=== PATIENT | female | born 1995 | race Caucasian/White ===

== ENCOUNTER 2022-05-02 07:45 | Emergency (ER) | payer OTHER, MEDICAID, SELFPAY ==
--- NOTE | ~2022-05-02 | XR_ITS ---
EXAMINATION: XR CHEST CLINICAL INFORMATION: Cough. Rule out pneumonia. COMPARISON: None TECHNIQUE: Frontal view of the chest was obtained. FINDINGS: The cardiac and mediastinal contours are normal. The lungs are clear. There is no pleural effusion or pneumothorax. There is slight curvature of the proximal lumbar spine to the left. Bony structures are otherwise unremarkable. XR/XR chest 1V IMPRESSION: No evidence of pneumonia.
[2022-05-02 07:53] VITALS: BP 117/74; PULSE 95; RESP 12; TEMP 36.7; O2SAT 100
[2022-05-02 07:54] LABS: Glucose, Whole Blood 86 mg/dL (60-115)
[2022-05-02 08:07] VITALS: BP 124/74; PULSE 80; RESP 18; TEMP 36.7; O2SAT 100; BMI 21.2
--- OUTSIDE RECORDS SUMMARY | 2022-05-02 08:11 | XMS_ITS ---
:1995 Author Care Team Providers Name Role Phone Italo Martinez Primary Care Provider Unavailable Allergies Code Code System Name Reaction Severity Status Onset NKDA ? Notes: none reported Medications Name Status Start Date Stop Date ? ? Advair Diskus 250 mcg-50 mcg/dose powder for inhalation Active ? Not available INHALE 1 PUFF INTO THE LUNGS TWICE A DAY FOR 30 DAYS Elizabeth Allergy 60 mg tablet Active ? Not available Take 1 tablet twice a day by oral route for 30 days. amoxicillin 875 mg-potassium clavulanate 125 mg tablet Completed ? 02/19/2022 TAKE 1 TABLET BY MOUTH TWICE A DAY FOR 10 DAYS azithromycin 250 mg tablet Active ? Not a vailable TAKE 2 TABLETS BY MOUTH TODAY, THEN TAKE 1 TABLET DAILY FOR 4 D AYS benzonatate 200 mg capsule Active ? Not a vailable TAKE 1 CAPSULE BY MOUTH THREE TIMES A DAY FOR 10 DAYS Corlanor 5 mg tablet Active ? Not availab le TAKE 1 TABLET BY MOUTH TWICE A DAY WITH MEALS fluticasone propionate 50 mcg/actuation nasal spray,suspension A ctive ? Not available [place] 2 sprays every day by intranasal route for 30 days. penicillin V potassium 500 mg tablet Completed ? 02/19/2022 TAKE 1 TABLET BY MOUTH TWICE A DAY FOR 10 DAYS prednisone 20 mg tablet Completed ? 02/20/20 22 TAKE 2 TABLETS BY MOUTH EVERY DAY FOR 5 DAYS Pristiq 50 mg tablet,extended release Active ? Not available TAKE 1 TABLET BY MOUTH EVERY DAY Notes: nothing new reported Problems Name Status Onset Date Source ? Anxiety Active 12/27/2021 ? Tachycardia Active 12/27/2021 ? Notes: same Procedures Date Name Performed by ? ? Extraction of [place] Tooth Information n ot available ? Procedure on Eye Information not avai lable ? Tonsillectomy Information not avai lable 02/19/2022 XR, Chest, 2 View Information not avai lable 02/19/2022 XR, Sinuses, Paranasal, 3 or More View I nformation not available Notes: reviewed hx with pt, same Results Lab Results Date Name Specimen Result Interpretation Description Value Range Status Address ? 12/27/2021 Culture, Throat ? Culture, see note ? [facility] [place] [facility]: [address] [address], [place] 12/27/2021 Rapid Flu ? Flu a Result NEGATIVE ? ? In-Office (A+B) Order: Internal U se Only DO No t Attach Compendium DO Not Attach Compendium , Do Not Delete/king ge ? ? ? Flu B Result NEGATIVE ? ? I n-Office Order: Internal U se Only DO No t Attach Compendium DO Not Attach Compendium , Do Not Delete/king ge 12/27/2021 Rapid SARS ? Rapid SARS negative ? ? In-Office CoV 2 Ag, QL CoV 2 Ag, QL Order: IA, IA, Internal U se Respiratory Respiratory Only DO Not Specimen Specimen Attach Compendium DO Not Attach Compendium , Do Not Delete/king ge 12/27/2021 Rapid Strep ? Strep negative ? ? In-Office Group a, Order: Throat Internal U se Only DO No t Attach Compendium DO Not Attach Compendium , Do Not Delete/king ge Past Encounters 02/19/2022 Chronic Cough; Seasonal Allergic Rhiniti s JANICE BakerC: [address] [place] [address], Ph. [phone] 12/27/2021 Sore Throat Symptom; Streptococcal Sore Throat Pat Norton, LAND MANAGEMENT SUPERVISOR: [address] [place] [address], Ph. [phone] Social History Tobacco Smoking Status Never Smoker Vaccine List Vaccine Type COVID-19, mRNA, LNP-S, PF, 30 mcg/0.3 mL dose ([employer]™) 11/14/2020 12/05/2020 influenza, injectable, quadrivalent 05/28/2019 influenza, injectable, quadrivalent, pre servative free 03/16/2021 influenza, intradermal, quadrivalent, pr eservative free 03/08/2020 Tdap 03/17/2020 Notes: pt UTD c19 vax x2, same Plan of Care Patient Instructions Cough: Care Instructions Your Care Instructions A cough is your body's response to somet enrique that bothers your throat or airways. Many things can cause a cough. You might cough because of a cold or the flu, bronchitis, or asthma. Smoking, postnasal d rip, allergies, and stomach acid that ba cks up into your throat also can cause coughs. A cough is a symptom, not a disease. Mos t coughs stop when the cause, such as a cold, goes away. You can take a few steps at home to cough less and feel better. Follow-up care is a padgett part of your [place] atment and safety. Be sure to make and go to all appointments, and call your doctor if you are having problems. It's also a good idea to know your test results and keep a list of the medicines you take. How can you care for yourself at home? Drink lots of water and other fluids. Th is helps thin the mucus and soothes a dry or sore throat. Honey or lemon juice in hot water or tea may ease a dry cough. Take cough medicine as directed by your doctor. Prop up your head on pillows to help you breathe and ease a dry cough. Try cough drops to soothe a dry or sore throat. Cough drops don't stop a cough. Medicine-flavored cough drops are no better than candy-flavored drops or hard candy. Do not smoke. Avoid secondhand smoke. If you need help quitting, talk to your doctor about stop-smoking programs and medicines. These can increase your chances of quitting for good. When should you call for help? Call anytime you think you may need [facility] care. For example, call if: You have severe trouble breathing. Call your doctor now or seek immediate m edical care if: You cough up blood. You have new or worse trouble breathing. You have a new or higher fever. You have a new rash. Watch closely for changes in your health , and be sure to contact your doctor if: You cough more deeply or more often, jun ecially if you notice more mucus or a change in the color of your mucus. You have new symptoms, such as a sore th roat, an earache, or sinus pain. You do not get better as expected. If you want additional relief from the pain of your sore throat, you can take pain medicine that you can get without a prescription such as Ibuprofen. Throat sprays are no better at soothing pain than sucking on cough drops or candy. Some pe ople feel relief if they gargle with salt water. Avoid spicy foods and be sure to get plenty of rest. Additionally, please follow the followin g guidelines: ? Avoid kissing and sharing utensils unt il infection is resolved. ? Practice meticulous hand washing to av oid spread of infection ? Avoid irritation from rough food, hard toothbrush, or any salty, spicy or acidic foods or beverages. ? Increase fluid intake to prevent dehyd ration; cool liquids or popsicles may reduce discomfort. ? Eat a soft diet until throat pain subs ides. ? Use a new toothbrush after 24 hours of antibiotic therapy. Return to urgent care or see your PCP if : ? You have a fever of at least 101?F or 38.4?C ? Your throat pain does not start to imp rove within 7 to 10 days Call for an ambulance or go to the emerg ency room if you: ? Have trouble breathing ? Are drooling because you cannot swallo w your saliva ? Have swelling of the neck or tongue ? Cannot move your neck or have trouble opening your mouth Reminders Provider Appointments None recorded. ? ? Lab None recorded. ? ? Referral None recorded. ? ? Procedures None recorded. ? ? Surgeries None recorded. ? ? Imaging None recorded. ? ? Vitals 02/19/2022 03:00PM Urgent Care Walk In Height Weight BMI Blood Pressure 4 ft 11 in 110 lbs 22.2 kg/m2 92/68 mm[Hg] 12/27/2021 07:50PM Urgent Care Walk In Height Weight BMI Blood Pressure 5 ft 110 lbs 21.5 kg/m2 116/64 mm[Hg]
--- OUTSIDE RECORDS SUMMARY | 2022-05-02 08:11 | XMS_ITS | Encounter Summary ---
:1995 Author Reason for Visit Cough; Existing Patient Assessment and Plan 1. Chronic cough ? benzonatate 200 mg capsule ? Advair Diskus 250 mcg-50 mcg/dose [place] for inhalation ? XR, chest, 2 view ? XR, sinuses, paranasal, 3 or more vie w ? fluticasone propionate 50 mcg/actuati on nasal spray,suspension ? 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 azithromycin 250 mg tablet 2. Seasonal allergic rhinitis ? Elizabeth Allergy 60 mg tablet Discussion Note: None recorded.Patient educational handouts: No information available. Plan of Care Patient Instructions Cough: Care [...] Call anytime you think you may need [facility] care. For example, call if: [...] You do not get better as expected. Reminders Provider Appointments None recorded. ? ? Lab None recorded. ? ? Referral Voice Instructor Referral 02/19/2022 ? Procedures None recorded. ? ? Surgeries None recorded. ? ? Imaging XR, Chest, 2 View 02/19/2022 ? ? XR, Sinuses, Paranasal, 3 or More View 022 ? Medications Name Start Date ? ? Advair Diskus 250 mcg-50 mcg/dose powder for inhalatio n ? INHALE 1 PUFF INTO THE LUNGS TWICE A DAY FOR 30 DAYS Elizabeth Allergy 60 mg tablet ? Take 1 tablet twice a day by oral route for 30 days. azithromycin 250 mg tablet ? TAKE 2 TABLETS BY MOUTH TODAY, THEN TAKE 1 TABLET DESIREE LY FOR 4 DAYS benzonatate 200 mg capsule ? TAKE 1 CAPSULE BY MOUTH THREE TIMES A DAY FOR 10 DAYS Corlanor 5 mg tablet ? TAKE 1 TABLET BY MOUTH TWICE A DAY WITH MEALS fluticasone propionate 50 mcg/actuation nasal spray,roberts spension ? [place] 2 sprays every day by intranasal route for 30 d ays. Pristiq 50 mg tablet,extended release ? TAKE 1 TABLET BY MOUTH EVERY DAY Notes: nothing new reported Medications Administered None recorded. Vitals Height Weight BMI Blood Pressure 4 ft 11 in 110 lbs 22.2 kg/m2 92/68 mm[Hg] Results Lab Results None recorded. Allergies Code Code System Name Reaction Severity Onset NKDA ? ? ? Notes: none reported Problems Name Status Onset Date Source ? Anxiety Active 12/27/2021 ? Tachycardia Active 12/27/2021 ? Notes: same Procedures Date Name Performed by ? ? Extraction of [place] Tooth Information n ot available ? Procedure on Eye Information not avai lable ? Tonsillectomy Information not avai lable 02/19/2022 XR, Chest, 2 View Information not avai lable 02/19/2022 XR, Sinuses, Paranasal, 3 or More View I nformation not available Notes: reviewed hx with pt, same Vaccine List Vaccine Type COVID-19, mRNA, LNP-S, PF, 30 mcg/0.3 mL dose ([employer]) 11/14/2020 12/05/2020 influenza, injectable, quadrivalent 05/28/2019 influenza, injectable, quadrivalent, pre servative free 03/16/2021 influenza, intradermal, quadrivalent, pr eservative free 03/08/2020 Tdap 03/17/2020 Notes: pt UTD c19 vax x2, same Social History Tobacco Smoking Status Never Smoker What is your level of alcohol consumption? None Do you have smoke and carbon monoxide detectors in your home ? Y Have you been to an area known to be high risk for COVID-19? N In the 14 days before symptom onset, have you had close cont act with N a person who is under investigation for COVID-19 while that person was ill? Do you use your seat belt or car seat routinely? Y What was the date of your most recent tobacco screening? Do you use sunscreen routinely? N Do you or have you ever used any other forms of tobacco or n icotine? N Have you recently traveled abroad? N Do you use any illicit or recreational drugs? N Are there any guns present in your home? N In the 14 days before symptom onset, have you had close cont act with N a laboratory-confirmed COVID-19 while that case was ill? Functional Status Unknown. Past Encounters 02/19/2022 Chronic Cough; Seasonal Allergic Rhiniti s Italo Martinez PA-C: [address] [place] [address], Ph. [phone] History of Present Illness ? Cough Reported By: Patient HPI: Quality: harsh. Severity: mi ld. Duration: constant. Timing: gradual. Context: non-smoker, history of asthma. Associated Symptoms: no fever, no chills Note: <div>pt reports she was covid pos over a month ago and she still has this lingering cough. ptstates most times the cough isn't productive it dry. pt states its more of a deep chest cough. pt also reports that her upper chest feels tight all the time. pt reports taking antibiotics, steroids, cough suppressants, menthol cough drops, humidifier and sleeping sitting up. pt does have mild asthma but is not on any prescriptions. pt would like a chest xray to make sure it not bronchitis or pneumonia. </div> Review of Systems ? Mookie.ROS Reported By: Patient Constitutional: Constitutional: no fever Eyes: Eyes: no vision changes ENMT: ENMT: no sore throat Cardiovascular: Cardiovascular: no chest carmen n Chest/Breasts: Breasts: no tenderness Respiratory: Respiratory: no pain with re spiration, cough, chest tightness Gastrointestinal: GI: no abdominal pain Genitourinary: : no pain with urination Musculoskeletal: Musculoskeletal: no joint pa in Skin: Skin: no rash Neurological symptoms: Neuro: no numbness Notes: <p>Do you have a fever?: NO
Do you have a normal appetite?: YES
Do you sanders ve eye irritation or eye pain?: NO
Do you have a sore throa t?: NO
Do you have ear pain?: NO
Do you have chest dis comfort?: YES
Do you have nausea?: NO
Do you have diarrhea?: NO
Do you have difficulty urinating?: NO <b r>Do you have increased frequency in urination?: NO
Do you have blood in your urine?: NO
Do you have muscle aches ?: NO
Do you have joint pain?: NO
Do you have rash or s kin problem?: NO
Do you have nasal congestion?: NO
Do you feel safe?: YES
</p> Physical Exam ? General Adult Exam (Female) Reported By: Patient Constitutional: General Appearance: healthy- appearing, well-nourished, well-developed. Level of Dis tress: NAD. Ambulation: ambulating normally Psychiatric: Mental Status: active and al ert. Orientation: to time, to place, to person Head: Head: normocephalic Eyes: Lids and Conjunctivae: non-i njected. EOM: EOMI. Sclerae: non-icteric ENMT: Ears: no lesions on external ear, EACs clear, TMs clear. Nose: no lesions on external nose, na res non-patent, post nasal drip. Lips, Teeth, and Gums: no mouth or lip ulcers. Oropharynx: moist mucous membranes, no erythema Neck: Neck: supple Lungs: Respiratory effort: no dyspn ea. Auscultation: breath sounds normal, good air movement, no wheezi ng, no rales/crackles, no rhonchi; + harsh cough Cardiovascular: Heart Auscultation: RRR, no murmurs, no rubs, no gallops. Vascular System no carotid bruits, pe jen pulses: normal, pulse amplitude: femoral, pulse amplitude: po pliteal, pulse amplitude: radial Abdomen: Bowel Sounds: normal. Inspec tion and Palpation: soft. Liver: non-tender. Spleen: non-tend er Musculoskeletal:: Joints, Bones, and Muscles: normal movement of all extremities Neurologic: Gait and Station: normal gai t. Cranial Nerves: grossly intact Skin: Inspection and palpation: no rash
--- NOTE | 2022-05-02 08:32 | ECG_ITS ---
Test Reason : CHEST TIGHTNESS Blood Pressure : / mmHG Vent. Rate : 074 BPM Atrial Rate : 074 BPM P-R Int : 102 ms QRS Dur : 076 ms QT Int : 414 ms P-R-T Axes : 075 -02 043 degrees QTc Int : 459 ms Sinus rhythm with short [place] Low voltage QRS RSR' or QR pattern in V1 suggests right ventricular conduction delay Left axis deviation Abnormal ECG No previous ECGs available Referred By: Jerel Call Electronically Signed By:SAMEERA BENSON MD
[2022-05-02 08:39] LABS: COVID-19 Test Negative (Negative); IDNOW Serial# 16C4AD1C
--- NOTE | 2022-05-02 08:50 | ED.GENADULT ---
HPI - General Adult General Chief complaint: General Medical Stated complaint: Numbness in Legs Dizzy Time Seen by Provider: 05/02/22 08:17 Source: patient Mode of arrival: ambulatory Limitations: no limitations History of Present Illness HPI narrative: 27-year-old female with history of chronic sinusitis and childhood asthma presents to the ED for lightheadedness and near-syncope. Patient states after getting out of her car she was walking to work and she felt lightheaded, her legs feel weak and she almost passed out. Patient states she sat on a chair and gather herself felt better. Patient denies fold and drown or loss of consciousness. Patient denies any facial droop, slurred speech, loss of vision, chest pain, shortness of breath, abdominal pain, or paralysis of extremities before lightheadedness or near syncopal episode. Patient admits to not sleeping much due to cough and sinusitis. Patient states feeling tired and exhausted. Patient presently feels better and asymptomatic. Patient states coughing phlegm is yellow and green as well as nasal drainage is yellow and green. Patient denies any recent long travel, recent surgery, leg swelling, calf pain, coughing up blood, or control use, history of blood clots, anyone in the family suddenly less than 50. Patient had breakfast this morning Related Data Allergies Allergy/AdvReac Type Severity Reaction Status Date / Time codeine Allergy Numbness Verified 05/02/22 08:11 Review of Systems Review of Systems: lightheadedness, coughing, sinusitis Yes all other systems are reviewed and are negative [facility] Social History Social History Patient Tobacco Use Status: Never used Tobacco Use of substances other than those prescribed or required for medical reasons: No Advance Directives: No Advance Directives Information Provided: No Patient : No Physical Exam ED Vital Signs: Vital Signs - 24 hr 05/02/22 07:53 05/02/22 08:07 05/02/22 10:04 Temperature 98.0 F 98.1 F Pulse Rate 95 80 68 Respiratory Rate 12 18 Blood Pressure 117/74 124/74 109/64 Pulse Oximetry 100 100 Oxygen Delivery Method Room Air Room Air 05/02/22 10:05 05/02/22 10:06 Temperature Pulse Rate 69 76 Respiratory Rate Blood Pressure 116/72 114/76 Pulse Oximetry Oxygen Delivery Method BMI result Body Mass Index 21.2 Const General: cooperative, healthy appearing, comfortable, no acute distress, well developed, alert, awake and Physically active Orientation/consciousness: patient oriented x3 [facility] Head: Yes normal to inspection, Yes No palpable skull fracture present, Yes normocephalic, Yes atraumatic and No abrasion Face and sinus: Yes normal facial exam and Yes sinus tenderness (maxillary and frontal) Eyes General: appearance normal, both eyes and all related structures Neck Neck: Yes normal visual inspection, Yes full ROM, Yes no lymphadenopathy, Yes no meningeal signs, Yes trachea midline, Yes supple, No anterior neck swelling and No tender Chest Chest palpation & inspection: normal inspection of the chest and normal palpation of entire chest wall Resp Effort & Inspection: normal respiratory effort and able to speak in complete sentences Auscultation: clear to auscultation bilaterally Cardio Jugular venous distension: no JVD Heart sounds: S1 normal heart sound present and S2 normal heart sound present GI Inspection: Yes normal to inspection and No abdominal wall ecchymosis Palpation (GI): Soft to palpation, not firm, nontender, no guarding and not rigid General: No CVA tenderness and Yes no CVA tenderness Back/Spine/Pelvis Back: no CVA tenderness, No CVA tenderness and No back tenderness Skin General skin exam: no rashes or lesions noted and elasticity normal Neuro Other: Alert oriented x3. Negative facial droop. Negative slurred speech. All extremities equal strength 5+. [id number] rapid head movement intact. Negative Romberg. Negative pronator drift. General: patient oriented x3, gait normal, tone normal, no meningeal signs and CN's II-XI intact bilaterally Cranial nerves: Yes CN's II-XII intact bilaterally Extrem Other: Lower extremities negative for swelling, pitting edema, calf tenderness General: Yes normal to inspection and Yes full ROM Psych Appearance: grossly normal, well kempt and not disheveled NIH Stroke Scale Internal: Initial- Upon Arrival Level of Consciousness: Alert Level of Consciousness Questions: Answers both questions correctly Level of Consciousness Commands: Performs both tasks correctly Best Gaze: Normal Visual: No visual loss Facial Palsy: Normal Motor Arm (Right): No drift Motor Arm (Left): No drift Motor Leg (Right): No drift Motor Leg (Left): No drift Limb Ataxia: Absent Sensory: Normal Best Language: No aphasia Dysarthia: Normal Extinction and Inattention: No abnormality Score: 0 Course Course Course Narrative: POC glucose and COVID swab was ordered in triage and were negative. Patient well-appearing. Negative for any neuro deficits. Will do EKG, labs, troponin, hCG. We will also do orthostatics. Also will do x-ray to rule out pneumonia Reevaluation(s) Reevaluation #1: EKG negative STEMI. Troponin negative. Heart score 0. Patient asymptomatic. Orthostatics negative. HCG negative. Not suspecting PE. No need for D-dimer. PERC Score 0. Negative for any neuro deficits. Orthostatics are negative. No indication for head CT scan. Orthostatics were negative. Electrolytes normal. Flonase and antibiotic were discussed for patient's chronic sinusitis but patient refuses states she will follow-up with her ENT specialist tomorrow Time: 10:51 Medical Decision Making [facility] Narrative Medical decision making narrative: Sinus rhythm with sharp MO. Ventricular rate 74. P are to 102. QRS 76. QTC 459. Negative STEMI Lab Data Result diagrams: 05/02/22 10:01 05/02/22 10:01 Labs: Lab Results 05/02/22 05/02/22 05/02/22 Range/Units 07:50 08:19 10:01 WBC 7.8 (4.8-10.8) X10*3/uL RBC 4.81 (4.20-5.50) X10*6/uL Hgb 14.1 (12.0-16.0) g/dl Hct 40.8 (37.0-47.0) % MCV 84.8 (80.0-98.0) fL MCH 29.3 (27.0-33.0) pg MCHC 34.6 (31.0-35.0) g/dl RDW 12.2 (11.0-16.0) % Plt Count 258 (160-400) X10*3/uL MPV 9.0 L (9.4-12.3) fL Immature Gran % (Auto) 0.3 (0.0-0.4) % Neut % (Auto) 75.8 H (45-73) % Lymph % (Auto) 17.9 L (20-40) % [place] % (Auto) 5.2 (2-11) % Eos % (Auto) 0.4 (0-4) % Baso % (Auto) 0.4 (0-2) % Lymph # (Auto) 1.4 (1.2-4.9) X10*3/uL [place] # (Auto) 0.4 (0.1-1.2) X10*3/uL Eos # (Auto) 0.0 (0.0-0.4) X10*3/uL Baso # (Auto) 0.0 (0.0-0.2) X10*3/uL Abs Immat Gran (auto) 0.02 (0.00-0.03) X10*3/uL Absolute Neuts (auto) 5.9 (2.0-8.3) x10*3/uL Absolute Nucleated RBC 0.000 (0.0-0.012) X10*3/uL Nucleated RBC % (auto) 0.0 (0.0-0.2) /100WBC PT (10.0-13.1) SEC INR (0.9-1.1) APTT (26.0-36.4) SEC Sodium (135-145) mmol/L Potassium (3.3-5.1) mmol/L Chloride (96-108) mmol/L Carbon Dioxide (22-29) mmol/L Anion Gap (12-20) BUN (9-16) mg/dL Creatinine (0.5-1.4) mg/dL Estim Creat Clear Calc Estimated GFR POC Glucose 86 (60-115) mg/dL Random Glucose (60-115) mg/dL Calcium (8.4-10.2) mg/dL Magnesium (1.6-2.6) mg/dL Total Bilirubin (0.0-1.0) mg/dL AST (5-31) U/L ALT (0-31) U/L Alkaline Phosphatase (39-117) U/L Troponin I High Sens (<3.5-17.0) ng/L Total Protein (6.5-8.0) g/dL Albumin (3.5-5.0) g/dL Beta HCG, Quant mIU/mL COVID-19 (GABRIEL) Negative (Negative) COVID-19 Clin Com See Note 05/02/22 05/02/22 05/02/22 Range/Units 10:01 10: 10:01 WBC (4.8-10.8) X10*3/uL RBC (4.20-5.50) X10*6/uL Hgb (12.0-16.0) g/dl Hct (37.0-47.0) % MCV (80.0-98.0) fL MCH (27.0-33.0) pg MCHC (31.0-35.0) g/dl RDW (11.0-16.0) % Plt Count (160-400) X10*3/uL MPV (9.4-12.3) fL Immature Gran % (Auto) (0.0-0.4) % Neut % (Auto) (45-73) % Lymph % (Auto) (20-40) % [place] % (Auto) (2-11) % Eos % (Auto) (0-4) % Baso % (Auto) (0-2) % Lymph # (Auto) (1.2-4.9) X10*3/uL [place] # (Auto) (0.1-1.2) X10*3/uL Eos # (Auto) (0.0-0.4) X10*3/uL Baso # (Auto) (0.0-0.2) X10*3/uL Abs Immat Gran (auto) (0.00-0.03) X10*3/uL Absolute Neuts (auto) (2.0-8.3) x10*3/uL Absolute Nucleated RBC (0.0-0.012) X10*3/uL Nucleated RBC % (auto) (0.0-0.2) /100WBC PT 11.3 (10.0-13.1) SEC INR 1.0 (0.9-1.1) APTT 31.2 (26.0-36.4) SEC Sodium 141 (135-145) mmol/L Potassium 3.9 (3.3-5.1) mmol/L Chloride 107 (96-108) mmol/L Carbon Dioxide 23 (22-29) mmol/L Anion Gap 15 (12-20) BUN 12 (9-16) mg/dL Creatinine 0.80 (0.5-1.4) mg/dL Estim Creat Clear Calc 70.7 Estimated GFR > 60 POC Glucose (60-115) mg/dL Random Glucose 94 (60-115) mg/dL Calcium 9.4 (8.4-10.2) mg/dL Magnesium 1.9 (1.6-2.6) mg/dL Total Bilirubin 0.5 (0.0-1.0) mg/dL AST 16 (5-31) U/L ALT 10 (0-31) U/L Alkaline Phosphatase 53 (39-117) U/L Troponin I High Sens < 3.5 (<3.5-17.0) ng/L Total Protein 7.4 (6.5-8.0) g/dL Albumin 4.6 (3.5-5.0) g/dL Beta HCG, Quant < 2 mIU/mL COVID-19 (GABRIEL) (Negative) COVID-19 Clin Com Discharge Plan Discharge Clinical Impression: Light-headedness, Chronic sinusitis Patient Disposition: Home, Self-Care Instructions: Sinusitis (ED), Lightheadedness (ED) Additional Instructions: Return to the ED immediately for any chest pain, shortness of breath, slurred speech, facial droop, paralysis of extremities, loss of vision, headache, nausea, vomiting, dizziness, chest pain inspiration, leg swelling, calf pain, coughing up blood, passing out, or any other concerning symptoms. Patient follow with primary care provider and keep the appointment with your ENT specialist. Stand Alone Forms: Work/School Release Interventions: ED Discharge Assessment Last Done: 05/02/22 11:15 Discharge Date/Time: 05/02/22 11:15 Print Language: Spanish
[2022-05-02 10:04] VITALS: BP 109/64; PULSE 68
[2022-05-02 10:05] VITALS: BP 116/72; PULSE 69
[2022-05-02 10:05] LABS: MANUAL DIFF FLAG NO
[2022-05-02 10:06] VITALS: BP 114/76; PULSE 76
[2022-05-02 10:07] LABS: Basophils Percent Auto 0.4 % (0-2); Eosinophils Percent Auto 0.4 % (0-4); Hematocrit 40.8 % (37.0-47.0); Hemoglobin 14.1 g/dl (12.0-16.0); Imm Gran Abs Auto 0.02 X10*3/uL (0.00-0.03); Imm Gran Pct Auto 0.3 % (0.0-0.4); Lymphocytes Absolute Auto 1.4 X10*3/uL (1.2-4.9); Lymphocytes Percent Auto 17.9 % (20-40); Mean Corpuscular HGB Conc 34.6 g/dl (31.0-35.0); Mean Corpuscular Hemoglobin 29.3 pg (27.0-33.0); Mean Corpuscular Volume 84.8 fL (80.0-98.0); Monocytes Absolute Auto 0.4 X10*3/uL (0.1-1.2); Monocytes Percent Auto 5.2 % (2-11); Neutrophils Absolute Auto 5.9 x10*3/uL (2.0-8.3); Neutrophils Percent Auto 75.8 % (45-73); Platelet Count 258 X10*3/uL (160-400); Red Blood Count 4.81 X10*6/uL (4.20-5.50); Red Cell Distribution Width 12.2 % (11.0-16.0); White Blood Count 7.8 X10*3/uL (4.8-10.8)
[2022-05-02 10:12] LABS: Prothrombin Time 11.3 SEC (10.0-13.1)
[2022-05-02 10:14] LABS: Partial Thromboplastin Time 31.2 SEC (26.0-36.4)
[2022-05-02 10:33] LABS: Alanine Aminotransferase 10 U/L (0-31); Albumin Level 4.6 g/dL (3.5-5.0); Alkaline Phosphatase 53 U/L (39-117); Anion Gap 15 (12-20); Aspartate Amino Transferase 16 U/L (5-31); Bilirubin Total 0.5 mg/dL (0.0-1.0); Blood Urea Nitrogen 12 mg/dL (9-16); Calcium 9.4 mg/dL (8.4-10.2); Carbon Dioxide 23 mmol/L (22-29); Chloride 107 mmol/L (96-108); Creatinine Clr Calc Pharmacy 70.7; Estimated Glomerular Filt Rate > 60; Glucose Random 94 mg/dL (60-115); Magnesium 1.9 mg/dL (1.6-2.6); Potassium 3.9 mmol/L (3.3-5.1); Sodium 141 mmol/L (135-145); Total Protein 7.4 g/dL (6.5-8.0)
[2022-05-02 10:34] LABS: Troponin-I High Sensitivity < 3.5 ng/L (<3.5-17.0)
[2022-05-02 10:39] LABS: HCG Quantitative < 2 mIU/mL
== END 2022-05-02 11:15 | disposition home or self-care (01) ==
PROVIDERS: Physician Assistant; Emergency Provider Student in an Organized Health Care Education/Training Program
DX: R42 Dizziness and giddiness (principal); J32.8 Other chronic sinusitis; Z20.822 Contact with and (suspected) exposure to COVID-19; R53.83 Other fatigue
CPT/HCPCS: 36415; 71045; 80053; 82947; 83735; 84484; 84702; 85025; 85610; 85730; 87635; 93005; 99283; 99284

== ENCOUNTER 2022-05-27 07:21 | Outpatient (REF) | payer OTHER, MEDICAID, SELFPAY ==
[2022-05-27 09:09] LABS: TSH reflex Free T4 1.12 uIU/mL (0.32-4.0)
[2022-05-27 14:41] LABS: Cortisol Random 9.6 ug/dL
== END 2022-05-27 07:22 | disposition home or self-care (01) ==
LOC: HO.LAB 07:21
PROVIDERS: PCP Internal Medicine; Visit Provider Internal Medicine
DX: R53.1 Weakness (principal)
CPT/HCPCS: 36415; 82533; 84443

== ENCOUNTER 2022-07-01 12:50 | Outpatient (REF) | payer OTHER, MEDICAID, SELFPAY ==
--- NOTE | ~2022-07-01 | CT_ITS ---
EXAMINATION: CT MAXILLOFACIAL WITHOUT CONTRAST CLINICAL INFORMATION: Acute recurrent sinusitis. COMPARISON: None. TECHNIQUE: Multidetector helical imaging was performed in the axial plane with generation of coronal and sagittal reformatted images. This CT examination was performed using dose optimization techniques as appropriate, variously including the following: *Automated exposure control *Adjustment of mA and/or kV according to patient size (this includes techniques or standardized protocols for targeted exams where dose is matched to indication/reason for exam; i.e. extremities or head) *Use of iterative reconstruction technique DLP: 86 mGy-cm. FINDINGS: There is mild mucosal thickening along the floors of the maxillary sinuses. Jfha-yy-[id number] mucosal thickening evident in the ethmoid air cells bilaterally, more so on the right side. There is mild mucosal thickening and a small dependent fluid level in the right sphenoid sinus cavity. The remaining paranasal sinuses are fairly well aerated. The frontal sinuses are incompletely developed. There is a moderate leftward deviation of the nasal septum with mild nasal septal spurring. The ostiomeatal complexes are clear. The lamina papyracea are intact. The ethmoid roofs are asymmetric. The carotid canals are normally covered by bone. There is a focal area of significant osseous thinning versus dehiscence along the roof of the right sphenoid sinus cavity, measuring 3 mm TV. No maxillary periapical disease is seen. The mastoid air cells and visualized middle ear cavities are well aerated. The orbits are normal. The TMJs are unremarkable. The imaged portions of the brain demonstrate no acute abnormality. CT/CT sinus wo IV con IMPRESSION: Scattered areas of mild mucosal thickening in the paranasal sinuses as described, more so affecting the ethmoid air cells, right greater than left side. Moderate leftward nasal septal deviation. Small dependent fluid level in the right sphenoid sinus cavity. Significant osseous thinning versus bony dehiscence along the roof of the right sphenoid sinus cavity. The possibility of an underlying CSF leak cannot be ruled out on the basis of imaging.
== END 2022-07-01 12:51 | disposition home or self-care (01) ==
LOC: HO.CT 12:50
PROVIDERS: PCP Internal Medicine; Visit Provider Student in an Organized Health Care Education/Training Program
DX: J01.91 Acute recurrent sinusitis, unspecified (principal)
CPT/HCPCS: 70486

== ENCOUNTER 2022-09-27 14:18 | Outpatient (REF) | payer OTHER, SELFPAY ==
--- NOTE | ~2022-09-27 | MR_ITS ---
EXAMINATION: MR BRAIN WITHOUT CONTRAST CLINICAL INFORMATION: Unsteady gait, paresthesias, speech problems COMPARISON: Sinus CT 07/01/2022. TECHNIQUE: MRI of the brain was obtained using routine sequences without contrast. FINDINGS: No acute infarct. No acute intracranial hemorrhage or extra-axial fluid collection. The ventricles and sulci are normal in size and configuration without significant volume loss or hydrocephalus. There are two T2 hyperintense foci within the right frontal opercular subcortical white matter and left centrum semiovale which are nonspecific. No mass lesion, mass effect, or herniation pattern. Normal intracranial arterial and dural venous sinus flow voids. Slightly low lying cerebellar tonsils terminating at the 2 mm below the foramen magnum. The orbits are grossly unremarkable. The paranasal sinuses and mastoids are well aerated. Normal marrow signal. MR/MR head/brain wo/w con IMPRESSION: No acute intracranial abnormality. Minimal nonspecific supratentorial white matter disease. Slightly low lying cerebellar tonsils terminating at 2 mm below the foramen magnum.
== END 2022-09-27 14:19 | disposition home or self-care (01) ==
LOC: HO.MRI 14:18
PROVIDERS: PCP Internal Medicine; Visit Provider Psychiatry & Neurology Neurology
DX: R26.81 Unsteadiness on feet (principal)
CPT/HCPCS: 70553; A9585

== ENCOUNTER 2023-04-04 07:35 | Outpatient (REF) | payer OTHER, SELFPAY ==
[2023-04-04 07:51] LABS: MANUAL DIFF FLAG NO
[2023-04-04 08:21] LABS: Basophils Absolute Auto 0.1 X10*3/uL (0.0-0.2); Basophils Percent Auto 0.6 % (0-2); Eosinophils Absolute Auto 0.1 X10*3/uL (0.0-0.4); Eosinophils Percent Auto 1.4 % (0-4); Hematocrit 40.5 % (37.0-47.0); Hemoglobin 14.2 g/dl (12.0-16.0); Imm Gran Abs Auto 0.03 X10*3/uL (0.00-0.03); Imm Gran Pct Auto 0.4 % (0.0-0.4); Lymphocytes Absolute Auto 2.1 X10*3/uL (1.2-4.9); Lymphocytes Percent Auto 26.1 % (20-40); Mean Corpuscular HGB Conc 35.1 g/dl (31.0-35.0); Mean Corpuscular Hemoglobin 30.2 pg (27.0-33.0); Mean Corpuscular Volume 86.2 fL (80.0-98.0); Mean Platelet Volume 9.4 fL (9.4-12.3); Monocytes Absolute Auto 0.5 X10*3/uL (0.1-1.2); Monocytes Percent Auto 6.7 % (2-11); Neutrophils Absolute Auto 5.2 x10*3/uL (2.0-8.3); Neutrophils Percent Auto 64.8 % (45-73); Platelet Count 258 X10*3/uL (160-400); Red Cell Distribution Width 11.9 % (11.0-16.0)
[2023-04-04 08:31] LABS: INTERNATIONAL NORM RATIO 0.9 (0.9-1.1); Prothrombin Time 11.5 SEC (11.1-13.3)
[2023-04-04 09:06] LABS: Alanine Aminotransferase 8 U/L (0-31); Albumin Level 4.4 g/dL (3.5-5.0); Alkaline Phosphatase 47 U/L (39-117); Anion Gap 11 (12-20); Aspartate Amino Transferase 15 U/L (5-31); Bilirubin Total 0.4 mg/dL (0.0-1.0); Blood Urea Nitrogen 11 mg/dL (9-16); Calcium 9.3 mg/dL (8.4-10.2); Carbon Dioxide 25 mmol/L (22-29); Chloride 108 mmol/L (96-108); Estimated Glomerular Filt Rate > 60; Glucose Random 94 mg/dL (60-115); Potassium 3.7 mmol/L (3.3-5.1); Sodium 140 mmol/L (135-145); Total Protein 7.4 g/dL (6.5-8.0)
[2023-04-04 09:26] LABS: Folate 12.5 ng/mL (> or = 4.0); Vitamin B12 479 pg/mL (200-900)
== END 2023-04-04 07:36 | disposition home or self-care (01) ==
LOC: HO.LAB 07:35
PROVIDERS: Visit Provider Internal Medicine
DX: J32.9 Chronic sinusitis, unspecified (principal); R53.1 Weakness; R25.9 Unspecified abnormal involuntary movements; T14.8XXA Other injury of unspecified body region, initial encounter
CPT/HCPCS: 36415; 80053; 82607; 82746; 85025; 85610

== ENCOUNTER 2023-04-06 14:58 | Outpatient (AMB) | payer OTHER, SELFPAY ==
--- NOTE | 2023-04-06 15:17 | A.OFFVIS_ITS ---
Intake Vital Signs 04/06/23 15:18 Height 4 ft 11 in Weight 110 lb 3.698 oz BMI 22.3 BP 110/70 Blood Pressure Location Lt brachial Position Sitting Pulse 76 Pulse Source Pulse Oximeter Pulse Oximetry (%) 99 Oxygen Delivery Method Room Air Intake Visit Reasons: [employer] Consultant Required: No Allergies codeine Allergy (Verified 04/06/23 15:20) Numbness HPI HPI Comments History of Present Illness Details The patient is here for a pulmonary evaluation. The patient is a 28 year woman with a known history of asthma in addition to chronic rhinitis and chronic sinusitis. The patient was initially diagnosed about 7 years ago when she started developing worsening shortness of breath and tachycardia. when she was diagnosed with the asthma the patient was placed on QVAR. She tolerated the QVAR well. At some point her symptoms worsened and she was switched over to Advair. Unfortunately it caused significant muscle cramping and she went back to the inhaled steroids. The patient does not have a rescue inhaler because of her significant tachycardia. In the meantime the patient started developing worsening sinus discomfort. She did undergo CT scan of the sinuses demonstrate thickening of the mucosa but no polyp was. The patient was referred to ENT. She did have allergy testing found to have allergies to multiple things including mold. The patient was recommended allergy shots but concerned with her ongoing coughing and asthma symptoms. Therefore the patient was referred to Pulmonary. Today she does have significant cough. She is status mainly because of sinusitis which she has a significant postnasal drip. She causally coughs. will go ahead and help her treat her sinusitis and also optimize her asthma therapy. She will require repeat pulmonary function studies in addition to blood work. [facility] Medical History (Updated 04/07/23 @ 00:06 by Balbir Franco MD) Eczema Chronic allergic rhinitis Sinusitis Asthma Social History Patient Tobacco Use Status: Never used Tobacco Review of Systems Const Denies fever(s) Eyes Reports no additional complaints ENT Reports nasal congestion, Reports nasal discharge, Reports nasal obstruction, Reports post nasal drip, Reports sinus pain and Reports sinus pressure Card Denies chest pain Resp Reports cough and Reports wheezing GI Reports no additional complaints Musc Reports no additional complaints and Reports muscle cramps Skin/Breast Reports rash Neuro Reports no additional complaints Tyosn/Lymph Denies lymphadenopathy Aller/Immun Reports wheezing Physical Exam Vital Signs: Last Vital Signs Pulse 76 04/06/23 15:18 BP 110/70 04/06/23 15:18 Pulse Ox 99 04/06/23 15:18 Oxygen Delivery Method Room Air 04/06/23 15:18 BMI result Body Mass Index 22.3 Const General: comfortable HEENT General nose exam: Abnormal mucous membranes and turbinates present erythematous Throat: Yes postnasal drainage and Yes cobblestoning Neck Neck: Yes supple Chest Chest palpation & inspection: normal inspection of the chest Resp Effort & Inspection: normal respiratory effort and prolonged expiratory phase Auscultation: no wheezes and diminished lung sounds Cardio Rate: regular rate Rhythm: regular rhythm Heart sounds: S1 normal heart sound present and S2 normal heart sound present GI Palpation (GI): Soft to palpation Skin General skin exam: no rashes or lesions noted Extrem General: Yes no clubbing, cyanosis or edema Assessment & Plan Assessment & Plan (1) Asthma: Code(s): J45.909 - Unspecified asthma, uncomplicated Qualifiers: Asthma severity: moderate Asthma persistence: persistent Asthma complication type: uncomplicated Qualified Code(s): J45.40 - Moderate persistent asthma, uncomplicated (2) Sinusitis: Code(s): J32.9 - Chronic sinusitis, unspecified Qualifiers: Sinusitis location: pansinusitis Chronicity: chronic Qualified Code(s): J32.4 - Chronic pansinusitis (3) Chronic allergic rhinitis: Code(s): J30.9 - Allergic rhinitis, unspecified (4) Eczema: Code(s): L30.9 - Dermatitis, unspecified Qualifiers: Eczema type: unspecified Qualified Code(s): L30.9 - Dermatitis, unspecified Plan start Advair HFA 1 puff daily and increase as tolerated, spacer'provided start BUdesode daily neti bottle daily start Doxycycline x 14 days Bloodwork PFTs F/U 6-8 weeks Orders: Orders Erythrocyte Sedimentation Rate Today J30.9 - Allergic rhinitis, unspecified, J32.9 - Chronic sinusitis, unspecified, J45.909 - Unspecified asthma, uncomplicated Complete Blood Count Auto Diff Today J30.9 - Allergic rhinitis, unspecified, J32.9 - Chronic sinusitis, unspecified, J45.909 - Unspecified asthma, unc omplicated Immunoglobulins,IgG IgA IgM Today J30.9 - Allergic rhinitis, unspecified, J32.9 - Chronic sinusitis, unspecified, J45.909 - Unspecified asthma, uncomplicated Immunoglobulin E Today J30.9 - Allergic rhinitis, unspecified, J32.9 - Chronic sinusitis, unspecified, J45.909 - Unspecified asthma, uncomplicated Hypersensitive Pneumonitis Prf Today J30.9 - Allergic rhinitis, unspecified, J32.9 - Chronic sinusitis, unspecified, J45.909 - Unspecified asthma, uncomplicated, R91.8 - Other nonspecific abnormal finding of lung field PFT pulmonary function test Today J30.9 - Allergic rhinitis, unspecified, J32.9 - Chronic sinusitis, unspecified, J45.909 - Unspecified asthma, uncomplicated Medications: New fluticasone propion-salmeterol 115-21 mcg/actuation (Advair HFA) 2 puffs inhalation Q12H 12 grams 11RF 30 days budesonide 0.5 mg (2 mL) inhalation DAILY 60 mL 11RF 30 days doxycycline monohydrate 100 mg PO BID 28 tabs 0RF 14 days Coding Level of Care Code New Pt Level 4 (65593) Diagnoses Moderate persistent asthma without complication J45.40 Asthma severity: moderate Asthma persistence: persistent Asthma complication type: uncomplicated Chronic pansinusitis J32.4 Sinusitis location: pansinusitis Chronicity: chronic Chronic allergic rhinitis J30.9 Eczema, unspecified type L30.9 Eczema type: unspecified Time Spent (min) 37
[2023-04-06 15:18] VITALS: BP 110/70; PULSE 76; O2SAT 99; BMI 22.3
== END 2023-04-06 15:55 | disposition home or self-care (01) ==
PROVIDERS: PCP Internal Medicine; Visit Provider Hospitalist
DX: J45.40 Moderate persistent asthma, uncomplicated (principal); J32.4 Chronic pansinusitis; J30.9 Allergic rhinitis, unspecified; L30.9 Dermatitis, unspecified
CPT/HCPCS: 99204

== ENCOUNTER → 2023-04-06 14:58 | Outpatient (BNVA) | payer OTHER, SELFPAY | PROVIDERS: PCP Internal Medicine; Visit Provider Hospitalist ==

== ENCOUNTER 2023-04-27 15:26 | Outpatient (REF) | payer OTHER, SELFPAY | END 2023-04-27 15:27 | disposition home or self-care (01) | LOC: HO.RESP 15:26 | PROVIDERS: PCP Internal Medicine; Visit Provider Hospitalist | DX: J45.909 Unspecified asthma, uncomplicated (principal); J32.9 Chronic sinusitis, unspecified | CPT/HCPCS: 94010; 94727; 94729 ==

== ENCOUNTER → 2023-04-27 16:08 | Outpatient (BNV) | payer OTHER, SELFPAY | PROVIDERS: PCP Internal Medicine; Visit Provider Hospitalist | DX: J45.909 Unspecified asthma, uncomplicated (principal) | CPT/HCPCS: 94060; 94727; 94729 ==

== ENCOUNTER 2023-05-16 08:29 | Outpatient (REF) | payer OTHER, SELFPAY ==
[2023-05-16 08:48] LABS: MANUAL DIFF FLAG NO
[2023-05-16 09:01] LABS: Basophils Absolute Auto 0.1 X10*3/uL (0.0-0.2); Basophils Percent Auto 0.7 % (0-2); Eosinophils Percent Auto 0.4 % (0-4); Hematocrit 41.3 % (37.0-47.0); Hemoglobin 14.3 g/dl (12.0-16.0); Imm Gran Abs Auto 0.02 X10*3/uL (0.00-0.03); Imm Gran Pct Auto 0.3 % (0.0-0.4); Lymphocytes Absolute Auto 1.9 X10*3/uL (1.2-4.9); Mean Corpuscular HGB Conc 34.6 g/dl (31.0-35.0); Mean Corpuscular Hemoglobin 30.2 pg (27.0-33.0); Mean Corpuscular Volume 87.3 fL (80.0-98.0); Mean Platelet Volume 9.1 fL (9.4-12.3); Monocytes Absolute Auto 0.5 X10*3/uL (0.1-1.2); Monocytes Percent Auto 6.3 % (2-11); Neutrophils Percent Auto 67.3 % (45-73); Platelet Count 271 X10*3/uL (160-400); Red Blood Count 4.73 X10*6/uL (4.20-5.50); Red Cell Distribution Width 11.9 % (11.0-16.0); White Blood Count 7.5 X10*3/uL (4.8-10.8)
[2023-05-16 09:41] LABS: Erythrocyte Sedimentation Rate 2 MM/HR (0-20)
[2023-05-18 06:44] LABS: Immunoglobulin E 16 kU/L (<OR=114)
[2023-05-18 16:34] LABS: IgA 138 mg/dL (47-310); IgG 1220 mg/dL (600-1640); IgM 125 mg/dL (50-300)
[2023-05-25 16:59] LABS: Asperg fumigatus Precip Abs NEGATIVE (NEGATIVE); Micropoly faeni Abs NEGATIVE (NEGATIVE); Pigeon serum Abs NEGATIVE (NEGATIVE); Saccharo pora viridis Abs NEGATIVE (NEGATIVE); Thermo candidus Abs NEGATIVE (NEGATIVE); Thermoa vulgaris #1 NEGATIVE (NEGATIVE)
== END 2023-05-16 08:30 | disposition home or self-care (01) ==
LOC: HO.LAB 08:29
PROVIDERS: Visit Provider Hospitalist
DX: J32.9 Chronic sinusitis, unspecified (principal); R91.8 Other nonspecific abnormal finding of lung field; J45.909 Unspecified asthma, uncomplicated
CPT/HCPCS: 36415; 82784; 82785; 85025; 85652; 86331; 86606; 86609

== ENCOUNTER 2023-05-23 15:28 | Outpatient (AMB) | payer OTHER, SELFPAY ==
[2023-05-23 15:34] VITALS: PULSE 92; O2SAT 99; BMI 22.2
--- NOTE | 2023-05-23 15:34 | MHC.OFFVIS ---
Intake Vital Signs 05/23/23 15:34 Height 4 ft 11 in Weight 110 lb BMI 22.2 Pulse 92 Pulse Source Pulse Oximeter Pulse Oximetry (%) 99 Oxygen Delivery Method Room Air Intake Visit Reasons: Asthma Svp Research And Strategic Analysis Required: No Allergies codeine Allergy (Verified 05/23/23 15:35) Numbness HPI HPI Comments History of Present Illness Details The patient is a 28 year woman with a known history of asthma in addition to chronic rhinitis and chronic sinusitis. The patient was initially diagnosed about 7 years ago when she started developing worsening shortness of breath and tachycardia. when she was diagnosed with the asthma the patient was placed on QVAR. She tolerated the QVAR well. At some point her symptoms worsened and she was switched over to Advair. Unfortunately it caused significant muscle cramping and she went back to the inhaled steroids. The patient does not have a rescue inhaler because of her significant tachycardia. In the meantime the patient started developing worsening sinus discomfort. She did undergo CT scan of the sinuses demonstrate thickening of the mucosa but no polyp was. The patient was referred to ENT. She did have allergy testing found to have allergies to multiple things including mold. The patient was recommended allergy shots but concerned with her ongoing coughing and asthma symptoms. Therefore the patient was referred to Pulmonary. Today she does have significant cough. She is status mainly because of sinusitis which she has a significant postnasal drip. She causally coughs. will go ahead and help her treat her sinusitis and also optimize her asthma therapy. She will require repeat pulmonary function studies in addition to blood work. 05/23/2023 the patient is here for a pulmonary follow-up visit. The patient is doing about the same. She started taking the Advair initially was helping but then she noticed that it was not as effective. She does not have a rescue inhaler. I will make sure she has 1 available. She can also get a nebulizer if she feels that she needs additional therapies. We did review her blood work her IgE levels actually normal and her eosinophils are as well. Therefore will hold off on biologic therapy right now. The patient does have allergies as she is been tested positive for allergens but at this point does not have to be a significant component of her symptomatology. The patient did try the Neti bottle but sometimes he did not drain well so therefore she stopped using it. She did try multiple times. The patient also has reflux disease. We did talk about potential triggers for asthma including her postnasal drip and also reflux disease. She is going to continue with the reflux diet and will continue to improve her medication regimen. The patient also had pulmonary function studies which were completely normal and reassuring. Therefore, if she needs to start allergy shots she is able to start them at this time. [facility] Medical History (Updated 04/07/23 @ 00:06 by Balbir Franco MD) Eczema Chronic allergic rhinitis Sinusitis Asthma Social History Patient Tobacco Use Status: Never used Tobacco Review of Systems Const Denies fever(s) Eyes Reports no additional complaints ENT Reports nasal congestion, Reports nasal discharge, Reports nasal obstruction, Reports post nasal drip, Reports sinus pain and Reports sinus pressure Card Denies chest pain Resp Reports cough and Reports wheezing GI Reports no additional complaints Musc Reports no additional complaints and Reports muscle cramps Skin/Breast Reports rash Neuro Reports no additional complaints Tyson/Lymph Denies lymphadenopathy Aller/Immun Reports wheezing Physical Exam Vital Signs: Last Vital Signs Pulse 92 05/23/23 15:34 Pulse Ox 99 05/23/23 15:34 Oxygen Delivery Method Room Air 05/23/23 15:34 BMI result Body Mass Index 22.2 Const General: comfortable HEENT General nose exam: Abnormal mucous membranes and turbinates present erythematous Throat: Yes postnasal drainage and Yes cobblestoning Neck Neck: Yes supple Chest Chest palpation & inspection: normal inspection of the chest Resp Effort & Inspection: normal respiratory effort and No prolonged expiratory phase Auscultation: no wheezes and diminished lung sounds Cardio Rate: regular rate Rhythm: regular rhythm Heart sounds: S1 normal heart sound present and S2 normal heart sound present GI Palpation (GI): Soft to palpation Skin General skin exam: no rashes or lesions noted Extrem General: Yes no clubbing, cyanosis or edema Assessment & Plan Assessment & Plan (1) Asthma: Code(s): J45.909 - Unspecified asthma, uncomplicated Qualifiers: Asthma complication type: uncomplicated Asthma persistence: persistent Asthma severity: moderate Qualified Code(s): J45.40 - Moderate persistent asthma, uncomplicated (2) Sinusitis: Code(s): J32.9 - Chronic sinusitis, unspecified Qualifiers: Chronicity: chronic Sinusitis location: pansinusitis Qualified Code(s): J32.4 - Chronic pansinusitis (3) Chronic allergic rhinitis: Code(s): J30.9 - Allergic rhinitis, unspecified (4) Eczema: Code(s): L30.9 - Dermatitis, unspecified Qualifiers: Eczema type: unspecified Qualified Code(s): L30.9 - Dermatitis, unspecified Plan continue Advair HFA 1 puff daily and increase as tolerated, spacer'provided ADAM as needed consider a nebulizer neti bottle start Dymista start psedophed reflux diet start pepcid F/U 4 months Medications: New pseudoephedrine HCl ER 120 mg PO Q12H 30 days 60 tabs 1RF famotidine (Pepcid) 40 mg PO BEDTIME 30 days 30 tabs 4RF azelastine-fluticasone 137-50 mcg/spray (Dymista) administer into each nostril 1 spray intranasal BID 30 days 23 grams 11RF levalbuterol tartrate 45 mcg/actuation (Xopenex HFA) 2 puffs inhalation Q6H 30 days PRN 15 grams 11RF shortness of breath or wheezing J45.909 - Unspecified asthma, uncomplicated Coding Level of Care Code Est Pt Level 4 (64503) Diagnoses Moderate persistent asthma without complication J45.40 Asthma complication type: uncomplicated Asthma persistence: persistent Asthma severity: moderate Chronic pansinusitis J32.4 Chronicity: chronic Sinusitis location: pansinusitis Chronic allergic rhinitis J30.9 Eczema, unspecified type L30.9 Eczema type: unspecified Time Spent (min) 17
== END 2023-05-23 16:12 | disposition home or self-care (01) ==
PROVIDERS: PCP Internal Medicine; Visit Provider Hospitalist
DX: J45.40 Moderate persistent asthma, uncomplicated (principal); J32.4 Chronic pansinusitis; J30.9 Allergic rhinitis, unspecified; L30.9 Dermatitis, unspecified
CPT/HCPCS: 99214

== ENCOUNTER → 2023-05-23 15:28 | Outpatient (BNVA) | payer OTHER, SELFPAY | PROVIDERS: PCP Internal Medicine; Visit Provider Hospitalist ==

== ENCOUNTER 2023-11-02 15:27 | Outpatient (REF) | payer OTHER, SELFPAY ==
[2023-11-04 13:43] LABS: H Pylori Breath Test Negative (Negative)
== END 2023-11-02 15:28 | disposition home or self-care (01) ==
LOC: HO.LNP 15:27
PROVIDERS: PCP Internal Medicine; Visit Provider Nurse Practitioner Family
DX: R10.13 Epigastric pain (principal); K21.9 Gastro-esophageal reflux disease without esophagitis
CPT/HCPCS: 83013

== ENCOUNTER 2023-11-02 15:27 | Outpatient (AMB) | payer OTHER, SELFPAY ==
--- NOTE | 2023-11-02 15:29 | A.OFFVIS_ITS ---
Vital Signs 11/02/23 15:30 Height 4 ft 11 in Weight 118 lb 2.684 oz BMI 23.9 BP 122/75 Blood Pressure Location Lt brachial Position Sitting Pulse 98 Intake Visit Reasons: Acid Reflux Intake Note: Marleni in office today as a new patient for acid reflux. CC: Patient c/o acid reflux for 7 years. She was taking Tagamet but she had to d/c d/t interaction wiht another medications she is taking. She also c/o chest pain and epigastric pain. Steam Hand Required: No Accompanied by: Self / Same As Patient Allergies famotidine Allergy (Severe, Verified 11/02/23 15:33) Anaphylaxis codeine Allergy (Verified 11/02/23 15:30) Numbness HPI HPI Acid Reflux: Details: 28-year-old female with past medical history of asthma, chronic allergic rhinitis, sinusitis is here today for initial consultation. Patient reports that she has been having symptoms of epigastric discomfort and acid reflux postprandially. Patient reports that sometimes she has the pain in upper chest. Patient has asthma and has been followed by pulmonology. Patient is taking corticosteroid inhalers on a daily basis. Patient reports occasional dyspepsia without dysphagia or odynophagia. Currently patient is really not taking anything except occasionally [id number] something to help her with acid reflux. She used to take Tagamet, however had to be disease due to interactions with her other medications. Patient unable to take Pepcid as she has allergy to it. Patient has seen school psychology specialist in the past. Patient is taking Elizabeth daily to prevent her symptoms to flare up. Patient denies dysphagia or odynophagia. Denies melena, hematochezia, unintentional weight loss or ribbon like stools. [facility] Medical History Eczema Chronic allergic rhinitis Sinusitis Asthma Surgical History History of tonsillectomy History of esophagogastroduodenoscopy (EGD) Family History Maternal Grandmother Lung cancer Social History Alcohol intake: never Patient Tobacco Use Status: Never used Tobacco Review of Systems Const Denies weight gain and Denies weight loss ENT Reports no additional complaints, Denies dysphagia and Denies odynophagia Card Reports no additional complaints Resp Reports no additional complaints GI Denies abdominal pain, Denies belching, Denies melena, Denies bloating, Denies change in bowel habits, Denies dysphagia, Denies excessive flatus, Denies dyspepsia, Reports heartburn, Denies diarrhea, Denies loose stools, Denies nausea, Denies odynophagia and Denies vomiting Musc Reports no additional complaints Neuro Reports no additional complaints Psych Reports no additional complaints Endo Reports no additional complaints Physical Exam Vital Signs: Last Vital Signs Pulse 98 11/02/23 15:30 BP 122/75 11/02/23 15:30 BMI result Body Mass Index 23.9 Const General: healthy appearing, no acute distress and well developed Nutritional Appearance: well nourished Orientation/consciousness: patient oriented x3 Resp Effort & Inspection: normal respiratory effort, able to speak in complete sentences, no tracheal deviation and symmetric chest movement Auscultation: clear to auscultation bilaterally Cardio Rate: regular rate GI Inspection: Yes normal to inspection and No distended Palpation (GI): Soft to palpation, not firm, nontender and No hepatosplenomegaly present Auscultation: normal bowel sounds General: Yes no CVA tenderness Back/Spine/Pelvis Back: no CVA tenderness Skin General skin exam: elasticity normal, turgor normal and dry skin Neuro General: patient oriented x3 Psych Appearance: grossly normal Mental Status: mental status grossly normal Assessment & Plan Assessment & Plan (1) Postprandial epigastric pain: Code(s): R10.13 - Epigastric pain (2) GERD (gastroesophageal reflux disease): Code(s): K21.9 - Gastro-esophageal reflux disease without esophagitis Qualifiers: Esophagitis presence: esophagitis presence not specified Qualified Code(s): K21.9 - Gastro-esophageal reflux disease without esophagitis (3) Dyspepsia: Code(s): R10.13 - Epigastric pain Plan Patient will try to avoid dietary triggers and late night snacking. Staying upright for minimal 3 hours after meals discussed with patient. I will start her on Nexium daily. We will do H pylori test and treat empirically if positive. Will check for celiac and will do RAST allergen testing. Patient does have a chronic rhinitis. Patient will return in the office in 3 months. If she continues to have symptoms we will refer her for endoscopy. Patient is agreeable to this plan and verbalizes understanding of instructions. She was given the opportunity to ask questions and all questions answered. Thank you for allowing me to participate in her care Orders: Orders H Pylori Breath Test 11/03/23 K21.9 - Gastro-esophageal reflux disease without esophagitis Transglutaminase IgA 11/07/23 R10.9 - Unspecified abdominal pain Rast Allergen 11/07/23 K21.9 - Gastro-esophageal reflux disease without esophagitis Transglutaminase Ab IgG 11/07/23 R10.9 - Unspecified abdominal pain Medications: New esomeprazole magnesium (Nexium 24HR) 20 mg PO DAILY 30 tabs 2RF Coding Level of Care Code New Pt Level 4 (38528) Diagnoses Postprandial epigastric pain R10.13 Gastroesophageal reflux disease, unspecified whether esophagitis present K21.9 Esophagitis presence: esophagitis presence not specified Dyspepsia R10.13 Time Spent (min) 45 Comment 30 minutes spent with patient and additional 15 minutes spent reviewing her records
[2023-11-02 15:30] VITALS: BP 122/75; PULSE 98; BMI 23.9
== END 2023-11-02 16:27 | disposition home or self-care (01) ==
PROVIDERS: PCP Internal Medicine; Visit Provider Nurse Practitioner Family
DX: R10.13 Epigastric pain (principal); K21.9 Gastro-esophageal reflux disease without esophagitis
CPT/HCPCS: 99204

== ENCOUNTER 2023-11-07 07:42 | Outpatient (REF) | payer OTHER, SELFPAY ==
[2023-11-09 21:08] LABS: Transglutaminase Ab IgG <1.0 U/mL; Transglutaminase IgA <1.0 U/mL
== END 2023-11-07 07:43 | disposition home or self-care (01) ==
LOC: HO.LAB 07:42
PROVIDERS: PCP Internal Medicine; Visit Provider Nurse Practitioner Family
DX: R10.9 Unspecified abdominal pain (principal); K21.9 Gastro-esophageal reflux disease without esophagitis; Z91.09 Other allergy status, other than to drugs and biological substances
CPT/HCPCS: 36415; 86003; 86364

== ENCOUNTER → 2024-01-31 15:45 | Outpatient (BNVA) | payer OTHER, SELFPAY | PROVIDERS: PCP Internal Medicine; Visit Provider Nurse Practitioner Family ==

== ENCOUNTER 2024-02-06 15:38 | Outpatient (AMB) | payer OTHER, SELFPAY ==
[2024-02-06 15:42] VITALS: BP 102/60; PULSE 79; O2SAT 99; BMI 23.4
--- NOTE | 2024-02-06 15:42 | MHC.OFFVIS ---
Vital Signs 02/06/24 15:42 Height 4 ft 11 in Weight 115 lb 11.883 oz BMI 23.4 BP 102/60 Blood Pressure Location Rt brachial Position Sitting Pulse 79 Pulse Source Doppler Pulse Oximetry (%) 99 Oxygen Delivery Method Room Air Intake Visit Reasons: asthma Allergies famotidine Allergy (Severe, Verified 01/31/24 15:53) Anaphylaxis codeine Allergy (Verified 01/31/24 15:53) Numbness HPI Comments Details: The patient is a 28 year woman with a known history of asthma in addition to chronic rhinitis and chronic sinusitis. The patient was initially diagnosed about 7 years ago when she started developing worsening shortness of breath and tachycardia. when she was diagnosed with the asthma the patient was placed on QVAR. She tolerated the QVAR well. At some point her symptoms worsened and she was switched over to Advair. Unfortunately it caused significant muscle cramping and she went back to the inhaled steroids. The patient does not have a rescue inhaler because of her significant tachycardia. In the meantime the patient started developing worsening sinus discomfort. She did undergo CT scan of the sinuses demonstrate thickening of the mucosa but no polyp was. The patient was referred to ENT. She did have allergy testing found to have allergies to multiple things including mold. The patient was recommended allergy shots but concerned with her ongoing coughing and asthma symptoms. Therefore the patient was referred to Pulmonary. Today she does have significant cough. She is status mainly because of sinusitis which she has a significant postnasal drip. She causally coughs. will go ahead and help her treat her sinusitis and also optimize her asthma therapy. She will require repeat pulmonary function studies in addition to blood work. 05/23/2023 the patient is here for a pulmonary follow-up visit. The patient is doing about the same. She started taking the Advair initially was helping but then she noticed that it was not as effective. She does not have a rescue inhaler. I will make sure she has 1 available. She can also get a nebulizer if she feels that she needs additional therapies. We did review her blood work her IgE levels actually normal and her eosinophils are as well. Therefore will hold off on biologic therapy right now. The patient does have allergies as she is been tested positive for allergens but at this point does not have to be a significant component of her symptomatology. The patient did try the Neti bottle but sometimes he did not drain well so therefore she stopped using it. She did try multiple times. The patient also has reflux disease. We did talk about potential triggers for asthma including her postnasal drip and also reflux disease. She is going to continue with the reflux diet and will continue to improve her medication regimen. The patient also had pulmonary function studies which were completely normal and reassuring. Therefore, if she needs to start allergy shots she is able to start them at this time. 02/06/2024 the patient is here for a pulmonary follow-up visit. Overall the patient is doing a lot better. She is getting allergy shots now. In addition to that she is monitoring closely her reflux disease. While controlling her triggers her respiratory symptoms happened bed in better. She has not had to use the Advair. She does have a rescue inhaler that she uses as needed. But typically does not 2 times a week. She is raising her sinuses with the Navage. She finds this more effective than the Neti bottle. No recent imaging studies to review this time. The patient is doing well. Continue with the current respiratory therapy will follow-up in a year's time. If the patient develops any worsening symptoms prior to that she will call for an earlier assessment. [facility] Medical History Eczema Chronic allergic rhinitis Sinusitis Asthma Surgical History History of tonsillectomy History of esophagogastroduodenoscopy (EGD) Family History Maternal Grandmother Lung cancer Social History Alcohol intake: never Patient Tobacco Use Status: Never used Tobacco Review of Systems Const Denies fever(s) Eyes Reports no additional complaints ENT Reports nasal congestion, Reports nasal discharge, Denies nasal obstruction, Denies post nasal drip, Denies sinus pain and Denies sinus pressure Card Denies chest pain Resp Reports cough and Denies wheezing GI Reports no additional complaints Musc Reports no additional complaints and Reports muscle cramps Skin/Breast Reports rash Neuro Reports no additional complaints Tyson/Lymph Denies lymphadenopathy Aller/Immun Denies wheezing Physical Exam Vital Signs: Last Vital Signs Pulse 79 07/16/24 15:42 BP 102/60 02/06/24 15:42 Pulse Ox 99 02/06/24 15:42 Oxygen Delivery Method Room Air 02/06/24 15:42 BMI result Body Mass Index 23.4 Const General: comfortable HEENT General nose exam: Abnormal mucous membranes and turbinates present erythematous Throat: Yes postnasal drainage and Yes cobblestoning Neck Neck: Yes supple Chest Chest palpation & inspection: normal inspection of the chest Resp Effort & Inspection: normal respiratory effort and No prolonged expiratory phase Auscultation: clear to auscultation bilaterally and no wheezes Cardio Rate: regular rate Rhythm: regular rhythm Heart sounds: S1 normal heart sound present and S2 normal heart sound present GI Palpation (GI): Soft to palpation Skin General skin exam: no rashes or lesions noted Extrem General: Yes no clubbing, cyanosis or edema Assessment & Plan Assessment & Plan (1) Asthma: Code(s): J45.909 - Unspecified asthma, uncomplicated Category: Medical Qualifiers: Asthma complication type: uncomplicated Asthma persistence: persistent Asthma severity: moderate Qualified Code(s): J45.40 - Moderate persistent asthma, uncomplicated (2) Chronic allergic rhinitis: Code(s): J30.9 - Allergic rhinitis, unspecified Category: Medical (3) Eczema: Code(s): L30.9 - Dermatitis, unspecified Category: Medical Qualifiers: Eczema type: unspecified Qualified Code(s): L30.9 - Dermatitis, unspecified Plan continue Advair HFA if symptoms worsen ADAM as needed sinus rinsing with distilled water reflux diet continue allergy shots F/U 10-12 months Coding Level of Care Code Est Pt Level 4 (79978) Diagnoses Moderate persistent asthma without complication J45.40 Asthma complication type: uncomplicated Asthma persistence: persistent Asthma severity: moderate Chronic allergic rhinitis J30.9 Eczema, unspecified type L30.9 Eczema type: unspecified Time Spent (min) 16
== END 2024-02-07 09:20 | disposition home or self-care (01) ==
PROVIDERS: PCP Internal Medicine; Visit Provider Hospitalist
DX: J45.40 Moderate persistent asthma, uncomplicated (principal); J30.9 Allergic rhinitis, unspecified; L30.9 Dermatitis, unspecified
CPT/HCPCS: 99214

== ENCOUNTER → 2024-02-06 15:38 | Outpatient (BNVA) | payer OTHER, SELFPAY | PROVIDERS: PCP Internal Medicine; Visit Provider Hospitalist ==

== ENCOUNTER 2024-05-16 07:03 | Day surgery (SDC) | payer OTHER, SELFPAY ==
--- NOTE | 2024-05-15 11:05 | HO.ANESPROP2 ---
HPI - Anesthesia Eval Consult details Narrative: 29yo F for Upper Endoscopy PMFSH Active Problems Active Problems: All Active Problems Eczema (Acute) Chronic allergic rhinitis (Acute) Sinusitis (Acute) Asthma (Acute) Past Medical History Medical History Eczema Chronic allergic rhinitis Sinusitis Asthma Family History Family History Maternal Grandmother Lung cancer Surgical History Surgical History History of tonsillectomy History of esophagogastroduodenoscopy (EGD) Social History Social History Alcohol intake: never Patient Tobacco Use Status: Never used Tobacco Meds Allergies Allergy/AdvReac Type Severity Reaction Status Date / Time famotidine Allergy Severe Anaphylaxis Verified 05/16/24 08:00 codeine Allergy Numbness Verified 05/16/24 08:00 Home Medications ?Medication ?Instructions ?Recorded ?Confirmed ?Last Taken ?Type desvenlafaxine 50 mg 50 mg PO DAILY 04/06/23 05/16/24 05/16/24 History tablet,extended release 24 hr ivabradine 5 mg tablet 5 mg PO BID 04/06/23 05/16/24 Unknown History fexofenadine 180 mg tablet 180 mg PO DAILY 05/23/23 05/16/24 Unknown History cholecalciferol (vitamin D3) 125 125 mcg PO DAILY 11/02/23 Unknown History mcg (5,000 unit) capsule magnesium PO DAILY 11/02/23 Unknown History Assessment and Plan Assessment Anesthesia Assessment: Chart Reviewed
--- NOTE | 2024-05-15 17:01 | MHC.SHP ---
Pre-Procedural Eval Section A - 24 Hr Update-Section A only Date of Service: 05/16/24 Section B - Complete if H&P > 30 days Chief Complaint: Gastro-esophageal reflux disease without esophagit Details of Present Illness: Eczema Chronic allergic rhinitis Sinusitis Asthma Surgical History History of tonsillectomy History of esophagogastroduodenoscopy (EGD) Present Medications: see Short Stay Collaborative assessment Allergies: Allergies Allergy/AdvReac Type Severity Reaction Status Date / Time famotidine Allergy Severe Anaphylaxis Verified 01/31/24 15:53 codeine Allergy Numbness Verified 01/31/24 15:53 Review of Systems Review of Systems Comment: Ten point ROS negative Exam Exam Comment: Gen appear: No acute distress HEENT: no icterus Chest: No overt resp distress Abd: soft, nontender, nondistended Psych: Stable affect, answering questions appropriately Neuro: A/Ox3 noted to move all extremities spontaneously Ext: no peripheral edema Plan Diagnosis/Plan: Unchanged I have reviewed the history and physical and performed a pertinent physical examination on my patient. No changes have occurred unless specified. Time Spent With Patient Time: Total time managing care of this patient today ____ minutes.
[2024-05-16 08:16] VITALS: BP 118/73; PULSE 83; RESP 16; TEMP 37.3; O2SAT 100
[2024-05-16 08:20] LABS: UPreg QC Valid YES; Urine Pregnancy NEGATIVE (NEGATIVE)
--- NOTE | 2024-05-16 08:40 | HO.ANESPROP2 ---
[facility] Active Problems Active Problems: All Active Problems Eczema (Acute) Chronic allergic rhinitis (Acute) Sinusitis (Acute) Asthma (Acute) anxiety Past Medical History Medical History Eczema Chronic allergic rhinitis Sinusitis Asthma Functional capacity: independent ambulation Patient : No Family History Family History Maternal Grandmother Lung cancer Family history of problems with anesthesia: No Surgical History Surgical History History of tonsillectomy History of esophagogastroduodenoscopy (EGD) History of Problems with Anesthesia: No Social History Social History Alcohol intake: never Patient Tobacco Use Status: Never used Tobacco Use of substances other than those prescribed or required for medical reasons: No Are you DNR?: No Advance Directives: No Advance Directives Information Provided: Yes Meds Allergies Allergy/AdvReac Type Severity Reaction Status Date / Time famotidine Allergy Severe Anaphylaxis Verified 05/16/24 08:00 codeine Allergy Numbness Verified 05/16/24 08:00 Active Medications: Current Medications Albuterol Sulfate (Albuterol Sulfate (0.083%) 2.5 Mg/3 Ml Vial.Neb) 2.5 mg INHALE ONCE PRN PRN Reason: Shortness of Breath/Wheezing Lactated Ringer's (Lr) 1,000 mls @ 100 mls/hr IVCONT .Q10H MAYNOR Home Medications ?Medication ?Instructions ?Recorded ?Confirmed ?Last Taken ?Type desvenlafaxine 50 mg 50 mg PO DAILY 04/06/23 05/16/24 05/16/24 History tablet,extended release 24 hr ivabradine 5 mg tablet 5 mg PO BID 04/06/23 05/16/24 Unknown History fexofenadine 180 mg tablet 180 mg PO DAILY 05/23/23 05/16/24 Unknown History cholecalciferol (vitamin D3) 125 125 mcg PO DAILY 11/02/23 Unknown History mcg (5,000 unit) capsule magnesium PO DAILY 11/02/23 Unknown History Exam Height,Weight and Vital Signs: Last Vital Signs Temp 99.1 F 05/16/24 08:16 Pulse 83 05/16/24 08:16 Resp 16 05/16/24 08:16 BP 118/73 05/16/24 08:16 Pulse Ox 100 05/16/24 08:16 O2 Del Method Room Air 05/16/24 08:16 Pertinent Lab Results Pertinent Lab Results: Laboratory Tests 05/16/24 08:00 Urine Test NEGATIVE Airway Mallampati Class: II TM Dist: >3cm Neck ROM: Full Heart: RRR Lungs: CTA Assessment and Plan Assessment Anesthesia Assessment: Anesthesia Plan Discussed and Chart Reviewed Final Anesthetic Review Family History of Problems with Anesthesia: No History of Problems with Anesthesia: No NPO: Yes ASA Class: II Final Preanesthetic Review: Meds/Allgs Chart Reviewed, Consent Obtained/Reviewed and Anes Risks/Benef Reviewed Patient Risk: Low Procedure Risk: Low Anesthetic Plan Anesthetic Plan: MAC: Disposition: Standard PACU
[2024-05-16 08:54] VITALS: BP 96/54; PULSE 81; RESP 16; TEMP 36.5; O2SAT 99
--- NOTE | 2024-05-16 09:04 | P.OP_ITS ---
Operative Note Operative Note Date of Service: 05/16/24 Narrative: Procedure: Esophagogastroduodenoscopy Endoscopist: Yessy Soriano MD Indication: Dyspepsia Anesthesia Provider: Dr Bel Murphy Anesthesia Type: MAC ?? EGD Procedure:?? The procedure, indications, preparation and potential complications were reviewed with the patient, who indicated understanding and gave written informed consent to proceed. A physical exam was performed. The endoscope was introduced through the mouth, and advanced to the second part of duodenum. The mucosa was carefully examined on slow withdrawal of the endoscope. The patient tolerated the procedure well. There were no immediate complications.? ? EGD Findings:? * Esophagus:? Normal mucosa noted in the entire esophagus. The Z line was at 35. Middle and lower esophagus forceps biopsies were obtained to rule out eosinophilic esophagitis. * Stomach:? Normal mucosa was noted in the stomach. Retroflexion was performed in the cardia. Random gastric biopsies were taken to rule out H Pylori infection. * Duodenum:? Normal mucosa was noted in the whole of the examined duodenum. Cold forceps biopsies were taken from duodenal bulb and second portion of the duodenum to rule out celiac sprue. Additional intervention: A soft tip Savary wire was inserted through the biopsy channel and advanced to the antrum. The gastroscope was then backed out. An 18 mm Savary Piedad bougie was advanced over the guidewire. Mild resistance was felt. On relook, there was a small tear with scant heme at the level of cricopharyngeus confirming successful dilation. ? EGD Impressions:? * UES stenosis (dilation) * Normal esophagus mucosa (biopsy) * Normal stomach (biopsy) * Normal duodenum (biopsy) ?? Recommendations:?? * Follow biopsy results. Our office will call or send a letter with results wi thin 1-2 weeks * If H pylori +, patient will be prescribed eradication therapy followed by test of cure. * Avoid NSAIDs. * If the dilation today improves pill dysphagia, this can be repeated as needed for recurrence of symptoms. Above has been reviewed with the patient.
[2024-05-16 09:09] VITALS: BP 107/74; PULSE 69; RESP 16; TEMP 37.1; O2SAT 100
--- NOTE | 2024-05-16 11:19 | HO.POSTANES ---
Post Anesthesia Evaluation Post Anesthesia Evaluation Date of Service: 05/16/24 Vital Signs: Vital Signs Temp Pulse Resp BP Pulse Ox O2 Del Method 05/16/24 09:09 98.8 F 69 16 107/74 100 Room Air 05/16/24 08:54 97.7 F 81 16 96/54 L 99 Room Air 05/16/24 08:16 99.1 F 83 16 118/73 100 Room Air Anesthesia: Monitored Mental Status: Awake Pain Control: Satisfactory Nausea/Vomiting: None Hydration: Adequate Anesthesia-Related Issues: No Anes. Related Issues
== END 2024-05-16 09:37 | disposition home or self-care (01) ==
PROVIDERS: Nurse Practitioner; PCP Internal Medicine; Visit Provider Internal Medicine
PROC: 0DJ08ZZ Inspection of Upper Intestinal Tract, Via Natural or Artificial Opening Endoscopic (ICD-10-PCS; CPT 43235; principal; 2024-05-16 09:20)
DX: K22.2 Esophageal obstruction (principal); K21.9 Gastro-esophageal reflux disease without esophagitis; R10.13 Epigastric pain; Z83.79 Family history of other diseases of the digestive system; J45.909 Unspecified asthma, uncomplicated; Z88.5 Allergy status to narcotic agent; Z88.8 Allergy status to other drugs, medicaments and biological substances
CPT/HCPCS: 43248; 43239; 81025; 88305; 88313; 88342; J2003; J2704

== ENCOUNTER → 2024-05-16 07:03 | Outpatient (BNV) | payer OTHER, SELFPAY | PROVIDERS: PCP Internal Medicine; Visit Provider Internal Medicine | DX: K30 Functional dyspepsia (principal); K22.2 Esophageal obstruction; K21.9 Gastro-esophageal reflux disease without esophagitis | CPT/HCPCS: 43239; 43248 ==

== ENCOUNTER 2024-05-20 14:08 | Outpatient (REF) | payer OTHER, SELFPAY ==
[2024-05-20 15:20] LABS: TSH reflex Free T4 1.02 uIU/mL (0.32-4.0)
== END 2024-05-20 14:09 | disposition home or self-care (01) ==
LOC: HO.LAB 14:08
PROVIDERS: PCP Internal Medicine; Visit Provider Internal Medicine
DX: I47.11 Inappropriate sinus tachycardia, so stated (principal); F41.1 Generalized anxiety disorder
CPT/HCPCS: 36415; 84443

== ENCOUNTER 2024-07-23 15:22 | Outpatient (REF) | payer OTHER, SELFPAY ==
--- NOTE | ~2024-07-23 | US_ITS ---
CLINICAL HISTORY: RIGHT renal cyst US retroperitoneum with color Doppler Comparison: None Findings: Right kidney normal size and echotexture, 9.9 cm length. No hydronephrosis. Normal color flow. Incidental parapelvic cyst midpole measuring 10 x 9 x 10 mm. No nephrolithiasis. Left kidney normal size and echotexture, 9.5 cm in length. No hydronephrosis. Normal color flow. No nephrolithiasis or renal masses. Urinary bladder is unremarkable. Prevoid volume three hundred eighty-two mL. Postvoid volume 14 mL. Ureteral jets are visualized bilaterally Impression: 1. Incidental parapelvic cyst right kidney. Otherwise, essentially normal exam. No significant postvoid residual. This document has been electronically signed by: Vipin Wan MD on 07/24/2024 10:23:52
--- OUTSIDE RECORDS SUMMARY | 2024-07-23 15:25 | XMS_ITS | Data Portability ---
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 Echocardiogram on 11/24/20 showed normal sinus rhythm, BP 142/81, normal LV chamber size and wall thickness, normal LV function with EF 60-65%, no focal wall motion abnormalities, normal diastolic function, normal atrial chamber sizes, normal RV, normal aortic valve, no AR, no aortic stenosis, normal mitral valve, trace MR, normal tricuspid valve, trace TR without estimate or PASP, normal aortic dimensions, no pericardial effusion. Compared to the prior study from November 2016, this study showed no change. 24-hour Holter monitor on 11/29/16 showed the baseline and predominant rhythm was NSR with average heart rate 81 bpm, and 156 bpm, maximum 140 bpm. There were 2 isolated PVCs, no PACs and no tachy- or bradyarrhythmias . No symptoms were reported. 30 day event monitor from 12/17/16 to 01/19/17 showed sinus rhythm throughout with episodes of tachycardia, 4% of the time, bradycardia 12% of the time. 17 reported symptoms including chest pain, palpitations, dizziness, lightheadedness, other all correlated with normal sinus rhythm. No arrhythmia or ectopy noted. Two-week event monitor at [facility] from 09/03/21 to 09/17/21 showed sinus rhythm throughout. For activations with symptoms of palpitations correlated with sinus tachycardia. [email or web address] Not available 01/08/2024 08:58:22 04/01/2024 04/01/2024 Blood work on 02/11/22 showed normal electrolytes, creatinine 0.73 with GFR 115, glucose 82, normal LFTs, total cholesterol 145, triglycerides 45, HDL 63, LDL 69 with risk ratio 2.3, normal CBC and TSH. Echocardiogram on 11/24/20 showed normal sinus rhythm, BP 142/81, normal LV chamber size and wall thickness, normal LV function with EF 60-65%, no focal wall motion abnormalities, normal diastolic function, normal atrial chamber sizes, normal RV, normal aortic valve, no AR, no aortic stenosis, normal mitral valve, trace MR, normal tricuspid valve, trace TR without estimate or PASP, normal aortic dimensions, no pericardial effusion. Compared to the prior study from November 2016, this study showed no change. 24-hour Holter monitor on 11/29/16 showed the baseline and predominant rhythm was NSR with average heart rate 81 bpm, and 156 bpm, maximum 140 bpm. There were 2 isolated PVCs, no PACs and no tachy- or bradyarrhythmias . No symptoms were reported. 30 day event monitor from 12/17/16 to 01/19/17 showed sinus rhythm throughout with episodes of tachycardia, 4% of the time, bradycardia 12% of the time. 17 reported symptoms including chest pain, palpitations, dizziness, lightheadedness, other all correlated with normal sinus rhythm. No arrhythmia or ectopy noted. Two-week event monitor at [facility] from 09/03/21 to 09/17/21 showed sinus rhythm throughout. For activations with symptoms of palpitations correlated with sinus tachycardia. [email or web address] Not available 03/29/2024 12:00:51 Plan of Treatment Reminders Order Date Submit Date Provider Last Modified By Organization Details Last Modified Time Details Appointments Follow Up 15 2024 08:30A Ling Tam MD Not available Not available Not available Lab None recorded. Referral None recorded. Procedures None recorded. Surgeries None recorded. Imaging electroca rdiogram 2023 024 LUCRECIA In-Office Order, Internal Use Only DO Not Attach Compendium DO Not Attach Compendium, Do Not Delete/merge, [id number] 01/08/2024 09:34:53 electroca rdiogram 2023 024 [email or web address] In-Office Order, Internal Use Only DO Not Attach Compendium DO Not Attach Compendium, Do Not Delete/merge, [id number] 04/01/2024 11:25:29 Medication Orders None recorded. Patient TargetsNo targets recorded. Patient InstructionsNo instructions recorded. Reason for Referral None Reported. Results Created Date Observation Date Name Description Value Unit Range Abnormal Flag Note LastModifiedBy Organization Detail LastModifiedTime 01/03/20 24 [facility] rocar diogr am No observ ation record ed. LUCRECIA In-Office Order Internal Use Only DO Not Attach Compendium DO Not Attach Compendium, Do Not Delete/merge, [id number] 01/08/2024 08:40:38 01/08/20 24 elect rocar diogr am No observ ation record ed. [email or web address] Not Available 01/07 08:59:05 03/29/20 24 elect rocar diogr am No observ ation record ed. [email or web address] In-Office Order Internal Use Only DO Not Attach Compendium DO Not Attach Compendium, Do Not Delete/merge, [id number] 04/01/2024 11:17:14 04/01/20 24 elect rocar diogr am No observ ation record ed. [email or web address] Not Available 04/01 11:16:26 Result Notes None recorded. Problems Name Problem SNOMED Code Status Onset Date Resolution Date Notes Provider Name and Address Organization Details Recorded Time Inappropriate sinus tachycardia 323218316 Active 2023 AYLA Tucker [address] [place] [address], [phone], [facility]. 13:13:12 Asthma 803582977 Active 2023 ENRICO Tucker-TITO [address] [place], [phone], [facility] 13:13:22 Tachycardia 3559553 Active 2023 Genny Tam MD [address] [place], [phone], [facility] 4 08:41:22 Palpitations 64453708 Active 2023 Genny Tam MD [address] [place], [address], [facility] 4 08:41:25 Problem Notes None recorded. Procedures Surgical History Date Name Laterality Status Provider Name and Address Organization Details Recorded Time Eye Surgery completed Esther Pérez [facility] 01/08/2024 08:43:26 Tonsillectomy completed Esther Pérez [facility] 01/08/2024 08:48:22 Imaging Results Imaging Date Name Status LastModified by Organization Details LastModified Time 01/03/2024 electrocardiogram completed LUCRECIA In-Offi ce Order Internal Use Only DO Not Attach Compendium DO Not Attach Compendium, Do Not Delete/merge, [id number] 01/08/2024 08:40:38 01/08/2024 electrocardiogram completed [email or web address] Informa tion not available 01/08/2024 08:59:05 03/29/2024 electrocardiogram completed In-Offi ce Order Internal Use Only DO Not Attach Compendium DO Not Attach Compendium, Do Not Delete/merge, [id number] 04/01/2024 11:17:14 04/01/2024 electrocardiogram completed [email or web address] Informa tion not available 04/01/2024 11:16:26 Procedure Notes None recorded. Medical Equipment None Reported. Allergies Allergen ID Allergen Name Allergen Category Reaction Reaction Severity Criticality Documentation Date Start Date Code Code System Note Provider Name and Address Organization Details Recorded Time 777344 POLLEN EXTRACTS environme nt,medica tion itching other Not available Not available Not available 01/08/2024 07601 6 RxNorm Esther martino [facility] 08:43:01 696221 cow milk allergeni c extract food,medi cation other Not available Not available 01/08/2024 19561 5 RxNorm Esther martino, [facility] 4 08:43:01 157373 cat dander environme nt itching other Not available Not available Not available 01/08/2024 Esther martino, [facility] 4 08:43:01 366453 mold extract environme nt itching other Not available Not available Not available 01/08/2024 23675 8 RxNorm Esther martino, [facility] 4 08:43:01 659160 famotidin e medicatio n Not available Not available Not available 01/08/2024 4278 RxNorm Esther martino, [facility] 4 08:45:26 Medications Name Sig Start Date Stop Date Status Note LastModified by Organization Details LastModified Time doxycycline hyclate 100 mg capsule TAKE 1 CAPSULE BY MOUTH TWICE A DAY FOR 7 DAYS 01/07 completed Not Available Not Available Not Available benzonatate 200 mg capsule TAKE 1 CAPSULE BY MOUTH THREE TIMES A DAY FOR 10 DAYS 01/07 completed Not Available Not Available Not Available famotidine 40 mg tablet 01/07 completed Not Available Not Available Not Available prednisone 20 mg tablet 40 MG (2 X 20 MG) ORALLY DAILY FOR 4 DAYS active Not Available Not Available No t Available omeprazole 40 mg capsule,del ayed release active Not Available Not Available Not Available doxycycline monohydrate 100 mg tablet TAKE 1 TABLET TWICE DAILY FOR 14 DAYS 01/07 completed Not Available Not Available Not Available Vitamin C 100 mg tablet Take 1 tablet every day by oral route. active Not Available Not Available No t Available omeprazole 20 mg capsule,del ayed release Take 1 capsule every day by oral route for 30 days. active Not Available Not Available No t Available budesonide 0.5 mg/2 mL suspension for nebulizatio n INHALE 1 VIAL ONCE A DAY 01/07 completed Not Available Not Available Not Available epinephrine 0.3 mg/0.3 mL injection, auto-inject or PRN active Not Available Not Available Not Available cyclobenzap rine 5 mg tablet TAKE 1 TAB 3 TIMES A DAY NEEDED FOR MUSCLE SPASMS FOR UP TO 10 DAYS. DROWSINES S PRECAUTIO NS. active Not Available Not Available No t Available Vitamin D3 active Not Available Not Av ailable Not Available Advair HFA 115 mcg-21 mcg/actuati on aerosol inhaler INHALE 2 PUFFS BY MOUTH EVERY 12 HOURS 01/07 completed Not Available Not Available Not Available Xopenex HFA 45 mcg/actuati on aerosol inhaler Inhale 1 puff as needed by inhalatio n route for 25 days. active Not Available Not Available No t Available desvenlafax ine succinate ER 50 mg tablet,exte nded release 24 hr Take 1 tablet every day by oral route for 90 days. active Not Available Not Available No t Available ivabradine 5 mg tablet TAKE 0.5 TABLET by mouth twice daily 2023 active Not Available Not Available Not Avai lable desvenlafax ine fumarate ER 50 mg tablet,exte nded release 24 hr Take 1 tablet every day by oral route. 01/07 completed Not Available Not Available Not Available Vitals Date Recorded Body weight Body mass index (BMI) Body height Heart rate Systolic blood pressure Diastolic blood pressure Provider Name and Address Organization Details Last Updated DateTime 4 56828.4 9 g 24 kg/m2 149.86 cm 95 /min 108 mm[Hg] 72 mm[Hg] Esther Pérez [facility] 4 08:50:06 Date Recorded Body height Body mass index (BMI) Body weight Heart rate Systolic blood pressure Diastolic blood pressure Provider Name and Address Organization Details Last Updated DateTime 4 149.86 cm 23.2 kg/m2 95836.1 2 g 86 /min 111 mm[Hg] 76 mm[Hg] Boaz De Anda [facility] 4 11:16:11 Social History Question Answer Notes LastModified by Organizat ion Details LastModified Time Tobacco Smoking Status Never Smoker Esther Pérez [facility] 01/08/2024 08:43:18 Do You Have An Advance Directive? No Information not available 01/08/2024 What Is Your Level Of Alcohol Consumption? None Information not available 01/08/2024 Are You Blind Or Do You Have Difficulty Seeing? No Information not available 01/08/2024 Is Blood Transfusion Acceptable In An Emergency? Yes Information not available 01/08/2024 What Is Your Level Of Caffeine Consumption? None Information not available 01/08/2024 Are You Currently Employed? Yes Information not available 01/08/2024 Are You Deaf Or Do You Have Serious Difficulty Hearing? No Information not available 01/08/2024 What Type Of Diet Are You Following? 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 Right Information not available 01/08/2024 What Was The Date Of Your Most Recent Tobacco Screening? 04/01/2024 Information not available 04/01/2024 Do You Have Any Pets? No Information not available 01/08/2024 What Is Your Relationship Status? Domestic Partner Information not available 01/08/2024 Do You Feel Stressed (tense, Restless, Nervous, Or Anxious, Or Unable To Sleep At Night)? [id number] Information not available 01/08/2024 Do You Use Any Illicit Or Recreational Drugs? No Information not available 01/08/2024 Do You Or Have You Ever Used Any Other Forms Of Tobacco Or Nicotine? No Information not available 01/08/2024 Sex: Unknown Functional Status Question Answer Note LastModified by Organization D etails LastModified Time Are you able to care for yourself? Yes Information not available 01/08/2024 What is your exercise level? Moderate Information not available 01/08/2024 Mental Status None recorded. Family History Relationship Description Onset Age of this Age Resolved Age Notes LastModified by Organization Details LastModified Time Paternal Grandmother Heart disease Not available 2023 08:43:07 Mother Hypertensive disorder Not available 2023 08:43:07 Maternal Grandmother Hypertensive disorder Not available 2023 08:43:07 Maternal Grandmother Heart disease Not available 2023 08:43:07 Father Heart disease Not available 2023 08:43:07 Medical History Condition Response Gastrointestinal Disease (IBS, Gastritis , Ulcer, Acid Reflux) Y Heart Rhythm Problem (Palpitations) Y Anxiety Y Asthma Y Prior Blood Transfusion Y Gynecological HistoryNo gynecological history recorded. Obstetrics History GPAL:G 0 P 0 0 0 0 Past Encounters Encounter ID Performer Location Encounter Start Date Encounter Closed Date Diagnosis/Indication Diagnosis SNOMED-CT Code Diagnosis ICD10 Code [id number] Genny [place] [facility] [place] [address] [place] [address] 01/08/2024 08:24:43 01/08/2024 09:19:08 Tachycardia 6639714 R00.0 Palpitations 29655773 R0 0.2 [id number] Genny [place] MD [facility] [place] [place] [address] [place] [address] 04/01/2024 11:05:40 04/01/2024 11:25:29 Tachycardia 0493908 R00.0 Palpitations 93935528 R0 0.2 Health Concerns Section Related Observation LastModified by Organization Detai ls LastModified Time None Recorded Concern Status LastModified by Organization Details LastModified Time None Recorded Advance Directives Directive N: Payers Encounter Date Sequence Insurance Name Policy Number Policy Jones Covered Member ID Jones Member ID Guarantor Name 01/08/2024 1 [employer] [place] [id number] Marleni Lentz [id number] 04/01/2024 1 [employer] [place] [id number] Marleni Lentz [id number] Notes Date Note Type Note Provider Name and Address Organization Details Recorded Time 01/08/2024 text/html 28 y/o F w/ tachycardia, palpitations, mood disorder who presents for follow up. She feels pretty well overall, over the past few years she has not been having very frequent palpitations, only occasionally, they most often tend to happen in the middle of the night they can wake her from sleep and they can last up to 20 minutes. Over the last few years since she has been on ivabradine, her symptoms have decreased significantly, she did not feel well on metoprolol or atenolol in the past because of hypotension and shortness of breath, respectively. She exercises almost daily on her rowing machine. No particular shortness of breath. 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 Genny Tam MD [address] [place] [address], [phone], [facility]. 01/08/2024 09:39:43 04/01/2024 text/html 29 y/o F w/ tachycardia, palpitations, mood disorder who presents for follow up. Last month after she had discontinued her ivabradine she woke up in the middle of the night several times with palpitations and marked tachycardia few episodes higher than 150s. Subsequently we resume the ivabradine and symptoms have resolved she does feel little more fatigued on the medication but otherwise no complaints Genny Tam MD [address] [place] [address], [phone], [facility]. 04/01/2024 12:13:01 OBGyn Episode No OBEpisode recorded.
--- OUTSIDE RECORDS SUMMARY | 2024-07-23 15:25 | XMS_ITS | Clinical Summary ---
Author Organization [facility] Address [address] [place] [address] Phone Care Team Providers Care Esters And Emulsifiers Supervisor Name Role Phone Leonid Nicholas Conditions or Problems Problem Name Problem Code Onset Date Status Entry Date Provider Comment Standard Description Annotate ACNE VULGARIS 77230860 (SNOMED CT) Active Emiliano White MD Acne vulgaris ANXIETY F41.9 (ICD-10-CM) Active Emiliano White MD Anxiety disorder, unspecified Medications Medication Instructions Start Date Stop Date Generic Name [facility] Provider [facility] VITAMIN C TABS one po qd 4 ASCORBIC ACID TABS 75741700291 Emiliano White MD TURMERIC CURCUMIN 500 MG CAPS one po qd 4 TURMERIC 27649660575 Emiliano White MD FINACEA 15 % GEL apply to face qd 4 AZELAIC ACID 39901863677 Emiliano White MD CLINDAMYCIN PHOSPHATE 1 % LOTN AAA on face once daily 4 CLINDAMYCIN PHOSPHATE 26827098710 Emiliano White MD MINOCYCLINE HCL 50 MG CAPS one po qd every 3 days 4 MINOCYCLINE HCL 22891075196 Emiliano White MD CELEXA 20 MG TABS one po qd 4 CITALOPRAM HYDROBROMIDE 12981902694 Emiliano White MD Medications Administered No information available. Allergies, Adverse Reactions, Alerts Observed no known allergies at Results No information available. Plan of Care No information available. Procedures Code Procedure Name Date Entry Date [facility]-[id number] Patient encounter procedure Vital Signs No information available. Immunizations No information available. Advance Directives No information available.
== END 2024-07-23 15:23 | disposition home or self-care (01) ==
LOC: HO.US 15:22
PROVIDERS: PCP Internal Medicine; Visit Provider Internal Medicine
DX: N28.1 Cyst of kidney, acquired (principal)
CPT/HCPCS: 76770

== ENCOUNTER → 2024-07-23 15:30 | Outpatient (BNV) | payer OTHER, SELFPAY | PROVIDERS: PCP Internal Medicine; Visit Provider Radiology Diagnostic Radiology | DX: N28.1 Cyst of kidney, acquired (principal) | CPT/HCPCS: 76770 ==

== ENCOUNTER 2024-08-06 14:27 | Outpatient (AMB) | payer OTHER, SELFPAY ==
[2024-08-06 14:29] VITALS: BP 128/82; PULSE 106; O2SAT 97; BMI 23.5
--- NOTE | 2024-08-06 14:29 | A.OFFVIS_ITS ---
Vital Signs 08/06/24 14:29 Height 4 ft 11 in Weight 116 lb 6.465 oz BMI 23.5 BP 128/82 Blood Pressure Location Rt brachial Position Sitting Pulse 106 H Pulse Source Pulse Oximeter Pulse Oximetry (%) 97 Oxygen Delivery Method Room Air Intake Visit Reasons: S/P EGD; BZ Intake Note: ESTABLISHED PATIENT Reason; s/p EGD BZ Changes/concerns? No significant concerns. Pt states that 40 mg omeprazole is still working well for her. Allergies famotidine Allergy (Severe, Verified 08/06/24 14:29) Anaphylaxis codeine Allergy (Verified 08/06/24 14:29) Numbness HPI HPI S/P EGD; BZ: Details: LAST VISIT: Postprandial epigastric pain GERD (gastroesophageal reflux disease) Dyspepsia Plan Will change her script to omeprazole as her insurance will pay for this script now patient is is paying for Nexium [id number]. Patient will call our office if she will feel like medication is not working well for her. Will send her for upper endoscopy to rule out gastritis, esophagitis, duodenitis, Aldridge's. We ruled out celiac and H pylori so far. Continue avoiding dietary triggers and late night snacking. Staying upright for minimum 3 hours after meals discussed with patient. Patient denies any issues with anesthesia in the past. No history of sleep apnea. Patient's father was diagnosed with Barretts and has been going for frequent endoscopies. Patient will follow-up with us after the procedure, sooner on as needed basis. She is agreeable to this plan and verbalizes understanding of instructions. She was given the opportunity to ask questions and all questions answered. ? Thank you for allowing me to participate in her care Medications New omeprazole 20 mg PO DAILY 30 caps 3RF K21.9 On Hold esomeprazole magnesium (Nexium 24HR) Hold Comment: Doctor's Order 20 mg PO DAILY 30 tabs 2RF ENDOSCOPY: EGD Findings:? * Esophagus:? Normal mucosa noted in the entire esophagus. The Z line was at 35. Middle and lower esophagus forceps biopsies were obtained to rule out eosinophilic esophagitis. * Stomach:? Normal mucosa was noted in the stomach. Retroflexion was performed in the cardia. Random gastric biopsies were taken to rule out H Pylori infection. * Duodenum:? Normal mucosa was noted in the whole of the examined duodenum. Cold forceps biopsies were taken from duodenal bulb and second portion of the duodenum to rule out celiac sprue. Additional intervention: A soft tip Savary wire was inserted through the biopsy channel and advanced to the antrum. The gastroscope was then backed out. An 18 mm Savary Piedad bougie was advanced over the guidewire. Mild resistance was felt. On relook, there was a small tear with scant heme at the level of cricopharyngeus confirming successful dilation. ? EGD Impressions:? * UES stenosis (dilation) * Normal esophagus mucosa (biopsy) * Normal stomach (biopsy) * Normal duodenum (biopsy)?? Recommendations:?? * Follow biopsy results. Our office will call or send a letter with results within 1-2 weeks * If H pylori +, patient will be prescribed eradication therapy followed by test of cure. * Avoid NSAIDs. * If the dilation today improves pill dysphagia, this can be repeated as needed for recurrence of symptoms. PATHOLOGY: Diagnosis A. Duodenum, biopsy: Duodenal mucosa within normal limits. B. Stomach, random, biopsy: Antral-type and oxyntic mucosa with mild chronic inactive inflammation; no Helicobacter organisms seen. C. Esophagus, lower, biopsy: Squamous epithelium within normal limits; no inflammation seen; negative for eosinophilic esophagitis. D. Esophagus, middle, biopsy: Squamous epithelium within normal limits; no inflammation seen; negative for eosinophilic esophagitis. TODAY'S VISIT Patient is here today for follow-up and to discuss upper endoscopy results. Patient reports no ill effects from anesthesia or procedure itself. Patient denies any trouble swallowing after the procedure. Dilation performed and patient reports that she is able to swallow better. Patient is also taking 40 mg of omeprazole. Last visit we decreased it to 20 mg, however patient was having symptoms when she was taking lower dose and the dose was increased. Patient noticed that avoiding certain triggers also helps. Patient denies any bloating. Denies any post postprandial epigastric pain. Patient denies any dyspepsia, dysphagia or odynophagia. Patient denies any other GI concerning symptoms. [facility] Medical History Eczema Chronic allergic rhinitis Sinusitis Asthma Surgical History History of tonsillectomy History of esophagogastroduodenoscopy (EGD) Family History Maternal Grandmother Lung cancer Social History Alcohol intake: never Patient Tobacco Use Status: Never used Tobacco Review of Systems Const Denies weight gain and Denies weight loss ENT Reports no additional complaints, Denies dysphagia and Denies odynophagia Card Reports no additional complaints Resp Reports no additional complaints GI Denies abdominal pain, Denies belching, Denies melena, Denies bloating, Denies change in bowel habits, Denies dysphagia, Denies excessive flatus, Denies dyspepsia, Denies heartburn, Denies diarrhea, Denies loose stools, Denies nausea, Denies odynophagia and Denies vomiting Musc Reports no additional complaints Neuro Reports no additional complaints Psych Reports no additional complaints Endo Reports no additional complaints Physical Exam Vital Signs: Last Vital Signs Pulse 106 H 08/06/24 14:29 BP 128/82 08/06/24 14:29 Pulse Ox 97 08/06/24 14:29 Oxygen Delivery Method Room Air 08/06/24 14:29 BMI result Body Mass Index 23.5 Const General: healthy appearing, no acute distress and well developed Nutritional Appearance: well nourished Orientation/consciousness: patient oriented x3 Resp Effort & Inspection: normal respiratory effort, able to speak in complete sentences, no tracheal deviation and symmetric chest movement Auscultation: clear to auscultation bilaterally Cardio Rate: regular rate GI Inspection: Yes normal to inspection and No distended Palpation (GI): Soft to palpation, not firm, nontender and No hepatosplenomegaly present Auscultation: normal bowel sounds General: Yes no CVA tenderness Back/Spine/Pelvis Back: no CVA tenderness Skin General skin exam: elasticity normal, turgor normal and dry skin Neuro General: patient oriented x3 Psych Appearance: grossly normal Mental Status: mental status grossly normal Assessment & Plan Assessment & Plan (1) Postprandial epigastric pain: Code(s): R10.13 - Epigastric pain (2) GERD (gastroesophageal reflux disease): Code(s): K21.9 - Gastro-esophageal reflux disease without esophagitis Qualifiers: Esophagitis presence: esophagitis presence not specified Qualified Code(s): K21.9 - Gastro-esophageal reflux disease without esophagitis (3) Dyspepsia: Code(s): R10.13 - Epigastric pain (4) Dysphagia: Code(s): R13.10 - Dysphagia, unspecified Qualifiers: Dysphagia type: pharyngoesophageal phase Qualified Code(s): R13.14 - Dysphagia, pharyngoesophageal phase Plan Patient will continue taking omeprazole 40 mg daily. Continue avoiding dietary triggers and late night snacking. Staying upright for minimum 3 hours after meals discussed with patient. Follow-up in 3 months for re-evaluation and possible reducing omeprazole to 20 mg. No esophagitis, minimal chronic inactive inflammation. Patient is agreeable to current plan of care and verbalizes understanding of instructions. She was given the opportunity to ask questions and all questions answered. Thank you for allowing me to participate in her care Coding Level of Care Code Est Pt Level 3 (92182) Diagnoses Postprandial epigastric pain R10.13 Gastroesophageal reflux disease, unspecified whether esophagitis present K21.9 Esophagitis presence: esophagitis presence not specified Dyspepsia R10.13 Pharyngoesophageal dysphagia R13.14 Dysphagia type: pharyngoesophageal phase Time Spent (min) 30 Comment 20 minutes spent with patient and additional 10 minutes spent reviewing her records
--- OUTSIDE RECORDS SUMMARY | 2024-08-06 16:56 | XMS_ITS | Data Portability ---
Author Organization [facility] [employer], [employer] Address [address] [place] [id number] Care Team Providers Care Concert Singer Name Role Phone GENNY TAM JR Loan Approver JENNIFER DOOLEY Loan Approver LIDIA RICE Primary Care Provider Assessment Encounter [...] or ectopy noted. Two-week event monitor at [facility] from 09/03/21 to 09/17/21 showed sinus rhythm throughout. For activations with symptoms of palpitations correlated with sinus tachycardia. [email or web address] Not available 01/08/2024 08:58:22 04/01/2024 04/01/2024 Blood [...] or ectopy noted. Two-week event monitor at [facility] from 09/03/21 to 09/17/21 showed sinus rhythm throughout. For activations with symptoms of palpitations correlated with sinus tachycardia. [email or web address] Not available 03/29/2024 12:00:51 Plan of Treatment [...] DO Not Attach Compendium, Do Not Delete/merge, [id number] 01/08/2024 09:34:53 electroca rdiogram 2023 024 [email or web address] In-Office Order, Internal Use Only DO Not Attach Compendium DO Not Attach Compendium, Do Not Delete/merge, [id number] 04/01/2024 11:25:29 Medication Orders None recorded. Patient TargetsNo targets recorded. Patient InstructionsNo instructions recorded. Reason for Referral None Reported. Results Created Date Observation Date Name Description Value Unit Range Abnormal Flag Note LastModifiedBy Organization Detail LastModifiedTime 01/03/20 24 [facility] rocar diogr am No observ ation record ed. [email or web address] In-Office Order Internal Use Only DO Not Attach Compendium DO Not Attach Compendium, Do Not Delete/merge, [id number] 01/08/2024 08:40:38 01/08/20 24 elect rocar diogr am No observ ation record ed. [email or web address] Not Available 01/07 08:59:05 03/29/20 24 elect rocar diogr am No observ ation record ed. [email or web address] In-Office Order Internal Use Only DO Not Attach Compendium DO Not Attach Compendium, Do Not Delete/merge, [id number] 04/01/2024 11:17:14 04/01/20 24 elect rocar diogr am No observ ation record ed. [email or web address] Not Available 04/01 11:16:26 Result Notes None recorded. Problems Name Problem SNOMED Code Status Onset Date Resolution Date Notes Provider Name and Address Organization Details Recorded Time Inappropriate sinus tachycardia 784550442 Active 2023 AYLA Tucker [address] [place] [address], [phone], [facility]. 13:13:12 Asthma 144903914 Active 2023 ENRICO Tucker-TITO [address] [place], [phone], [facility] 13:13:22 Tachycardia 9589660 Active 2023 Genny Tam MD [address] [place], [address], [facility] 4 08:41:22 Palpitations 14264962 Active 2023 Genny Tam MD [address] [place], [address], [facility] 4 08:41:25 Problem Notes None recorded. Procedures Surgical History Date Name Laterality Status Provider Name and Address Organization Details Recorded Time Eye Surgery completed Esther Pérez [facility] 01/08/2024 08:43:26 Tonsillectomy completed Esther Pérez [facility] 01/08/2024 08:48:22 Imaging Results Imaging Date Name Status LastModified by Organization Details LastModified Time 01/03/2024 electrocardiogram completed LUCRECIA In-Offi ce Order Internal Use Only DO Not Attach Compendium DO Not Attach Compendium, Do Not Delete/merge, [id number] 01/08/2024 08:40:38 01/08/2024 electrocardiogram completed [email or web address] Informa tion not available 01/08/2024 08:59:05 03/29/2024 electrocardiogram completed [email or web address] In-Offi ce Order Internal Use Only DO Not Attach Compendium DO Not Attach Compendium, Do Not Delete/merge, [id number] 04/01/2024 11:17:14 04/01/2024 electrocardiogram completed [email or web address] Informa tion not available 04/01/2024 11:16:26 Procedure Notes None recorded. Medical Equipment None Reported. Allergies Allergen ID Allergen Name Allergen Category Reaction Reaction Severity Criticality Documentation Date Start Date Code Code System Note Provider Name and Address Organization Details Recorded Time 345447 POLLEN EXTRACTS environme nt,medica tion itching other Not available Not available Not available 01/08/2024 31953 6 RxNorm Esther martino [facility] 08:43:01 779209 cow milk allergeni c extract food,medi cation other Not available Not available 01/08/2024 61086 5 RxNorm Esther martino, [facility] 4 08:43:01 022787 cat dander environme nt itching other Not available Not available Not available 01/08/2024 Esther martino, [facility] 4 08:43:01 524464 mold extract environme nt itching other Not available Not available Not available 01/08/2024 29451 8 RxNorm Esther martino, [facility] 4 08:43:01 685889 famotidin e medicatio n Not available Not available Not available 01/08/2024 4278 RxNorm Esther martino, [facility] 4 08:45:26 Medications Name Sig Start Date [...] TAKE 0.5 TABLET by mouth twice daily active Not Available Not Available No t Available desvenlafax ine fumarate ER 50 mg tablet,exte nded release 24 hr Take 1 tablet every day by oral route. 01/07 completed Not Available Not Available Not Available Vitals Date Recorded Body weight Body mass index (BMI) Body height Heart rate Systolic blood pressure Diastolic blood pressure Provider Name and Address Organization Details Last Updated DateTime 4 38368.4 9 g 24 kg/m2 149.86 cm 95 /min 108 mm[Hg] 72 mm[Hg] Esther Pérez [facility] 4 08:50:06 Date Recorded Body height Body mass index (BMI) Body weight Heart rate Systolic blood pressure Diastolic blood pressure Provider Name and Address Organization Details Last Updated DateTime 4 149.86 cm 23.2 kg/m2 87426.1 2 g 86 /min 111 mm[Hg] 76 mm[Hg] Boaz De Anda [facility] 4 11:16:11 Social History Question Answer Notes LastModified by Organizat ion Details LastModified Time Tobacco Smoking Status Never Smoker Esther Pérez [facility] 01/08/2024 08:43:18 Do You Have An Advance [...] not available 01/08/2024 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 Right Information not available 01/08/2024 What Was The Date Of Your Most Recent Tobacco Screening? 04/01/2024 [email or web address] Information not available 04/01/2024 Do You Have Any Pets? No Information not available 01/08/2024 What Is Your Relationship Status? Domestic Partner Information not available 01/08/2024 Do You Feel Stressed (tense, Restless, Nervous, Or Anxious, Or Unable To Sleep At Night)? [id number] Information not available 01/08/2024 Do You Use [...] Diagnosis/Indication Diagnosis SNOMED-CT Code Diagnosis ICD10 Code Diagnosis Note [id number] MD JUVENCIO Bernard[facility] henry Cardiolog y [address] [place] [phone] 01/08/2024 08:24:43 01/08/2024 09:19:08 Tachycardia 5322134 R00.0 Over the past few years her symptom burden has improved significan tly on ivabradine . However I noted that the downside of ivabradine , particular ly with long-term use, is a significan tly increased risk of developing atrial fibrillati on. I noted that it would be very reasonable for her to stop the medication for a few days and see what her symptom burden is like. If she feels well off of the ivabradine , then we can talk about the option of switching to an alternativ e medication with a much lower arrhythmia side effect profile such as a calcium channel natali. Alternativ bernadr, if her symptoms recur off of ivabradine , we could discuss whether there is any role to have a repeat evaluation with an electrophy siologist to see if she is a candidate for an EP study to look for arrhythmia s that are amenable to ablation. I spent more than 30 minutes on this visit more than 50% of which involved direct patient care and counseling , in addition to review of prior records and prior test results, review of current meds, and documentat ion Palpitations 30618288 R0 0.2 [id number] MD JUVENCIO Bernard_[facility] henry Cardiolog y [address] [place] [phone] 04/01/2024 11:05:40 04/01/2024 11:25:29 Tachycardia 5674634 R00.0 multiple symptomati c episodes of tachycardi a while off of the ivabradine we have restarted at a lower dose of just 2.5 mg once daily which she seems to be tolerating well we will continue to monitor closely and titrate meds as needed Palpitations 04922926 R0 0.2 Health Concerns Section Related Observation LastModified by Organization Detai ls LastModified Time None Recorded Concern Status LastModified by Organization Details LastModified Time None Recorded Advance Directives Directive N: Payers Encounter Date Sequence Insurance Name Policy Number Policy Jones Covered Member ID Jones Member ID Guarantor Name 01/08/2024 1 [employer] [place] [id number] Marleni Osorio Mary Carmen [id number] 04/01/2024 1 [employer] [place] [id number] Marleni Jo Mary Carmen [id number] Notes Date Note Type Note Provider [...] shortness of breath. 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 Genny Tam MD [address] [place] [address], [phone], [facility]. 01/08/2024 09:39:43 04/01/2024 text/html 29 y/o [...] but otherwise no complaints Genny Tam MD [address] [place] [address], [phone], [facility]. 04/01/2024 12:13:01 OBGyn Episode No OBEpisode recorded.
--- OUTSIDE RECORDS SUMMARY | 2024-08-06 16:56 | XMS_ITS | Clinical Summary ---
Author Organization [facility] Address [address] [place] [phone] Phone Care Team Providers Care Pastry Mixer Name Role Phone Leonid Nicholas [phone] Conditions or Problems Problem Name Problem Code Onset Date Status Entry Date Provider Comment Standard Description Annotate ACNE VULGARIS 75615908 (SNOMED CT) Active Emiliano White MD Acne vulgaris ANXIETY F41.9 (ICD-10-CM) Active Emiliano White MD Anxiety disorder, unspecified Medications Medication Instructions Start Date Stop Date Generic Name [facility] Provider [facility] VITAMIN C TABS one po qd 4 ASCORBIC ACID TABS 83113485669 Emiliano White MD TURMERIC CURCUMIN 500 MG CAPS one po qd 4 TURMERIC 05153295385 Emiliano White MD FINACEA 15 % GEL apply to face qd 4 AZELAIC ACID 08683803218 Emiliano White MD CLINDAMYCIN PHOSPHATE 1 % LOTN AAA on face once daily 4 CLINDAMYCIN PHOSPHATE 82879833800 Emiliano White MD MINOCYCLINE HCL 50 MG CAPS one po qd every 3 days 4 MINOCYCLINE HCL 67621805164 Emiliano White MD CELEXA 20 MG TABS one po qd 4 CITALOPRAM HYDROBROMIDE 10888497417 Emiliano White MD Medications Administered No information available. Allergies, Adverse Reactions, Alerts Observed no known allergies at Results No information available. Plan of Care No information available. Procedures Code Procedure Name Date Entry Date [facility]-[id number] Patient encounter procedure Vital Signs No information available. Immunizations No information available. Advance Directives No information available.
== END 2024-08-06 14:54 | disposition home or self-care (01) ==
PROVIDERS: PCP Internal Medicine; Visit Provider Nurse Practitioner Family
DX: R10.13 Epigastric pain (principal); K21.9 Gastro-esophageal reflux disease without esophagitis; R13.14 Dysphagia, pharyngoesophageal phase
CPT/HCPCS: 99213

== ENCOUNTER 2024-08-22 15:12 | Outpatient (AMB) | payer OTHER, SELFPAY ==
[2024-08-22 15:23] VITALS: BP 108/66; PULSE 102; O2SAT 100; BMI 23.6
--- NOTE | 2024-08-22 15:23 | A.OFFVIS_ITS ---
Vital Signs 08/22/24 15:23 Height 4 ft 11 in Weight 116 lb 13.52 oz BMI 23.6 BP 108/66 Blood Pressure Location Lt brachial Position Sitting Pulse 102 H Pulse Source Pulse Oximeter Pulse Oximetry (%) 100 Oxygen Delivery Method Room Air Intake Visit Reasons: asthma Allergies famotidine Allergy (Severe, Verified 08/22/24 15:26) Anaphylaxis codeine Allergy (Verified 08/22/24 15:26) Numbness HPI Comments Details: The patient is a 29 year woman with a known history of asthma in addition to chronic rhinitis and chronic sinusitis. The patient was initially diagnosed about 7 years ago when she started developing worsening shortness of breath and tachycardia. when she was diagnosed with the asthma the patient was placed on QVAR. She tolerated the QVAR well. At some point her symptoms worsened and she was switched over to Advair. Unfortunately it caused significant muscle cramping and she went back to the inhaled steroids. The patient does not have a rescue inhaler because of her significant tachycardia. In the meantime the patient started developing worsening sinus discomfort. She did undergo CT scan of the sinuses demonstrate thickening of the mucosa but no polyp was. The patient was referred to ENT. She did have allergy testing found to have allergies to multiple things including mold. The patient was recommended allergy shots but concerned with her ongoing coughing and asthma symptoms. Therefore the patient was referred to Pulmonary. Today she does have significant cough. She is status mainly because of sinusitis which she has a significant postnasal drip. She causally coughs. will go ahead and help her treat her sinusitis and also optimize her asthma therapy. She will require repeat pulmonary function studies in addition to blood work. 05/23/2023 the patient is here for a pulmonary follow-up visit. The patient is doing about the same. She started taking the Advair initially was helping but then she noticed that it was not as effective. She does not have a rescue inhaler. I will make sure she has 1 available. She can also get a nebulizer if she feels that she needs additional therapies. We did review her blood work her IgE levels actually normal and her eosinophils are as well. Therefore will hold off on biologic therapy right now. The patient does have allergies as she is been tested positive for allergens but at this point does not have to be a significant component of her symptomatology. The patient did try the Neti bottle but sometimes he did not drain well so therefore she stopped using it. She did try multiple times. The patient also has reflux disease. We did talk about potential triggers for asthma including her postnasal drip and also reflux disease. She is going to continue with the reflux diet and will continue to improve her medication regimen. The patient also had pulmonary function studies which were completely normal and reassuring. Therefore, if she needs to start allergy shots she is able to start them at this time. 02/06/2024 the patient is here for a pulmonary follow-up visit. Overall the patient is doing a lot better. She is getting allergy shots now. In addition to that she is monitoring closely her reflux disease. While controlling her triggers her respiratory symptoms happened bed in better. She has not had to use the Advair. She does have a rescue inhaler that she uses as needed. But typically does not 2 times a week. She is raising her sinuses with the Navage. She finds this more effective than the Neti bottle. No recent imaging studies to review this time. The patient is doing well. Continue with the current respiratory therapy will follow-up in a year's time. If the patient develops any worsening symptoms prior to that she will call for an earlier assessment. 08/22/2024 the patient is here for sick visit. She has been sick now for about 2 weeks. She has been coughing, moderate severity. Nonproductive in nature. Most likely like a croupy cough. She denies any fevers or chills or any joint pains. The patient does have some coughing on exam which is barky in nature with some rhonchi. Will go ahead and started her on a Medrol Reji and also azithromycin. The patient also had been on Advair but it is . Will go ahead and send her another prescription that she can start. If she is no better by next week she will call. Otherwise will follow-up in 4-6 months. [facility] Medical History Eczema Chronic allergic rhinitis Sinusitis Asthma Surgical History History of tonsillectomy History of esophagogastroduodenoscopy (EGD) Family History Maternal Grandmother Lung cancer Social History Alcohol intake: never Patient Tobacco Use Status: Never used Tobacco Review of Systems Const Denies fever(s) Eyes Reports no additional complaints ENT Reports nasal congestion, Reports nasal discharge, Denies nasal obstruction, Denies post nasal drip, Denies sinus pain and Denies sinus pressure Card Denies chest pain Resp Reports cough and Reports wheezing GI Reports no additional complaints Musc Reports no additional complaints and Reports muscle cramps Skin/Breast Reports rash Neuro Reports no additional complaints Tyson/Lymph Denies lymphadenopathy Aller/Immun Reports wheezing Physical Exam Vital Signs: Last Vital Signs Pulse 102 H 08/22/24 15:23 BP 108/66 08/22/24 15:23 Pulse Ox 100 08/22/24 15:23 Oxygen Delivery Method Room Air 08/22/24 15:23 BMI result Body Mass Index 23.6 Const General: comfortable HEENT General nose exam: Abnormal mucous membranes and turbinates present erythematous Throat: Yes postnasal drainage and Yes cobblestoning Neck Neck: Yes supple Chest Chest palpation & inspection: normal inspection of the chest Resp Effort & Inspection: normal respiratory effort and Actively coughing Quality: whooping Auscultation: rhonchi, no wheezes and diminished lung sounds Cardio Rate: regular rate Rhythm: regular rhythm Heart sounds: S1 normal heart sound present and S2 normal heart sound present GI Palpation (GI): Soft to palpation Skin General skin exam: no rashes or lesions noted Extrem General: Yes no clubbing, cyanosis or edema Assessment & Plan Assessment & Plan (1) Asthma: Code(s): J45.909 - Unspecified asthma, uncomplicated Category: Medical Qualifiers: Asthma severity: moderate Asthma persistence: persistent Asthma complication type: uncomplicated Qualified Code(s): J45.40 - Moderate persistent asthma, uncomplicated (2) Chronic allergic rhinitis: Code(s): J30.9 - Allergic rhinitis, unspecified Category: Medical (3) Eczema: Code(s): L30.9 - Dermatitis, unspecified Category: Medical Qualifiers: Eczema type: unspecified Qualified Code(s): L30.9 - Dermatitis, unspecified (4) Laryngotracheobronchitis: Code(s): J40 - Bronchitis, not specified as acute or chronic Category: Medical Plan medrol pk zpack benzonated continue Advair HFA ADAM as needed sinus rinsing with distilled water reflux diet continue allergy shots F/U 10-12 months Medications: New benzonatate 200 mg PO BID PRN 60 caps 0RF cough 30 days fluticasone propion-salmeterol 115-21 mcg/actuation (Advair HFA) 2 puffs inhalation Q12H 12 grams 11RF 30 days methylprednisolone (Medrol (Reji)) PO PER PKG DIR 21 ea 0RF 6 days azithromycin 500 mg PO DAILY 5 tabs 0RF 5 days Coding Level of Care Code Est Pt Level 4 (99511) Diagnoses Moderate persistent asthma without complication J45.40 Asthma severity: moderate Asthma persistence: persistent Asthma complication type: uncomplicated Chronic allergic rhinitis J30.9 Eczema, unspecified type L30.9 Eczema type: unspecified Laryngotracheobronchitis J40 Time Spent (min) 16
--- OUTSIDE RECORDS SUMMARY | 2024-08-22 19:00 | XMS_ITS | Clinical Summary ---
Author Organization [facility] Address [phone] [address] [place] [address] Care Team Providers Care Finisher Screwdown Name Role Phone Belem Peterson MD Primary Care Provid er Logan Rosenthal MD [facility] Allergies Active Allergy Reactions Criticality Noted Date Comments Pollen Extracts Other (See Comments) 08/26/2008 nasal Medications Medication Sig Dispensed Refills Start Date End Date Status raNITIdine (ZANTAC) 150 MG tablet Take 75 mg by mouth 2 (two) times a day. Active desvenlafaxine succinate (PRISTIQ) 50 MG 24 hr tablet Take 50 mg by mouth daily. 08/28/2018 Active CORLANOR 5 mg Tab tablet TAKE 1 TABLET TWICE A DAY 180 tablet 3 11/19/2018 Active Active Problems Problem Noted Date Diagnosed Date Syncope 08/08/2017 Inappropriate sinus tachycardia 06/13/2017 Palpitations 03/07/2017 Social History Tobacco Use Types Packs/Day Years Used Date Smoking Tobacco: Never Smokeless Tobacco: Never Education Answer Date Recorded Are you interested in more education? Not on vanesa e 12/03/2022 Are you concerned about learning? Not on file 12/03/2022 No 12/03/2022 No 12/03/2022 Digital Access Answer Date Recorded No 12/19/2022 No 12/19/2022 No 12/19/2022 Reliable internet access at home? Not on file 12/19/2022 Device with a working camera? Not on file Sex and Gender Information Value Date Recorded Sex Assigned at Not on file Gender Identity Not on file Sexual Orientation Not on file Last Filed Vital Signs Vital Sign Reading Time Taken Comments Blood Pressure 110/65 09/25/2018 10:51 AM EST Pulse 80 09/25/2018 10:51 AM EST Temperature - - Respiratory Rate 18 02/06/2018 3:44 PM EDT Oxygen Saturation 100% 02/06/2018 3:44 PM EDT Inhaled Oxygen Concentration - - Weight 48.3 kg (106 lb 8 oz) 09/25/2018 10:51 AM EST Height 149.9 cm (4' 11 ) 02/06/2018 3:44 PM EDT Body Mass Index 21.51 02/06/2018 3:44 PM EDT Plan of Treatment Health Maintenance Due Date Last Done Comments HEPATITIS B SCREENING 2011 HEPATITIS C SCREENING 2011 HIV ONE-TIME SCREENING (18-6 5 YEARS) 2011 HEPATITIS B VACCINES (1 of 3 - 19+ 3-dose series) 2012 PAP SMEAR 2014 DEPRESSION SCREENING 09/26/2019 09/25/2018 INFLUENZA VACCINE (#1) 2024 0, 05/28/2019 COVID-19 VACCINE (2 - 2023-2 5 season) 2024 11/14/2020 Adult Td,Tdap Booster 03/17/2030 03/17/2020 SMOKING STATUS SCREENING (On ce After 26 Yrs) Completed 09/25/2018 HEPATITIS A VACCINES Aged Out No long er eligible based on patient's age to complete this topic HIB VACCINES Aged Out No longer eligi ble based on patient's age to complete this topic MENINGOCOCCAL VACCINES (ACWY) Aged Out No longer eligible based on patient's age to complete this topic PNEUMOCOCCAL VACCINES (0-49 years) Aged Out No longer eligible b ased on patient's age to complete this topic Medical Devices Not on file Care Teams Finisher Screwdown Relationship Specialty Start Date End Date Belem Peterson MD [address] [place] [address] PCP - General Internal Medicine 02/07/17 Logan Rosenthal MD [address] [place] [address] Cardiology 02/07/17 Additional Source Comments The information contained in this document represents components of the legal health record. It is not the complete legal health record.[facility]
--- OUTSIDE RECORDS SUMMARY | 2024-08-22 19:00 | XMS_ITS | Encounter Summary ---
Author Organization [facility] Address [phone] [address] [place] [address] Care Team Providers Care Adult Basic Education Instructor Name Role Phone Belem Peterson MD Primary Care Provid er Logan Rosenthal MD Unavailable Encounter Details Date Type Department Care Team (Late st Contact Info) Description 08/09/2017 Transcribe Orders [facility] Echocardiography [address] [place] [address] [email or web address] Social History Tobacco Use Types Packs/Day Years Used Date Smoking Tobacco: Never Smokeless Tobacco: Never Sex and Gender Information Value Date Recorded Sex Assigned at Not on file Gender Identity Not on file Sexual Orientation Not on file documented as of this encounter Plan of Treatment Not on file documented as of this encounter Procedures Procedure Name Priority Date/Time Associated Diagnosis Comments ECG 12-LEAD Routine 08/08/2017 4:30 PM EST documented in this encounter Results * ECG 12 lead-Cardiac dysrhythmia-unspecifiied (08/08/2017 4:30 PM EST) Ventricular Rate EKG/MIN 69 BPM [facility] Atrial Rate 69 BPM [facility] NC Interval 136 ms [facility] QRS Duration 80 ms [facility] QT Interval 400 ms [facility] QTC Interval 428 ms [facility] P Knox 60 degrees [facility] R Wave [place] -6 degrees [facility] T Wave [place] 28 degrees [facility] 08/08/2017 4:30 PM EST Narrative AMY - 08/21/2017 11:03 AM EST Normal sinus rhythm Normal ECG When compared with ECG of 13-JUN-2017 17:28, Criteria for Septal infarct are no longer Present Bekah Nuno MD ECG ORDERABLES ROBBIN_TIRSO documented in this encounter Visit Diagnoses Not on filedocumented in this encounter Care Teams Adult Basic Education Instructor Relationship Specialty Start Date End Date Belem Peterson MD [address] [place] [address] PCP - General Internal Medicine 02/07/17 Logan Rosenthal MD [address] [place] [address] Cardiology 02/07/17 documented as of this encounter Additional Source Comments The information contained in this document represents components of the legal health record. It is not the complete legal health record.[facility]
--- OUTSIDE RECORDS SUMMARY | 2024-08-22 19:00 | XMS_ITS | Encounter Summary ---
Author Organization [facility] Address [phone] [address] [place] [address] Care Team Providers Care Geophysical Operator Name Role Phone Belem Peterson MD Primary Care Provid er Logan Rosenthal MD Unavailable Encounter Details Date Type Department Care Team (Late st Contact Info) Description 02/06/2018 Transcribe Orders [facility] Echocardiography [address] [place] [address] Lolis Tovar [address] [place] [address] [email or web address] Social History Tobacco Use Types Packs/Day Years [...] Date/Time Associated Diagnosis Comments ECG 12-LEAD Routine 02/06/2018 2:43 PM EDT documented in this encounter Results * ECG 12-LEAD (02/06/2018 2:43 PM EDT) Ventricular Rate EKG/MIN 64 BPM [facility] Atrial Rate 64 BPM [facility] [place] Interval 136 ms [facility] QRS Duration 76 ms [facility] QT Interval 406 ms [facility] QTC Interval 418 ms [facility] P Sunflower 52 degrees [facility] R Wave Sunflower -3 degrees [facility] T Wave Sunflower 30 degrees [facility] 02/06/2018 2:43 PM EDT Narrative [facility] - 02/11/2018 1:54 PM EDT Normal sinus rhythm Low voltage QRS, consider pulmonary disease, pericardial effusion, or normal variant Cannot rule out Anterior myocardial infarction , age undetermined Abnormal ECG When compared with ECG of 08-AUG-2017 16:30, Criteria for Anterior myocardial infarction are now Present Evelia Nuno MD ECG ORDERABLES ROBBIN_SALOMEH documented in this encounter Visit Diagnoses Not on filedocumented in this encounter Care Teams Geophysical Operator Relationship Specialty Start Date End Date Belem Peterson MD [address] [place] [id number] PCP - General Internal Medicine 02/07/17 Logan Rosenthal MD [address] [place] [address] Cardiology 02/07/17 documented as of this encounter Additional Source Comments The information contained in this document represents components of the legal health record. It is not the complete legal health record.[facility]
--- OUTSIDE RECORDS SUMMARY | 2024-08-22 19:00 | XMS_ITS | Patient Health Record ---
Author Organization [facility] Address [address] [place] [address] Care Team Providers Care Owner [employer] Name Role Phone Nicholas PENA, Belem Primary Care Provider Unavail able Lilian Jc Unavailable [phone] CrockettSarina Unavailable [phone] ALLERGIES No Known Allergies REASON FOR REFERRAL No Information MEDICATIONS Medication SIG (Take, Route, Frequency, Duration) Notes Start Date End Date Status Cimetidine 100 MG 1.5 tablet at bedtim e Orally Once a day Not-Taking Vitamin D3 Active Vitamin C 100 MG 1 tablet Orally Once a day Active Corlanor 5 MG 1 tablet with meals Orally Twice a day for 90 days Not-Taking Desvenlafaxine Succinate ER 50 MG 1 tablet Orally Once a day Active Ivabradine HCl 5 MG 1/2 tab am, 1 tab pm Orally Twice a day 11/20/2020 Active SOCIAL HISTORY Tobacco Use: Social History Observation Description Date Details (start date - stop date) Never Smoker NA - NA Sex Assigned At : Social History Observation Description Sex Assigned At Unknown Tobacco Use/Smoking Question Answer Notes Are you a nonsmoker Alcohol Screen Question Answer Notes Did you have a drink containing alcohol in the p ast year? No Points 0 Interpretation Negative Section Notes: The patient is a nonsmoker a nd does not drink alcohol. She does not drink excessive amounts of caffeine and she does not use recreational drugs. 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 The patient is a nonsmoker a nd does not drink alcohol. She does not drink excessive amounts of caffeine and she does not use recreational drugs. 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 The patient is a nonsmoker a nd does not drink alcohol. She does not drink excessive amounts of caffeine and she does not use recreational drugs. 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 The patient is a nonsmoker a nd does not drink alcohol. She does not drink excessive amounts of caffeine and she does not use recreational drugs. 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 The patient is a nonsmoker a nd does not drink alcohol. She does not drink excessive amounts of caffeine and she does not use recreational drugs. 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 The patient is a nonsmoker a nd does not drink alcohol. She does not drink excessive amounts of caffeine and she does not use recreational drugs. 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 The patient is a nonsmoker a nd does not drink alcohol. She does not drink excessive amounts of caffeine and she does not use recreational drugs. 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 The patient is a nonsmoker a nd does not drink alcohol. She does not drink excessive amounts of caffeine and she does not use recreational drugs. 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 The patient is a nonsmoker a nd does not drink alcohol. She does not drink excessive amounts of caffeine and she does not use recreational drugs. 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 The patient is a nonsmoker a nd does not drink alcohol. She does not drink excessive amounts of caffeine and she does not use recreational drugs. 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 PROBLEMS Problem Type ICD Code Onset Dates Problem Status W/U Status Risk SNOMED Code Notes Problem Palpitations (R00.2) Active confirmed 8 0201443 Problem Generalized anxiety disorder (F41.1) Active confirmed 50950458 Problem Anxiety (F41.9) Active confirmed 601431 02 Problem Sinus tachycardia (R00.0) Active confirmed 71554278 Problem Atypical chest pain (R07.89) Active confirmed 772721776 Problem Gastroesophageal reflux disease, esophagitis presence not specified (K21.9) Active confirmed 225134844 Problem Chest tightness (R07.89) Active confirmed 60121766 Problem Uncomplicated asthma, unspecified asthma severity (J45.909) Active confirmed 893343653 Problem Inappropriate sinus tachycardia (R00.0) Active confirmed 285360295 Problem Seasonal allergic rhinitis, unspecified allergic rhinitis trigger (J30.2) Active confirmed 772388018 Problem Asthma, unspecified asthma severity, unspecified whether complicated, unspecified whether persistent (J45.909) Active confirmed 696979559 Encounters Encounter Location Date Provider Diagnosis [facility] [address] [place] [address] [address] TARA PIPER [phone] 01/04/2024 Sarina Crockett PLAN OF TREATMENT Pending Test Test Name Order Date ECHOCARDIOGRAM 12/14/2016 ECHOCARDIOGRAM 11/24/2020 Stress Test 01/02/2017 Insurance Providers Payer Name Payer Address Payer Phone Subscriber Number Group Number Insured Name Patient Relationship to Insured Coverage Start Date Coverage End Date [employer] [address] [address] [place], [place] [phone] [id number] Marleni Smith Self - patient is the insured [employer] [address] [place], [place] [id number] [phone] [id number] Marleni Smith Self - patient is the insured MEDICAL (GENERAL) HISTORY Medical History History ICD Code inappropriate sinus tachycardia (Rx'd w ivabradine by Dr. Nuno at [facility]) preserved LV function with E F 60-65% by echo November 2016, EF 60-65% by echo November 2020 Palpitations Chest tightness Generalized anxiety disorder Seasonal allergies Asthma (diagnosed, 12/07) ([place]) atenolol-->fatigue GERD COVID 08 February 2022
--- OUTSIDE RECORDS SUMMARY | 2024-08-22 19:00 | XMS_ITS | Data Portability ---
Author Organization [facility] [employer], svmg_admin Address [address] [place] [address] Care Team Providers Care Bingo Clerk Name Role Phone GENNY TAM JR Sports Official JENNIFER DOOLEY Sports Official LIDIA RICE Primary Care Provider Assessment Encounter [...] or ectopy noted. Two-week event monitor at [facility] from 09/03/21 to 09/17/21 showed sinus rhythm throughout. For activations with symptoms of palpitations correlated with sinus tachycardia. [email or web address] Not available 01/08/2024 08:58:22 04/01/2024 04/01/2024 Blood [...] or ectopy noted. Two-week event monitor at [facility] from 09/03/21 to 09/17/21 showed sinus rhythm throughout. For activations with symptoms of palpitations correlated with sinus tachycardia. [email or web address] Not available 03/29/2024 12:00:51 Plan of Treatment [...] DO Not Attach Compendium, Do Not Delete/merge, [id number] 01/08/2024 09:34:53 electroca rdiogram 2023 024 [email or web address] In-Office Order, Internal Use Only DO Not Attach Compendium DO Not Attach Compendium, Do Not Delete/merge, [id number] 04/01/2024 11:25:29 Medication Orders None recorded. Patient TargetsNo targets recorded. Patient InstructionsNo instructions recorded. Reason for Referral None Reported. Results Created Date Observation Date Name Description Value Unit Range Abnormal Flag Note LastModifiedBy Organization Detail LastModifiedTime 01/03/20 24 [facility] rocar diogr am No observ ation record ed. LUCRECIA In-Office Order Internal Use Only DO Not Attach Compendium DO Not Attach Compendium, Do Not Delete/merge, [id number] 01/08/2024 08:40:38 01/08/20 24 elect rocar diogr am No observ ation record ed. [email or web address] Not Available 01/07 08:59:05 03/29/20 24 elect rocar diogr am No observ ation record ed. [email or web address] In-Office Order Internal Use Only DO Not Attach Compendium DO Not Attach Compendium, Do Not Delete/merge, [id number] 04/01/2024 11:17:14 04/01/20 24 elect rocar diogr am No observ ation record ed. [email or web address] Not Available 04/01 11:16:26 Result Notes None recorded. Problems Name Problem SNOMED Code Status Onset Date Resolution Date Notes Provider Name and Address Organization Details Recorded Time Inappropriate sinus tachycardia 055871438 Active 2023 AYLA Tucker [address] [place] [address], [phone], [facility]. 13:13:12 Asthma 311341598 Active 2023 ENRICO Tucker-TITO [address] [place], [phone], [facility] 13:13:22 Tachycardia 4147434 Active 2023 Genny Tam MD [address] [place], [address], [facility] 4 08:41:22 Palpitations 12977408 Active 2023 Genny Tam MD [address] [place], [address], [facility] 4 08:41:25 Problem Notes None recorded. Procedures Surgical History Date Name Laterality Status Provider Name and Address Organization Details Recorded Time Eye Surgery completed Esther Pérez [facility] 01/08/2024 08:43:26 Tonsillectomy completed Esther Pérez [facility] 01/08/2024 08:48:22 Imaging Results Imaging Date Name Status LastModified by Organization Details LastModified Time 01/03/2024 electrocardiogram completed LUCRECIA In-Offi ce Order Internal Use Only DO Not Attach Compendium DO Not Attach Compendium, Do Not Delete/merge, [id number] 01/08/2024 08:40:38 01/08/2024 electrocardiogram completed [email or web address] Informa tion not available 01/08/2024 08:59:05 03/29/2024 electrocardiogram completed [email or web address] In-Offi ce Order Internal Use Only DO Not Attach Compendium DO Not Attach Compendium, Do Not Delete/merge, [id number] 04/01/2024 11:17:14 04/01/2024 electrocardiogram completed [email or web address] Informa tion not available 04/01/2024 11:16:26 Procedure Notes None recorded. Medical Equipment None Reported. Allergies Allergen ID Allergen Name Allergen Category Reaction Reaction Severity Criticality Documentation Date Start Date Code Code System Note Provider Name and Address Organization Details Recorded Time 424112 POLLEN EXTRACTS environme nt,medica tion itching other Not available Not available Not available 01/08/2024 02115 6 RxNorm Esther martino [facility] 08:43:01 607888 cow milk allergeni c extract food,medi cation other Not available Not available 01/08/2024 86503 5 RxNorm Esther martino, [facility] 4 08:43:01 105597 cat dander environme nt itching other Not available Not available Not available 01/08/2024 17849 UNK Esther martino, [facility] 4 08:43:01 791113 mold extract environme nt itching other Not available Not available Not available 01/08/2024 63442 8 RxNorm Esther martino, [facility] 4 08:43:01 575358 famotidin e medicatio n Not available Not available Not available 01/08/2024 4278 RxFeroz martino, [facility] 4 08:45:26 Medications Name Sig Start Date [...] Not Available Vitals Date Recorded Body weight Provider Name an d Address Organization Details Last Updated DateTime 01/08/2024 22990.49 g [facility] 01/08/2024 08:44:54 Date Recorded Body mass index (BMI) Body height Provider Name and Address Organization Details Last Updated DateTime 01/08/2024 24 kg/m2 149.86 cm [facility] 01/08/2024 08:45:01 Date Recorded Heart rate Provider Name an d Address Organization Details Last Updated DateTime 01/08/2024 95 /min [facility] 01/08/2024 08:53:10 Date Recorded Body height Provider Name an d Address Organization Details Last Updated DateTime 04/01/2024 149.86 cm [facility] 04/01/2024 11:08:42 Date Recorded Body mass index (BMI) Body weight Provider Name and Address Organization Details Last Updated DateTime 04/01/2024 23.2 kg/m2 59013.12 g [facility] 04/01/2024 11:11:18 Date Recorded Heart rate Provider Name an d Address Organization Details Last Updated DateTime 04/01/2024 86 /min Boaz De Anda [facility] 04/01/2024 11:14:35 Date Recorded Systolic blood pressure Diastolic blood pressure Provider Name and Address Organization Details Last Updated DateTime 01/08/2024 108 mm[Hg] 72 mm[Hg] Esther Pérez [facility] 01/08/2024 08:50:06 Date Recorded Systolic blood pressure Diastolic blood pressure Provider Name and Address Organization Details Last Updated DateTime 04/01/2024 111 mm[Hg] 76 mm[Hg] Boaz De Anda [facility] 04/01/2024 11:16:11 Social History Question Answer Notes LastModified by Organizat ion Details LastModified Time Tobacco Smoking Status Never Smoker Esther Drewdominic martino [facility] 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 [id number] Information not available 01/08/2024 Do You Use [...] available 2023 08:43:07 Medical History Condition Response Anxiety Y Gastrointestinal Disease (IBS, Gastritis , Ulcer, Acid Reflux) Y Heart Rhythm Problem (Palpitations) Y Asthma Y Prior Blood Transfusion Y Gynecological HistoryNo gynecological history recorded. Obstetrics History GPAL:G 0 P 0 0 0 0 Past Encounters Encounter ID Performer Location Encounter Start Date Encounter Closed Date Diagnosis/Indication Diagnosis SNOMED-CT Code Diagnosis ICD10 Code Diagnosis Note [id number] Genny Tam MD [facility] y [address] [place] [address] 01/08/2024 08:24:43 01/08/2024 09:19:08 Tachycardia 4198332 R00.0 Over the past few years her [...] profile such as a calcium channel natali. Chas wagner, if her symptoms recur off of ivabradine [...] of current meds, and documentat ion Palpitations 30332077 R0 0.2 [id number] Genny Tam MD [facility] y [address] [place] [address] 04/01/2024 11:05:40 04/01/2024 11:25:29 Tachycardia 4613542 R00.0 multiple symptomati c episodes of tachycardi a while off of the ivabradine we have restarted at a lower dose of just 2.5 mg once daily which she seems to be tolerating well we will continue to monitor closely and titrate meds as needed Palpitations 85612177 R0 0.2 Health Concerns Section Related Observation LastModified by Organization Detai ls LastModified Time None Recorded Concern Status LastModified by Organization Details LastModified Time None Recorded Advance Directives Directive N: Payers Encounter Date Sequence Insurance Name Policy Number Policy Jones Covered Member ID Jones Member ID Guarantor Name 01/08/2024 1 [employer] [facility] ([place]PO[place] [id number] Marleni Lentz [id number] 04/01/2024 1 [employer] [facility] ([place] [id number] Marleni Lentz [id number] Notes Date Note Type Note Provider [...] shortness of breath. 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 Genny Tam MD [address] [place] [address], [phone], [facility]. 01/08/2024 09:39:43 04/01/2024 text/html 29 y/o [...] but otherwise no complaints Genny Tam MD [address] [place] [address], [phone], [facility]. 04/01/2024 12:13:01 OBGyn Episode No OBEpisode recorded.
--- OUTSIDE RECORDS SUMMARY | 2024-08-22 19:00 | XMS_ITS ---
Author Organization [facility] Address [address] [place] [address] Care Team Providers Care Repair Miller Name Role Phone Nicholas PENA, Belem Primary Care Provider Unavail able Robbie Jcen Unavailable [phone] Sarina Crockett Unavailable [phone] REASON FOR VISIT year Encounters Encounter Location Date Provider Diagnosis Mass Heart & Rhythm [facility] [address] [place] [id number] 01/04/2024 Sarina Crockett PLAN OF TREATMENT No Information Progress Notes * Marleni SMITH EDOB:[birth year] (29 yo F)Acc No.[id number]:01/04/2024 Progress Notes Patient:??Marleni SMITH Provider:??Sarina Crockett CNP :1995?Age:28 Y?Sex:Fe male Date:01/04/2024 [address] [place] [place] [address] Pcp:Belem Peterson MD Subjective: * Chief Complaints: * ?1. Year. * Medical History:?? Objective: Assessment: Plan: * Treatment: * Images: * Sign off status: Pending * Provider:??Sarina Crockett CNP Date:??
--- OUTSIDE RECORDS SUMMARY | 2024-08-22 19:00 | XMS_ITS | Encounter Summary ---
Author Organization [facility] Address [phone] [address] [place] [address] Care Team Providers Care It Analyst Name Role Phone Belem Peterson MD Primary Care Provid er Logan Rosenthal MD Unavailable Encounter Details Date Type Department Care Team (Late st Contact Info) Description 06/13/2017 Transcribe Orders [facility] Echocardiography [address] [place] [address] [email or web address] Social History Tobacco Use Types Packs/Day Years [...] Date/Time Associated Diagnosis Comments ECG 12-LEAD Routine 06/13/2017 5:28 PM EST documented in this encounter Results * ECG 12 lead-Cardiac dysrhythmia-unspecifiied (06/13/2017 5:28 PM EST) Ventricular Rate EKG/MIN 65 BPM [facility] Atrial Rate 65 BPM [facility] MD Interval 150 ms [facility] QRS Duration 68 ms [facility] QT Interval 404 ms [facility] QTC Interval 420 ms [facility] P Banner 68 degrees [facility] R Wave Banner 3 degrees [facility] T Wave Banner 2 degrees [facility] 06/13/2017 5:28 PM EST Narrative ROBBIN_TIRSO - 06/14/2017 8:28 PM EST Normal sinus rhythm Septal infarct (cited on or before 07-MAR-2017) Abnormal ECG When compared with ECG of 07-MAR-2017 13:42, No significant change was found Evelia Nuno MD ECG ORDERABLES ROBBIN_TIRSO documented in this encounter Visit Diagnoses Not on filedocumented in this encounter Care Teams It Analyst Relationship Specialty Start Date End Date Belem Peterson MD [address] [place] [address] PCP - General Internal Medicine 02/07/17 Logan Rosenthal MD [address] [place] [address] Cardiology 02/07/17 documented as of this encounter Additional Source Comments The information contained in this document represents components of the legal health record. It is not the complete legal health record.[facility]
--- OUTSIDE RECORDS SUMMARY | 2024-08-22 19:01 | XMS_ITS | Clinical Summary ---
Author Organization [facility] Address [address] [place] [address] Care Team Providers Care Java Development Team Lead Name Role Phone Belem Peterson MD Primary Care Provid er Allergies Active Allergy Reactions Criticality Noted Date Comments Pollen Extracts Other (See Comments) 08/26/2008 nasal Medications ascorbic acid, vitamin C, (VITAMIN C) 500 MG tablet Take 500 mg by mouth. Active desvenlafaxine (PRISTIQ) 50 MG 24 hr tablet Take 50 mg by mouth. 08/28/2018 Active ibuprofen (ADVIL,MOTRIN) 200 MG tablet as needed. 11/22/2007 Acti ve ivabradine 5 mg tab Half a tablet in the am and 1/2 tab in pm 11/19/2018 Active lorazepam (ATIVAN) 0.5 MG tablet Take 0.5 to 1 tab orally twice daily as needed for severe anxiety. 05/01/2018 Active desvenlafaxine (PRISTIQ) 50 MG 24 hr tablet Take 50 mg by mouth. 08/27/2019 Active doxycycline (VIBRA-TABS) 100 MG tablet Take 1 tablet (100 mg total) by mouth 2 (two) times a day. Not for /l actation 10 tablet 09/12/2019 Active Social History Tobacco Use Types Packs/Day Years Used Date Smoking Tobacco: Never Smokeless Tobacco: Never Comments Unknown Sex and Gender Information Value Date Recorded Sex Assigned at Not on file Legal Sex Female 12:10 PM EDT Gender Identity Not on file Sexual Orientation Not on file Last Filed Vital Signs Vital Sign Reading Time Taken Comments Blood Pressure 120/70 07/18/2019 3:44 PM EST Pulse 100 07/18/2019 3:44 PM EST Temperature 36.8 ??C (98.3 ??F) 07/18/2019 3:44 PM ES T Respiratory Rate 18 07/18/2019 3:44 PM EST Oxygen Saturation 100% 07/18/2019 3:44 PM EST Inhaled Oxygen Concentration - - Weight - - Height - - Body Mass Index - - Plan of Treatment Health Maintenance Due Date Last Done Comments Depression: Screening Annual ly using PHQ-2/9 in Adults 18 yrs or above (or HM Modifier)([facility]) 2011 Hepatitis C Virus Infection in Adolescents and Adults: Screening (or Modifier) ([facility]) 2011 SDOH Screening Reminder: Annually for all adults ([facility]) 2011 Tobacco Smoking Cessation: i n Adults excluding Women: Behavioral and Pharmacotherapy Interventions ([facility]) 2011 Lipid Screening: Once for Wo men aged 20 to 45 yrs ([facility]) 2013 Cervical Cancer Screenin-65 yrs of age (or Modifier) 2014 Cervical Cancer Screening: P ap every 3 yrs pts age 21-65 2014 Cervical Cancer: Pap Screeni ng with Modifier timing ([facility]) 2014 Cervical Cancer: hrHPV alone or with cotesting Pap for Pts 30-65yrs screening every 5yrs ([facility]) 2014 Flu Vaccination: Yearly for ages 18mos through 64 years (or Modifier)([facility]) 02/22/2024 COVID-19 Vaccine Screening: Initial Series and Booster Status ([facility]) ( - 2023- season) 2024 DTaP/Tdap/Td Vaccines ([facility]) (3 - Td or Tdap) 03/17/2030 03/17/2020, 03/24/2010 Zoster/Shingles Vaccine Seri es Screening: Adults aged 18+ yrs (or HM Modifiers)([facility]) (1 of 2) 2043 Pneumococcal Vaccination Screening: Pts 0-19 & 19-64 yrs of age ([facility]) Aged Out No longer eligible based on patient's age to complete this topic Medical Devices Not on file Insurance [facility] Care Teams Java Development Team Lead Relationship Specialty Start Date End Date Belem Peterson MD [address] [address] [place] [phone] PCP - Dressing Room Porter 07/18/19
--- OUTSIDE RECORDS SUMMARY | 2024-08-22 19:01 | XMS_ITS | Encounter Summary ---
Author Organization [facility] Address [address] [place] [address] Care Team Providers Care Tufting Machine Operator Name Role Phone Belem Peterson MD Primary Care Provider [phone] Encounter Details Date Type Department Care Team (Late st Contact Info) Description 08/14/2024 [employer] Message [facility] Internal Medicine [address] [place] [phone] Mychart, Generic Provider [address] [phone] PFMLA forms Social History Tobacco Use Types Packs/Day Years Used Date Smoking Tobacco: Never Smokeless Tobacco: Never Alcohol Use Standard Drinks/Week Comments No 0 (1 standard drink = 0.6 oz pur e alcohol) Never liked it [facility] Utilities Answer Date Recorded In the past 12 months has e electric, gas, oil, or water company threatened to shut off services in your home? No 01/15/2024 Hunger Vital Sign Answer Date Recorded Within the past 12 months, y ou worried that your food would run out before you got the money to buy more. Never true 01/15/20 24 Within the past 12 months, t he food you bought just didn't last and you didn't have money to get more. Never true 01/15/2024 Transportation Answer Date Recorded In the past 12 months, has l ack of reliable transportation kept you from medical appointments, meetings, work or from getting things needed for daily living? No 01/15/2024 Housing Answer Date Recorded Housing Risk Low 2 01/15/2024 Housing Risk Medium Not on file 01/15/2024 Housing Risk High Not on file 01/15/2024 What is your living situation today? 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 [place] [address] PCP - General 02/08/17 documented as of this encounter
--- OUTSIDE RECORDS SUMMARY | 2024-08-22 19:01 | XMS_ITS | Encounter Summary ---
Author Organization [facility] Address [address] [place] [address] Care Team Providers Care Rn On Site Name Role Phone Belem Peterson MD Primary Care Provider [phone] Encounter Details Date Type Department Care Team (Late st Contact Info) Description 07/12/2024 [employer] Message [facility] Internal Medicine [address] [place] [address] [address] [place] [phone] Mireille Bustamante, CCMA ultrasound Social History Tobacco Use Types Packs/Day Years Used Date Smoking Tobacco: Never Smokeless Tobacco: Never Alcohol Use Standard Drinks/Week Comments No 0 (1 standard drink = 0.6 oz pur e alcohol) Never liked it [facility] Utilities Answer Date Recorded In the past 12 months has th e electric, gas, oil, or water company threatened to shut off services in your home? No 01/15/2024 Hunger Vital Sign Answer Date Recorded Within the past 12 months, y ou worried that your food would run out before you got the money to buy more. 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
--- OUTSIDE RECORDS SUMMARY | 2024-08-22 19:01 | XMS_ITS | Encounter Summary ---
Author Organization [facility] Address [address] [place] [address] Care Team Providers Care Switchman Name Role Phone Belem Peterson MD Primary Care Provider [phone] Reason for Visit * Reason Onset Date Comments MRI results. 07/07/2024 Encounter Details Date Type Department Care Team (Late st Contact Info) Description 07/07/2024 Telephone [facility] Internal Medicine [address] [phone] Belem Peterson MD [address] [place], [place] [phone] MRI results. 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. * Telephone Encounter - Krystal Gonzales - 07/11/2024 11:02 AM EST Patient called back and [facility] Patient requesting to have it done [facility], so her insurance will cover it. Please fax to [phone]. Please let patient know when done. [phone]. * Telephone Encounter - EMMIE Phipps - 07/08/2024 9:17 AM EST Lmtcb * Telephone Encounter - Belem Peterson MD - 07/07/2024 7:[address] let pt know MRI does not show any acute disc problems, she can continue with PT and monitor and see if pain resolves. Also she does have a possible cyst in the right kidney, will recommend we get a renal ultrasound. If in agreement, will order. documented in this encounter Plan of Treatment Not on file documented as of this encounter Visit Diagnoses Not on filedocumented in this encounter Care Teams Switchman Relationship Specialty Start Date End Date Belem Peterson MD [address] [place] [address] PCP - General 02/08/17 documented as of this encounter
--- OUTSIDE RECORDS SUMMARY | 2024-08-22 19:01 | XMS_ITS | Encounter Summary ---
Author Organization [facility] Address [address] [place] [address] Care Team Providers Care Pharmacy Picking Technician Name Role Phone Belem Peterson MD Primary Care Provider [phone] Encounter Details Date Type Department Care Team (Late st Contact Info) Description 07/11/2024 [employer] Message [facility] Internal Medicine [address] [place] [address] [address] [place] [phone] Mireille Bustamante, CCMA results Social History Tobacco Use Types Packs/Day Years Used Date Smoking Tobacco: Never Smokeless Tobacco: Never Alcohol Use Standard Drinks/Week Comments No 0 (1 standard drink = 0.6 oz pur e alcohol) Never liked it [facility] Utilities Answer Date Recorded In the [...] Job 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
--- OUTSIDE RECORDS SUMMARY | 2024-08-22 19:01 | XMS_ITS | Encounter Summary ---
Author Organization [facility] Address [address] [place] [address] Care Team Providers Care Social Work Faculty Member Name Role Phone Belem Peterson MD Primary Care Provider [phone] Encounter Details Date Type Department Care Team (Late st Contact Info) Description 06/26/2024 [employer] Message [facility] Internal Medicine [address] [phone] Belem Peterson MD [address] [place] [address] FMLA Form Social History Tobacco Use Types Packs/Day Years Used Date Smoking Tobacco: Never Smokeless Tobacco: Never Alcohol Use Standard Drinks/Week Comments No 0 (1 standard drink = 0.6 oz pur e alcohol) Never liked it [facility] Utilities Answer Date Recorded In the [...] Job Start Date Job 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
--- OUTSIDE RECORDS SUMMARY | 2024-08-22 19:01 | XMS_ITS | Encounter Summary ---
Author Organization [facility] Address [address] [place] [address] Care Team Providers Care Cooler Man Name Role Phone Belem Peterson MD Primary Care Provider [phone] Encounter Details Date Type Department Care Team (Late st Contact Info) Description 07/15/2024 [facility] Message [facility] Internal Medicine [address] [place] [phone] Mychart, Generic Provider [address] [id number] US Kidney Social History Tobacco Use Types Packs/Day Years Used Date Smoking Tobacco: Never Smokeless Tobacco: Never Alcohol Use Standard Drinks/Week Comments No 0 (1 standard drink = 0.6 oz pur e alcohol) Never liked it [facility] Utilities Answer Date Recorded In the past [...] 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
--- OUTSIDE RECORDS SUMMARY | 2024-08-22 19:02 | XMS_ITS | Encounter Summary ---
Author Organization [facility] Address [address] [place] [address] Care Team Providers Care Fire Department Marine Engineer Name Role Phone Belem Peterson MD Primary Care Provider [phone] Reason for Referral * Physical Therapy (Routine) - Authorized Specialty Diagnoses / Procedures Referred By Contjosee t Referred To Contact Physical Therapy Diagnoses Midline low back pain, unspecified chronicity, unspecified whether sciatica present Belem Peterson MD [address] [place] [address] Phone: tel: fax: Referral ID Status Reason Start Date Expiration Date Visits Requested Visits Authorized [id number] Authorized Specialty Services Required 08/05/2024 02/04/2026 6 6 Reason for Visit * Reason Onset Date Comments update order 08/02/2024 Encounter Details Date Type Department Care Team (Late st Contact Info) Description 08/02/2024 Telephone [facility] Internal Medicine [address] [phone] Belem Peterson MD [address] [place] [address] update order Social History Tobacco Use Types Packs/Day Years Used Date Smoking Tobacco: Never Smokeless Tobacco: Never Alcohol Use Standard Drinks/Week Comments No 0 (1 standard drink = 0.6 oz pur e alcohol) Never liked it [facility] Utilities Answer Date Recorded In the [...] 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 * Telephone Encounter - Meliza Maurice - 08/02/2024 1:16 PM EST Selwyn from [facility] called, they have the order for PT for pt. She started PT today and mentioned her lower back is bothering her as well. They are asking for lower back pain be added to the order and refax it to them so they can treat that as well. Pls update and fax again. documented in this encounter Plan of Treatment Scheduled Referrals Name Type Priority Associated Diagnoses Order Schedule Ambulatory referral to Physical Therapy Outpatient Referral Routine Midline low back pain, unspecified chronicity, unspecified whether sciatica present 1 Occurrences starting 08/05/2024 until 02/02/2025 documented as of this encounter Visit Diagnoses Diagnosis Midline low back pain, unspecified chronicity, unspecified whether sciatica present- Primary documented in this encounter Care Teams Fire Department Marine Engineer Relationship Specialty Start Date End Date Belem Peterson MD [address] [place] [address] PCP - General 02/08/17 documented as of this encounter
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
--- OUTSIDE RECORDS SUMMARY | 2024-08-22 19:02 | XMS_ITS | Encounter Summary ---
Author Organization [facility] Address [address] [place] [address] Care Team Providers Care Cost Reduction Engineer Name Role Phone Belem Peterson MD Primary Care Provider [phone] Encounter Details Date Type Department Care Team (Late st Contact Info) Description 08/05/2024 myChart Message [facility] Internal Medicine [address] [phone] Belem Peterson MD [address] [place] [address] PFML Social History Tobacco Use Types Packs/Day Years Used Date Smoking Tobacco: Never Smokeless Tobacco: Never Alcohol Use Standard Drinks/Week Comments No 0 (1 standard drink = 0.6 oz pur e alcohol) Never liked it [facility] Utilities Answer Date Recorded In the past 12 months has e [employer], gas, oil, or water redealize threatened to shut off services in your [...] Job 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
--- OUTSIDE RECORDS SUMMARY | 2024-08-22 19:02 | XMS_ITS | Encounter Summary ---
Author Organization [facility] Address [address] [place] [address] Care Team Providers Care County Commissioner Name Role Phone Belem Peterson MD Primary Care Provider [phone] Encounter Details Date Type Department Care Team (Late st Contact Info) Description 07/26/2024 Orders Only [facility] Internal Medicine [address] [phone] Provider, Piter, [facility] [place] [address] Social History Tobacco Use Types Packs/Day Years Used Date Smoking Tobacco: Never Smokeless Tobacco: Never Alcohol Use Standard Drinks/Week Comments No 0 (1 standard drink = 0.6 oz pur e alcohol) Never liked it [facility] Utilities Answer Date Recorded In [...] 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 Procedure Name Priority Date/Time Associated Diagnosis Comments AMB EXTERNAL US ABDOMEN, SCANNED RESULT Routine 07/23/2024 3:27 PM EST documented in this encounter Results * Due to [place] [employer] law, this organization might not be sharing negative HIV tests. * US Abdomen, Scanned Result (07/23/2024 3:27 PM EST) Anatomical Region Laterality Modality Other us Unknown Provider MD BAUTISTA EXTERNAL RESULT PROCEDUR ES Final Result documented in this encounter Visit Diagnoses Not on filedocumented in this encounter Care Teams County Commissioner Relationship Specialty Start Date End Date Belem Peterson MD [address] [place] [address] PCP - General 02/08/17 documented as of this encounter
--- OUTSIDE RECORDS SUMMARY | 2024-08-22 19:02 | XMS_ITS | Clinical Summary ---
Author Organization [facility] Address [address] [place] [address] Phone Care Team Providers Care Brickmason Supervisor Name Role Phone Leonid Nicholas [phone] Conditions or Problems Problem Name Problem Code Onset Date Status Entry Date Provider Comment Standard Description Annotate ACNE VULGARIS 64353367 (SNOMED CT) Active Emiliano White MD Acne vulgaris ANXIETY F41.9 (ICD-10-CM) Active Emiliano White MD Anxiety disorder, unspecified Medications Medication Instructions Start Date Stop Date Generic Name [facility] Provider [facility] VITAMIN C TABS one po qd 4 ASCORBIC ACID TABS [id number] Emiliano White MD TURMERIC CURCUMIN 500 MG CAPS one po qd 4 TURMERIC 64282137786 Emiliano White MD FINACEA 15 % GEL apply to face qd 4 AZELAIC ACID 25658183606 Emiliano White MD CLINDAMYCIN PHOSPHATE 1 % LOTN AAA on face once daily 4 CLINDAMYCIN PHOSPHATE 52580380680 Emiliano White MD MINOCYCLINE HCL 50 MG CAPS one po qd every 3 days 4 MINOCYCLINE HCL 99655804296 Emiliano White MD CELEXA 20 MG TABS one po qd 4 CITALOPRAM HYDROBROMIDE 55110172727 Emiliano White MD Medications Administered No information available. Allergies, Adverse Reactions, Alerts Observed no known allergies at Results No information available. Plan of Care No information available. Procedures Code Procedure Name Date Entry Date [facility]-[id number] Patient encounter procedure Vital Signs No information available. Immunizations No information available. Advance Directives No information available.
== END 2024-08-22 16:17 | disposition home or self-care (01) ==
PROVIDERS: PCP Internal Medicine; Visit Provider Hospitalist
DX: J45.40 Moderate persistent asthma, uncomplicated (principal); J30.9 Allergic rhinitis, unspecified; L30.9 Dermatitis, unspecified; J40 Bronchitis, not specified as acute or chronic
CPT/HCPCS: 99214

== ENCOUNTER → 2024-08-22 15:12 | Outpatient (BNVA) | payer OTHER, SELFPAY | PROVIDERS: PCP Internal Medicine; Visit Provider Hospitalist ==

== ENCOUNTER 2024-11-15 08:59 | Outpatient (RCR) | payer OTHER, SELFPAY | END 2024-11-19 09:46 | disposition home or self-care (01) | LOC: HO.PT 08:59 | PROVIDERS: PCP Internal Medicine; Visit Provider Internal Medicine | DX: S16.1XXA Strain of muscle, fascia and tendon at neck level, initial encounter (principal) | CPT/HCPCS: 97012; 97014; 97110; 97140; 97161; 97530; 97535 ==

== ENCOUNTER 2025-02-18 14:24 | Outpatient (AMB) | payer OTHER, SELFPAY ==
--- OUTSIDE RECORDS SUMMARY | 2024-01-04 04:30 | XMS_ITS ---
Author Organization [facility] Address [address] [place] [address] Care Team Providers Care Manager Business Development Hospice Name Role Phone Nicholas PENA, Belem Primary Care Provider Unavail able Robbie Jcen Unavailable [phone] Sarina Crockett Unavailable [phone] REASON FOR VISIT year Encounters Encounter Location Date Provider Diagnosis [facility] Heart & Rhythm [facility] [address] [place], [place] [phone] 01/04/2024 Sraina Crockett Plan Of Treatment No Information Progress Notes * SMITHMarleni EDOB:[birth year] (29 yo F)Acc No.[id number]:01/04/2024 Progress Notes Patient: Marleni [place] Provider: Ling Crockett CNP :1995 A ge:28 Y S ex:Female Date:01/04/2024 Address:[address] [place], [place] [phone] Pcp:Be[place] Peterson MD Subjective: * Chief Complaints: * 1 . Year. * Medical History: Objective: * Vitals: Assessment: Plan: * Treatment: * * Electronic signature of Christopher Crockett CNP on 02/18/2025 at 03:02 PM EDT Sign off status: Pending * Provider: Ling Crockett CNP Date: 0 01/04/2024 Generated for Printi ng/Faxing/eTransmitting on: 0 02/18/2025 03:02 PM EDT
[2025-02-18 14:26] VITALS: BP 96/60; PULSE 90; O2SAT 98; BMI 24.0
--- NOTE | 2025-02-18 14:26 | A.OFFVIS_ITS ---
Vital Signs 02/18/25 14:26 Height 4 ft 11 in Weight 119 lb 0.794 oz BMI 24.0 BP 96/60 Blood Pressure Location Lt brachial Position Sitting Pulse 90 Pulse Source Pulse Oximeter Pulse Oximetry (%) 98 Oxygen Delivery Method Room Air Intake Visit Reasons: Asthma Manager Financial Services Required: No Accompanied by: Self / Same As Patient Allergies famotidine Allergy (Severe, Verified 02/18/25 14:28) Anaphylaxis codeine Allergy (Verified 02/18/25 14:28) Numbness HPI Comments Details: The patient is a 29 year woman with a known history of asthma in addition to chronic rhinitis and chronic sinusitis. The patient was initially diagnosed about 7 years ago when she started developing worsening shortness of breath and tachycardia. when she was diagnosed with the asthma the patient was placed on QVAR. She tolerated the QVAR well. At some point her symptoms worsened and she was switched over to Advair. Unfortunately it caused significant muscle cramping and she went back to the inhaled steroids. The patient does not have a rescue inhaler because of her significant tachycardia. In the meantime the patient started developing worsening sinus discomfort. She did undergo CT scan of the sinuses demonstrate thickening of the mucosa but no polyp was. The patient was referred to ENT. She did have allergy testing found to have allergies to multiple things including mold. The patient was recommended allergy shots but concerned with her ongoing coughing and asthma symptoms. Therefore the patient was referred to Pulmonary. Today she does have significant cough. She is status mainly because of sinusitis which she has a significant postnasal drip. She causally coughs. will go ahead and help her treat her sinusitis and also optimize her asthma therapy. She will require repeat pulmonary function studies in addition to blood work. 05/23/2023 the patient is here for a pulmonary follow-up visit. The patient is doing about the same. She started taking the Advair initially was helping but then she noticed that it was not as effective. She does not have a rescue inhaler. I will make sure she has 1 available. She can also get a nebulizer if she feels that she needs additional therapies. We did review her blood work her IgE levels actually normal and her eosinophils are as well. Therefore will hold off on biologic therapy right now. The patient does have allergies as she is been tested positive for allergens but at this point does not have to be a significant component of her symptomatology. The patient did try the Neti bottle but sometimes he did not drain well so therefore she stopped using it. She did try multiple times. The patient also has reflux disease. We did talk about potential triggers for asthma including her postnasal drip and also reflux disease. She is going to continue with the reflux diet and will continue to improve her medication regimen. The patient also had pulmonary function studies which were completely normal and reassuring. Therefore, if she needs to start allergy shots she is able to start them at this time. 02/06/2024 the patient is here for a pulmonary follow-up visit. Overall the patient is doing a lot better. She is getting allergy shots now. In addition to that she is monitoring closely her reflux disease. While controlling her triggers her respiratory symptoms happened bed in better. She has not had to use the Advair. She does have a rescue inhaler that she uses as needed. But typically does not 2 times a week. She is raising her sinuses with the Navage. She finds this more effective than the Neti bottle. No recent imaging studies to review this time. The patient is doing well. Continue with the current respiratory therapy will follow-up in a year's time. If the patient develops any worsening symptoms prior to that she will call for an earlier assessment. 08/22/2024 the patient is here for sick visit. She has been sick now for about 2 weeks. She has been coughing, moderate severity. Nonproductive in nature. Most likely like a croupy cough. She denies any fevers or chills or any joint pains. The patient does have some coughing on exam which is barky in nature with some rhonchi. Will go ahead and started her on a Medrol Reji and also azithromycin. The patient also had been on Advair but it is . Will go ahead and send her another prescription that she can start. If she is no better by next week she will call. Otherwise will follow-up in 4-6 months. 02/18/2025 the patient is here for pulmonary follow-up visit. Overall she is back to her baseline. She continues with the allergy shots. She has a Advair and also her allergy medicines. She continues to use the Diana for her nasal congestion. Seems to be effective. We did talk about making sure that is clean to avoid any contamination of her sinuses. She had a CAT scan back in 2021 of the sinuses demonstrating some thickening of the sinuses but otherwise okay. No recent imaging studies of the chest. Her barky cough is better. She is no longer requiring the Bentson is although they did help her. No additional testing needed right now. She will continue with the current respiratory therapy and allergy therapy. She will follow-up in a year's time if she has any issues prior to this she will call for an earlier evaluation. [facility] Medical History Eczema Chronic allergic rhinitis Sinusitis Asthma Surgical History History of tonsillectomy History of esophagogastroduodenoscopy (EGD) Family History Maternal Grandmother Lung cancer Social History Alcohol intake: never Patient Tobacco Use Status: Never used Tobacco Review of Systems Const Denies fever(s) Eyes Reports no additional complaints ENT Reports nasal congestion, Reports nasal discharge, Denies nasal obstruction, Denies post nasal drip, Denies sinus pain and Denies sinus pressure Card Denies chest pain Resp Denies cough and Denies wheezing GI Reports no additional complaints Musc Reports no additional complaints and Reports muscle cramps Skin/Breast Reports rash Neuro Reports no additional complaints Tyson/Lymph Denies lymphadenopathy Aller/Immun Denies wheezing Physical Exam Const General: comfortable HEENT General nose exam: Abnormal mucous membranes and turbinates present erythematous Throat: Yes postnasal drainage and Yes cobblestoning Neck Neck: Yes supple Chest Chest palpation & inspection: normal inspection of the chest Resp Effort & Inspection: normal respiratory effort Auscultation: clear to auscultation bilaterally, no rhonchi, no wheezes and lung sounds not diminished Cardio Rate: regular rate Rhythm: regular rhythm Heart sounds: S1 normal heart sound present and S2 normal heart sound present GI Palpation (GI): Soft to palpation Skin General skin exam: no rashes or lesions noted Extrem General: Yes no clubbing, cyanosis or edema Assessment & Plan Assessment & Plan (1) Asthma: Code(s): J45.909 - Unspecified asthma, uncomplicated Category: Medical Qualifiers: Asthma complication type: uncomplicated Asthma persistence: persistent Asthma severity: moderate Qualified Code(s): J45.40 - Moderate persistent asthma, uncomplicated (2) Chronic allergic rhinitis: Code(s): J30.9 - Allergic rhinitis, unspecified Category: Medical (3) Eczema: Code(s): L30.9 - Dermatitis, unspecified Category: Medical Qualifiers: Eczema type: unspecified Qualified Code(s): L30.9 - Dermatitis, unspecified Plan continue Advair HFA ADAM as needed sinus rinsing with distilled water reflux diet continue allergy shots F/U 12 months Coding Level of Care Code Est Pt Level 4 (75976) Diagnoses Moderate persistent asthma without complication J45.40 Asthma complication type: uncomplicated Asthma persistence: persistent Asthma severity: moderate Chronic allergic rhinitis J30.9 Eczema, unspecified type L30.9 Eczema type: unspecified Time Spent (min) 16
--- OUTSIDE RECORDS SUMMARY | 2025-02-18 15:03 | XMS_ITS | Clinical Summary ---
Author Organization [facility] Address [address] [place] [address] Care Team Providers Care Police Matron Name Role Phone Belem Peterson MD Primary [...] 100 07/18/2019 3:44 PM EST Temperature 36.8 C (98.3 F) 07/18/2019 3:44 PM EST Respiratory Rate 18 07/18/2019 3:44 PM EST Oxygen Saturation 100% 07/18/2019 3:44 PM EST Inhaled Oxygen Concentration - - Weight - - Height - - Body Mass Index - - Plan of Treatment Health Maintenance Due Date Last Done Comments Depression: Screening Annual ly using PHQ-2/9 in Adults 18 yrs or above (or HM Modifier)([facility]) 2011 Hepatitis C Virus Infection in Adolescents and Adults: Screening (or Modifier) ([facility]) 2011 SDOH Screening Reminder: Annually for all adults ([facility]) 2011 Tobacco Smoking Cessation: i n Adults excluding Women: Behavioral and Pharmacotherapy Interventions ([facility]) 2011 Cervical Cancer Screenin-65 yrs of age (or Modifier) 2014 Cervical Cancer Screening: P ap every 3 yrs pts age 21-65 2014 Cervical Cancer: Pap Screeni ng with Modifier timing ([facility]) 2014 Cervical Cancer: hrHPV alone or with cotesting Pap for Pts 30-65yrs screening every 5yrs ([facility]) 2014 COVID-19 Vaccine Screening: Initial Series and Booster Status ([facility]) (2023- season) 2024 Flu Vaccination: Yearly for ages 18mos through 64 years (or Modifier)([facility]) 02/21/2025 DTaP/Tdap/Td Vaccines ([facility]) (3 - Td or Tdap) 03/17/2030 03/17/2020, 03/24/2010 Zoster/Shingles Vaccine Seri es Screening: Adults aged 18+ yrs (or HM Modifiers)([facility]) (1 of 2) 2043 Pneumococcal Vaccination Screening: Pts 0-19 & 19-49 yrs of age ([facility]) Aged Out No longer eligible based on patient's age to complete this topic Medical Devices [place] [address] [facility] Care Teams Police Matron Relationship Specialty Start Date End Date Belem Peterson MD [address] [place] [address] [place] [phone] PCP - Merchandise Displayer 07/18/19
--- OUTSIDE RECORDS SUMMARY | 2025-02-18 15:03 | XMS_ITS | Patient Health Record ---
Author Organization [facility] [place] Address [address] [place], [place] [id number] Care Team Providers Care Truckload Owner Operator Name Role Phone Nicholas PENA, Belem Primary Care Provider Unavail able Shimon Bales Unavailable Reason For Referral No Information Medications Medication SIG (Take, Route, Fr equency, Duration) Notes Start Date End Date Status Minocycline HCl 50 MG 1 capsule Orally e very 3rd day Active Vitamin C 500 MG Orally Act екатерина CeleXA 20 MG 1 tablet Orally Once a day Active Atenolol 25 MG 1 tablet Oral A ctive Xopenex HFA 45 MCG/ACT 1 puff as needed Inhalation every 4 hrs; Duration: 30 days 02/06/2017 Active Problems Problem Type SNOMED Code ICD Code Onset Dates Problem Status W/U Status Risk Notes Problem Tachycardia (5099806) Tachycardia (R00.0) Active confirmed Problem Gastroesophageal reflux disease (830486241) Gastroesophageal reflux disease, esophagitis presence not specified (K21.9) Active confirmed Problem Uncomplicated moderate persistent asthma (995435371) Moderate persistent asthma without complication (J45.40) Active confirmed Problem Daytime hypersomnia (72649636094493) Daytime hypersomnia (G47.19) Active confirmed Problem Chest pain (21666792) Chest pain, unspecified type (R07.9) Active confirmed Plan Of Treatment Pending Test Test Name Order Date SLEEP STUDY-DIAGNOSTIC 01/05/2017 ALLERGEN ASTHMA PROFILE 01/05/2017 CBC+AUTO DIFF 01/05/2017 IgE 01/05/2017 D.PTERONYSSINUS 01/05/2017 DERM FARINEAE 01/05/2017 CAT DANDER 01/05/2017 DOG EPITHELIUM 01/05/2017 CT CHEST +C 01/05/2017 OAK 01/05/2017 PENCILLIUM NOTATUM MOLD 01/05/2017 COCKROACH 01/05/2017 BRITTANY GRASS 01/05/2017 COMMON RAGWEED 01/05/2017 MACEDONIAN PLANTAIN 01/05/2017 CLADOSPORIUM HERBARUM MOLD 01/05/2017 MUCOR RACEMOSUS MOLD 01/05/2017 CARMEN ALBICANS 01/05/2017 ALTERNARIA TENIUS MOLD 01/05/2017 CT CHEST +C 01/12/2017 Future Test Test Name Order Date CHEST XRAY PA LAT 01/05/2017 Insurance Providers Payer Name Payer Address Payer Phone Subscriber Number Group Number Insured Name Patient Relationship to Insured Coverage Start Date Coverage End Date [facility] [address] [place] [phone] [id number] Marleni Navarro Self - patient is the insured Medical (General) History Medical History History ICD Code Migraine headache Seasonal rhinitis Anxiety Surgical History Surgery Date(Month/Year) Cubero teeth extracted Tonsillectomy
--- OUTSIDE RECORDS SUMMARY | 2025-02-18 15:03 | XMS_ITS | Data Portability ---
Author Organization [facility] [employer]admin Address [address] [place] [phone] Care Team Providers Care Drill Grinder Name Role Phone SARINA DOOLEY Concrete Pipe Plant Supervisor LIDIA RICE Primary Care Provider GENNY TAM Concrete Pipe Plant Supervisor Unavailable Assessment Encounter Date Assessment Date Assessment LastModified [...] or ectopy noted. Two-week event monitor at [facility] from 09/03/21 to 09/17/21 showed sinus rhythm throughout. For activations with symptoms of palpitations correlated with sinus tachycardia. [email or web address] Not available 01/08/2024 08:58:22 04/01/2024 04/01/2024 Blood [...] or ectopy noted. Two-week event monitor at [facility] from 09/03/21 to 09/17/21 showed sinus rhythm throughout. For activations with symptoms of palpitations correlated with sinus tachycardia. [email or web address] Not available 03/29/2024 12:00:51 01/20/2025 01/20/2025 Blood work on 02/11/22 showed normal electrolytes, [...] or ectopy noted. Two-week event monitor at [facility] from 09/03/21 to 09/17/21 showed sinus rhythm throughout. For activations with symptoms of palpitations correlated with sinus tachycardia. [email or web address] Not available 01/08/2025 12:31:51 Plan of Treatment Reminders Order Date Submit Date Provider Last Modified By Organization Details Last Modified Time Details Appointments Any 15 2025 01:30P M Genny Tam MD Not available Not available Not available Lab None recorded . Referral None recorded . Procedures None recorded . Surgeries None recorded . Imaging electroc ilsadiogra tata 2024 025 [email or web address] In-Office Order, Internal Use Only DO Not Attach Compendium DO Not Attach Compendium, Do Not Delete/merge, [id number] 01/20/2025 14:06:50 home sleep study - 29 y/o F w/ inapprop riate sinus tachycar rosanna while sleeping , please screen for LUCÍA thanks 2024 025 ATHENAFAX [facility], [address] [place] [address] Rd, [address], [place], [address], 01/20/2025 14:13:17 electroc ardiogra m 2023 024 [email or web address] In-Office Order, Internal Use Only DO Not Attach Compendium DO Not Attach Compendium, Do Not Delete/merge, [id number] 04/01/2024 11:25:29 electroc nadia payton 2023 024 [email or web address] In-Office Order, Internal Use Only DO Not Attach Compendium DO Not Attach Compendium, Do Not Delete/merge, [id number] 01/08/2024 09:34:53 Medication Orders None recorded . Patient TargetsNo targets recorded. Patient InstructionsNo instructions recorded. Reason for Referral None Reported. Results Created Date Observation Date Name Description Value Unit Range Abnormal Flag Note LastModifiedBy Organization Detail LastModifiedTime 01/03/20 24 [facility] rocar diogr am No observ ation record ed. [email or web address] In-Office Order Internal Use Only DO Not Attach Compendium DO Not Attach Compendium, Do Not Delete/merge, [id number] 01/08/2024 08:40:38 01/08/20 24 elect rocar diogr am No observ ation record ed. [email or web address] Not Available 01/07 08:59:05 03/29/20 24 elect rocar diogr am No observ ation record ed. [email or web address] In-Office Order Internal Use Only DO Not Attach Compendium DO Not Attach Compendium, Do Not Delete/merge, [id number] 04/01/2024 11:17:14 04/01/20 24 [facility] rocar diogr am No observ ation record ed. [email or web address] Not Available 04/01 11:16:26 01/21/20 25 elect rocar diogr am No observ ation record ed. [email or web address] In-Office Order Internal Use Only DO Not Attach Compendium DO Not Attach Compendium, Do Not Delete/merge, [id number] 01/20/2025 13:53:09 01/21/20 25 [facility] rocar diogr am No observ ation record ed. [email or web address] Not Available 01/20 13:51:13 Result Notes None recorded. Problems Name Problem SNOMED Code Status Onset Date Resolution Date Notes Provider Name and Address Organization Details Recorded Time Inappropriate sinus tachycardia 104555738 Active 2023 Sarina Dooley [facility] [address] [place], [phone], [facility] 4 13:13:12 Asthma 421398808 Active 2023 Sarina Dooley [facility] [address] [place], [phone], [facility] 4 13:13:22 Tachycardia 7605461 Active 2023 Genny Tam MD [address] [place] [address], [phone], [facility] 4 08:41:22 Palpitations 58392203 Active 2023 Genny Tam MD [address] [place] [address], [phone], [facility] 08:41:25 Difficulty sleeping 526109960 Active 2024 Genny Tam MD [address] [place] [address], [phone], [facility] 5 13:58:40 Problem Notes None recorded. Procedures Surgical History Date Name Laterality Status Provider Name and Address Organization Details Recorded Time Eye Surgery completed [facility] 01/08/2024 08:43:26 Tonsillectomy completed [facility] 01/08/2024 08:48:22 Imaging Results None recorded. Procedure Notes None recorded. Medical Equipment None Reported. Allergies Allergen ID Allergen Name Allergen Category Reaction Reaction Severity Criticality Documentation Date Start Date Code Code System Note Provider Name and Address Organization Details Recorded Time 082926 POLLEN EXTRACTS environme nt,medica tion itching other Not available Not available Not available 01/08/2024 25561 6 RxNorm Meycookie Pérez [facility] 08:43:01 967711 cow milk allergeni c extract food,medi cation other Not available Not available 01/08/2024 46857 5 RxNorm Esther martino, [facility] 4 08:43:01 891680 cat dander environme nt itching other Not available Not available Not available 01/08/2024 55107 UNK Esther martino, [facility] 4 08:43:01 174796 mold extract environme nt itching other Not available Not available Not available 01/08/2024 45560 8 RxNoapolonia martino, [facility] 4 08:43:01 691698 famotidin e medicatio n Not available Not available Not available 01/08/[address] [facility] 08:45:26 Medications Name Sig [...] 20 MG) ORALLY DAILY FOR 4 DAYS 01/18 completed Not Available Not Available Not Available omeprazole 40 mg capsule,del ayed release [...] day by oral route for 30 days. 01/18 completed Not Available Not Available Not Available budesonide 0.5 mg/2 mL suspension for nebulizatio n INHALE 1 VIAL ONCE A DAY 01/07 completed Not Available Not Available Not Available epinephrine 0.3 mg/0.3 mL injection, auto-inject or PRN active Not Available Not Available Not Available cyclobenzap rine 5 mg tablet TAKE 1 TAB 3 TIMES A DAY NEEDED FOR MUSCLE SPASMS FOR UP TO 10 DAYS. DROWSINES S PRECAUTIO NS. 01/18 completed Not Available Not Available Not Available Vitamin D3 active Not Available Not [...] No t Available ivabradine 5 mg tablet Take 0.5 tablets twice a day by oral route. active Not Available Not Available No t Available desvenlafax ine fumarate ER 50 mg tablet,exte nded release 24 hr Take 1 tablet every day by oral route. 01/07 completed Not Available Not Available Not Available Vitals Date Recorded Body weight Body mass index (BMI) Body height Heart rate Systolic And Diastolic Provider Name and Address Organization Details Last Updated DateTime 01/08/2024 12618.49 g 24 kg/m2 149.86 cm 95 /min 108/72 mm[Hg] Esther Pérez [facility] 01/08/2024 08:50:06 Date Recorded Body height Body mass index (BMI) Body weight Heart rate Systolic And Diastolic Provider Name and Address Organization Details Last Updated DateTime 01/20/2025 149.86 cm 23.4 kg/m2 96358.71 g 76 /min 117/80 mm[Hg] [facility] 01/20/2025 13:50:22 Date Recorded Body height Body mass index (BMI) Body weight Heart rate Systolic And Diastolic Provider Name and Address Organization Details Last Updated DateTime 04/01/2024 149.86 cm 23.2 kg/m2 70800.12 g 86 /min 111/76 mm[Hg] [facility] 04/01/2024 11:16:11 Social History Question Answer Notes LastModified by Organizat ion Details LastModified Time Tobacco Smoking Status Never Smoker Esther martino [place] - [facility] 01/08/2024 08:43:18 Do You Have An Advance Directive? No Information not available 01/08/2024 Are You Blind Or Do You Have Difficulty Seeing? No Information not available 01/08/2024 Is Blood Transfusion Acceptable In An Emergency? Yes Information not available 01/08/2024 What Is Your Level Of Caffeine Consumption? None Information not available 01/08/2024 Are You Deaf Or Do You Have Serious Difficulty Hearing? No Information not available 01/08/2024 What Type Of Diet Are You Following? REGULAR Information not available 01/08/2024 Which Of Your Hands Is Dominant? Right Information not available 01/08/2024 What Was The Date Of Your Most Recent Tobacco Screening? 01/20/2025 Information not available 01/20/2025 Do You Have Any Pets? No Information not available 01/08/2024 What Is Your Relationship Status? Domestic Partner Information not available 01/08/2024 Sex: Unknown Functional Status Question Answer Note LastModified by Organizat ion Details LastModified Time Do you use any illicit or recreational drugs? No Information not available 01/08/2024 Do you or have you ever used any other forms of tobacco or nicotine? No Information not available 01/08/2024 What is your level of alcohol consumption? None Information not available 01/08/2024 Are you currently employed? Yes Information not available 01/08/2024 Are you able to care for yourself independently? 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 Moderate Information not available 01/08/2024 Mental Status Question Answer Note LastModified by Organization D etails LastModified Time Do you feel stressed (tense, restless, nervous, or anxious, or unable to sleep at night)? [id number] Information not available 01/08/2024 Family History Relationship Description Onset Age of [...] SNOMED-CT Code Diagnosis ICD10 Code Diagnosis Note [id number] Genny Tam MD [facility] Cardiolog y [address] [place] [address] 01/08/2024 08:24:43 01/08/2024 09:19:08 Tachycardia 2517808 R00.0 Over the past few years her [...] of current meds, and documentat ion Palpitations 29816666 R0 0.2 [id number] MD WANDA Bernard_[facility] henry Cardiolog y [address] [place] [phone] 04/01/2024 11:05:40 04/01/2024 11:25:29 Tachycardia 7832966 R00.0 multiple symptomati c episodes of tachycardi a while off of the ivabradine we have restarted at a lower dose of just 2.5 mg once daily which she seems to be tolerating well we will continue to monitor closely and titrate meds as needed Palpitations 18072881 R0 0.2 [id number] MD [facility] [address] [place] [phone] 01/20/2025 08:46:51 01/20/2025 14:06:50 Tachycardia 4933692 R00.0 She has been tolerating the low-dose of ivabradine well as of late, she has been asymptomat ic since resumption of the medication Palpitations 52286907 R0 0.2 As long as she stays on ivabradine we will need to monitor her for signs and symptoms of arrhythmia such as atrial fibrillati on, none have been detected as of yet Difficulty sleeping 3013 [address]487 G47.9 Given that her arrhythmia events seems to occur during sleeping hours, we agreed to proceed with a home sleep study Health Concerns Section Related Observation LastModified by Organization Detai ls LastModified Time None Recorded Concern Status LastModified by Organization Details LastModified Time None Recorded Advance Directives Directive N: Payers Insurance Date Sequence Insurance Name Policy Number Policy Jones Covered Member ID Jones Member ID Guarantor Name 01/21/2025 1 [employer] OF [facility] [id number] Marleni Lentz [id number] OBGyn Episode No OBEpisode recorded.
--- OUTSIDE RECORDS SUMMARY | 2025-02-18 15:03 | XMS_ITS | Encounter Summary ---
Author Organization [facility] Address [address] [place] [address] Care Team Providers Care Before School Babysitter Name Role Phone Belem Peterson MD Primary Care Provider [phone] Reason for Visit * Reason Comments Med Refill Encounter Details Date Type Department Care Team (Late st Contact Info) Description 02/18/2025 Refill [facility] Internal Medicine [address] [phone] Belem Peterson MD [address] [place] [address] Social History Tobacco Use Types Packs/Day Years Used Date Smoking Tobacco: Never Smokeless Tobacco: Never Alcohol Use Standard Drinks/Week Comments No 0 (1 standard drink = 0.6 oz pur e alcohol) Never liked it [facility] Utilities Answer Date Recorded In the past 12 months has [employer], gas, oil, or water [employer] threatened to shut off services in your [...] 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
--- OUTSIDE RECORDS SUMMARY | 2025-02-18 15:03 | XMS_ITS | Clinical Summary ---
Author Organization [facility] Address [facility] [address] [address] Phone Care Team Providers Care Industrial Gas Production Operator Name Role Phone Belem Peterson MD Primary Care Provid er Logan Rosenthal MD Unavailable Allergies Active Allergy Reactions Criticality Noted Date Comments Pollen Extracts Other (See Comments) 08/26/2008 nasal Medications raNITIdine (ZANTAC) 150 MG tablet Take 75 [...] with a working camera? Not on file Comments Unknown Sex and Gender Information Value Date Recorded Sex Assigned at Not on file Legal Sex Female 7:05 PM EST Gender Identity Not on file Sexual Orientation [...] Maintenance Due Date Last Done Comments HEPATITIS C SCREENING 2011 HIV ONE-TIME SCREENING (18-6 5 YEARS) 2011 PAP SMEAR 2014 DEPRESSION SCREENING 09/26/2019 09/25/2018 COVID-19 VACCINE (2 - 2023-2 5 season) [...] age to complete this topic MENINGOCOCCAL VACCINES (B) Aged Out N o longer eligible based on patient's age to complete this topic PNEUMOCOCCAL VACCINES (0-49 years) Aged Out No longer eligible based on patient's age to complete this topic Medical Devices [place] [id number] [facility] [id number] [facility] [place] [address] [facility] [id number] [facility] [place] [id number] [facility] [id number] [facility] [id number] [facility] [id number] [facility] [id number] [facility] HMO POS Care Teams Industrial Gas Production Operator Relationship Specialty Start Date End Date Belem Peterson MD [address] [place] [address] PCP - General Internal Medicine 02/07/17 Logan Rosenthal MD [address] [place] [address] Cardiology 02/07/17 Additional Source Comments The information contained in this document represents components of the legal health record. It is not the complete legal health record.[facility]
== END 2025-02-18 15:16 | disposition home or self-care (01) ==
LOC: HO.HPS 14:24
PROVIDERS: PCP Internal Medicine; Visit Provider Hospitalist
DX: J45.40 Moderate persistent asthma, uncomplicated (principal); J30.9 Allergic rhinitis, unspecified; L30.9 Dermatitis, unspecified
CPT/HCPCS: 99214

== ENCOUNTER 2025-03-13 09:26 | Outpatient (AMB) | payer OTHER, SELFPAY ==
--- OUTSIDE RECORDS SUMMARY | 2024-01-04 04:30 | XMS_ITS ---
Author Organization [facility] Address [address] [place] [address] Care Team Providers Care Radar Signal Processing Engineer Name Role Phone Nicholas PENA, Belem Primary Care Provider Unavail able Robbie Jcen Unavailable [phone] Sarina Crockett Unavailable [phone] REASON FOR VISIT year Encounters Encounter Location Date Provider Diagnosis [facility] Heart & Rhythm [facility] [address] [place], [place] [phone] 01/04/2024 Sarina Crockett Plan Of Treatment No Information Progress Notes * SMITH, Marleni EDOB:[birth year] (29 yo F)Acc No.[id number]:01/04/2024 Progress Notes Patient: Marleni [place] Provider: Ling Crockett CNP :1995 A ge:28 Y S ex:Female Date:01/04/2024 Address:[address] [place], [place] [phone] Pcp:Be[place] Peterson MD Subjective: * Chief Complaints: * 1 . Year. * Medical History: Objective: * Vitals: Assessment: Plan: * Treatment: * * Electronic signature of Christopher Crockett CNP on 03/13/2025 at 10:35 AM EDT Sign off status: Pending * Provider: Ling Crockett CNP Date: 0 01/04/2024 Generated for Printi ng/Faxing/eTransmitting on: 0 03/13/2025 10:35 AM EDT
--- OUTSIDE RECORDS SUMMARY | 2025-03-13 10:35 | XMS_ITS | Clinical Summary ---
Author Organization [facility] Address [address] [place] [address] Phone Care Team Providers Care Agile Test Lead Name Role Phone Belem Peterson MD [...] [place] [id number] [facility] [place] [address] [facility] [place] [id number] [facility] [place] [address] [facility] [place] [id number] [facility] [place] [address] [facility] [place] [address] [facility] [place] [address] [facility] [place] [address] [facility] HMO POS Care Teams Agile Test Lead Relationship Specialty Start Date End Date Belem Peterson MD [address] [place] [address] PCP - General Internal Medicine 02/07/17 Logan Rosenthal MD [address] [place] [address] Cardiology 02/07/17 Additional Source Comments The information contained in this document represents components of the legal health record. It is not the complete legal health record.[facility]
--- OUTSIDE RECORDS SUMMARY | 2025-03-13 10:35 | XMS_ITS | Clinical Summary ---
Author Organization [facility] Address [address] [place] [address] Care Team Providers Care Infrastructure Solutions Architect Name Role Phone Belem Peterson MD Primary Care Provider [phone] Allergies Active Allergy Reactions Criticality Noted Date Comments Codeine Delirium 02/11/2022 Famotidine Itching 01/15/2024 Medications ascorbic acid (VITAMIN C) 500 mg tablet Take 500 mg by mouth as needed (Seasonal). Active ibuprofen (MOTRIN) 200 mg tablet as needed. 11/22/19 08 Active ivabradine 5 mg tablet Half a tablet in the am and 1/2 tab in pm 05/28/20 19 Active fexofenadine (CONSTANTINO) 180 mg tablet Take 1 tablet (180 mg total) by mouth once a day. 02/12/20 22 Active cyclobenzaprin e (FLEXERIL) 5 mg tablet Take 1 tablet (5 mg total) by mouth 3 times a day as needed for muscle spasms for up to 10 days. Drowsiness precautions. 30 tablet 06/11/20 24 Active omeprazole (PriLOSEC) 20 mg capsule Take 1 capsule every day by oral route for 30 days. Active desvenlafaxine succinate (PRISTIQ) 50 mg 24 hr tablet TAKE 1 TABLET BY MOUTH ONCE DAILY 90 tablet 2 02/19/20 25 Active desvenlafaxine succinate (PRISTIQ) 50 mg 24 hr tablet TAKE 1 TABLET BY MOUTH ONCE DAILY 90 tablet 2 08/26/19 25 025 Discontinued Active Problems Problem Noted Date Diagnosed Date [...] Encounters Date Type Department Care Team Description 02/18/2025 Refill [facility] Internal Medicine [address] [place] [address] [address] [place] [address] Belem Peterson MD from Last 3 Months Immunizations Immunization Administration Dates Next Due Covid-19, Pfizer, mRNA, Labette valent, PF 30 mcg/0.3 mL dose (for [...] oz pur e alcohol) Never liked it [facility] Utilities Answer Date Recorded In the [...] Start Date 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 Not on file Not on file Last Filed Vital Signs Vital Sign Reading Time Taken Comments Blood Pressure 117/82 06/27/2024 1:43 PM EST Pulse 129 06/27/2024 1:43 PM EST Temperature 36.8 C (98.2 F) 04/21/2023 8:53 AM EDT Respiratory Rate 16 01/26/2022 4:47 AM EDT Oxygen Saturation 99% 06/27/2024 1:43 PM EST Inhaled Oxygen Concentration - - Weight 51.7 kg (114 lb) 06/27/2024 1:43 PM EST Height 149.9 cm (4' 11 ) 06/27/2024 1:43 PM EST Body Mass Index 23.03 06/27/2024 1:43 PM EST Plan of Treatment Upcoming Encounters Date Type Department Care Team (Late st Contact Info) Description 06/23/2025 1:00 PM EST Office Visit [facility] Internal Medicine [address] [facility] [address] [place] [phone] Belem Peterson MD [address] [facility] [place] [place] [address] Health Maintenance Due Date Last Done Comments HIV Screening 1993 HPV and Pap Smear 1993 Hepatitis C Screening 1993 Varicella Vaccines (1 of 2 - 13+ 2-dose series) 2006 Hepatitis B Vaccines (1 of 3 - 19+ 3-dose series) 2012 Pneumococcal Vaccine: Pediat dillon (0-5 Years) and At-Risk Patients (6-50 Years) (1 of 2 - PCV) 2012 Cervical Cancer Screening 09/28/2018 Pap Smear 09/28/2018 09/29/2015 COVID-19 Vaccine (3 - 2023-2 5 season) 2024 12/05/2020, 11/14/2020 Alcohol/Substance Use Screening 07/24/2024 4 Depression Screening and Follow-Up 07/24/20242023 Social Drivers of Health Sarah ual Screening 07/24/2024 Influenza Vaccine (#1) 2025 3, 05/23/2022, 03/16/2021, Additional history exists DTaP,Tdap,and Td Vaccines (3 - Td or Tdap) 03/17/2030 03/17/2020, 03/24/2010 RSV Vaccine (60+ years old a nd patients) (1 - 1-dose 75+ series) 2068 Procedures * Due to [place] [employer] law, this organization might not be sharing negative HIV tests. Procedure Name Priority Date/Time Associated Diagnosis Comments PAP SMEAR Routine 09/29/2015 5:38 PM EST from Last 3 Months or Most Recently Relevant to Health Maintenance Results * Due to [place] [employer] law, this organization might not be sharing negative HIV tests. * PAP SMEAR (09/29/2015 5:38 PM EST) HM Pap smear NOt done as pt has never been sexually active. 2 OUTSIDE LABORATORY 09/29/2015 5:38 PM EST Belem Peterson MD HEALTH MAINTENANCE Final Res ult 2 OUTSIDE LABORATORY from Last 3 Months or Most Recently Relevant to Health Maintenance Insurance [employer] Care Teams Infrastructure Solutions Architect Relationship Specialty Start Date End Date Belem Peterson MD [address] [place] [address] PCP - General 02/08/17
--- OUTSIDE RECORDS SUMMARY | 2025-03-13 10:35 | XMS_ITS | Patient Health Record ---
Author Organization [facility] Address [address] [place] [id number] Care Team Providers Care Emergency Spill Response Technician Name Role Phone Nicholas PENA, Belem Primary [...] Status W/U Status Risk Notes Problem Tachycardia (2262326) Tachycardia (R00.0) Active confirmed Problem Gastroesophageal reflux disease (572010204) Gastroesophageal reflux disease, esophagitis presence not specified (K21.9) Active confirmed Problem Uncomplicated moderate persistent asthma (071054234) Moderate persistent asthma without complication (J45.40) Active confirmed Problem Daytime hypersomnia (94259938524926) Daytime hypersomnia (G47.19) Active confirmed Problem Chest pain (38615770) Chest pain, unspecified type (R07.9) Active confirmed Plan Of Treatment Pending Test Test Name Order Date SLEEP STUDY-DIAGNOSTIC 01/05/2017 ALLERGEN ASTHMA PROFILE 01/05/2017 CBC+AUTO DIFF 01/05/2017 IgE 01/05/2017 D.PTERONYSSINUS 01/05/2017 DERM FARINEAE 01/05/2017 CAT DANDER 01/05/2017 DOG EPITHELIUM 01/05/2017 CT CHEST +C 01/05/2017 OAK 01/05/2017 PENCILLIUM NOTATUM MOLD 01/05/2017 COCKROACH 01/05/2017 BRITTANY GRASS 01/05/2017 COMMON RAGWEED 01/05/2017 GUINEAN PLANTAIN 01/05/2017 CLADOSPORIUM HERBARUM MOLD 01/05/2017 MUCOR RACEMOSUS MOLD 01/05/2017 CARMEN ALBICANS 01/05/2017 ALTERNARIA TENIUS MOLD 01/05/2017 CT CHEST +C 01/12/2017 Future Test Test Name Order Date CHEST XRAY PA LAT 01/05/2017 Insurance Providers Payer Name Payer Address Payer Phone Subscriber Number Group Number Insured Name Patient Relationship to Insured Coverage Start Date Coverage End Date [facility] [address] [place] [address] [id number] Marleni Navarro Self - patient is the insured Medical (General) History Medical History History ICD Code Migraine headache Seasonal rhinitis Anxiety Surgical History Surgery Date(Month/Year) [place] teeth extracted Tonsillectomy
--- OUTSIDE RECORDS SUMMARY | 2025-03-13 10:35 | XMS_ITS | Clinical Summary ---
Author Organization [employer] [facility] [employer] Address [address] [email or web address] [address] Care Team Providers Care [address] Security Officer Name Role Phone Belem Peterson MD Primary [...] Adults 18 yrs or above (or HM Modifier)([facility]) 2011 Hepatitis C Virus Infection in Adolescents and Adults: Screening (or Modifier) ([facility]) 2011 SDOH Screening Reminder: Annually for all adults ([facility]) 2011 Tobacco Smoking Cessation: i n Adults excluding Women: Behavioral and Pharmacotherapy Interventions ([facility]) 2011 Cervical Cancer Screenin-65 yrs of age (or Modifier) 2014 Cervical Cancer Screening: P ap every 3 yrs pts age 21-65 2014 Cervical Cancer: Pap Screeni ng with Modifier timing ([facility]) 2014 Cervical Cancer: hrHPV alone or with cotesting Pap for Pts 30-65yrs screening every 5yrs ([facility]) 2014 COVID-19 Vaccine Screening: Initial Series and Booster Status ([facility]) (2023- season) 2024 Flu Vaccination: Yearly for ages 18mos through 64 years (or Modifier)([facility]) 02/21/2025 DTaP/Tdap/Td Vaccines ([facility]) (3 - Td or Tdap) 03/17/2030 03/17/2020, 03/24/2010 Zoster/Shingles Vaccine Seri es Screening: Adults aged 18+ yrs (or HM Modifiers)([facility]) (1 of 2) 2043 Pneumococcal Vaccination Screening: Pts 0-19 & 19-49 yrs of age ([facility]) Aged Out No longer eligible based on patient's age to complete this topic Medical Devices Not [place] [id number] [facility] Care Teams Court Security Officer Relationship Specialty Start Date End Date Belem Peterson MD [address] [place] [address] [place] [phone] PCP - Behavioral Health Tech 07/18/19
== END 2025-03-13 09:27 | disposition home or self-care (01) ==
LOC: HO.HMGAL 09:26
PROVIDERS: PCP Internal Medicine; Visit Provider Registered Nurse Emergency
DX: J30.89 Other allergic rhinitis (principal)
CPT/HCPCS: 95117; 95165

== ENCOUNTER 2025-03-19 13:34 | Outpatient (AMB) | payer OTHER, SELFPAY ==
--- OUTSIDE RECORDS SUMMARY | 2024-01-04 04:30 | XMS_ITS ---
Author Organization [facility] Address [address] [place] [address] Care Team Providers Care Medical Physiologist Name Role Phone Nicholas PENA, Belem Primary Care Provider Unavail able Robbie Jcen Unavailable [phone] Sarina Crockett Unavailable [phone] REASON FOR VISIT year Encounters Encounter Location Date Provider Diagnosis [facility] Heart & Rhythm [facility] [address] [place], [place] [phone] 01/04/2024 Sarina Crockett Plan Of Treatment No Information Progress Notes * SMITH, Marleni EDOB:[birth year] (29 yo F)Acc No.[id number]:01/04/2024 Progress Notes Patient: Marleni [place] Provider: Ling Crockett CNP :1995 A ge:28 Y S ex:Female Date:01/04/2024 Address:[address] [place], [place] [phone] Pcp:[place] Peterson MD Subjective: * Chief Complaints: * 1 . Year. * Medical History: Objective: * Vitals: Assessment: Plan: * Treatment: * * Electronic signature of Christopher Crockett CNP on 03/19/2025 at 02:21 PM EDT Sign off status: Pending * Provider: Ling Crockett CNP Date: 0 01/04/2024 Generated for Printi ng/Faxing/eTransmitting on: 0 03/19/2025 02:21 PM EDT
--- OUTSIDE RECORDS SUMMARY | 2025-03-19 14:21 | XMS_ITS | Encounter Summary ---
Author Organization [facility] Address [address] [place] [address] [place] [address] Phone Care Team Providers Care Material Mixer Name Role Phone Belem Peterson MD Primary Care Provid er RobotLogan huitron MD Unavailable Encounter Details Date Type Department Care Team (Late st Contact Info) Description 08/09/2017 Transcribe Orders [facility] Echocardiography [address] [place] [address] [email or web address] Social History Tobacco Use Types Packs/Day Years [...] BPM MUSE_BWH Atrial Rate 69 BPM MUSE_BWH CO Interval 136 ms MUSE_BWH QRS Duration 80 ms MUSE_BWH QT Interval 400 ms MUSE_BWH QTC Interval 428 ms MUSE_BWH P [place] 60 degrees MUSE_BWH R Wave [place] -6 degrees MUSE_BWH T Wave [place] 28 degrees MUSE_BWH 08/08/2017 4:30 PM EST Narrative MUSE_BWEloy - 08/21/2017 11:03 AM EST Normal sinus rhythm Normal ECG When compared with ECG of 13-JUN-2017 17:28, Criteria for Septal infarct are no longer Present us Bekah Nuno MD ECG ORDERABLES Final Result ROBBIN_TIRSO documented in this encounter Visit Diagnoses Not on filedocumented in this encounter Care Teams Material Mixer Relationship Specialty Start Date End Date Belem Peterson MD [address] [place] [address] PCP - General Internal Medicine 02/07/17 Logan Rosenthal MD [address] [place] [address] Cardiology 02/07/17 documented as of this encounter Additional Source Comments The information contained in this document represents components of the legal health record. It is not the complete legal health record.[facility]
--- OUTSIDE RECORDS SUMMARY | 2025-03-19 14:21 | XMS_ITS | Clinical Summary ---
Author Organization [facility] Address [facility] [employer] [address] [address] Phone Care Team Providers Care Statistical Geneticist Name Role Phone Belem Peterson MD Primary [...] (2 - 2023-2 5 season) 2024 11/14/2020 INFLUENZA VACCINE (#1) 2025 0, 05/28/2019 Adult Td,Tdap Booster 03/17/2030 03/17/2020 SMOKING STATUS [...] [place] [id number] [facility] [place] [id number] [facility] [place] [address] [facility] [place] [address] [facility] [place] [address] [facility] (Work) [address] [place] [id number] [facility] [place] [address] [facility] [place] [address] [facility] HMO POS Care Teams Statistical Geneticist Relationship Specialty Start Date End Date Belem Peterson MD [address] [place] [address] PCP - General Internal Medicine 02/07/17 Logan Rosenthal MD [address] [place] [address] Cardiology 02/07/17 Additional Source Comments The information contained in this document represents components of the legal health record. It is not the complete legal health record.[facility]
--- OUTSIDE RECORDS SUMMARY | 2025-03-19 14:22 | XMS_ITS | Clinical Summary ---
Author Organization [facility] Address [address] [place] [address] Care Team Providers Care Obstetrics Gyn Name Role Phone Belem Peterson MD Primary Care Provider [phone] Allergies Active Allergy Reactions Criticality Noted Date [...] Type Department Care Team Description 02/18/2025 Refill [facility] Internal Medicine [address] [place] [address] [address] [place] [address] Belem Peterson MD from Last 3 Months Immunizations Immunization Administration Dates Next Due Covid-19, Pfizer, mRNA, [place] valent, PF 30 mcg/0.3 mL dose (for [...] oz pur e alcohol) Never liked it [facility] Utilities Answer Date Recorded In the past [...] Job Start Date Job End Date 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 Procedure Name Priority Date/Time Associated Diagnosis Comments PAP SMEAR Routine 09/29/2015 5:38 PM EST from Last 3 Months or Most Recently Relevant to Health Maintenance Results * Due to [place] [employer] law, this organization might not be sharing negative HIV tests. * PAP SMEAR (09/29/2015 5:38 PM EST) HM Pap smear NOt done as pt has never been sexually active. 2 OUTSIDE LABORATORY 09/29/2015 5:38 PM EST Belem Peterson MD HEALTH MAINTENANCE Final Res ult 2 OUTSIDE LABORATORY from Last 3 Months or Most Recently Relevant to Health Maintenance Insurance [employer] Care Teams Obstetrics Gyn Relationship Specialty Start Date End Date Belem Peterson MD [address] [place] [address] PCP - General 02/08/17
--- OUTSIDE RECORDS SUMMARY | 2025-03-19 14:22 | XMS_ITS | Clinical Summary ---
Author Organization [facility] Address [address] [place] [address] Care Team Providers Care Brass Cutter Name Role Phone Belem Peterson MD Primary [...] Adults 18 yrs or above (or HM Modifier)([facility]) 2011 Hepatitis C Virus Infection in Adolescents and Adults: Screening (or Modifier) ([facility]) 2011 SDOH Screening Reminder: Annually for all adults ([facility]) 2011 Tobacco Smoking Cessation: i n Adults excluding Women: Behavioral and Pharmacotherapy Interventions ([facility]) 2011 Cervical Cancer Screenin-65 yrs of age (or Modifier) 2014 Cervical Cancer Screening: P ap every 3 yrs pts age 21-65 2014 Cervical Cancer: Pap Screeni ng with Modifier timing ([facility]) 2014 Cervical Cancer: hrHPV alone or with cotesting Pap for Pts 30-65yrs screening every 5yrs ([facility]) 2014 COVID-19 Vaccine Screening: Initial Series and Booster Status ([facility]) (2023- season) 2024 Flu Vaccination: Yearly for ages 18mos through 64 years (or Modifier)([facility]) 02/21/2025 DTaP/Tdap/Td Vaccines ([facility]) (3 - Td or Tdap) 03/17/2030 03/17/2020, 03/24/2010 Zoster/Shingles Vaccine Seri es Screening: Adults aged 18+ yrs (or HM Modifiers)([facility]) (1 of 2) 2043 Pneumococcal Vaccination Screening: Pts 0-19 & 19-49 yrs of age ([facility]) Aged Out No longer eligible based on patient's age to complete this topic Medical Devices [place] [id number] [facility] Care Teams Brass Cutter Relationship Specialty Start Date End Date Belem Peterson MD [address] [address] [place] [phone] PCP - Hearing And Speech Assistant 07/18/19
--- OUTSIDE RECORDS SUMMARY | 2025-03-19 14:22 | XMS_ITS | Encounter Summary ---
Author Organization [facility] Address [address] [place] [address] [place] [address] Phone Care Team Providers Care Vice President Of Marketing Name Role Phone Belem Peterson MD Primary Care Provid er Logan Rosenthal MD Unavailable Encounter Details Date Type Department Care Team (Late st Contact Info) Description 02/06/2018 Transcribe Orders [facility] Echocardiography [address] [place] [address] Lolis Tovar [address] [place] [address] [email or web address] Social History Tobacco Use Types Packs/Day [...] BPM MUSE_BWH Atrial Rate [address] Interval 136 ms MUSE_BWH QRS Duration 76 ms MUSE_BWH QT Interval 406 ms MUSE_BWH QTC Interval 418 ms MUSE_BWH P [place] 52 degrees MUSE_BWH R Wave [place] -3 degrees MUSE_BWH T Wave [place] 30 degrees MUSE_BWH 02/06/2018 2:43 PM EDT Narrative MUSE_BWH - 02/11/2018 1:54 PM EDT Normal sinus rhythm Low voltage QRS, consider pulmonary disease, pericardial effusion, or normal variant Cannot rule out Anterior myocardial infarction , age undetermined Abnormal ECG When compared with ECG of 08-AUG-2017 16:30, Criteria for Anterior myocardial infarction are now Present us Evelia Nuno MD ECG ORDERABLES Final Result MUSE_BW documented in this encounter Visit Diagnoses Not on filedocumented in this encounter Care Teams Vice President Of Marketing Relationship Specialty Start Date End Date Belem Peterson MD [address] [place] [address] PCP - General Internal Medicine 02/07/17 Logan Rosenthal MD [address] [place] [address] Cardiology 02/07/17 documented as of this encounter Additional Source Comments The information contained in this document represents components of the legal health record. It is not the complete legal health record.[facility]
--- OUTSIDE RECORDS SUMMARY | 2025-03-19 14:22 | XMS_ITS | Encounter Summary ---
Author Organization [facility] Address [address] [place] [address] [place] [address] Phone Care Team Providers Care Contract Clerk Name Role Phone Belem Peterson MD Primary Care Provid er RobotLogan huitron MD Unavailable Encounter Details Date Type Department Care Team (Late st Contact Info) Description 06/13/2017 Transcribe Orders [facility] Echocardiography [address] [place] [address] [email or web address] Social History Tobacco Use Types Packs/Day Years [...] BPM MUSE_BWH Atrial Rate 65 BPM MUSE_BWH NM Interval 150 ms MUSE_BWH QRS Duration 68 ms MUSE_BWH QT Interval 404 ms MUSE_BWH QTC Interval 420 ms MUSE_BWH P [place] 68 degrees MUSE_BWH R Wave [place] 3 degrees MUSE_BWH T Wave [place] 2 degrees MUSE_BWH 06/13/2017 5:28 PM EST Narrative MUSE_BWH - 06/14/2017 8:28 PM EST Normal sinus rhythm Septal infarct (cited on or before 07-MAR-2017) Abnormal ECG When compared with ECG of 07-MAR-2017 13:42, No significant change was found us Evelia Nuno MD ECG ORDERABLES Final Result ROBBIN_TIRSO documented in this encounter Visit Diagnoses Not on filedocumented in this encounter Care Teams Contract Clerk Relationship Specialty Start Date End Date Belem Peterson MD [address] [place] [address] PCP - General Internal Medicine 02/07/17 Logan Rosenthal MD [address] [place] [address] Cardiology 02/07/17 documented as of this encounter Additional Source Comments The information contained in this document represents components of the legal health record. It is not the complete legal health record.[facility]
--- OUTSIDE RECORDS SUMMARY | 2025-03-19 14:22 | XMS_ITS | Patient Health Record ---
Author Organization [facility] Address [address] [place] [address] Care Team Providers Care Film And Video Editor Name Role Phone Nicholas PENA, Belem Primary Care Provider Unavail able Lilian Jc Unavailable [phone] Allergies No Known Allergies Reason For Referral No Information Medications Medication SIG (Take, Route, Frequency, Duration) Notes Start Date End Date Status Cimetidine 100 MG 1.5 tablet at bedtim e Orally Once a day Not-Taking Vitamin D3 Active Vitamin C 100 MG 1 tablet Orally Once a day Active Corlanor 5 MG 1 tablet with meals Orally Twice a day; Duration: 90 days Not-Taking Desvenlafaxine Succinate ER 50 MG 1 tablet Orally Once a day Active Ivabradine HCl 5 MG 1/2 tab am, 1 tab pm Orally Twice a day 11/20/2020 Active Social History Tobacco Use: Social History Observation Description Date Details (start date - stop date) Never Smoker NA - NA Tobacco Use/Smoking Question Answer Notes Are you [...] echocardiography and is looking for a job. Problems Problem Type SNOMED Code ICD Code Onset Dates Problem Status W/U Status Risk Notes Problem Palpitations (82920951) Palpitations (R00.2) Active confirmed Problem Generalized anxiety disorder (06666870) Generalized anxiety disorder (F41.1) Active confirmed Problem Anxiety (42325149) Anxiety (F41.9) Active confi rmed Problem Sinus tachycardia (44187651) Sinus tachycardia (R00.0) Active confirmed Problem Atypical chest pain (598049799) Atypical chest pain (R07.89) Active confirmed Problem Gastroesophageal reflux disease (749939508) Gastroesophageal reflux disease, esophagitis presence not specified (K21.9) Active confirmed Problem Chest tightness (50172669) Chest tightness (R07.89) Active confirmed Problem Asthma without status asthmaticus (97525516) Uncomplicated asthma, unspecified asthma severity (J45.909) Active confirmed Problem Inappropriate sinus tachycardia (867203449) Inappropriate sinus tachycardia (R00.0) Active confirmed Problem Seasonal allergic rhinitis (563769851) Seasonal allergic rhinitis, unspecified allergic rhinitis trigger (J30.2) Active confirmed Problem Asthma without status asthmaticus (10905648) Asthma, unspecified asthma severity, unspecified whether complicated, unspecified whether persistent (J45.909) Active confirmed Plan Of Treatment Pending Test Test Name Order Date ECHOCARDIOGRAM 12/14/2016 ECHOCARDIOGRAM 11/24/2020 Stress Test 01/02/2017 Insurance Providers Payer Name Payer Address Payer Phone Subscriber Number Group Number Insured Name Patient Relationship to Insured Coverage Start Date Coverage End Date [employer] [address] [address] [place], [place] [id number] Marleni Smith Self - patient is the insured [employer] [address] [place], [place] [id number] Marleni Smith Self - patient is the insured Medical (General) History Medical History History ICD Code inappropriate sinus tachycardia (Rx'd w ivabradine by Dr. Nuno at [facility]) preserved LV function with E F 60-65% by echo November 2016, EF 60-65% by echo November 2020 Palpitations Chest tightness Generalized anxiety disorder Seasonal allergies Asthma (diagnosed, 12/07) ([place]) atenolol-->fatigue GERD COVID 08 February 2022
== END 2025-03-19 13:37 | disposition home or self-care (01) ==
LOC: HO.HMGAL 13:34
PROVIDERS: PCP Internal Medicine; Visit Provider Registered Nurse Emergency
DX: J30.89 Other allergic rhinitis (principal)
CPT/HCPCS: 95117; 95165

== ENCOUNTER 2025-04-01 09:36 | Outpatient (AMB) | payer OTHER, SELFPAY ==
--- OUTSIDE RECORDS SUMMARY | 2024-01-04 04:30 | XMS_ITS ---
Author Organization [facility] Address [address] [place] [address] Care Team Providers Care C Wpf Developer Name Role Phone Nicholas PENA, [place] Primary Care Provider Unavail able Robbie Jcen Unavailable [phone] Sarina Crockett Unavailable [phone] REASON FOR VISIT year Encounters Encounter Location Date Provider Diagnosis Mass Heart & Rhythm [facility] [address] [place], [place] [phone] 01/04/2024 Sarina Crockett Plan Of Treatment No Information Progress Notes * SMITH, Marleni EDOB:[birth year] (30 yo F)Acc No.[id number]:01/04/2024 Progress Notes Patient: Marleni [place] Provider: Ling Crockett CNP :1995 A ge:28 Y S ex:Female Date:01/04/2024 Address:[address] [place], [place] [phone] Pcp:Belem Peterson MD Subjective: * Chief Complaints: * 1 . Year. * Medical History: Objective: * Vitals: Assessment: Plan: * Treatment: * * Electronic signature of Christopher Crockett CNP on 04/01/2025 at 11:05 AM EDT Sign off status: Pending * Provider: Ling Crockett CNP Date: 0 01/04/2024 Generated for Printi ng/Faxing/eTransmitting on: 0 04/01/2025 11:05 AM EDT
--- NOTE | 2025-04-01 09:46 | MHC.OFFVIS ---
Vital Signs 04/01/25 09:53 Height 4 ft 11 in Weight 116 lb BMI 23.4 BP 112/72 Blood Pressure Location Rt brachial Position Sitting Pulse 90 Pulse Source Pulse Oximeter Pulse Oximetry (%) 99 Oxygen Delivery Method Room Air Intake Visit Reasons: f/u gerd Intake Note: Est pt for GERD mgmt. CC: Pt denies any GI sx at this time. Pt states that she is actively decreasing her Omeprazole gradually. Her current dosing schedule is 40 mg every other day, and 30 mg or 1.5 tabs every other day. Sleep Medicine Physician Required: No Accompanied by: Self / Same As Patient Allergies famotidine Allergy (Severe, Verified 02/18/25 14:28) Anaphylaxis codeine Allergy (Verified 02/18/25 14:28) Numbness HPI HPI f/u gerd: Details: LAST VISIT: Postprandial epigastric pain GERD (gastroesophageal reflux disease) Dyspepsia Dysphagia Plan Patient will continue taking omeprazole 40 mg daily. Continue avoiding dietary triggers and late night snacking. Staying upright for minimum 3 hours after meals discussed with patient. Follow-up in 3 months for re-evaluation and possible reducing omeprazole to 20 mg. No esophagitis, minimal chronic inactive inflammation. Patient is agreeable to current plan of care and verbalizes understanding of instructions. She was given the opportunity to ask questions and all questions answered. TODAY'S VISIT Patient is here today for follow-up. Patient reports to be feeling well. She started to wean herself off of the omeprazole. Currently she is taking 40 mg alternating with 30 mg. Patient is cutting 40 mg tablets and taking 1-1/2 tablet every other day. She denies dyspepsia, dysphagia or odynophagia. She is watching her diet. Denies any weight loss. Denies epigastric pain or cramping. Normal bowel movements. Denies melena, hematochezia. Overall patient has been doing well. ? [facility] Medical History (Updated 04/01/25 @ 10:23 by Eboni Hernandez [facility]) GERD (gastroesophageal reflux disease) Eczema Chronic allergic rhinitis Sinusitis Asthma Surgical History History of tonsillectomy History of esophagogastroduodenoscopy (EGD) Family History Maternal Grandmother Lung cancer Social History Alcohol intake: never Patient Tobacco Use Status: Never used Tobacco Review of Systems Const Denies weight gain and Denies weight loss ENT Reports no additional complaints, Denies dysphagia and Denies odynophagia Card Reports no additional complaints Resp Reports no additional complaints GI Denies abdominal pain, Denies belching, Denies melena, Denies bloating, Denies change in bowel habits, Denies dysphagia, Denies excessive flatus, Denies dyspepsia, Denies heartburn, Denies diarrhea, Denies loose stools, Denies nausea, Denies odynophagia and Denies vomiting Musc Reports no additional complaints Neuro Reports no additional complaints Psych Reports no additional complaints Endo Reports no additional complaints Physical Exam Vital Signs: Last Vital Signs Pulse 90 04/01/25 09:53 BP 112/72 04/01/25 09:53 Pulse Ox 99 04/01/25 09:53 Oxygen Delivery Method Room Air 04/01/25 09:53 BMI result Body Mass Index 23.4 Const General: healthy appearing, no acute distress and well developed Nutritional Appearance: well nourished Orientation/consciousness: patient oriented x3 Resp Effort & Inspection: normal respiratory effort, able to speak in complete sentences, no tracheal deviation and symmetric chest movement Auscultation: clear to auscultation bilaterally Cardio Rate: regular rate GI Inspection: Yes normal to inspection and No distended Palpation (GI): Soft to palpation, not firm, nontender and No hepatosplenomegaly present Auscultation: normal bowel sounds General: Yes no CVA tenderness Back/Spine/Pelvis Back: no CVA tenderness Skin General skin exam: elasticity normal, turgor normal and dry skin Neuro General: patient oriented x3 Psych Appearance: grossly normal Mental Status: mental status grossly normal Assessment & Plan Assessment & Plan (1) GERD (gastroesophageal reflux disease): Code(s): K21.9 - Gastro-esophageal reflux disease without esophagitis Category: Medical Qualifiers: Esophagitis presence: esophagitis presence not specified Qualified Code(s): K21.9 - Gastro-esophageal reflux disease without esophagitis (2) Postprandial epigastric pain: Code(s): R10.13 - Epigastric pain Plan Patient will continue taking omeprazole, will decrease the dose to 20 mg daily. Continue avoiding dietary triggers and late night snacking. Staying upright for minimal 3 hours after meals discussed with patient. Patient will follow-up in our office as needed. She is agreeable to this plan and verbalizes understanding of instructions. She was given the opportunity to ask questions and all questions answered. Thank you for allowing me to participate in her care Medications: New omeprazole 20 mg PO DAILY 90 caps 2RF K21.9 - Gastro-esophageal reflux disease without esophagitis Coding Level of Care Code Est Pt Level 3 (58311) Diagnoses Gastroesophageal reflux disease, unspecified whether esophagitis present K21.9 Esophagitis presence: esophagitis presence not specified Postprandial epigastric pain R10.13 Time Spent (min) 25 Comment 15 minutes spent with patient and additional 10 minutes spent reviewing her records
[2025-04-01 09:53] VITALS: BP 112/72; PULSE 90; O2SAT 99; BMI 23.4
--- OUTSIDE RECORDS SUMMARY | 2025-04-01 11:05 | XMS_ITS | Clinical Summary ---
Author Organization [facility] Address [facility] [address] [address] Phone Care Team Providers Care Med Admin Name Role Phone Belem Peterson MD Primary [...] [place] [id number] [facility] [place] [id number] [facility] [place] [id number] [facility] [place] [address] [facility] [place] [address] [facility] (Work) [address] [place] [address] [facility] [place] [address] [facility] [place] [address] [facility] HMO POS Care Teams Med Admin Relationship Specialty Start Date End Date Belem Peterson MD [address] [place] [address] PCP - General Internal Medicine 02/07/17 Logan Rosenthal MD [address] [place] [address] Cardiology 02/07/17 Additional Source Comments The information contained in this document represents components of the legal health record. It is not the complete legal health record.[facility]
--- OUTSIDE RECORDS SUMMARY | 2025-04-01 11:06 | XMS_ITS | Patient Health Record ---
Author Organization [facility] Address [address] [place] [address] Care Team Providers Care Court Deputy Name Role Phone Nicholas PENA, Belem Primary Care Provider Unavail able Lilian Jc Unavailable [phone] Allergies No Known Allergies Reason For Referral [...] Status W/U Status Risk Notes Problem Palpitations (66652244) Palpitations (R00.2) Active confirmed Problem Generalized anxiety disorder (13504369) Generalized anxiety disorder (F41.1) Active confirmed Problem Anxiety (74731368) Anxiety (F41.9) Active confi rmed Problem Sinus tachycardia (15150359) Sinus tachycardia (R00.0) Active confirmed Problem Atypical chest pain (609989910) Atypical chest pain (R07.89) Active confirmed Problem Gastroesophageal reflux disease (713077937) Gastroesophageal reflux disease, esophagitis presence not specified (K21.9) Active confirmed Problem Chest tightness (07424831) Chest tightness (R07.89) Active confirmed Problem Asthma without status asthmaticus (56453178) Uncomplicated asthma, unspecified asthma severity (J45.909) Active confirmed Problem Inappropriate sinus tachycardia (109135665) Inappropriate sinus tachycardia (R00.0) Active confirmed Problem Seasonal allergic rhinitis (269300697) Seasonal allergic rhinitis, unspecified allergic rhinitis trigger (J30.2) Active confirmed Problem Asthma without status asthmaticus (84259068) Asthma, unspecified asthma severity, unspecified whether complicated, unspecified whether persistent (J45.909) Active confirmed Plan Of Treatment Pending Test Test Name Order Date ECHOCARDIOGRAM 12/14/2016 ECHOCARDIOGRAM 11/24/2020 Stress Test 01/02/2017 Insurance Providers Payer Name Payer Address Payer Phone Subscriber Number Group Number Insured Name Patient Relationship to Insured Coverage Start Date Coverage End Date [employer] [address] [address] [place], [place] [id number] Marleni Smith Self - patient is the insured [employer] [address] [place], [place] [id number] Marleni Smith Self - patient is the [...]
--- OUTSIDE RECORDS SUMMARY | 2025-04-01 11:06 | XMS_ITS | Encounter Summary ---
Author Organization [facility] Address [address] [place] [address] [place] [address] Phone Care Team Providers Care Bacteriologist Medical Name Role Phone Belem Peterson MD Primary Care Provid er RobotLogan huitron MD Unavailable Encounter Details Date Type Department Care Team (Late st Contact Info) Description 08/09/2017 Transcribe Orders [facility] Echocardiography [address] [place] [address] [email or web address] [email or web address] Social History Tobacco Use Types Packs/Day Years [...] BPM MUSE_BWH Atrial Rate 69 BPM MUSE_BWH [place] Interval 136 ms MUSE_BWH QRS Duration 80 ms MUSE_BWH QT Interval 400 ms MUSE_BWH QTC Interval 428 ms MUSE_BWH P [place] 60 degrees MUSE_BWH R Wave [place] -6 degrees MUSE_BWH T Wave [place] 28 degrees MUSE_BWH 08/08/2017 4:30 PM EST Narrative MUSE_BWEloy - 08/21/2017 11:03 AM EST Normal sinus rhythm Normal ECG When compared with ECG of 13-JUN-2017 17:28, Criteria for Septal infarct are no longer Present us Bekah Nuno MD ECG ORDERABLES Final Result ROBBIN_TIRSO documented in this encounter Visit Diagnoses Not on filedocumented in this encounter Care Teams Bacteriologist Medical Relationship Specialty Start Date End Date Belem Peterson MD [address] [place] [address] PCP - General Internal Medicine 02/07/17 Logan Rosenthal MD [address] [place] [address] Cardiology 02/07/17 documented as of this encounter Additional Source Comments The information contained in this document represents components of the legal health record. It is not the complete legal health record.[facility]
--- OUTSIDE RECORDS SUMMARY | 2025-04-01 11:06 | XMS_ITS | Encounter Summary ---
Author Organization [facility] Address [address] [place] [address] [place] [address] Phone Care Team Providers Care Vegetable Washing Machine Operator Name Role Phone Belem Peterson MD Primary Care Provid er Logan Rosenthal MD Unavailable Encounter Details Date Type Department Care Team (Late st Contact Info) Description 02/06/2018 Transcribe Orders [facility] Ech[facility] [address] [place] [address] Lolis Tovar [address] [place] [address] [email or web address] Social History Tobacco Use Types Packs/Day [...] BPM MUSE_BWH Atrial Rate 64 BPM MUSE_BWH [place] Interval 136 ms MUSE_BWH QRS Duration 76 ms MUSE_BWH QT Interval 406 ms MUSE_BWH QTC Interval 418 ms MUSE_BWH P [place] 52 degrees MUSE_BWH R Wave [place] -3 degrees MUSE_BWH T Wave [place] 30 degrees MUSE_BWH 02/06/2018 2:43 PM EDT [...] on filedocumented in this encounter Care Teams Vegetable Washing Machine Operator Relationship Specialty Start Date End Date Belem Peterson MD [address] [place] [address] PCP - General Internal Medicine 02/07/17 Logan Rosenthal MD [address] [place] [address] Cardiology 02/07/17 documented as of this encounter Additional Source Comments The information contained in this document represents components of the legal health record. It is not the complete legal health record.[facility]
--- OUTSIDE RECORDS SUMMARY | 2025-04-01 11:06 | XMS_ITS | Patient Health Record ---
Author Organization [facility] Address [address] [place] [id number] Care Team Providers Care Track Grinder Name Role Phone Nicholas PENA, Belem Primary Care Provider Unavail able Shimon Bales Unavailable [phone] Reason For Referral No Information Medications Medication [...] Status W/U Status Risk Notes Problem Tachycardia (4598795) Tachycardia (R00.0) Active confirmed Problem Gastroesophageal reflux disease (217160156) Gastroesophageal reflux disease, esophagitis presence not specified (K21.9) Active confirmed Problem Uncomplicated moderate persistent asthma (645176455) Moderate persistent asthma without complication (J45.40) Active confirmed Problem Daytime hypersomnia (32048186986972) Daytime hypersomnia (G47.19) Active confirmed Problem Chest pain (17519742) Chest pain, unspecified type (R07.9) Active confirmed Plan Of Treatment Pending Test Test Name Order Date SLEEP STUDY-DIAGNOSTIC 01/05/2017 ALLERGEN ASTHMA PROFILE 01/05/2017 CBC+AUTO DIFF 01/05/2017 IgE 01/05/2017 D.PTERONYSSINUS 01/05/2017 DERM FARINEAE 01/05/2017 CAT DANDER 01/05/2017 DOG EPITHELIUM 01/05/2017 CT CHEST +C 01/05/2017 OAK 01/05/2017 PENCILLIUM NOTATUM MOLD 01/05/2017 COCKROACH 01/05/2017 BRITTANY GRASS 01/05/2017 COMMON RAGWEED 01/05/2017 CROATIAN PLANTAIN 01/05/2017 CLADOSPORIUM HERBARUM MOLD 01/05/2017 MUCOR RACEMOSUS MOLD 01/05/2017 CARMEN ALBICANS 01/05/2017 ALTERNARIA TENIUS MOLD 01/05/2017 CT CHEST +C 01/12/2017 Future Test Test Name Order Date CHEST XRAY PA LAT 01/05/2017 Insurance Providers Payer Name Payer Address Payer Phone Subscriber Number Group Number Insured Name Patient Relationship to Insured Coverage Start Date Coverage End Date [facility] [address] [place] [address] [id number] Marleni Navarro Self - patient is the insured Medical (General) History Medical History History ICD Code Migraine headache Seasonal rhinitis Anxiety Surgical History Surgery Date(Month/Year) [place] teeth extracted Tonsillectomy
--- OUTSIDE RECORDS SUMMARY | 2025-04-01 11:06 | XMS_ITS | Encounter Summary ---
Author Organization [facility] Address [address] [place] [address] [place] [address] Phone Care Team Providers Care Performing Arts Technicians Name Role Phone Belem Peterson MD Primary Care Provid er RobotLogan huitron MD Unavailable Encounter Details Date Type Department Care Team (Late st Contact Info) Description 06/13/2017 Transcribe Orders [facility] Echocardiography [address] [place] [address] [email or web address] [email or web address] Social History Tobacco Use Types Packs/Day [...] BPM MUSE_BWH Atrial Rate 65 BPM MUSE_BWH [place] Interval 150 ms MUSE_BWH QRS Duration 68 ms MUSE_BWH QT Interval 404 ms MUSE_BWH QTC Interval 420 ms MUSE_BWH P [place] 68 degrees MUSE_BWH R Wave [place] 3 degrees MUSE_BWH T Wave [place] 2 degrees MUSE_BWH 06/13/2017 5:28 PM EST Narrative MUSE_BWH - 06/14/2017 8:28 PM EST Normal sinus rhythm Septal infarct (cited on or before 07-MAR-2017) Abnormal ECG When compared with ECG of 07-MAR-2017 13:42, No significant change was found us Evelia Nuno MD ECG ORDERABLES Final Result ROBBIN_TIRSO documented in this encounter Visit Diagnoses Not on filedocumented in this encounter Care Teams Performing Arts Technicians Relationship Specialty Start Date End Date Belem Peterson MD [address] [place] [address] PCP - General Internal Medicine 02/07/17 Logan Rosenthal MD [address] [place] [address] Cardiology 02/07/17 documented as of this encounter Additional Source Comments The information contained in this document represents components of the legal health record. It is not the complete legal health record.[facility]
--- OUTSIDE RECORDS SUMMARY | 2025-04-01 11:06 | XMS_ITS | Clinical Summary ---
Author Organization [facility] Address [address] [place] [address] Care Team Providers Care Business Development Consultant Name Role Phone Belem Peterson MD Primary Care Provider [phone] Allergies Active Allergy Reactions Criticality Noted Date [...] by mouth once a day. 2 Active cyclobenzaprine (FLEXERIL) 5 mg tablet Take [...] BY MOUTH ONCE DAILY 90 tablet 2 5 Active Active Problems Problem Noted Date Diagnosed [...] Type Department Care Team Description 02/18/2025 Refill [facility] Internal Medicine [address] [facility] [address] [place] [address] Belem Peterson MD from Last 3 Months Immunizations Immunization Administration Dates Next Due Covid-19, Pfizer, mRNA, Kingfisher valent, PF 30 mcg/0.3 mL dose (for [...] oz pur e alcohol) Never liked it [facility] Utilities Answer Date Recorded In the past 12 months has th e electric, gas, oil, or water [employer] threatened to shut off services in your [...] 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 on file Not [...] Description 06/23/2025 1:00 PM EST Office Visit [facility] Internal Medicine [address] [facility] [address] [place] [address] Belem Peterson MD [address] [place] [address] Health Maintenance Due Date Last Done Comments [...] Cancer Screening 09/28/2018 Pap Smear 09/28/2018 09/29/2015 Alcohol/Substance Use Screening 07/24/2024 4 Depression Screening and Follow-Up 07/24/20242023 Social Drivers of Health Sarah ual Screening 07/24/2024 COVID-19 Vaccine (3 - 2024-2 6 season) 2025 12/05/2020, 11/14/2020 Influenza Vaccine (#1) 2025 3, 05/23/2022, 03/16/2021, Additional history exists DTaP,Tdap,and Td Vaccines (3 - Td or Tdap) 03/17/2030 03/17/2020, 03/24/2010 RSV Vaccine (60+ years old a nd patients) (1 - 1-dose 75+ series) 2068 Procedures * Due to [place] RO[place] law, this organization might not be sharing negative HIV tests. Procedure Name Priority Date/Time Associated Diagnosis Comments HM PAP SMEAR Routine 09/29/2015 5:38 PM EST from Last 3 Months or Most Recently Relevant to Health Maintenance Results * Due to [place] law, this organization might not be sharing negative HIV tests. * HM PAP SMEAR (09/29/2015 5:38 PM EST) HM Pap smear NOt done as pt has never been sexually active. 2 OUTSIDE LABORATORY 09/29/2015 5:38 PM EST Belem Peterson MD HEALTH MAINTENANCE Final Res ult 2 OUTSIDE LABORATORY from Last 3 Months or Most Recently Relevant to Health Maintenance Insurance [employer] Care Teams Business Development Consultant Relationship Specialty Start Date End Date Belem Peterson MD [address] [place] [address] PCP - General 02/08/17
== END 2025-04-01 10:43 | disposition home or self-care (01) ==
LOC: HO.HGI 09:37
PROVIDERS: PCP Internal Medicine; Referring Provider Nurse Practitioner Family; Visit Provider Nurse Practitioner Family
DX: K21.9 Gastro-esophageal reflux disease without esophagitis (principal); R10.13 Epigastric pain
CPT/HCPCS: 99213

== ENCOUNTER 2025-04-02 16:17 | Outpatient (AMB) | payer OTHER, SELFPAY ==
--- OUTSIDE RECORDS SUMMARY | 2024-01-04 04:30 | XMS_ITS ---
Author Organization [facility] Address [address] [place] [address] Care Team Providers Care Taxi Servicer Name Role Phone Nicholas PENA, [place] Primary Care Provider Unavail able Robbie Jcen Unavailable [phone] Sarina Crockett Unavailable [phone] REASON FOR VISIT year Encounters Encounter Location Date Provider Diagnosis [facility] Heart & Rhythm [facility] [address] [place] [phone] 01/04/2024 Sarina Crockett Plan Of Treatment No Information Progress Notes * SMIHT, Marleni EDOB:[birth year] (30 yo F)Acc No.[id number]:01/04/2024 Progress Notes Patient: Marleni [place] Provider: Ling Crockett CNP :1995 A ge:28 Y S ex:Female Date:01/04/2024 Address:[address] [place], [place] [id number] Pcp:Be[place] Peterson MD Subjective: * Chief Complaints: * 1 . Year. * Medical History: Objective: * Vitals: Assessment: Plan: * Treatment: * * Electronic signature of Christopher Crockett CNP on 04/02/2025 at 06:38 PM EDT Sign off status: Pending * Provider: Ling Crockett CNP Date: 0 01/04/2024 Generated for Printi ng/Faxing/eTransmitting on: 0 04/02/2025 06:38 PM EDT
--- OUTSIDE RECORDS SUMMARY | 2025-04-02 18:40 | XMS_ITS | Encounter Summary ---
Author Organization [facility] Address [address] [place] [address] [place] [address] Phone Care Team Providers Care Ditching Machine Operating Engineer Name Role Phone Belem Peterson MD Primary Care Provid er RobotLogan huitron MD Unavailable Encounter Details Date Type Department Care Team (Late st Contact Info) Description 08/09/2017 Transcribe Orders [facility] Echocardiography [address] [place] [address] Karis [email or web address] Social History Tobacco Use Types Packs/Day [...] BPM MUSE_BWH Atrial Rate 69 BPM MUSE_BWH [place] Interval 136 ms MUSE_BWH QRS Duration 80 ms MUSE_BWH QT Interval 400 ms MUSE_BWH QTC Interval 428 ms MUSE_BWH P [place] 60 degrees MUSE_BWH R Wave [place] -6 degrees MUSE_BWH T Wave [place] 28 degrees MUSE_BWH 08/08/2017 4:30 PM EST Narrative MUSE_BWEloy - 08/21/2017 11:03 AM EST Normal sinus rhythm Normal ECG When compared with ECG of 13-JUN-2017 17:28, Criteria for Septal infarct are no longer Present us Bekah Nuno MD ECG ORDERABLES Final Result ROBBIN_TIRSO documented in this encounter Visit Diagnoses Not on filedocumented in this encounter Care Teams Ditching Machine Operating Engineer Relationship Specialty Start Date End Date Belem Peterson MD [address] [place] [address] PCP - General Internal Medicine 02/07/17 Logan Rosenthal MD [address] [place] [address] Cardiology 02/07/17 documented as of this encounter Additional Source Comments The information contained in this document represents components of the legal health record. It is not the complete legal health record.[facility]
--- OUTSIDE RECORDS SUMMARY | 2025-04-02 18:40 | XMS_ITS | Encounter Summary ---
Author Organization [facility] Address [address] [place] [address] [place] [address] Phone Care Team Providers Care Telecommunications Engineer Name Role Phone Belem Peterson MD Primary Care Provid er RobotLogan huitron MD Unavailable Encounter Details Date Type Department Care Team (Late st Contact Info) Description 06/13/2017 Transcribe Orders [facility] Echocardiography [address] [place] [address] Karis [email or web address] Social History Tobacco Use Types [...] BPM MUSE_BWH Atrial Rate 65 BPM MUSE_BWH [place] Interval 150 ms MUSE_BWH QRS Duration 68 ms MUSE_BWH QT Interval 404 ms MUSE_BWH QTC Interval 420 ms MUSE_BWH P [place] 68 degrees MUSE_BWH R Wave [place] 3 degrees MUSE_BWH T Wave [place] 2 degrees MUSE_BWH 06/13/2017 5:28 PM EST Narrative MUSE_BWH - 06/14/2017 8:28 PM EST Normal sinus rhythm Septal infarct (cited on or before 07-MAR-2017) Abnormal ECG When compared with ECG of 07-MAR-2017 13:42, No significant change was found us Evelia Nuno MD ECG ORDERABLES Final Result ROBBIN_TIRSO documented in this encounter Visit Diagnoses Not on filedocumented in this encounter Care Teams Telecommunications Engineer Relationship Specialty Start Date End Date Belem Peterson MD [address] [place] [address] PCP - General Internal Medicine 02/07/17 Logan Rosenthal MD [address] [place] [address] Cardiology 02/07/17 documented as of this encounter Additional Source Comments The information contained in this document represents components of the legal health record. It is not the complete legal health record.[facility]
--- OUTSIDE RECORDS SUMMARY | 2025-04-02 18:40 | XMS_ITS | Patient Health Record ---
Author Organization [facility] Address [address] [place] [address] Care Team Providers Care Power Digger Operator Name Role Phone Nicholas PENA, Belem Primary Care Provider Unavail able Lilian Jc Unavailable [phone] Allergies No Known Allergies Reason For Referral [...] Status W/U Status Risk Notes Problem Palpitations (12310199) Palpitations (R00.2) Active confirmed Problem Generalized anxiety disorder (39207595) Generalized anxiety disorder (F41.1) Active confirmed Problem Anxiety (03984320) Anxiety (F41.9) Active confi rmed Problem Sinus tachycardia (35809557) Sinus tachycardia (R00.0) Active confirmed Problem Atypical chest pain (233452311) Atypical chest pain (R07.89) Active confirmed Problem Gastroesophageal reflux disease (566717050) Gastroesophageal reflux disease, esophagitis presence not specified (K21.9) Active confirmed Problem Chest tightness (76026036) Chest tightness (R07.89) Active confirmed Problem Asthma without status asthmaticus (76761317) Uncomplicated asthma, unspecified asthma severity (J45.909) Active confirmed Problem Inappropriate sinus tachycardia (231802454) Inappropriate sinus tachycardia (R00.0) Active confirmed Problem Seasonal allergic rhinitis (886265413) Seasonal allergic rhinitis, unspecified allergic rhinitis trigger (J30.2) Active confirmed Problem Asthma without status asthmaticus (12203709) Asthma, unspecified asthma severity, unspecified whether complicated, unspecified whether persistent (J45.909) Active confirmed Plan Of Treatment Pending Test Test Name Order Date ECHOCARDIOGRAM 12/14/2016 ECHOCARDIOGRAM 11/24/2020 Stress Test 01/02/2017 Insurance Providers Payer Name Payer Address Payer Phone Subscriber Number Group Number Insured Name Patient Relationship to Insured Coverage Start Date Coverage End Date [employer] [address] [address] [place], [place] [phone] [id number] Marleni Smith Self - patient is the insured [employer] [address] [place], [place] [id number] Marleni Smith Self - patient is the insured Medical (General) History Medical History History ICD Code inappropriate sinus tachycardia (Rx'd w ivabradine by Dr. Nuno at [facility]) preserved LV function with E F 60-65% by echo November 2016, EF 60-65% by echo November 2020 Palpitations Chest tightness Generalized anxiety disorder Seasonal allergies Asthma (diagnosed, 12/07) ([place]) atenolol-->fatigue GERD COVID 08 February 2022
--- OUTSIDE RECORDS SUMMARY | 2025-04-02 18:40 | XMS_ITS | Clinical Summary ---
Author Organization [facility] Address [address] [place] [address] Care Team Providers Care Fiber Optic Assembly Worker Name Role Phone Belem Peterson MD Primary Care Provider [phone] Allergies Active Allergy Reactions Criticality Noted Date [...] Type Department Care Team Description 02/18/2025 Refill [facility] Internal Medicine [address] [facility] [address] [place] [address] Belem Peterson MD from Last 3 Months Immunizations Immunization Administration Dates Next Due Covid-19, Pfizer, mRNA, Weber valent, PF 30 mcg/0.3 mL dose (for [...] oz pur e alcohol) Never liked it [facility] Utilities Answer Date Recorded In the past 12 months has th e electric, gas, oil, or water [employer] threatened to shut off services in your [...] 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 Procedure Name Priority Date/Time Associated Diagnosis Comments HM PAP SMEAR Routine 09/29/2015 5:38 PM EST from Last 3 Months or Most Recently Relevant to Health Maintenance Results * Due to [place] Spotted law, this organization might not be sharing negative HIV tests. * HM PAP SMEAR (09/29/2015 5:38 PM EST) HM Pap smear NOt done as pt has never been sexually active. 2 OUTSIDE LABORATORY 09/29/2015 5:38 PM EST Belem Peterson MD HEALTH MAINTENANCE Final Res ult 2 OUTSIDE LABORATORY from Last 3 Months or Most Recently Relevant to Health Maintenance Insurance Process and [employer] Care Teams Fiber Optic Assembly Worker Relationship Specialty Start Date End Date Belem Peterson MD [address] [place] [address] PCP - General 02/08/17
--- OUTSIDE RECORDS SUMMARY | 2025-04-02 18:40 | XMS_ITS | Clinical Summary ---
Author Organization [facility] Address [facility] [employer] [address] [address] Phone Care Team Providers Care Wallpaper Inspector Name Role Phone Belem Peterson MD Primary [...] DEPRESSION SCREENING 09/26/2019 09/25/2018 INFLUENZA VACCINE (#1) 2025 0, 05/28/2019 COVID-19 VACCINE (2 - 2024-2 6 season) 2025 11/14/2020 Adult Td,Tdap Booster 03/17/2030 03/17/2020 SMOKING [...] [place] [id number] [facility] [place] [id number] [facility] [place] [id number] [facility] [place] [id number] [place] [id number] [facility] (Work) [address] [place] [id number] [facility] [place] [id number] [facility] [place] [id number] [facility] HMO POS Care Teams Wallpaper Inspector Relationship Specialty Start Date End Date Belem Peterson MD [address] [place] [address] PCP - General Internal Medicine 02/07/17 [place] Rosenthal MD [address] [place] [address] Cardiology 02/07/17 Additional Source Comments The information contained in this document represents components of the legal health record. It is not the complete legal health record.[facility]
--- OUTSIDE RECORDS SUMMARY | 2025-04-02 18:40 | XMS_ITS | Encounter Summary ---
Author Organization [facility] Address [address] [place] [address] [place] [address] Phone Care Team Providers Care Soft Work Wrapper Layer And Examiner Name Role Phone Belem Peterson MD Primary Care Provid er [place] Rosenthal MD Unavailable Encounter Details Date Type Department Care Team (Late st Contact Info) Description 02/06/2018 Transcribe Orders [facility] Echocardiography [address] [place] [address] Lolis Tovar [address] [place] [address] [email or web address] Social History Tobacco Use Types Packs/Day [...] BPM [facility] Atrial Rate 64 BPM [facility] MS Interval 136 ms [facility] QRS Duration 76 ms [facility] QT Interval 406 ms [facility] QTC Interval 418 ms [facility] P [place] 52 degrees [facility] R Wave [place] -3 degrees [facility] T Wave [place] 30 degrees [facility] 02/06/2018 2:43 PM EDT [...] on filedocumented in this encounter Care Teams Soft Work Wrapper Layer And Examiner Relationship Specialty Start Date End Date eBlem Peterson MD [address] [place] [address] PCP - General Internal Medicine 02/07/17 [place] Rosenthal MD [address] [place] [address] Cardiology 02/07/17 documented as of this encounter Additional Source Comments The information contained in this document represents components of the legal health record. It is not the complete legal health record.[facility]
--- OUTSIDE RECORDS SUMMARY | 2025-04-02 18:40 | XMS_ITS | Patient Health Record ---
Author Organization [facility] Address [address] [place] [id number] Care Team Providers Care Light Truck Driver Name Role Phone Nicholas PENA, Belem [...] Status W/U Status Risk Notes Problem Tachycardia (1196434) Tachycardia (R00.0) Active confirmed Problem Gastroesophageal reflux disease (282124953) Gastroesophageal reflux disease, esophagitis presence not specified (K21.9) Active confirmed Problem Uncomplicated moderate persistent asthma (252337927) Moderate persistent asthma without complication (J45.40) Active confirmed Problem Daytime hypersomnia (14071975065240) Daytime hypersomnia (G47.19) Active confirmed Problem Chest pain (38267407) Chest pain, unspecified type (R07.9) Active confirmed Plan Of Treatment Pending Test Test Name Order Date SLEEP STUDY-DIAGNOSTIC 01/05/2017 ALLERGEN ASTHMA PROFILE 01/05/2017 CBC+AUTO DIFF 01/05/2017 IgE 01/05/2017 D.PTERONYSSINUS 01/05/2017 DERM FARINEAE 01/05/2017 CAT DANDER 01/05/2017 DOG EPITHELIUM 01/05/2017 CT CHEST +C 01/05/2017 OAK 01/05/2017 PENCILLIUM NOTATUM MOLD 01/05/2017 COCKROACH 01/05/2017 BRITTANY GRASS 01/05/2017 COMMON RAGWEED 01/05/2017 VIETNAMESE PLANTAIN 01/05/2017 CLADOSPORIUM HERBARUM MOLD 01/05/2017 MUCOR RACEMOSUS MOLD 01/05/2017 CARMEN ALBICANS 01/05/2017 ALTERNARIA TENIUS MOLD 01/05/2017 CT CHEST +C 01/12/2017 Future Test Test Name Order Date CHEST XRAY PA LAT 01/05/2017 Insurance Providers Payer Name Payer Address Payer Phone Subscriber Number Group Number Insured Name Patient Relationship to Insured Coverage Start Date Coverage End Date [address] [place] [address] [id number] Marleni Navarro Self - patient is the insured Medical (General) History Medical History History ICD Code Migraine headache Seasonal rhinitis Anxiety Surgical History Surgery Date(Month/Year) Home teeth extracted Tonsillectomy
--- OUTSIDE RECORDS SUMMARY | 2025-04-02 18:40 | XMS_ITS | Clinical Summary ---
Author Organization [facility] [email or web address] Address [address] [place] [address] Care Team Providers Care Beamer Operator Name Role Phone Belem Peterson MD [...] Adults 18 yrs or above (or HM Modifier)([facility]) 2011 Hepatitis C Virus Infection in Adolescents and Adults: Screening (or Modifier) ([facility]) 2011 SDOH Screening Reminder: Annually for all adults ([facility]) 2011 Tobacco Smoking Cessation: i n Adults excluding Women: Behavioral and Pharmacotherapy Interventions ([facility]) 2011 Cervical Cancer Screenin-65 yrs of age (or Modifier) 2014 Cervical Cancer Screening: P ap every 3 yrs pts age 21-65 2014 Cervical Cancer: Pap Screeni ng with Modifier timing ([facility]) 2014 Cervical Cancer: hrHPV alone or with cotesting Pap for Pts 30-65yrs screening every 5yrs ([facility]) 2014 Flu Vaccination: Yearly for ages 18mos through 64 years (or Modifier)([facility]) 02/21/2025 COVID-19 Vaccine Screening: Initial Series and Booster Status ([facility]) ( - 2023- season) 2025 DTaP/Tdap/Td Vaccines ([facility]) (3 - Td or Tdap) 03/17/2030 03/17/2020, 03/24/2010 Zoster/Shingles Vaccine Seri es Screening: Adults aged 18+ yrs (or HM Modifiers)([facility]) (1 of 2) 2043 Pneumococcal Vaccination Screening: Pts 0-19 & 19-49 yrs of age ([facility]) Aged Out No longer eligible based on patient's age to complete this topic Medical Devices Not [place] [id number] [facility] Care Teams Beamer Operator Relationship Specialty Start Date End Date Belem Peterson MD [address] [place] [address] [place] [phone] PCP - X Ray Developer 07/18/19
== END 2025-04-02 16:20 | disposition home or self-care (01) ==
LOC: HO.HMGAL 16:17
PROVIDERS: PCP Internal Medicine; Visit Provider Registered Nurse Emergency
DX: J30.89 Other allergic rhinitis (principal)
CPT/HCPCS: 95117; 95165

== ENCOUNTER 2025-04-21 15:40 | Outpatient (REF) | payer OTHER, SELFPAY ==
--- OUTSIDE RECORDS SUMMARY | 2024-01-04 04:30 | XMS_ITS ---
Author Organization [facility] Address [address] [place] [address] Care Team Providers Care Concession Worker Name Role Phone Nicholas PENA, [place] Primary Care Provider Unavail able Robbie Jcen Unavailable [phone] Sarina Crockett Unavailable [phone] REASON FOR VISIT year Encounters Encounter Location Date Provider Diagnosis [facility] Heart & Rhythm [facility] [address] [place], [place] [phone] 01/04/2024 Sarina Crockett Plan Of Treatment No Information Progress Notes * SMITH, Marleni EDOB:[birth year] (30 yo F)Acc No.[id number]:01/04/2024 Progress Notes Patient: Marleni [place] Provider: Ling Crockett CNP :1995 A ge:28 Y S ex:Female Date:01/04/2024 Address:[address] [place], [place] [phone] Pcp:Be[place] Peterson MD Subjective: * Chief Complaints: * 1 . Year. * Medical History: Objective: * Vitals: Assessment: Plan: * Treatment: * * Electronic signature of Christopher Crockett CNP on 04/21/2025 at 11:04 AM EDT Sign off status: Pending * Provider: Ling Crockett CNP Date: 0 01/04/2024 Generated for Printi ng/Faxing/eTransmitting on: 0 04/21/2025 11:04 AM EDT
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
[2025-04-21 15:54] LABS: MANUAL DIFF FLAG NO
[2025-04-21 16:22] LABS: Hematocrit 40.5 % (37.0-47.0); Hemoglobin 13.9 g/dl (12.0-16.0); Imm Gran Abs Auto 0.01 X10*3/uL (0.00-0.03); Imm Gran Pct Auto 0.1 % (0.0-0.4); Lymphocytes Absolute Auto 2.8 X10*3/uL (1.2-4.9); Mean Corpuscular HGB Conc 34.3 g/dl (31.0-35.0); Mean Corpuscular Hemoglobin 29.1 pg (27.0-33.0); Mean Corpuscular Volume 84.9 fL (80.0-98.0); NRBC Abs Auto 0.000 X10*3/uL (0.0-0.012); NRBC Pct Auto 0.0 /100WBC (0.0-0.2); Platelet Count 297 X10*3/uL (160-400); Red Blood Count 4.77 X10*6/uL (4.20-5.50); White Blood Count 8.0 X10*3/uL (4.8-10.8)
[2025-04-21 16:41] LABS: Appearance Urine Clear; Glucose Urine UA Negative (Negative); PH 6.0 (5.0-9.0); Specific Gravity - Urine >= 1.030 (1.005-1.025)
[2025-04-21 16:56] LABS: Alanine Aminotransferase 10 U/L (0-31); Albumin Level 4.8 g/dL (3.5-5.0); Alkaline Phosphatase 54 U/L (39-117); Anion Gap 11 (12-20); Aspartate Amino Transferase 20 U/L (5-31); Blood Urea Nitrogen 15 mg/dL (9-16); Calcium 9.5 mg/dL (8.4-10.2); Carbon Dioxide 27 mmol/L (22-29); Chloride 107 mmol/L (96-108); Estimated Glomerular Filt Rate > 60; Potassium 4.0 mmol/L (3.3-5.1); Sodium 141 mmol/L (135-145); Total Protein 7.5 g/dL (6.5-8.0)
--- OUTSIDE RECORDS SUMMARY | 2025-04-21 17:44 | XMS_ITS | Encounter Summary ---
Author Organization [facility] Address [address] [place] [address] Care Team Providers Care Drop Machine Operator Name Role Phone Belem Peterson MD Primary Care Provider [phone] Reason for Visit * Reason Onset Date Comments [facility] fax # 04/21/2025 Encounter Details Date Type Department Care Team (Late st Contact Info) Description 04/21/2025 Telephone [facility] Internal Medicine [address] [phone] Belem Peterson MD [address] [place] [address] [facility] fax # Social History Tobacco Use Types Packs/Day Years [...] money to get more. 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 Hytlet message sent. CT does not require an auth. Faxed to [facility] at number given. * Telephone Encounter - Larissa Birminghammyesha - 04/21/2025 11:44 AM EDT Pt called her fax number for [facility] is [phone] documented in this encounter Plan of Treatment Upcoming Encounters Date Type Department Care Team (Late st Contact Info) Description 06/23/2025 1:00 PM EST Office Visit [facility] Internal Medicine [address] [place] [address] Belem Peterson MD [address] [place] [address] documented as of this encounter Visit Diagnoses Not on filedocumented in this encounter Care Teams Drop Machine Operator Relationship Specialty Start Date End Date Belem Peterson MD [address] [place] [address] PCP - General 02/08/17 documented as of this encounter
--- OUTSIDE RECORDS SUMMARY | 2025-04-21 17:44 | XMS_ITS | Encounter Summary ---
Author Organization [facility] Address [address] [place] [address] [place] [address] Phone Care Team Providers Care Factory Maintenance Technician Name Role Phone Belem Peterson MD Primary Care Provid er RobotLogan huitron MD Unavailable Encounter Details Date Type Department Care Team (Late st Contact Info) Description 08/09/2017 Transcribe Orders [facility] Echocardiography [address] [place] [address] [email or web address] [email or web address] Social History Tobacco Use Types Packs/Day [...] BPM MUSE_BWH Atrial Rate 69 BPM MUSE_BWH [place] Interval 136 ms MUSE_BWH QRS Duration 80 ms MUSE_BWH QT Interval 400 ms MUSE_BWH QTC Interval 428 ms MUSE_BWH P [place] 60 degrees MUSE_BWH R Wave [place] -6 degrees MUSE_BWH T Wave [place] 28 degrees MUSE_BWH 08/08/2017 4:30 PM EST Narrative MUSE_BWEloy - 08/21/2017 11:03 AM EST Normal sinus rhythm Normal ECG When compared with ECG of 13-JUN-2017 17:28, Criteria for Septal infarct are no longer Present us Bekah Nuno MD ECG ORDERABLES Final Result ROBBIN_TIRSO documented in this encounter Visit Diagnoses Not on filedocumented in this encounter Care Teams Factory Maintenance Technician Relationship Specialty Start Date End Date Belem Peterson MD [address] [place] [address] PCP - General Internal Medicine 02/07/17 Logan Rosenthal MD [address] [place] [address] Cardiology 02/07/17 documented as of this encounter Additional Source Comments The information contained in this document represents components of the legal health record. It is not the complete legal health record.[facility]
--- OUTSIDE RECORDS SUMMARY | 2025-04-21 17:44 | XMS_ITS | Clinical Summary ---
Author Organization [facility] Address [address] [place] [address] Care Team Providers Care Corn Crop Supervisor Name Role Phone Belme Peterson MD Primary Care Provider [phone] Allergies Active Allergy Reactions Criticality Noted Date [...] days. Drowsiness precautions. 30 tablet 4 Active Additional Information Patient not taking.Reported on 04/21/2025 omeprazole (PriLOSEC) 20 mg capsule Take 1 capsule every day by oral route for 30 days. Active desvenlafaxine succinate (PRISTIQ) 50 mg 24 hr tablet TAKE 1 TABLET BY MOUTH ONCE DAILY 90 tablet 2 5 Active Active Problems Problem Noted Date Diagnosed Date Right lower quadrant abdominal pain 04/21/2025 Unsteady gait 09/21/2022 Stutterings 09/21/2022 Paresthesia 09/21/2022 [...] Encounters Date Type Department Care Team Description 04/21/2025 11:00 AM EDT Office Visit [facility] Internal Medicine 80 [facility] [address] [place] [address] Belem Peterson MD Right lower quadrant abdominal pain (Primary Dx) 04/21/2025 myChart Message [facility] Internal Medicine [address] [place] [address] [address] [place] [address] Lelandt, Generic Provider CT ready for scheduling 04/21/2025 myChart Message [facility] Internal Medicine 80 [facility] [address] [place] [address] Belem Peterson MD Last Menstrual Period 04/21/2025 Orders Only [facility] Nuclear Medicine [address] [place] [address] Landen Ferrera MD 04/21/2025 Telephone [facility] Internal Medicine [address] [place] [address] [address] [place] [address] Belem Peterson MD [facility] fax # 04/21/2025 Telephone [facility] Internal Medicine 80 [facility] [address] [place] [address] Belem Peterson MD Additional Info Needed - [facility]; FYI Fax Number 04/20/2025 myChart Message [facility] Internal Medicine 80 [facility] [address] [place] [address] Belem Peterson MD Right hip pain 02/18/2025 Refill [facility] Internal Medicine 80 [facility] [address] [place] [address] Belem Peterson MD from Last 3 Months Immunizations Immunization Administration Dates Next Due Covid-19, Pfizer, mRNA, Lane valent, PF 30 mcg/0.3 mL dose (for [...] money to get more. 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 [employer] Not on file Not on file Not on file Last Filed Vital Signs Vital Sign Reading Time Taken Comments Blood Pressure 111/80 04/21/2025 11:05 AM EDT Pulse 99 04/21/2025 11:05 AM EDT Temperature 36.8 C (98.2 F) 04/21/2023 8:53 AM EDT Respiratory Rate 16 01/26/2022 4:47 AM EDT Oxygen Saturation 98% 04/21/2025 11:05 AM EDT Inhaled Oxygen Concentration - - Weight 51.3 kg (113 lb) 04/21/2025 11:05 AM EDT Height 149.9 cm (4' 11 ) 04/21/2025 11:05 AM EDT Body Mass Index 22.82 04/21/2025 11:05 AM EDT Plan of Treatment Upcoming Encounters Date Type Department Care Team (Late st Contact Info) Description 06/23/2025 1:00 PM EST Office Visit [facility] Internal Medicine [address] [address] [place] [address] Belem Peterson MD 80 [place] [address] Health Maintenance Due Date Last Done Comments [...] Cancer Screening 09/28/2018 Pap Smear 09/28/2018 09/29/2015 Social Drivers of Health Sarah ual Screening 07/24/2024 COVID-19 Vaccine (3 - 2024-2 6 season) 2025 12/05/2020, 11/14/2020 Influenza Vaccine (#1) 2025 3, 05/23/2022, 03/16/2021, Additional history exists Depression Screening and Follow-Up 04/21/20262024 DTaP,Tdap,and Td Vaccines (3 - Td or Tdap) 03/17/2030 03/17/2020, 03/24/2010 RSV Vaccine (60+ years old a nd patients) (1 - 1-dose 75+ series) 2068 Alcohol/Substance Use Screening Completed 5 Procedures * Due to [place] InvitedHome law, this organization might not be sharing negative HIV tests. Procedure Name Priority Date/Time Associated Diagnosis Comments PAP SMEAR Routine 09/29/2015 5:38 PM EST from Last 3 Months or Most Recently Relevant to Health Maintenance Results * Due to [place] InvitedHome law, this organization might not be sharing negative HIV tests. * HM PAP SMEAR (09/29/2015 5:38 PM EST) HM Pap smear NOt done as pt has never been sexually active. 2 OUTSIDE LABORATORY 09/29/2015 5:38 PM EST us Belem Peterson MD HEALTH MAINTENANCE Final Res ult 2 OUTSIDE LABORATORY from Last 3 Months or Most Recently Relevant to Health Maintenance Insurance [employer] Member Subscriber Plan / Payer (Ef fective 2024-Present) Name:Marleni Lentz Relation to Subscriber:Self Name:Marleni Lentz Payer ID:[id number] Group ID:Not on file Type:Not on file Address: [address] [employer] Care Teams Corn Crop Supervisor Relationship Specialty Start Date End Date Belem Peterson MD [address] [place] [address] [facility] - General 02/08/17
--- OUTSIDE RECORDS SUMMARY | 2025-04-21 17:44 | XMS_ITS | Clinical Summary ---
Author Organization [facility] Address [facility] [address] [address] Phone Care Team Providers Care File System Installer Name Role Phone Belem Peterson MD Primary [...] [place] [id number] [facility] [place] [id number] [facility] [place] [id number] [facility] [id number] [facility] [id number] [facility] POS (Work) [address] [place] [id number] [facility] [id number] [facility] [id number] [facility] HMO POS Care Teams File System Installer Relationship Specialty Start Date End Date Belem Peterson MD [address] [place] [address] PCP - General Internal Medicine 02/07/17 Logan Rosenthal MD [address] [place] [address] Cardiology 02/07/17 Additional Source Comments The information contained in this document represents components of the legal health record. It is not the complete legal health record.[facility]
--- OUTSIDE RECORDS SUMMARY | 2025-04-21 17:44 | XMS_ITS | Encounter Summary ---
Author Organization [facility] Address [address] [place] [address] [place] [address] Phone Care Team Providers Care Glass Belt Sander Name Role Phone Belem ePterson MD Primary Care Provid er RobotLogan huitron MD Unavailable Encounter Details Date Type Department Care Team (Late st Contact Info) Description 06/13/2017 Transcribe Orders [facility] Echocardiography [address] [place] [address] [email or web address] Social History Tobacco Use Types [...] BPM MUSE_BWH Atrial Rate 65 BPM MUSE_BWH [place] Interval 150 ms MUSE_BWH QRS Duration 68 ms MUSE_BWH QT Interval 404 ms MUSE_BWH QTC Interval 420 ms MUSE_BWH P [place] 68 degrees MUSE_BWH R Wave [place] 3 degrees MUSE_BWH T Wave [place] 2 degrees MUSE_BWH 06/13/2017 5:28 PM EST Narrative MUSE_BWH - 06/14/2017 8:28 PM EST Normal sinus rhythm Septal infarct (cited on or before 07-MAR-2017) Abnormal ECG When compared with ECG of 07-MAR-2017 13:42, No significant change was found us Evelia Nuno MD ECG ORDERABLES Final Result ROBBIN_TIRSO documented in this encounter Visit Diagnoses Not on filedocumented in this encounter Care Teams Glass Belt Sander Relationship Specialty Start Date End Date Belem Peterson MD [address] [place] [address] PCP - General Internal Medicine 02/07/17 Logan Rosenthal MD [address] [place] [address] Cardiology 02/07/17 documented as of this encounter Additional Source Comments The information contained in this document represents components of the legal health record. It is not the complete legal health record.[facility]
--- OUTSIDE RECORDS SUMMARY | 2025-04-21 17:44 | XMS_ITS | Encounter Summary ---
Author Organization [facility] Address [address] [place] [address] Care Team Providers Care In Home Sales Representative Name Role Phone Belem Peterson MD Primary Care Provider [phone] Encounter Details Date Type Department Care Team (Latest Contact Info) Description 04/21/2025 myChart Message [facility] Internal Medicine [address] [phone] Belem Peterson MD [address] [place] [address] Last Menstrual Period Social History Tobacco Use Types Packs/Day Years [...] money to get more. 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
--- OUTSIDE RECORDS SUMMARY | 2025-04-21 17:44 | XMS_ITS | Encounter Summary ---
Author Organization [facility] Address [address] [place] [address] Care Team Providers Care Driver/Sales Workers Name Role Phone Belem Peterson MD Primary Care Provider [phone] Encounter Details Date Type Department Care Team (Late st Contact Info) Description 04/21/2025 Arkmicro Message [facility] Internal Medicine 80 [facility] [address] [place] [address] Mychart, Generic Provider [phone] ready for scheduling Social History Tobacco Use Types Packs/Day Years [...] money to get more. 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 Not on file Not on file documented as of this encounter Plan of Treatment Upcoming Encounters Date Type Department Care Team (Late st Contact Info) Description 06/23/2025 1:00 PM EST Office Visit [facility] Internal Medicine [address] [facility] [address] [place] [address] Belem Peterson MD [address] [place] [address] documented as of this encounter Visit Diagnoses Not on filedocumented in this encounter Care Teams Driver/Sales Workers Relationship Specialty Start Date End Date Belem Peterson MD [address] [place] [address] PCP - General 02/08/17 documented as of this encounter
--- OUTSIDE RECORDS SUMMARY | 2025-04-21 17:44 | XMS_ITS | Clinical Summary ---
Author Organization [facility] Address [address] [place] [address] Care Team Providers Care Manager Pathology Name Role Phone Belem Peterson MD Primary [...] Adults 18 yrs or above (or HM Modifier)([facility]) 2011 Hepatitis C Virus Infection in Adolescents and Adults: Screening (or Modifier) ([facility]) 2011 SDOH Screening Reminder: Annually for all adults ([facility]) 2011 Tobacco Smoking Cessation: i n Adults excluding Women: Behavioral and Pharmacotherapy Interventions ([facility]) 2011 Cervical Cancer Screenin-65 yrs of age (or Modifier) 2014 Cervical Cancer Screening: P ap every 3 yrs pts age 21-65 2014 Cervical Cancer: Pap Screeni ng with Modifier timing ([facility]) 2014 Cervical Cancer: hrHPV alone or with cotesting Pap for Pts 30-65yrs screening every 5yrs ([facility]) 2014 Flu Vaccination: Yearly for ages 18mos through 64 years (or Modifier)([facility]) 02/21/2025 COVID-19 Vaccine Screening: Initial Series and Booster Status ([facility]) ( - 2023- season) 2025 DTaP/Tdap/Td Vaccines ([facility]) (3 - Td or Tdap) 03/17/2030 03/17/2020, 03/24/2010 Zoster/Shingles Vaccine Seri es Screening: Adults aged 18+ yrs (or HM Modifiers)([facility]) (1 of 2) 2043 Pneumococcal Vaccination Screening: Pts 0-19 & 19-49 yrs of age ([facility]) Aged Out No longer eligible based on patient's age to complete this topic Medical Devices [place] [id number] [facility] Care Teams Manager Pathology Relationship Specialty Start Date End Date Belem Peterson MD [address] [address] [place] [address] PCP - Financial Risk Manager 07/18/19
--- OUTSIDE RECORDS SUMMARY | 2025-04-21 17:44 | XMS_ITS | Patient Health Record ---
Author Organization [facility] Address [address] [place] [address] Care Team Providers Care Rpg Developer Name Role Phone Nicholas PENA, Belem Primary Care Provider Unavail able Lilian Jc Unavailable [phone] Allergies No Known Allergies Reason For Referral [...] Status W/U Status Risk Notes Problem Palpitations (10808404) Palpitations (R00.2) Active confirmed Problem Generalized anxiety disorder (21912725) Generalized anxiety disorder (F41.1) Active confirmed Problem Anxiety (71310036) Anxiety (F41.9) Active confi rmed Problem Sinus tachycardia (17706942) Sinus tachycardia (R00.0) Active confirmed Problem Atypical chest pain (944544278) Atypical chest pain (R07.89) Active confirmed Problem Gastroesophageal reflux disease (935424391) Gastroesophageal reflux disease, esophagitis presence not specified (K21.9) Active confirmed Problem Chest tightness (45443119) Chest tightness (R07.89) Active confirmed Problem Asthma without status asthmaticus (96240025) Uncomplicated asthma, unspecified asthma severity (J45.909) Active confirmed Problem Inappropriate sinus tachycardia (262321152) Inappropriate sinus tachycardia (R00.0) Active confirmed Problem Seasonal allergic rhinitis (571933279) Seasonal allergic rhinitis, unspecified allergic rhinitis trigger (J30.2) Active confirmed Problem Asthma without status asthmaticus (27219244) Asthma, unspecified asthma severity, unspecified whether complicated, unspecified whether persistent (J45.909) Active confirmed Plan Of Treatment Pending Test Test Name Order Date ECHOCARDIOGRAM 12/14/2016 ECHOCARDIOGRAM 11/24/2020 Stress Test 01/02/2017 Insurance Providers Payer Name Payer Address Payer Phone Subscriber Number Group Number Insured Name Patient Relationship to Insured Coverage Start Date Coverage End Date [employer] [address] [address] [place], [place] [id number] Marleni Smith Self - patient is the insured [employer] [address] [place], [place] [id number] Marleni Smith Self - patient is the insured Medical (General) History Medical History History ICD Code inappropriate sinus tachycardia (Rx'd w ivabradine by Dr. Nuno at [facility]) preserved LV function with E F 60-65% by echo November 2016, EF 60-65% by echo November 2020 Palpitations Chest tightness Generalized anxiety disorder Seasonal allergies Asthma (diagnosed, 12/07) ([place]) atenolol-->fatigue GERD COVID 08 February 2022
--- OUTSIDE RECORDS SUMMARY | 2025-04-21 17:44 | XMS_ITS | Encounter Summary ---
Author Organization [facility] Address [address] [place] [address] Care Team Providers Care Mend Worker Name Role Phone Belem Peterson MD Primary Care Provider [phone] Reason for Visit * Reason Onset Date Comments Additional Info Needed - [facility] 2024 FYI Fax Number 04/21/2025 Encounter Details Date Type Department Care Team (Late st Contact Info) Description 04/21/2025 Telephone [facility] Internal Medicine [address] [phone] Belem Peterson MD [address] [place] [address] Additional Info Needed - [facility]; FYI Fax Number Social History Tobacco Use Types Packs/Day Years [...] money to get more. 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 documented in this encounter Plan of Treatment Upcoming Encounters Date Type Department Care Team (Late st Contact Info) Description 06/23/2025 1:00 PM EST Office Visit [facility] Internal Medicine [address] [phone] Belem Peterson MD [address] [place] [address] documented as of this encounter Visit Diagnoses Not on filedocumented in this encounter Care Teams Mend Worker Relationship Specialty Start Date End Date Belem Peterson MD [address] [facility] [place] [address] PCP - General 02/08/17 documented as of this encounter
--- OUTSIDE RECORDS SUMMARY | 2025-04-21 17:44 | XMS_ITS | Encounter Summary ---
Author Organization [facility] Address [address] [place] [address] Care Team Providers Care Follow Up Specialist Name Role Phone Belem Peterson MD Primary Care Provider [phone] Encounter Details Date Type Department Care Team (Late st Contact Info) Description 04/21/2025 Orders Only [facility] Nuclear Medicine [address] [place] [address] Landen Ferrera MD [address] [place] [address] Social History Tobacco Use Types Packs/Day Years [...] money to get more. 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 on file Not on file documented as of this encounter Plan of Treatment Upcoming Encounters Date Type Department Care Team (Late st Contact Info) Description 06/23/2025 1:00 PM EST Office Visit [facility] Internal Medicine [address] [facility] [address] [address] Belem Peterson MD [address] [place] [address] documented as of this encounter Visit Diagnoses Not on filedocumented in this encounter Care Teams Follow Up Specialist Relationship Specialty Start Date End Date Belem Peterson MD [address] [place] [address] PCP - General 02/08/17 documented as of this encounter
--- OUTSIDE RECORDS SUMMARY | 2025-04-21 17:44 | XMS_ITS | Encounter Summary ---
Author Organization [facility] Address [address] [place] [address] [place] [address] Phone Care Team Providers Care Computed Tomography Technician Name Role Phone Belem Peterson MD Primary Care Provid er Logan Rosenthal MD Unavailable Encounter Details Date Type Department Care Team (Late st Contact Info) Description 02/06/2018 Transcribe Orders [facility] Echocardiography [address] [place] [address] Lolis [email or web address] Social History Tobacco Use Types Packs/Day Years [...] BPM MUSE_BWH Atrial Rate 64 BPM MUSE_BWH CO Interval 136 ms MUSE_BWH QRS Duration 76 ms MUSE_BWH QT Interval 406 ms MUSE_BWH QTC Interval 418 ms MUSE_BWH P [place] 52 degrees MUSE_BWH R Wave [place] -3 degrees MUSE_BWH T Wave [place] 30 degrees MUSE_BWH 02/06/2018 2:43 PM EDT Narrative AMY - 02/11/2018 1:54 PM EDT Normal sinus rhythm Low voltage QRS, consider pulmonary disease, pericardial effusion, or normal variant Cannot rule out Anterior myocardial infarction , age undetermined Abnormal ECG When compared with ECG of 08-AUG-2017 16:30, Criteria for Anterior myocardial infarction are now Present us Evelia Nuno MD ECG ORDERABLES Final Result ROBBIN_SALOMEH documented in this encounter Visit Diagnoses Not on filedocumented in this encounter Care Teams Computed Tomography Technician Relationship Specialty Start Date End Date Belem Peterson MD [address] [place] [address] PCP - General Internal Medicine 02/07/17 Logan Rosenthal MD [address] [place] [address] Cardiology 02/07/17 documented as of this encounter Additional Source Comments The information contained in this document represents components of the legal health record. It is not the complete legal health record.[facility]
--- OUTSIDE RECORDS SUMMARY | 2025-04-21 17:44 | XMS_ITS | Encounter Summary ---
Author Organization [facility] Address [address] [place] [address] Care Team Providers Care Crime Scene Examiner Name Role Phone Belem Peterson MD Primary Care Provider [phone] Encounter Details Date Type Department Care Team (Late st Contact Info) Description 04/20/2025 myChart Message [facility] Internal Medicine [address] [address] Belem Peterson MD [address] [place] [address] Right hip pain Social History Tobacco Use Types Packs/Day Years [...] money to get more. 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 Not on file Not on file documented as of this encounter Plan of Treatment Upcoming Encounters Date Type Department Care Team (Late st Contact Info) Description 06/23/2025 1:00 PM EST Office Visit [facility] Internal Medicine [address] [address] Belem Peterson MD 80 [facility] [place] [address] documented as of this encounter Visit Diagnoses Not on filedocumented in this encounter Care Teams Crime Scene Examiner Relationship Specialty Start Date End Date Belem Peterson MD 80 [place] [address] PCP - General 02/08/17 documented as of this encounter
--- OUTSIDE RECORDS SUMMARY | 2025-04-21 17:45 | XMS_ITS | Patient Health Record ---
Author Organization [facility] Address [address] [place] [address] Road [address] [place], [place] [id number] Care Team Providers Care Manager Gallery Name Role Phone Nicholas PENA, Belem Primary Care Provider Unavail able Shimon Bales Unavailable [phone] Devine, Kane Unavailable Unavailable Reason For Referral No Information Medications [...] Status W/U Status Risk Notes Problem Tachycardia (3524732) Tachycardia (R00.0) Active confirmed Problem Gastroesophageal reflux disease (636621954) Gastroesophageal reflux disease, esophagitis presence not specified (K21.9) Active confirmed Problem Uncomplicated moderate persistent asthma (969558315) Moderate persistent asthma without complication (J45.40) Active confirmed Problem Daytime hypersomnia (94352393647409) Daytime hypersomnia (G47.19) Active confirmed Problem Chest pain (19856146) Chest pain, unspecified type (R07.9) Active confirmed Encounters Encounter Location Date Provider Diagnosis [facility] [address] [place], [place] [id number] 04/09/2025 Shimon Bales Plan Of Treatment Pending Test Test Name Order Date SLEEP STUDY-DIAGNOSTIC 01/05/2017 ALLERGEN ASTHMA PROFILE 01/05/2017 CBC+AUTO DIFF 01/05/2017 IgE 01/05/2017 D.PTERONYSSINUS 01/05/2017 DERM FARINEAE 01/05/2017 CAT DANDER 01/05/2017 DOG EPITHELIUM 01/05/2017 CT CHEST +C 01/05/2017 OAK 01/05/2017 PENCILLIUM NOTATUM MOLD 01/05/2017 COCKROACH 01/05/2017 BRITTANY GRASS 01/05/2017 COMMON RAGWEED 01/05/2017 AMHARIC PLANTAIN 01/05/2017 CLADOSPORIUM HERBARUM MOLD 01/05/2017 MUCOR RACEMOSUS MOLD 01/05/2017 CARMEN ALBICANS 01/05/2017 ALTERNARIA TENIUS MOLD 01/05/2017 CT CHEST +C 01/12/2017 Future Test Test Name Order Date CHEST XRAY PA LAT 01/05/2017 Insurance Providers Payer Name Payer Address Payer Phone Subscriber Number Group Number Insured Name Patient Relationship to Insured Coverage Start Date Coverage End Date [facility] [address] [place] [address] [id number] Marleni Navarro Self - patient is the insured Medical (General) History Medical History History ICD Code Migraine headache Seasonal rhinitis Anxiety Surgical History Surgery Date(Month/Year) [place] teeth extracted Tonsillectomy
== END 2025-04-21 15:41 | disposition home or self-care (01) ==
LOC: HO.LAB 15:40
PROVIDERS: PCP Internal Medicine; Visit Provider Internal Medicine
DX: R10.31 Right lower quadrant pain (principal)
CPT/HCPCS: 36415; 80053; 81001; 85025

== ENCOUNTER 2025-04-23 08:20 | Outpatient (REF) | payer OTHER, SELFPAY ==
--- OUTSIDE RECORDS SUMMARY | 2024-01-04 04:30 | XMS_ITS ---
Author Organization [facility] Address [address] [place] [address] Care Team Providers Care Hazardous Materials Tanker Driver Name Role Phone Nicholas PENA, [place] Primary Care Provider Unavail able Robbie Jcen Unavailable [phone] Sarina Crockett Unavailable [phone] REASON FOR VISIT year Encounters Encounter Location Date Provider Diagnosis [facility] Heart & Rhythm [facility] [address] [place], [place] [phone] 01/04/2024 Sarina Crockett Plan Of Treatment No Information Progress Notes * SMITH, Marleni EDOB:[birth year] (30 yo F)Acc No.[id number]:01/04/2024 Progress Notes Patient: Marleni [place] Provider: Ling Crockett CNP :1995 A ge:28 Y S ex:Female Date:01/04/2024 Address:[address] [place], [place] [phone] Pcp:Be[place] Peterson MD Subjective: * Chief Complaints: * 1 . Year. * Medical History: Objective: * Vitals: Assessment: Plan: * Treatment: * * Electronic signature of Christopher Crockett CNP on 04/23/2025 at 08:47 AM EDT Sign off status: Pending * Provider: Ling Crockett CNP Date: 0 01/04/2024 Generated for Printi ng/Faxing/eTransmitting on: 1 08:47 AM EDT
--- OUTSIDE RECORDS SUMMARY | 2025-04-21 11:00 | XMS_ITS | Encounter Summary ---
Author Organization [facility] Address [address] [place] [address] Care Team Providers Care Lozenge Maker Helper Name Role Phone Belem Peterson MD Primary Care Provider [phone] Reason for Referral * MRI/CAT/PET Scan (Emergency) - Authorized Specialty Diagnoses / Procedures Referred By Contac t Referred To Contact Diagnoses Right lower quadrant abdominal pain Procedures CT Abdomen Pelvis with Contrast Belem Peterson MD [address] [place] [address] Phone: tel: fax: [facility] - OP [phone] [place] [address] Referral ID Status Reason Start Date Expiration Date V isits Requested Visits Authorized [id number] Authorized 04/21/2025 10/21/2026 1 1 Reason for Visit * Reason Comments Follow-up RLQ pain Encounter Details Date Type Department Care Team (Latest Contact Info) Description 04/21/2025 11:00 AM EDT Office Visit [facility] Internal Medicine [address] [address] Belem Peterson MD [address] [place] [address] Right lower quadrant abdominal pain (Primary Dx) [...] money to get more. Never true 04/21/2025 [facility] Utilities Answer Date Recorded In the past 12 months has th e [employer], gas, oil, or water [employer] 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 Patient consents to be recorded by [employer] system. HPI: Marleni Lentz is a 30 [...] interdisciplinary. Non smoker. No alcholol. Working in [place], working as a [employer]. Current Medications (Taking) as of 04/21/2025 ascorbic [...] of LDL-C. Krishna SS et al. DAYAMI. 2013;310(09): 9560-7812 (http://education.Keyword Rockstar/faq/YEB987) Chol/HDLC Ratio 02/11/2022 2.3 <5.0 (calc) Final [...] scan and to complete the necessary prep [facility]. Follow-up as scheduled Portions of this note were done using voice recognition software and may contain inadvertent errors. documented in this encounter Plan of Treatment Upcoming Encounters Date Type Department Care Team (Late st Contact Info) Description 06/23/2025 1:00 PM EST Office Visit [facility] Internal Medicine [address] [facility] [address] [place] [address] Belem Peterson MD [address] [place] [address] Scheduled Orders Name Type Priority Associated Diagnoses [...] Primary documented in this encounter Care Teams Lozenge Maker Helper Relationship Specialty Start Date End Date Belem Peterson MD [address] [place] [address] PCP - General 02/08/17 documented as of this encounter
--- NOTE | ~2025-04-23 | CT_ITS ---
EXAMINATION: CT ABDOMEN PELVIS WITH IV CONTRAST HISTORY: RIGHT LOWER QUADRANT ABD PAIN COMPARISON: There are no prior studies for available comparison. TECHNIQUE: CT scan of the abdomen and pelvis was performed following administration of 85 mL Omnipaque 350 using standard departmental protocol. Coronal and sagittal reformatted images were generated and reviewed. The patient received oral contrast material. This CT exam was performed with one or more of the following dose reduction techniques: automated exposure control, adjustment of the mA and/or kV according to patient size, use of iterative reconstruction technique. DLP: 250 mGy-cm FINDINGS: LOWER CHEST: The visualized lung bases are clear. There is no pleural effusion. CARDIOVASCULATURE: The heart is normal in size. There is no pericardial effusion. LIVER: The liver is normal in size and contour. No liver mass is identified. The hepatic and portal veins are patent. GALLBLADDER / BILE DUCTS: The gallbladder is unremarkable. There is no intra or extrahepatic biliary ductal dilatation. SPLEEN: The spleen is normal in size. No focal splenic lesion is identified. PANCREAS: The pancreas is unremarkable in appearance. ADRENAL GLANDS: Within normal limits. KIDNEYS/RETROPERITONEUM: No renal calculi are identified. There is no hydronephrosis. There is a 1.0 cm cyst in the interpolar region of the right kidney. A smaller cyst is noted at the lower pole. LYMPH NODES: No abdominal or pelvic lymphadenopathy. VASCULATURE: The abdominal aorta is normal in caliber. MESENTERY/PERITONEUM: No free fluid. No masses. There is no free intraperitoneal gas. STOMACH: The stomach is collapsed, limiting evaluation. SMALL BOWEL: The small bowel is normal in caliber. COLON: The colon is unremarkable. APPENDIX: Normal. URINARY BLADDER/PELVIC ORGANS: The urinary bladder is unremarkable. The uterus and ovaries are unremarkable. BONES / SOFT TISSUES: No suspicious bony or soft tissue abnormalities. CT/CT abdomen pelvis w IV con IMPRESSION: Right renal cysts as described. Otherwise unremarkable contrast-enhanced CT of the abdomen and pelvis. A normal appendix is visualized. Electronically signed by: Ousmane Pires MD 04/23/2025 11:11 AM EDT
--- OUTSIDE RECORDS SUMMARY | 2025-04-23 08:49 | XMS_ITS | Encounter Summary ---
Author Organization [facility] Address [address] [place] [address] Care Team Providers Care Char Dust Cleaner And Salvager Name Role Phone Belem Peterson MD Primary Care Provider [phone] Encounter Details Date Type Department Care Team (Late st Contact Info) Description 04/22/2025 Orders Only [facility] Internal Medicine [address] [phone] Provider, Piter, [facility] [place] [address] Social History Tobacco Use Types [...] money to get more. 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 Procedure Name Priority Date/Time Associated Diagnosis Comments COMPREHENSIVE METABOLIC PANEL, OUTSIDE LAB Routine 04/21/2025 11:41 AM EDT documented in this encounter Results * Due to [place] Gojee law, this organization might not be sharing negative HIV tests. * Comprehensive Metabolic Panel, Outside Lab (04/21/2025 11:41 AM EDT) Blood Structure of peripheral vein / Unknown us Unknown Provider LAB BLOOD ORDERABLES Final R esult documented in this encounter Visit Diagnoses Not on filedocumented in this encounter Care Teams Char Dust Cleaner And Salvager Relationship Specialty Start Date End Date Belem Peterson MD 80 [facility] [place] [address] PCP - General 02/08/17 documented as of this encounter
--- OUTSIDE RECORDS SUMMARY | 2025-04-23 08:49 | XMS_ITS | Patient Health Record ---
Author Organization [facility] Address [address] [place] [address] Care Team Providers Care Ladies Locker Room Attendant Name Role Phone Nicholas PENA, Belem Primary Care Provider Unavail able Lilian Jc Unavailable [phone] Allergies No Known Allergies Reason For Referral [...] Status W/U Status Risk Notes Problem Palpitations (42658946) Palpitations (R00.2) Active confirmed Problem Generalized anxiety disorder (55942689) Generalized anxiety disorder (F41.1) Active confirmed Problem Anxiety (52503694) Anxiety (F41.9) Active confi rmed Problem Sinus tachycardia (45655900) Sinus tachycardia (R00.0) Active confirmed Problem Atypical chest pain (534685006) Atypical chest pain (R07.89) Active confirmed Problem Gastroesophageal reflux disease (659059928) Gastroesophageal reflux disease, esophagitis presence not specified (K21.9) Active confirmed Problem Chest tightness (38666131) Chest tightness (R07.89) Active confirmed Problem Asthma without status asthmaticus (85226752) Uncomplicated asthma, unspecified asthma severity (J45.909) Active confirmed Problem Inappropriate sinus tachycardia (417049419) Inappropriate sinus tachycardia (R00.0) Active confirmed Problem Seasonal allergic rhinitis (366065723) Seasonal allergic rhinitis, unspecified allergic rhinitis trigger (J30.2) Active confirmed Problem Asthma without status asthmaticus (99894890) Asthma, unspecified asthma severity, unspecified whether complicated, unspecified whether persistent (J45.909) Active confirmed Plan Of Treatment Pending Test Test Name Order Date ECHOCARDIOGRAM 12/14/2016 ECHOCARDIOGRAM 11/24/2020 Stress Test 01/02/2017 Insurance Providers Payer Name Payer Address Payer Phone Subscriber Number Group Number Insured Name Patient Relationship to Insured Coverage Start Date Coverage End Date [employer] [address] [address] [place], [place] [id number] Marleni Smith Self - patient is the insured [employer] [address] [place], [place] [id number] Marleni Smith Self - patient is the insured Medical (General) History Medical History History ICD Code inappropriate sinus tachycardia (Rx'd w ivabradine by Dr. Nuno at [facility]) preserved LV function with E F 60-65% by echo November 2016, EF 60-65% by echo November 2020 Palpitations Chest tightness Generalized anxiety disorder Seasonal allergies Asthma (diagnosed, 12/07) (Bales) atenolol-->fatigue GERD COVID 08 February 2022
--- OUTSIDE RECORDS SUMMARY | 2025-04-23 08:49 | XMS_ITS | Encounter Summary ---
Author Organization [facility] Address [address] [place] [address] [place] [address] Phone Care Team Providers Care Inorganic Chemistry Teacher Name Role Phone Belem Peterson MD Primary Care Provid er RobotLogan huitron MD Unavailable Encounter Details Date Type Department Care Team (Late st Contact Info) Description 06/13/2017 Transcribe Orders [facility] Echocardiography [address] [place] [address] [email or web address] [email or web address] Social History Tobacco Use Types [...] BPM MUSE_BWH Atrial Rate 65 BPM MUSE_BWH AR Interval 150 ms MUSE_BWH QRS Duration 68 ms MUSE_BWH QT Interval 404 ms MUSE_BWH QTC Interval 420 ms MUSE_BWH P [place] 68 degrees MUSE_BWH R Wave [place] 3 degrees MUSE_BWH T Wave [place] 2 degrees MUSE_BWH 06/13/2017 5:28 PM EST Narrative MUSE_BWH - 06/14/2017 8:28 PM EST Normal sinus rhythm Septal infarct (cited on or before 07-MAR-2017) Abnormal ECG When compared with ECG of 07-MAR-2017 13:42, No significant change was found us Evelia Nuno MD ECG ORDERABLES Final Result ROBBIN_TIRSO documented in this encounter Visit Diagnoses Not on filedocumented in this encounter Care Teams Inorganic Chemistry Teacher Relationship Specialty Start Date End Date Belem Peterson MD [address] [place] [address] PCP - General Internal Medicine 02/07/17 Logan Rosenthal MD [address] [place] [address] Cardiology 02/07/17 documented as of this encounter Additional Source Comments The information contained in this document represents components of the legal health record. It is not the complete legal health record.[facility]
--- OUTSIDE RECORDS SUMMARY | 2025-04-23 08:49 | XMS_ITS | Encounter Summary ---
Author Organization [facility] Address [address] [place] [address] Care Team Providers Care Cloud Systems Architect Name Role Phone Belem Peterson MD Primary Care Provider [phone] Encounter Details Date Type Department Care Team (Late st Contact Info) Description 04/20/2025 myChart Message [facility] Internal Medicine [address] [address] Belem Peterson MD [address] [place] [address] Right hip pain Social History Tobacco Use [...] money to get more. 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 on file Not on file documented as of this encounter Plan of Treatment Upcoming Encounters Date Type Department Care Team (Late st Contact Info) Description 06/23/2025 1:00 PM EST Office Visit [facility] Internal Medicine [address] [phone] Belem Peterson MD 80 [place] [address] documented as of this encounter Visit Diagnoses Not on filedocumented in this encounter Care Teams Cloud Systems Architect Relationship Specialty Start Date End Date Belem Peterson MD [address] [place] [address] PCP - General 02/08/17 documented as of this encounter
--- OUTSIDE RECORDS SUMMARY | 2025-04-23 08:49 | XMS_ITS | Encounter Summary ---
Author Organization [facility] Address [address] [place] [address] Care Team Providers Care Equipment Coordinator Name Role Phone Belem Peterson MD Primary Care Provider [phone] Reason for Visit * Reason Onset Date Comments [facility] fax # 04/21/2025 Encounter Details Date Type Department Care Team (Late st Contact Info) Description 04/21/2025 Telephone [facility] Internal Medicine [address] [phone] Belem Peterson MD 80 [place] [address] [facility] fax # Social History Tobacco Use Types [...] money to get more. 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 Can we call them? [facility] [phone] * Telephone Encounter - Meliza Richards - 04/21/2025 1:09 PM EDT Unable to leave voicemail. MyChart message sent. CT does not require an auth. Faxed to [facility] at number given. * Telephone Encounter - Larissa Chacko - 04/21/2025 11:44 AM EDT Pt called [facility] [phone] documented in this encounter Plan of Treatment Upcoming Encounters Date Type Department Care Team (Late st Contact Info) Description 06/23/2025 1:00 PM EST Office Visit [facility] Internal Medicine 80 [facility] [address] [place] [address] Belem Peterson MD [address] [place] [address] documented as of this encounter Visit Diagnoses Not on filedocumented in this encounter Care Teams Equipment Coordinator Relationship Specialty Start Date End Date Belem Peterson MD [address] [place] [address] PCP - General 02/08/17 documented as of this encounter
--- OUTSIDE RECORDS SUMMARY | 2025-04-23 08:49 | XMS_ITS | Clinical Summary ---
Author Organization [facility] Address [address] [place] [address] Care Team Providers Care Software Applications Specialist Name Role Phone Belem Peterson MD Primary Care Provider [phone] Allergies Active Allergy Reactions Criticality Noted Date [...] Encounters Date Type Department Care Team Description 04/22/2025 Orders Only [facility] Internal Medicine 80 [facility] [address] [place] [address] Provider, MD Piter 04/21/2025 11:00 AM EDT Office Visit [facility] Internal [facility] 80 [facility] [address] [place] [address] Belem Peterson MD Right lower quadrant abdominal pain (Primary Dx) 04/21/2025 myChart Message [facility] Internal Medicine 80 [facility] [address] [place] [address] Lelandt, Generic Provider CT ready for scheduling 04/21/2025 myChart Message [facility] Internal [facility] 80 [facility] [address] [place] [address] Belem Peterson MD Last Menstrual Period 04/21/2025 Orders Only [facility] Nuclear Medicine [address] [place] [address] Landen Ferrera MD 04/21/2025 Telephone [facility] Internal [facility] 80 [facility] [address] [place] [address] Belem [facility] MD [facility] fax # 04/21/2025 Telephone [facility] Internal Medicine 80 [facility] [address] [place] [address] Belem Peterson MD Additional Info Needed - [facility] [employer]; FY Fax Number 04/20/2025 myChart Message [facility] 80 [facility] [address] [place] [address] Belem Peterson MD Right hip pain 02/18/2025 Refill [facility] 80 [facility] [address] [place] [address] Belem Peterson MD from Last 3 Months Immunizations Immunization Administration Dates Next Due Covid-19, Pfizer, mRNA, [place] valent, PF 30 mcg/0.3 mL dose (for [...] money to get more. 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 Procedure Name Priority Date/Time Associated Diagnosis Comments COMPREHENSIVE METABOLIC PANEL, OUTSIDE LAB Routine 04/21/2025 11:41 AM EDT HM PAP SMEAR Routine 09/29/2015 5:38 PM EST from Last 3 Months or Most Recently Relevant to Health Maintenance Results * Due to [place] law, this organization might not be sharing negative HIV tests. * Comprehensive Metabolic Panel, Outside Lab (04/21/2025 11:41 AM EDT) Blood Structure of peripheral vein / Unknown us Unknown Provider LAB BLOOD ORDERABLES Final R esult * HM PAP SMEAR (09/29/2015 5:38 PM EST) HM Pap smear NOt done as pt has never been sexually active. 2 OUTSIDE LABORATORY 09/29/2015 5:38 PM EST us Belem Peterson MD HEALTH MAINTENANCE Final Res ult 2 OUTSIDE LABORATORY from Last 3 Months or Most Recently Relevant to Health Maintenance Insurance [employer] [place] [address] Care Teams Software Applications Specialist Relationship Specialty Start Date End Date Belem Peterson MD [address] [place] [address] PCP - General 02/08/17
--- OUTSIDE RECORDS SUMMARY | 2025-04-23 08:49 | XMS_ITS | Encounter Summary ---
Author Organization [facility] Address [address] [place] [address] [place] [address] Phone Care Team Providers Care Soap Press Feeder Name Role Phone Belem Peterson MD Primary Care Provid er Logan Rosenthal MD Unavailable Encounter Details Date Type Department Care Team (Late st Contact Info) Description 02/06/2018 Transcribe Orders [facility] Echocardiography [address] [place] [address] Lolis [email or web address] Social History Tobacco Use Types Packs/Day [...] BPM MUSE_BWH Atrial Rate 64 BPM MUSE_BWH MA Interval 136 ms MUSE_BWH QRS Duration 76 ms MUSE_BWH QT Interval 406 ms MUSE_BWH QTC Interval 418 ms MUSE_BWH P [place] 52 degrees MUSE_BWH R Wave [place] -3 degrees MUSE_BWH T Wave [place] 30 degrees MUSE_BWH 02/06/2018 2:43 PM EDT [...] on filedocumented in this encounter Care Teams Soap Press Feeder Relationship Specialty Start Date End Date Belem Peterson MD [address] [place] [address] PCP - General Internal Medicine 02/07/17 Logan Rosenthal MD [address] [place] [address] Cardiology 02/07/17 documented as of this encounter Additional Source Comments The information contained in this document represents components of the legal health record. It is not the complete legal health record.[facility]
--- OUTSIDE RECORDS SUMMARY | 2025-04-23 08:49 | XMS_ITS | Encounter Summary ---
Author Organization [facility] Address [address] [place] [address] Care Team Providers Care Concrete Polisher Name Role Phone Belem Peterson MD Primary Care Provider [phone] Encounter Details Date Type Department Care Team (Late st Contact Info) Description 04/21/2025 Orders Only [facility] Nuclear Medicine [address] [place] [address] Landen Ferrera MD [address] [place] [address] Social History Tobacco Use Types Packs/Day Years [...] money to get more. 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 on file Not on file documented as of this encounter Plan of Treatment Upcoming Encounters Date Type Department Care Team (Late st Contact Info) Description 06/23/2025 1:00 PM EST Office Visit [facility] Internal Medicine [address] [facility] [address] [address] Belem Peterson MD [address] [place] [address] documented as of this encounter Visit Diagnoses Not on filedocumented in this encounter Care Teams Concrete Polisher Relationship Specialty Start Date End Date Belem Peterson MD [address] [place] [address] PCP - General 02/08/17 documented as of this encounter
--- OUTSIDE RECORDS SUMMARY | 2025-04-23 08:49 | XMS_ITS | Encounter Summary ---
Author Organization [facility] Address [address] [place] [address] [place] [address] Phone Care Team Providers Care Materials Engineer Name Role Phone Belem Peterson MD Primary Care Provid er RobotLogan huitron MD Unavailable Encounter Details Date Type Department Care Team (Late st Contact Info) Description 08/09/2017 Transcribe Orders [facility] Echocardiography [address] [place] [address] [email or web address] Social History Tobacco Use Types Packs/Day Years [...] BPM MUSE_BWH Atrial Rate 69 BPM MUSE_BWH LA Interval 136 ms MUSE_BWH QRS Duration 80 ms MUSE_BWH QT Interval 400 ms MUSE_BWH QTC Interval 428 ms MUSE_BWH P Timber 60 degrees MUSE_BWH R Wave Timber -6 degrees MUSE_BWH T Wave Timber 28 degrees MUSE_BWH 08/08/2017 4:30 PM EST Narrative MUSE_BWEloy - 08/21/2017 11:03 AM EST Normal sinus rhythm Normal ECG When compared with ECG of 13-JUN-2017 17:28, Criteria for Septal infarct are no longer Present us Bekah Nuno MD ECG ORDERABLES Final Result ROBBIN_TIRSO documented in this encounter Visit Diagnoses Not on filedocumented in this encounter Care Teams Materials Engineer Relationship Specialty Start Date End Date Belem Peterson MD [address] [place] [address] PCP - General Internal Medicine 02/07/17 Logan Rosenthal MD [address] [place] [address] Cardiology 02/07/17 documented as of this encounter Additional Source Comments The information contained in this document represents components of the legal health record. It is not the complete legal health record.[facility]
--- OUTSIDE RECORDS SUMMARY | 2025-04-23 08:49 | XMS_ITS | Clinical Summary ---
Author Organization [employer] [facility] [employer] Address [address] [place] [address] Care Team Providers Care Geosciences Professor Name Role Phone Belem Peterson MD Primary [...] Adults 18 yrs or above (or HM Modifier)([facility]) 2011 Hepatitis C Virus Infection in Adolescents and Adults: Screening (or Modifier) ([facility]) 2011 SDOH Screening Reminder: Annually for all adults ([facility]) 2011 Tobacco Smoking Cessation: i n Adults excluding Women: Behavioral and Pharmacotherapy Interventions ([facility]) 2011 Cervical Cancer Screenin-65 yrs of age (or Modifier) 2014 Cervical Cancer Screening: P ap every 3 yrs pts age 21-65 2014 Cervical Cancer: Pap Screeni ng with Modifier timing ([facility]) 2014 Cervical Cancer: hrHPV alone or with cotesting Pap for Pts 30-65yrs screening every 5yrs ([facility]) 2014 Flu Vaccination: Yearly for ages 18mos through 64 years (or Modifier)([facility]) 02/21/2025 COVID-19 Vaccine Screening: Initial Series and Booster Status ([facility]) ( - 2023- season) 2025 DTaP/Tdap/Td Vaccines ([facility]) (3 - Td or Tdap) 03/17/2030 03/17/2020, 03/24/2010 Zoster/Shingles Vaccine Seri es Screening: Adults aged 18+ yrs (or HM Modifiers)([facility]) (1 of 2) 2043 Pneumococcal Vaccination Screening: Pts 0-19 & 19-49 yrs of age ([facility]) Aged Out No longer eligible based on patient's age to complete this topic Medical Devices [place] [address] [facility] Care Teams Geosciences Professor Relationship Specialty Start Date End Date Belem Peterson MD [address] [place] [address] [place] [phone] PCP - Knitting Machine Operator Automatic 07/18/19
--- OUTSIDE RECORDS SUMMARY | 2025-04-23 08:49 | XMS_ITS | Encounter Summary ---
Author Organization [facility] Address [address] [place] [address] Care Team Providers Care Shoemaking Finisher Name Role Phone Belem Peterson MD Primary Care Provider [phone] Encounter Details Date Type Department Care Team (Late st Contact Info) Description 04/21/2025 M-SIX Message [facility] Internal Medicine 80 [facility] [address] [place] [address] Mychart, Generic Provider [phone] ready for scheduling Social History Tobacco [...] money to get more. 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
--- OUTSIDE RECORDS SUMMARY | 2025-04-23 08:49 | XMS_ITS | Encounter Summary ---
Author Organization [facility] Address [address] [place] [address] Care Team Providers Care Aircraft Maintenance Technician Name Role Phone Belem Peterson MD Primary Care Provider [phone] Reason for Visit * Reason Onset Date Comments Additional Info Needed - [facility] 2024 FYI Fax Number 04/21/2025 Encounter Details Date Type Department Care Team (Late st Contact Info) Description 04/21/2025 Telephone [facility] Internal Medicine [address] [phone] Belem Peterson MD [address] [place] [address] Additional Info Needed - [facility]; [...] get more. 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 documented in this encounter Plan of Treatment Upcoming Encounters Date Type Department Care Team (Late st Contact Info) Description 06/23/2025 1:00 PM EST Office Visit [facility] Internal Medicine [address] [phone] Belem Peterson MD [address] [place] [address] documented as of this encounter Visit Diagnoses Not on filedocumented in this encounter Care Teams Aircraft Maintenance Technician Relationship Specialty Start Date End Date Belem Peterson MD [address] [facility] [place] [address] PCP - General 02/08/17 documented as of this encounter
--- OUTSIDE RECORDS SUMMARY | 2025-04-23 08:49 | XMS_ITS | Data Portability ---
Author Organization [facility] [employer] Address [address] [place] [phone] Care Team Providers Care Truck Spotter Name Role Phone SARINA DOOLEY Enterostomal Therapy Nurse LIDIA RICE Primary Care Provider GENNY TAM Enterostomal Therapy Nurse Unavailable Assessment Encounter Date Assessment Date Assessment [...] or ectopy noted. Two-week event monitor at [facility] from 09/03/21 to 09/17/21 showed sinus rhythm throughout. For activations with symptoms of palpitations correlated with sinus tachycardia. [email or web address] Not available 01/08/2024 08:58:22 04/01/2024 04/01/2024 Blood [...] or ectopy noted. Two-week event monitor at [facility] from 09/03/21 to 09/17/21 showed sinus rhythm throughout. For activations with symptoms of palpitations correlated with sinus tachycardia. [email or web address] Not available 03/29/2024 12:00:51 01/20/2025 01/20/2025 Blood [...] or ectopy noted. Two-week event monitor at [facility] from 09/03/21 to 09/17/21 showed sinus rhythm throughout. For activations with symptoms of palpitations correlated with sinus tachycardia. Not available 01/08/2025 12:31:51 Plan of Treatment Reminders Order Date Submit Date Provider Last Modified By Organization Details Last Modified Time Details Appointments Any 15 2025 01:30P M Genny Tam MD Not available Not available Not available Lab None recorded. Referral None recorded. Procedures None recorded. Surgeries None recorded. Imaging electroca rdiogram 2024 025 [email or web address] In-Office Order, Internal Use Only DO Not Attach Compendium DO Not Attach Compendium, Do Not Delete/merge, [id number] 01/20/2025 14:06:50 home sleep study - 29 y/o F w/ inappropr iate sinus tachycard ia while sleeping, please screen for LUCÍA thanks 2024 025 [facility], [address] [place] [address], [place], [address], 04/15/2025 14:21:11 electroca rdiogram 2023 024 [email or web address] In-Office Order, Internal Use Only DO Not Attach Compendium DO Not Attach Compendium, Do Not Delete/merge, [id number] 04/01/2024 11:25:29 electroca rdiogram 2023 024 [email or web address] In-Office Order, Internal Use Only DO Not Attach Compendium DO Not Attach Compendium, Do Not Delete/merge, [id number] 01/08/2024 09:34:53 Medication Orders None recorded. Patient TargetsNo targets recorded. Patient InstructionsNo instructions recorded. Reason for Referral None Reported. Results Created Date Observation Date Name Description Value Unit Range Abnormal Flag Note LastModifiedBy Organization Detail LastModifiedTime 01/03/20 24 [facility] di[facility] am No observ ation record ed. [email or web address] In-Office Order Internal Use Only DO Not Attach Compendium DO Not Attach Compendium, Do Not Delete/merge, [id number] 01/08/2024 08:40:38 01/08/20 24 [facility] diogr am No observ ation record ed. Not Available 01/07 08:59:05 03/29/20 24 [facility] di[facility] am No observ ation record ed. [email or web address] In-Office Order Internal Use Only DO Not Attach Compendium DO Not Attach Compendium, Do Not Delete/merge, [id number] 04/01/2024 11:17:14 04/01/20 24 [facility] diogr am No observ ation record ed. [email or web address] Not Available 04/01 11:16:26 01/21/20 25 [facility] di[facility] am No observ ation record ed. [email or web address] In-Office Order Internal Use Only DO Not Attach Compendium DO Not Attach Compendium, Do Not Delete/merge, [id number] 01/20/2025 13:53:09 01/21/20 25 [facility] diogr am No observ ation record ed. [email or web address] Not Available 01/20 13:51:13 Result Notes None recorded. 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 4 13:13:12 Asthma 415008622 Active 2023 Sarina Dooley [facility] [address] [place], [address], [facility] 4 13:13:22 Tachycardia 2949970 Active 2023 Genny Tam MD [address] [place] [address], [phone], [facility] 4 08:41:22 Palpitations 26149857 Active 2023 Genny Tam MD [address] [place] [address], [phone], [facility] 4 08:41:25 Difficulty sleeping 320777411 Active 2024 Genny Tam MD [address] [place] [address], [address], [facility] 5 13:58:40 Problem Notes None recorded. Procedures Surgical History Date Name Laterality Status Provider Name and Address Organization Details Recorded Time [facility]/08/20[facility] 08:43:26 Tonsillectomy completed [facility] 01/08/2024 08:48:22 Imaging Results None recorded. Procedure Notes None recorded. Medical Equipment None Reported. Allergies Allergen ID Allergen Name Allergen Category Reaction Reaction Severity Criticality Documentation Date Start Date Code Code System Note Provider Name and Address Organization Details Recorded Time 199683 POLLEN EXTRACTS environme nt,medica tion itching other Not available Not available Not available 01/08/2024 70897 6 RxNorm Esther Pérez [facility] 08:43:01 915360 cow milk allergeni c extract food,medi cation other Not available Not available 01/08/2024 71568 5 RxNorm Esther martino [facility] 4 08:43:01 509185 cat dander environme nt itching other Not available Not available Not available 01/08/2024 Esther Drewdominic martino [facility] 4 08:43:01 527102 mold extract environme nt itching other Not available Not available Not available 01/08/2024 48572 8 RxNoapolonia Santana Beto martino [facility] 4 08:43:01 211601 famotidin e medicatio n Not available Not available Not available 01/08/2024 4278 RxNoapolonia Drewdominic martino [facility] 4 08:45:26 Medications Name Sig Start Date [...] tablets twice a day by oral route. 2024 active Not Available Not Available Not Avai lable desvenlafax ine fumarate ER 50 mg tablet,exte nded release 24 hr Take 1 tablet every day by oral route. 01/07 completed Not Available Not Available Not Available Vitals Date Recorded Body weight Body mass index (BMI) Body height Heart rate Systolic And Diastolic Provider Name and Address Organization Details Last Updated DateTime 01/08/2024 63338.49 g 24 kg/m2 149.86 cm 95 /min 108/72 mm[Hg] Esther Pérez [facility]. 01/08/2024 08:50:06 Date Recorded Body height Body mass index (BMI) Body weight Heart rate Systolic And Diastolic Provider Name and Address Organization Details Last Updated DateTime 01/20/2025 149.86 cm 23.4 kg/m2 86593.71 g 76 /min 117/80 mm[Hg] [facility] 01/20/2025 13:50:22 Date Recorded Body height Body mass index (BMI) Body weight Heart rate Systolic And Diastolic Provider Name and Address Organization Details Last Updated DateTime 04/01/2024 149.86 cm 23.2 kg/m2 34070.12 g 86 /min 111/76 mm[Hg] [facility]. 04/01/2024 11:16:11 Social History Question Answer Notes LastModified by Organizat ion Details LastModified Time Tobacco Smoking Status Never Smoker Esther martino [place] - [facility] 01/08/2024 08:43:18 Do You Have [...] Of Your Most Recent Tobacco Screening? 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 Moderate Information not available 01/08/2024 Mental Status Question Answer Note LastModified by Organization D etails LastModified Time Do you feel stressed (tense, restless, nervous, or anxious, or unable to sleep at night)? [id number] Information not available 01/08/2024 Family History Relationship [...] Diagnosis SNOMED-CT Code Diagnosis ICD10 Code Diagnosis IMO Codes Diagnosis Note [id number] Genny Tam MD [facility] Cardiolog y [address] [place] [address] 01/08/2024 08:24:43 01/08/2024 09:19:08 Tachycardia 3321029 R00.0 Over the past few years her [...] of current meds, and documentat ion Palpitations 25061216 R0 0.2 [id number] MD [facility] [address] [place] [address] 04/01/2024 11:05:40 04/01/2024 11:25:29 Tachycardia 3929028 R00.0 multiple symptomati c episodes of tachycardi a while off of the ivabradine we have restarted at a lower dose of just 2.5 mg once daily which she seems to be tolerating well we will continue to monitor closely and titrate meds as needed Palpitations 21210132 R0 0.2 [id number] MD [facility] [address] [place] [phone] 01/20/2025 08:46:51 01/20/2025 14:06:50 Tachycardia 0516386 R00.0 She has been tolerating the low-dose of ivabradine well as of late, she has been asymptomat ic since resumption of the medication Palpitations 54259874 R0 0.2 As long as she stays on ivabradine we will need to monitor her for signs and symptoms of arrhythmia such as atrial fibrillati on, none have been detected as of yet Difficulty sleeping 3013 10548 G47.9 6017885 Given that her arrhythmia events seems to occur during sleeping hours, we agreed to proceed with a home sleep study Health Concerns Section Related Observation LastModified by Organization Sam ls LastModified Time None Recorded Concern Status LastModified by Organization Details LastModified Time None Recorded Advance Directives Directive N: Payers Insurance Date Sequence Insurance Name Policy Number Policy Jones Covered Member ID Jones Member ID Guarantor Name 01/21/2025 1 [employer] [facility] [id number] Marleni Lentz [id number] Notes Date Note Type Note Provider [...] shortness of breath. 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 Genny Tam MD [address] [place] [address], [phone], [facility]. 01/08/2024 09:39:43 04/01/2024 text/html 29 y/o F [...] but otherwise no complaints Genny Tam MD [address] [place] [address], [phone], [facility]. 04/01/2024 12:13:01 01/20/2025 text/html 29 y/o F w/ tachycardia, palpitations, mood disorder who presents for follow up. Since resuming ivabradine, she has not had any palpitations, she notes that in the past when she was having the events, they seemed to always occur at night and would often wake her from sleep, otherwise during the day when she exercises and performing her other usual daily activity she feels fine, no chest discomfort no particular shortness of breath no other recent illnesses Genny Tam MD [address] [place] [address], [phone], [facility]. 01/20/2025 17:41:46 OBGyn Episode No OBEpisode recorded.
--- OUTSIDE RECORDS SUMMARY | 2025-04-23 08:49 | XMS_ITS | Encounter Summary ---
Author Organization [facility] Address [address] [place] [address] Care Team Providers Care Tarp Repairer Name Role Phone Belem Peterson MD Primary Care Provider [phone] Encounter Details Date Type Department Care Team (Latest Contact Info) Description 04/21/2025 myChart Message [facility] Internal Medicine [address] [phone] Belem Peterson MD [address] [place] [address] Last Menstrual Period Social History Tobacco Use [...] money to get more. Never true 04/21/2025 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 Not on file Not on file documented as of this encounter Plan of Treatment Upcoming Encounters Date Type Department Care Team (Late st Contact Info) Description 06/23/2025 1:00 PM EST Office Visit [facility] Internal Medicine [address] [phone] Belem Peterson MD 80 [facility] [place] [address] documented as of this encounter Visit Diagnoses Not on filedocumented in this encounter Care Teams Tarp Repairer Relationship Specialty Start Date End Date Belem Peterson MD [address] [place] [address] PCP - General 02/08/17 documented as of this encounter
--- OUTSIDE RECORDS SUMMARY | 2025-04-23 08:50 | XMS_ITS | Patient Health Record ---
Author Organization [facility] Address [address] [place] [address] Road [address] [place], [place] [id number] Care Team Providers Care Barber Instructor Name Role Phone Nicholas PENA, Belem Primary Care Provider Unavail able Shimon Bales Unavailable [phone] Devine, Kane Unavailable Unavailable Reason For [...] Status W/U Status Risk Notes Problem Tachycardia (7182620) Tachycardia (R00.0) Active confirmed Problem Gastroesophageal reflux disease (059119029) Gastroesophageal reflux disease, esophagitis presence not specified (K21.9) Active confirmed Problem Uncomplicated moderate persistent asthma (769413673) Moderate persistent asthma without complication (J45.40) Active confirmed Problem Daytime hypersomnia (69258583124617) Daytime hypersomnia (G47.19) Active confirmed Problem Chest pain (96106041) Chest pain, unspecified type (R07.9) Active confirmed Encounters Encounter Location Date Provider Diagnosis [facility] [address] [place], [place] [id number] 04/09/2025 Shimon Bales Plan Of Treatment Pending Test Test Name Order Date SLEEP STUDY-DIAGNOSTIC 01/05/2017 ALLERGEN ASTHMA PROFILE 01/05/2017 CBC+AUTO DIFF 01/05/2017 IgE 01/05/2017 D.PTERONYSSINUS 01/05/2017 DERM FARINEAE 01/05/2017 CAT DANDER 01/05/2017 DOG EPITHELIUM 01/05/2017 CT CHEST +C 01/05/2017 OAK 01/05/2017 PENCILLIUM NOTATUM MOLD 01/05/2017 COCKROACH 01/05/2017 BRITTANY GRASS 01/05/2017 COMMON RAGWEED 01/05/2017 MONGOLIAN PLANTAIN 01/05/2017 CLADOSPORIUM HERBARUM MOLD 01/05/2017 MUCOR RACEMOSUS MOLD 01/05/2017 CARMEN ALBICANS 01/05/2017 ALTERNARIA TENIUS MOLD 01/05/2017 CT CHEST +C 01/12/2017 Future Test Test Name Order Date CHEST XRAY PA LAT 01/05/2017 Insurance Providers Payer Name Payer Address Payer Phone Subscriber Number Group Number Insured Name Patient Relationship to Insured Coverage Start Date Coverage End Date [facility] [address] [place] [phone] [id number] Marleni Navarro Self - patient is the insured Medical (General) History Medical History History ICD Code Migraine headache Seasonal rhinitis Anxiety Surgical History Surgery Date(Month/Year) [place] teeth extracted Tonsillectomy
[2025-04-23] MEDS: Barium Sulfate Oral (Mocha) 450 ML ORAL.SUSP 900 ML PO (09:10)
[2025-04-23] MEDS: iohexoL 350 MG/ML 100 ML INFUS..BTL IV (10:58)
== END 2025-04-23 08:21 | disposition home or self-care (01) ==
LOC: HO.CT 08:20
PROVIDERS: PCP Internal Medicine; Visit Provider Internal Medicine
DX: R10.31 Right lower quadrant pain (principal)
CPT/HCPCS: 74177; Q9967

== ENCOUNTER → 2025-04-23 10:34 | Outpatient (BNV) | payer OTHER, SELFPAY | PROVIDERS: PCP Internal Medicine; Visit Provider Radiology Diagnostic Radiology | DX: N28.1 Cyst of kidney, acquired (principal) | CPT/HCPCS: 74177 ==

== ENCOUNTER 2025-05-07 16:20 | Outpatient (AMB) | payer OTHER, SELFPAY ==
--- OUTSIDE RECORDS SUMMARY | 2024-01-04 04:30 | XMS_ITS ---
Author Organization [facility] Address [address] [place] [address] Care Team Providers Care Radiation Control Health Physicist Name Role Phone Nicholas PENA, [place] Primary Care Provider Unavail able Robbie Jcen Unavailable [phone] Sarina Crockett Unavailable [phone] REASON FOR VISIT year Encounters Encounter Location Date Provider Diagnosis [facility] & Rhythm [facility] [address] [place], [place] [phone] 01/04/2024 Sarina Crockett Plan Of Treatment No Information Progress Notes * SMITH, Marleni EDOB:[birth year] (30 yo F)Acc No.[id number]:01/04/2024 Progress Notes Patient: Marleni [place] Provider: Ling Crockett CNP :1995 A ge:28 Y S ex:Female Date:01/04/2024 Address:[address] [place], [place] [phone] Pcp:Be[place] Peterson MD Subjective: * Chief Complaints: * 1 . Year. * Medical History: Objective: * Vitals: Assessment: Plan: * Treatment: * * Electronic signature of Christopher Crockett CNP on 05/07/2025 at 07:26 PM EDT Sign off status: Pending * Provider: Ling Crockett CNP Date: 0 01/04/2024 Generated for Printi ng/Faxing/eTransmitting on: 1 07:26 PM EDT
--- OUTSIDE RECORDS SUMMARY | 2025-05-07 19:26 | XMS_ITS | Encounter Summary ---
Author Organization [facility] Address [address] [place] [address] Care Team Providers Care Welt Wheeler Name Role Phone Belem Peterson MD Primary Care Provider [phone] Reason for Visit * Reason Onset Date Comments Additional Info Needed - [facility] 2024 FYI Fax Number 04/21/2025 Encounter Details Date Type Department Care Team (Late st Contact Info) Description 04/21/2025 Telephone [facility] Internal Medicine [address] [phone] Belem Peterson MD [address] [place] [address] Additional Info Needed - [facility]; [...] money to get more. 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 documented in this encounter Plan of Treatment Upcoming Encounters Date Type Department Care Team (Late st Contact Info) Description 06/23/2025 1:00 PM EST Office Visit [facility] Internal Medicine [address] [phone] Belem Peterson MD [address] [place] [address] documented as of this encounter Visit Diagnoses Not on filedocumented in this encounter Care Teams Welt Wheeler Relationship Specialty Start Date End Date Belem Peterson MD 80 [facility] [place] [address] PCP - General 02/08/17 documented as of this encounter
--- OUTSIDE RECORDS SUMMARY | 2025-05-07 19:26 | XMS_ITS | Clinical Summary ---
Author Organization [facility] Address [facility] [employer] [address] [address] Phone Care Team Providers Care Teacher Vocational Training Name Role Phone Belem Peterson MD Primary [...] [place] [id number] [facility] [place] [address] [facility] [place] [address] [facility] [place] [address] [facility] [place] [address] [facility] (Work) [address] [place] [address] [facility] [place] [address] [facility] [place] [address] [facility] H[facility] POS Care Teams Teacher Vocational Training Relationship Specialty Start Date End Date Belem Peterson MD 80 [place] [address] PCP - General Internal Medicine 02/07/17 Logan Rosenthal MD [address] [place] [address] Cardiology 02/07/17 Additional Source Comments The information contained in this document represents components of the legal health record. It is not the complete legal health record.[facility]
--- OUTSIDE RECORDS SUMMARY | 2025-05-07 19:26 | XMS_ITS | Encounter Summary ---
Author Organization [facility] Address [address] [place] [address] [place] [address] Phone Care Team Providers Care Payment Poster Name Role Phone Belem Peterson MD Primary Care Provid er Logan Rosenthal MD Unavailable Encounter Details Date Type Department Care Team (Late st Contact Info) Description 02/06/[address] [facility] Echocardiography [address] [place] [address] Lolis Tovar [address] [place] [address] [email or web address] Social History Tobacco Use Types Packs/Day [...] BPM MUSE_BWH Atrial Rate 64 BPM MUSE_B[facility] VT Interval 136 ms MUSE_B[facility] QRS Duration 76 ms MUSE_[facility] QT Interval 406 ms MUSE_[facility] QTC Interval 418 ms MUSE_BWH P [place] 52 degrees MUSE_BWH R Wave [place] -3 degrees MUSE_[facility] T Wave [place] 30 degrees MUSE_BWH 02/06/2018 2:43 PM EDT [...] on filedocumented in this encounter Care Teams Payment Poster Relationship Specialty Start Date End Date Belem Peterson MD 80 [place] [address] PCP - General Internal Medicine 02/07/17 Logan Rosenthal MD [address] [place] [address] Cardiology 02/07/17 documented as of this encounter Additional Source Comments The information contained in this document represents components of the legal health record. It is not the complete legal health record.[facility]
--- OUTSIDE RECORDS SUMMARY | 2025-05-07 19:26 | XMS_ITS | Encounter Summary ---
Author Organization [facility] Address [address] [place] [address] [place] [address] Phone Care Team Providers Care Serology Technician Name Role Phone Belem Peterson MD Primary Care Provid er RobotLogan huitron MD Unavailable Encounter Details Date Type Department Care Team (Late st Contact Info) Description 08/09/[address] [facility] Echocardiography [address] [place] [address] [email or web address] Social History Tobacco Use Types [...] BPM MUSE_BWH Atrial Rate 69 BPM MUSE_BWH [place] Interval 136 ms MUSE_BWH QRS Duration 80 ms MUSE_[facility] QT Interval 400 ms MUSE_B[facility] QTC Interval 428 ms MUSE_B[facility] P [place] 60 degrees MUSE_BWH R Wave [place] -6 degrees MUSE_BWH T Wave [place] 28 degrees MUSE_BWH 08/08/2017 4:30 PM EST Narrative MUSE_BWEloy - 08/21/2017 11:03 AM EST Normal sinus rhythm Normal ECG When compared with ECG of 13-JUN-2017 17:28, Criteria for Septal infarct are no longer Present us Bekah Nuno MD ECG ORDERABLES Final Result ROBBIN_TIRSO documented in this encounter Visit Diagnoses Not on filedocumented in this encounter Care Teams Serology Technician Relationship Specialty Start Date End Date Belem Peterson MD 80 [place] [address] PCP - General Internal Medicine 02/07/17 Logan Rosenthal MD [address] [place] [address] Cardiology 02/07/17 documented as of this encounter Additional Source Comments The information contained in this document represents components of the legal health record. It is not the complete legal health record.[facility]
--- OUTSIDE RECORDS SUMMARY | 2025-05-07 19:26 | XMS_ITS | Patient Health Record ---
Author Organization [facility] Address [address] [place] [address] Care Team Providers Care Board Filler Name Role Phone Nicholas PENA, Belem Primary Care Provider Unavail able Lilian Jc Unavailable [phone] Allergies No Known Allergies Reason For Referral [...] Status W/U Status Risk Notes Problem Palpitations (44048328) Palpitations (R00.2) Active confirmed Problem Generalized anxiety disorder (96980137) Generalized anxiety disorder (F41.1) Active confirmed Problem Anxiety (05637805) Anxiety (F41.9) Active confi rmed Problem Sinus tachycardia (43503212) Sinus tachycardia (R00.0) Active confirmed Problem Atypical chest pain (766618231) Atypical chest pain (R07.89) Active confirmed Problem Gastroesophageal reflux disease (407673538) Gastroesophageal reflux disease, esophagitis presence not specified (K21.9) Active confirmed Problem Chest tightness (20768737) Chest tightness (R07.89) Active confirmed Problem Asthma without status asthmaticus (93260257) Uncomplicated asthma, unspecified asthma severity (J45.909) Active confirmed Problem Inappropriate sinus tachycardia (341564419) Inappropriate sinus tachycardia (R00.0) Active confirmed Problem Seasonal allergic rhinitis (625384680) Seasonal allergic rhinitis, unspecified allergic rhinitis trigger (J30.2) Active confirmed Problem Asthma without status asthmaticus (15008523) Asthma, unspecified asthma severity, unspecified whether complicated, unspecified whether persistent (J45.909) Active confirmed Plan Of Treatment Pending Test Test Name Order Date ECHOCARDIOGRAM 12/14/2016 ECHOCARDIOGRAM 11/24/2020 Stress Test 01/02/2017 Insurance Providers Payer Name Payer Address Payer Phone Subscriber Number Group Number Insured Name Patient Relationship to Insured Coverage Start Date Coverage End Date [employer] [address] [address] [place], [place] [id number] Marleni Smith Self - patient is the insured [employer] [address] [place], [place] [id number] Marleni Smith Self - patient is the insured Medical (General) History Medical History History ICD Code inappropriate sinus tachycardia (Rx'd w ivabradine by Dr. Nuno at [facility]) preserved LV function with E F 60-65% by echo November 2016, EF 60-65% by echo November 2020 Palpitations Chest tightness Generalized anxiety disorder Seasonal allergies Asthma (diagnosed, 12/07) (Bales) atenolol-->fatigue GERD COVID 08 February 2022
--- OUTSIDE RECORDS SUMMARY | 2025-05-07 19:26 | XMS_ITS | Encounter Summary ---
Author Organization [facility] Address [address] [place] [address] Care Team Providers Care Flying Ii Instructor Name Role Phone Belem Peterson MD Primary Care Provider [phone] Encounter Details Date Type Department Care Team (Latest Contact Info) Description 04/21/2025 myChart Message [facility] Internal Medicine [address] [phone] Belem Peterson MD [address] [place] [address] Last Menstrual Period Social History Tobacco Use [...] money to get more. 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 documented in this encounter Plan of Treatment Upcoming Encounters Date Type Department Care Team (Late st Contact Info) Description 06/23/2025 1:00 PM EST Office Visit [facility] Internal Medicine [address] [phone] Belem Peterson MD [address] [place] [address] documented as of this encounter Visit Diagnoses Not on filedocumented in this encounter Care Teams Flying Ii Instructor Relationship Specialty Start Date End Date Belem Peterson MD 80 [facility] [address] PCP - General 02/08/17 documented as of this encounter
--- OUTSIDE RECORDS SUMMARY | 2025-05-07 19:26 | XMS_ITS | Encounter Summary ---
Author Organization [facility] Address [address] [place] [address] [place] [address] Phone Care Team Providers Care Corral Boss Name Role Phone Belem Peterson MD Primary Care Provid er RobotLogan huitron MD Unavailable Encounter Details Date Type Department Care Team (Late st Contact Info) Description 06/13/2017 Transcribe Orders [facility] Echocardiography [address] [place] [address] [email or web address] [email or web address] Social History Tobacco Use Types Packs/Day Years [...] BPM MUSE_BWH Atrial Rate 65 BPM MUSE_BWH [place] Interval 150 ms MUSE_BWH QRS Duration 68 ms MUSE_B[facility] QT Interval 404 ms MUSE_BWH QTC Interval 420 ms MUSE_BWH P [place] 68 degrees MUSE_BWH R Wave [place] 3 degrees MUSE_BWH T Wave [place] 2 degrees MUSE_BWH 06/13/2017 5:28 PM EST Narrative MUSE_BWH - 06/14/2017 8:28 PM EST Normal sinus rhythm Septal infarct (cited on or before 07-MAR-2017) Abnormal ECG When compared with ECG of 07-MAR-2017 13:42, No significant change was found us Evelia Nuno MD ECG ORDERABLES Final Result ROBBIN_TIRSO documented in this encounter Visit Diagnoses Not on filedocumented in this encounter Care Teams Corral Boss Relationship Specialty Start Date End Date Belem Peterson MD 80 [place] [address] PCP - General Internal Medicine 02/07/17 Logan Rosenthal MD [address] [place] [address] Cardiology 02/07/17 documented as of this encounter Additional Source Comments The information contained in this document represents components of the legal health record. It is not the complete legal health record.[facility]
--- OUTSIDE RECORDS SUMMARY | 2025-05-07 19:26 | XMS_ITS | Encounter Summary ---
Author Organization [facility] Address [address] [place] [address] Care Team Providers Care Operater Name Role Phone Belem Peterson MD Primary Care Provider [phone] Encounter Details Date Type Department Care Team (Late st Contact Info) Description 04/20/2025 myChart Message [facility] Internal Medicine [address] [phone] Belem Peterson MD 80 [place] [address] Right hip pain Social History Tobacco Use [...] money to get more. Never true 04/21/[address] 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 Not on file documented as of this encounter Plan of Treatment Upcoming Encounters Date Type Department Care Team (Late st Contact Info) Description 06/23/2025 1:00 PM EST Office Visit [facility] Internal Medicine [address] [address] Belem Peterson MD 80 [facility] [place] [address] documented as of this encounter Visit Diagnoses Not on filedocumented in this encounter Care Teams Operater Relationship Specialty Start Date End Date Belem Peterson MD 80 [facility] [place] [address] PCP - General 02/08/17 documented as of this encounter
--- OUTSIDE RECORDS SUMMARY | 2025-05-07 19:26 | XMS_ITS | Encounter Summary ---
Author Organization [facility] Address [address] [place] [address] Care Team Providers Care Dental Laboratory Technology Teacher Name Role Phone Belem Peterson MD Primary Care Provider [phone] Encounter Details Date Type Department Care Team (Late st Contact Info) Description 04/21/[address] [facility] Nuclear Medicine [address] [place] [address] Landen Ferrera MD [address] [place] [address] Social History Tobacco Use Types Packs/Day Years [...] money to get more. 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 Not on file Not on file documented as of this encounter Plan of Treatment Upcoming Encounters Date Type Department Care Team (Late st Contact Info) Description 06/23/2025 1:00 PM EST Office Visit [facility] Internal Medicine [address] [facility] [address] [place] [phone] Belem Peterson MD [address] [place] [address] documented as of this encounter Visit Diagnoses Not on filedocumented in this encounter Care Teams Dental Laboratory Technology Teacher Relationship Specialty Start Date End Date Belem Peterson MD [address] [place] [address] PCP - General 02/08/17 documented as of this encounter
--- OUTSIDE RECORDS SUMMARY | 2025-05-07 19:26 | XMS_ITS | Encounter Summary ---
Author Organization [facility] Address [address] [place] [address] Care Team Providers Care Molder Trimmer Name Role Phone Belem Peterson MD Primary Care Provider [phone] Encounter Details Date Type Department Care Team (Late st Contact Info) Description 04/21/2025 CARDFREE Message [facility] Internal Medicine 80 [facility] [address] [place] [address] Mychart, Generic Provider [phone] ready for scheduling Social History Tobacco [...] get more. 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 Internal Medicine [address] [facility] [address] [place] [phone] Belem Peterson MD [address] [place] [address] documented as of this encounter Visit Diagnoses Not on filedocumented in this encounter Care Teams Molder Trimmer Relationship Specialty Start Date End Date Belem Peterson MD [address] [place] [address] PCP - General 02/08/17 documented as of this encounter
--- OUTSIDE RECORDS SUMMARY | 2025-05-07 19:27 | XMS_ITS | Patient Health Record ---
Author Organization [facility] Address [address] [place] [address] [address] [place], [place] [id number] Care Team Providers Care Collar Folder Operator Name Role Phone Nicholas PENA, Belem Primary Care Provider Unavail able Shimon Bales Unavailable Devine, Kane Unavailable Unavailable Reason For Referral [...] Status W/U Status Risk Notes Problem Tachycardia (2487427) Tachycardia (R00.0) Active confirmed Problem Gastroesophageal reflux disease (278704997) Gastroesophageal reflux disease, esophagitis presence not specified (K21.9) Active confirmed Problem Uncomplicated moderate persistent asthma (278892653) Moderate persistent asthma without complication (J45.40) Active confirmed Problem Daytime hypersomnia (23016914006535) Daytime hypersomnia (G47.19) Active confirmed Problem Chest pain (62331956) Chest pain, unspecified type (R07.9) Active confirmed Encounters Encounter Location Date Provider Diagnosis [facility] [address] [place], [place] [id number] 04/09/2025 Shimon Bales Plan Of Treatment Pending Test Test Name Order Date SLEEP STUDY-DIAGNOSTIC 01/05/2017 ALLERGEN ASTHMA PROFILE 01/05/2017 CBC+AUTO DIFF 01/05/2017 IgE 01/05/2017 D.PTERONYSSINUS 01/05/2017 DERM FARINEAE 01/05/2017 CAT DANDER 01/05/2017 DOG EPITHELIUM 01/05/2017 CT CHEST +C 01/05/2017 OAK 01/05/2017 PENCILLIUM NOTATUM MOLD 01/05/2017 COCKROACH 01/05/2017 BRITTANY GRASS 01/05/2017 COMMON RAGWEED 01/05/2017 IRISH PLANTAIN 01/05/2017 CLADOSPORIUM HERBARUM MOLD 01/05/2017 MUCOR RACEMOSUS MOLD 01/05/2017 CARMEN ALBICANS 01/05/2017 ALTERNARIA TENIUS MOLD 01/05/2017 CT CHEST +C 01/12/2017 Future Test Test Name Order Date CHEST XRAY PA LAT 01/05/2017 Insurance Providers Payer Name Payer Address Payer Phone Subscriber Number Group Number Insured Name Patient Relationship to Insured Coverage Start Date Coverage End Date [facility] [address] [place] [phone] [id number] Marleni Navarro Self - patient is the insured Medical (General) History Medical History History ICD Code Migraine headache Seasonal rhinitis Anxiety Surgical History Surgery Date(Month/Year) [place] teeth extracted Tonsillectomy
--- OUTSIDE RECORDS SUMMARY | 2025-05-07 19:27 | XMS_ITS | Data Portability ---
Author Organization [facility] GetFeedback, svmg_admin Address [address] [place] [address] Care Team Providers Care Park Guard Name Role Phone SARINA DOOLEY Milk Wagon Driver LIDIA RICE Primary Care Provider GENNY TAM Milk Wagon Driver Unavailable Assessment Encounter Date Assessment Date Assessment [...] or ectopy noted. Two-week event monitor at [facility] from 09/03/21 to 09/17/21 showed sinus rhythm throughout. For activations with symptoms of palpitations correlated with sinus tachycardia. Not available 01/08/2024 08:58:22 04/01/2024 04/01/2024 Blood [...] or ectopy noted. Two-week event monitor at [facility] from 09/03/21 to 09/17/21 showed sinus rhythm throughout. For activations with symptoms of palpitations correlated with sinus tachycardia. Not available 03/29/2024 12:00:51 01/20/2025 01/20/2025 Blood [...] or ectopy noted. Two-week event monitor at [facility] from 09/03/21 to 09/17/21 showed sinus rhythm throughout. For activations with symptoms of palpitations correlated with sinus tachycardia. [email or web address] Not available 01/08/2025 12:31:51 Plan of Treatment [...] DO Not Attach Compendium, Do Not Delete/merge, [id number] 01/20/2025 14:06:50 home sleep study - 29 y/o F w/ inappropr iate sinus tachycard ia while sleeping, please screen for LUCÍA thanks 2024 025 [facility], [address] [place] [address], [place], [address], 04/15/2025 14:21:11 electroca rdiogram 2023 024 [email or web address] In-Office Order, Internal Use Only DO Not Attach Compendium DO Not Attach Compendium, Do Not Delete/merge, [id number] 04/01/2024 11:25:29 electroca rdiogram 2023 024 LUCRECIA In-Office Order, Internal Use Only DO Not Attach Compendium DO Not Attach Compendium, Do Not Delete/merge, [id number] 01/08/2024 09:34:53 Medication Orders None recorded. Patient TargetsNo targets recorded. Patient InstructionsNo instructions recorded. Reason for Referral None Reported. Results Created Date Observation Date Name Description Value Unit Range Abnormal Flag Note LastModifiedBy Organization Detail LastModifiedTime 01/03/20 24 [facility] rocar diogr am No observ ation record ed. LUCRECIA In-Office Order Internal Use Only DO Not Attach Compendium DO Not Attach Compendium, Do Not Delete/merge, [id number] 01/08/2024 08:40:38 01/08/20 24 [facility] rocar diogr am No observ ation record ed. [email or web address] Not Available 01/07 08:59:05 03/29/20 24 [facility] rocar diogr am No observ ation record ed. In-Office Order Internal Use Only DO Not Attach Compendium DO Not Attach Compendium, Do Not Delete/merge, [id number] 04/01/2024 11:17:14 04/01/20 24 [facility] rocar diogr am No observ ation record ed. [email or web address] Not Available 04/01 11:16:26 01/21/20 25 [facility] rocar diogr am No observ ation record ed. [email or web address] In-Office Order Internal Use Only DO Not Attach Compendium DO Not Attach Compendium, Do Not Delete/merge, [id number] 01/20/2025 13:53:09 01/21/20 25 [facility] rocar diogr am No observ ation record ed. Not Available 01/20 13:51:13 Result Notes None recorded. Problems Name Problem SNOMED Code Status Onset Date Resolution Date Notes Provider Name and Address Organization Details Recorded Time Inappropriate sinus tachycardia 198361705 Active 2023 Sarina Dooley [facility] [address] [place], [address], [facility] 4 13:13:12 Asthma 351356489 Active 2023 Sarina Dooley [facility] [address] [place], [address], [facility] 4 13:13:22 Tachycardia 3940198 Active 2023 Genny Tam MD [address] [place] [address], [phone], [facility] 4 08:41:22 Palpitations 18217432 Active 2023 Genny Tam MD [address] [place] [address], [phone], [facility] 4 08:41:25 Difficulty sleeping 382666654 Active 2024 Genny Tam MD [address] [place] [address], [phone], [facility] 5 13:58:40 Problem Notes None recorded. Procedures Surgical History Date Name Laterality Status Provider Name and Address Organization Details Recorded Time [facility] 08:43:26 Tonsillectomy completed [facility] 01/08/2024 08:48:22 Imaging Results None recorded. Procedure Notes None recorded. Medical Equipment None Reported. Allergies Allergen ID Allergen Name Allergen Category Reaction Reaction Severity Criticality Documentation Date Start Date Code Code System Note Provider Name and Address Organization Details Recorded Time 966548 [employer] environme nt,medica tion itching other Not available Not available Not available 01/08/2024 69239 6 RxNorm Esther Pérez [facility] 08:43:01 140730 cow milk allergeni c extract food,medi cation other Not available Not available 01/08/2024 67785 5 RxNorm Esther martino [facility] 4 08:43:01 898857 cat dander environme nt itching other Not available Not available Not available 01/08/2024 Esther Drewdominic martino [facility] 4 08:43:01 144518 mold extract environme nt itching other Not available Not available Not available 01/08/2024 60540 8 RxNoapolonia Santana Beto martino [facility] 4 08:43:01 039989 famotidin e medicatio n Not available Not available Not available 01/08/2024 4278 RxNoapolonia Drewdominic martino [facility] 4 08:45:26 Medications Name [...] Address Organization Details Last Updated DateTime 01/08/2024 15794.49 g 24 kg/m2 149.86 cm 95 /min 108/72 mm[Hg] Esther Pérez [facility]. 01/08/2024 08:50:06 Date Recorded Body height Body mass index (BMI) Body weight Heart rate Systolic And Diastolic Provider Name and Address Organization Details Last Updated DateTime 01/20/2025 149.86 cm 23.4 kg/m2 04998.71 g 76 /min 117/80 mm[Hg] [facility] 01/20/2025 13:50:22 Date Recorded Body height Body mass index (BMI) Body weight Heart rate Systolic And Diastolic Provider Name and Address Organization Details Last Updated DateTime 04/01/2024 149.86 cm 23.2 kg/m2 27880.12 g 86 /min 111/76 mm[Hg] [facility]. 04/01/2024 11:16:11 Social History Question Answer Notes LastModified by Organizat ion Details LastModified Time Tobacco Smoking Status Never Smoker Esther maritno [place] [facility] 01/08/2024 08:43:18 Do You Have An Advance [...] Of Your Most Recent Tobacco Screening? 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 Moderate Information not available 01/08/2024 Mental Status Question Answer Note LastModified by Organization D etails LastModified Time Do you feel stressed (tense, restless, nervous, or anxious, or unable to sleep at night)? [id number] Information not available 01/08/2024 Family History Relationship [...] ICD10 Code Diagnosis IMO Codes Diagnosis Note [id number] Genny Tam MD [facility] [address] [place] [address] 01/08/2024 08:24:43 01/08/2024 09:19:08 Tachycardia 0426619 R00.0 Over the past few years her [...] of current meds, and documentat ion Palpitations 10834525 R0 0.2 [id number] MD [facility]olog [facility] [address] [place] [address] 04/01/2024 11:05:40 04/01/2024 11:25:29 Tachycardia 4247569 R00.0 multiple symptomati c episodes of tachycardi a while off of the ivabradine we have restarted at a lower dose of just 2.5 mg once daily which she seems to be tolerating well we will continue to monitor closely and titrate meds as needed Palpitations 37900169 R0 0.2 [id number] MD [facility] [address] [place] [phone] 01/20/2025 08:46:51 01/20/2025 14:06:50 Tachycardia 1587877 R00.0 She has been tolerating the low-dose of ivabradine well as of late, she has been asymptomat ic since resumption of the medication Palpitations 65432801 R0 0.2 As long as she stays on ivabradine we will need to monitor her for signs and symptoms of arrhythmia such as atrial fibrillati on, none have been detected as of yet Difficulty sleeping 3013 14051 G47.9 [id number] Given that her arrhythmia events seems to [...] Name 01/21/2025 1 [facility] [facility] [facility] [facility] [id number] Marleni Lentz [id number] Notes Date Note Type Note Provider [...] shortness of breath. 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 Genny Tam MD [address] [place] [address], [phone], [facility]. 01/08/2024 09:39:43 04/01/2024 text/html 29 y/o [...] but otherwise no complaints Genny Tam MD [address] [place] [address], [phone], [facility]. 04/01/2024 12:13:01 01/20/2025 text/html 29 y/o F [...] no other recent illnesses Genny Tam MD [address] [place] [address], [phone], [facility]. 01/20/2025 17:41:46 OBGyn Episode No OBEpisode recorded.
--- OUTSIDE RECORDS SUMMARY | 2025-05-07 19:27 | XMS_ITS | Clinical Summary ---
Author Organization [facility] Address [address] [place] [address] Care Team Providers Care Managing Partner Digital Content Marketing [employer] Name Role Phone Belem Peterson MD Primary Care Provider [phone] Allergies Active Allergy Reactions Criticality Noted Date [...] Encounters Date Type Department Care Team Description 04/23/2025 Orders Only [facility] Internal Medicine [address] [facility] [address] [place] [address] Provider, MD Piter 04/22/2025 Orders Only [facility] Internal Medicine [address] [facility] [address] [place] [address] Provider, MD Piter 04/21/2025 11:00 AM EDT Office Visit [facility] Internal [facility] [address] [facility] [address] [place] [address] Belem Peterson MD Right lower quadrant abdominal pain (Primary Dx) 04/21/2025 myChart Message [facility] Internal [facility] [address] [facility] [address] [place] [address] Jackelinhart, Generic Provider CT ready for scheduling 04/21/2025 myChart Message [facility] Internal [facility] [address] [facility] [address] [place] [address] Belem Peterson MD Last Menstrual Period 04/21/2025 Orders Only [facility] Nuclear Medicine [address] [place] [address] Landen Ferrera MD 04/21/2025 Telephone [facility] Internal [facility] [address] [facility] [address] [place] [address] Belem Peterson MD [facility] fax # 04/21/2025 Telephone [facility] Internal Medicine [address] [facility] [address] [place] [address] Belem Peterson MD Additional Info Needed - [facility]; [facility] Fax Number 04/20/2025 myChart Message [facility] Internal Medicine [address] [facility] [address] [place] [phone] Belem Peterson MD Right hip pain 02/18/2025 Refill [facility] Internal Medicine [address] [facility] [address] [place] [phone] Belem Peterson MD from Last 3 Months Immunizations Immunization Administration Dates Next Due Covid-19, Pfizer, mRNA, [place] valent, PF 30 mcg/0.3 mL dose (for [...] money to get more. 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 Procedure Name Priority Date/Time Associated Diagnosis Comments AMB EXTERNAL CT ABDOMEN, OUTSIDE RESULT Routine 04/23/2025 12:55 PM EDT COMPREHENSIVE METABOLIC PANEL, OUTSIDE LAB Routine 04/21/2025 11:41 AM EDT HM PAP SMEAR Routine 09/29/2015 5:38 PM EST from Last 3 Months or Most Recently Relevant to Health Maintenance Results * Due to [place] state law, this organization might not be sharing negative HIV tests. * CT Abdomen, Outside Result (04/23/2025 12:55 PM EDT) Anatomical Region Laterality Modality Other us Unknown Provider AMB EXTERNAL RESULT PROCEDUR ES Final Result * Comprehensive Metabolic Panel, Outside Lab (04/21/2025 [...] Most Recently Relevant to Health Maintenance Insurance [employer] Member Subscriber Plan / Payer (Ef fective 2024-Present) Name:Marleni Lentz Jo Relation to Subscriber:Self Name:Marleni Lentz Jo Payer ID:[id number] Group ID:Not on file Type:Not on file Address: [address] [employer] Care Teams Managing Partner Digital Content [employer] Relationship Specialty Start Date End Date Belem Peterson MD [address] [place] [address] PCP - General 02/08/17
--- OUTSIDE RECORDS SUMMARY | 2025-05-07 19:27 | XMS_ITS | Clinical Summary ---
Author Organization [employer] [facility] [employer] Address [address] [place] [address] Care Team Providers Care Replanting Machine Crewman Name Role Phone Belem Peterson MD Primary [...] Adults 18 yrs or above (or HM Modifier)([facility]) 2011 Hepatitis C Virus Infection in Adolescents and Adults: Screening (or Modifier) ([facility]) 2011 SDOH Screening Reminder: Annually for all adults ([facility]) 2011 Tobacco Smoking Cessation: i n Adults excluding Women: Behavioral and Pharmacotherapy Interventions ([facility]) 2011 Cervical Cancer Screenin-65 yrs of age (or Modifier) 2014 Cervical Cancer Screening: P ap every 3 yrs pts age 21-65 2014 Cervical Cancer: Pap Screeni ng with Modifier timing ([facility]) 2014 Cervical Cancer: hrHPV alone or with cotesting Pap for Pts 30-65yrs screening every 5yrs ([facility]) 2014 Flu Vaccination: Yearly for ages 18mos through 64 years (or Modifier)([facility]) 02/21/2025 COVID-19 Vaccine Screening: Initial Series and Booster Status ([facility]) ( - 2023- season) 2025 DTaP/Tdap/Td Vaccines ([facility]) (3 - Td or Tdap) 03/17/2030 03/17/2020, 03/24/2010 Zoster/Shingles Vaccine Seri es Screening: Adults aged 18+ yrs (or HM Modifiers)([facility]) (1 of 2) 2043 Pneumococcal Vaccination Screening: Pts 0-19 & 19-49 yrs of age ([facility]) Aged Out No longer eligible based on patient's age to complete this topic Medical Devices [place] [id number] [facility] Care Teams Replanting Machine Crewman Relationship Specialty Start Date End Date Belem Peterson MD [address] [place] [address] [place] [address] PCP - Hair Clipper Power 07/18/19
== END 2025-05-07 16:21 | disposition home or self-care (01) ==
LOC: HO.HMGAL 16:20
PROVIDERS: PCP Internal Medicine; Visit Provider Registered Nurse Emergency
DX: J30.89 Other allergic rhinitis (principal)
CPT/HCPCS: 95117; 95165

== ENCOUNTER 2025-05-14 11:03 | Outpatient (AMB) | payer OTHER, SELFPAY ==
--- OUTSIDE RECORDS SUMMARY | 2024-01-04 04:30 | XMS_ITS ---
Author Organization [facility] Address [address] [place] [address] Care Team Providers Care Heel Cover Splitter Name Role Phone Nicholas PENA, [place] Primary Care Provider Unavail able Robbie Jcen Unavailable [phone] Sarina Crockett Unavailable [phone] REASON FOR VISIT year Encounters Encounter Location Date Provider Diagnosis [facility] Rhythm [facility] [address] [place], [place] [phone] 01/04/2024 Sarina Crockett Plan Of Treatment No Information Progress Notes * SMITH, Marleni EDOB:[birth year] (30 yo F)Acc No.[id number]:01/04/2024 Progress Notes Patient: Marleni [place] Provider: Ling Crockett CNP :1995 A ge:28 Y S ex:Female Date:01/04/2024 Address:[address] [place], [place] [phone] Pcp:Be[place] Peterson MD Subjective: * Chief Complaints: * 1 . Year. * Medical History: Objective: * Vitals: Assessment: Plan: * Treatment: * * Electronic signature of Christopher Crockett CNP on 05/14/2025 at 02:51 PM EDT Sign off status: Pending * Provider: Ling Crockett CNP Date: 0 01/04/2024 Generated for Printi ng/Faxing/eTransmitting on: 1 02:51 PM EDT
--- OUTSIDE RECORDS SUMMARY | 2025-05-14 14:52 | XMS_ITS | Encounter Summary ---
Author Organization [facility] Address [address] [place] [address] Care Team Providers Care Spring Fitter Helper Name Role Phone Belem Peterson MD Primary Care Provider [phone] Encounter Details Date Type Department Care Team (Late st Contact Info) Description 04/21/2025 [place] Message [facility] Internal Medicine 80 [facility] [address] [place] [address] Mychart, Generic Provider [id number] ready for scheduling Social History Tobacco [...] true 04/21/2025 [facility] Utilities Answer Date Recorded In the past [...] Job Start Date Job End Date 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 Not on file Not on file documented as of this encounter Plan of Treatment Upcoming Encounters Date Type Department Care Team (Late st Contact Info) Description 06/23/2025 1:00 PM EST Office Visit [facility] Internal Medicine [address] [place] [address] Belem Peterson MD [address] [place] [address] documented as of this encounter Visit Diagnoses Not on filedocumented in this encounter Care Teams Spring Fitter Helper Relationship Specialty Start Date End Date Belem Peterson MD [address] [place] [address] PCP - General 02/08/17 documented as of this encounter
--- OUTSIDE RECORDS SUMMARY | 2025-05-14 14:52 | XMS_ITS | Encounter Summary ---
Author Organization [facility] Address [address] [place] [address] Care Team Providers Care Visual Basic .Net Developer Name Role Phone Belem Peterson MD Primary Care Provider [phone] Encounter Details Date Type Department Care Team (Latest Contact Info) Description 04/21/2025 myChart Message [facility] Internal Medicine [address] [phone] Belem Peterson MD [address] [place] [address] Last Menstrual Period Social History Tobacco Use [...] true 04/21/2025 [facility] Utilities Answer Date Recorded In the past [...] 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 documented in this encounter Plan of Treatment Upcoming Encounters Date Type Department Care Team (Late st Contact Info) Description 06/23/2025 1:00 PM EST Office Visit [facility] Internal Medicine [address] [address] Belem Peterson MD [address] [place] [address] documented as of this encounter Visit Diagnoses Not on filedocumented in this encounter Care Teams Visual Basic .Net Developer Relationship Specialty Start Date End Date Belem Peterson MD [address] [place] [address] PCP - General 02/08/17 documented as of this encounter
--- OUTSIDE RECORDS SUMMARY | 2025-05-14 14:52 | XMS_ITS | Encounter Summary ---
Author Organization [facility] Address [address] [place] [address] Care Team Providers Care Supervisor Sample Name Role Phone Belem Peterson MD Primary Care Provider [phone] Encounter Details Date Type Department Care Team (Late st Contact Info) Description 04/20/2025 myChart Message [facility] Internal Medicine [address] [phone] Belem Peterson MD [address] [place] [address] Right hip pain Social History Tobacco Use [...] money to get more. 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 Internal Medicine [address] [address] Belem Peterson MD [address] [facility] [place] [address] documented as of this encounter Visit Diagnoses Not on filedocumented in this encounter Care Teams Supervisor Sample Relationship Specialty Start Date End Date Belem Peterson MD [address] [facility] [place] [address] PCP - General 02/08/17 documented as of this encounter
--- OUTSIDE RECORDS SUMMARY | 2025-05-14 14:52 | XMS_ITS | Encounter Summary ---
Author Organization [facility] Address [address] [place] [address] Care Team Providers Care Card Seller Name Role Phone Belem Peterson MD Primary Care Provider [phone] Reason for Visit * Reason Onset Date Comments Additional Info Needed - [facility] 2024 FYI Fax Number 04/21/2025 Encounter Details Date Type Department Care Team (Late st Contact Info) Description 04/21/2025 Telephone [facility] Internal Medicine [address] [phone] Belem Peterson MD [address] [place] [address] Additional Info Needed - [facility]; [...] get more. 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 documented in this encounter Plan of Treatment Upcoming Encounters Date Type Department Care Team (Late st Contact Info) Description 06/23/2025 1:00 PM EST Office Visit [facility] Internal Medicine [address] [phone] Belem Peterson MD [address] [place] [address] documented as of this encounter Visit Diagnoses Not on filedocumented in this encounter Care Teams Card Seller Relationship Specialty Start Date End Date Belem Peterson MD [address] [facility] [place] [address] PCP - General 02/08/17 documented as of this encounter
--- OUTSIDE RECORDS SUMMARY | 2025-05-14 14:52 | XMS_ITS | Patient Health Record ---
Author Organization [facility] Address [address] [place] [address] Care Team Providers Care Rubber Gasket Inspector Trimmer Name Role Phone Nicholas PENA, Belem Primary Care Provider Unavail able Lilian Jc Unavailable [phone] Allergies No Known Allergies Reason For Referral [...] Status W/U Status Risk Notes Problem Palpitations (40938139) Palpitations (R00.2) Active confirmed Problem Generalized anxiety disorder (97305996) Generalized anxiety disorder (F41.1) Active confirmed Problem Anxiety (62273988) Anxiety (F41.9) Active confi rmed Problem Sinus tachycardia (02151576) Sinus tachycardia (R00.0) Active confirmed Problem Atypical chest pain (708595191) Atypical chest pain (R07.89) Active confirmed Problem Gastroesophageal reflux disease (091754815) Gastroesophageal reflux disease, esophagitis presence not specified (K21.9) Active confirmed Problem Chest tightness (49544837) Chest tightness (R07.89) Active confirmed Problem Asthma without status asthmaticus (56478851) Uncomplicated asthma, unspecified asthma severity (J45.909) Active confirmed Problem Inappropriate sinus tachycardia (662232582) Inappropriate sinus tachycardia (R00.0) Active confirmed Problem Seasonal allergic rhinitis (665922744) Seasonal allergic rhinitis, unspecified allergic rhinitis trigger (J30.2) Active confirmed Problem Asthma without status asthmaticus (48855627) Asthma, unspecified asthma severity, unspecified whether complicated, unspecified whether persistent (J45.909) Active confirmed Plan Of Treatment Pending Test Test Name Order Date ECHOCARDIOGRAM 12/14/2016 ECHOCARDIOGRAM 11/24/2020 Stress Test 01/02/2017 Insurance Providers Payer Name Payer Address Payer Phone Subscriber Number Group Number Insured Name Patient Relationship to Insured Coverage Start Date Coverage End Date [employer] [address] [address] [place], [place] [id number] Marleni Smith Self - patient is the insured [employer] [address] [place], [place] [id number] [phone] [id number] Marleni Smith Self - patient is the insured Medical (General) History Medical History History ICD Code inappropriate sinus tachycardia (Rx'd w ivabradine by Dr. Nuno at [facility]) preserved LV function with E F 60-65% by echo November 2016, EF 60-65% by echo November 2020 Palpitations Chest tightness Generalized anxiety disorder Seasonal allergies Asthma (diagnosed, 12/07) ([facility]) atenolol-->fatigue GERD COVID 08 February 2022
--- OUTSIDE RECORDS SUMMARY | 2025-05-14 14:53 | XMS_ITS | Encounter Summary ---
Author Organization [facility] Address [address] [place] [address] Care Team Providers Care Keyboard Specialist Name Role Phone Belem Peterson MD Primary Care Provider [phone] Encounter Details Date Type Department Care Team (Late st Contact Info) Description 04/21/2025 Orders Only [facility] Nuclear Medicine [address] [place] [address] Landen Frerera MD [address] [place] [address] Social History Tobacco Use Types Packs/Day Years [...] Never true 04/21/2025 [facility] Utilities Answer Date Recorded In the [...] Job Start Date Job End Date Self-employed [employer] Not on file Not on file Not on file documented as of this encounter Plan of Treatment Upcoming Encounters Date Type Department Care Team (Late st Contact Info) Description 06/23/2025 1:00 PM EST Office Visit [facility] Internal Medicine [address] [facility] [address] [place] [address] Belem Peterson MD [address] [place] [address] documented as of this encounter Visit Diagnoses Not on filedocumented in this encounter Care Teams Keyboard Specialist Relationship Specialty Start Date End Date Belem Peterson MD [address] [place] [address] PCP - General 02/08/17 documented as of this encounter
--- OUTSIDE RECORDS SUMMARY | 2025-05-14 14:53 | XMS_ITS | Patient Health Record ---
Author Organization [facility] Address [facility] [address] [place], [place] [address] Care Team Providers Care Piling Setter Name Role Phone Nicholas PENA, Belem Primary Care Provider Unavail able July Balesrco Unavailable [phone] Kane Devine Unavailable Unavailable Reason For Referral No Information Medications Medication SIG (Take, Route, Frequency, Duration) Notes Start Date End Date Status Minocycline HCl 50 MG Capsule 1 capsule Orally every 3rd day Active Vitamin C 500 MG Capsule Orally Active CeleXA 20 MG Tablet 1 tablet Orally Once a day Active Atenolol 25 MG Tablet 1 tablet Oral Active Xopenex HFA 45 MCG/ACT Aerosol 1 puff as needed Inhalation every 4 hrs; Duration: 30 days 02/06/2017 Active Social History Social History Additional Details Category Social Info Options Details Social History Occupation: works in [employer] Occup. exposure: None Marital status Single Section Notes: no pets no pets Problems Problem Type SNOMED Code ICD Code Onset Dates Problem Status W/U Status Risk Notes Problem Tachycardia (7253780) Tachycardia (R00.0) Active confirmed Problem Gastroesophageal reflux disease (085207432) Gastroesophageal reflux disease, esophagitis presence not specified (K21.9) Active confirmed Problem Uncomplicated moderate persistent asthma (072733899) Moderate persistent asthma without complication (J45.40) Active confirmed Problem Daytime hypersomnia (06591108260893) Daytime hypersomnia (G47.19) Active confirmed Problem Chest pain (67644586) Chest pain, unspecified type (R07.9) Active confirmed Encounters Encounter Location Date Provider Diagnosis [facility] [place] [address] [place] [id number] 04/09/2025 Shimon [facility] Plan Of Treatment Pending Test Test Name Order Date SLEEP STUDY-DIAGNOSTIC 01/05/2017 ALLERGEN ASTHMA PROFILE 01/05/2017 CBC+AUTO DIFF 01/05/2017 IgE 01/05/2017 D.PTERONYSSINUS 01/05/2017 DERM FARINEAE 01/05/2017 CAT DANDER 01/05/2017 DOG EPITHELIUM 01/05/2017 CT CHEST +C 01/05/2017 OAK 01/05/2017 PENCILLIUM NOTATUM MOLD 01/05/2017 COCKROACH 01/05/2017 BRITTANY GRASS 01/05/2017 COMMON RAGWEED 01/05/2017 UKRAINIAN PLANTAIN 01/05/2017 CLADOSPORIUM HERBARUM MOLD 01/05/2017 MUCOR RACEMOSUS MOLD 01/05/2017 CARMEN ALBICANS 01/05/2017 ALTERNARIA TENIUS MOLD 01/05/2017 CT CHEST +C 01/12/2017 Future Test Test Name Order Date CHEST XRAY PA LAT 01/05/2017 Insurance Providers Payer Name Payer Address Payer Phone Subscriber Number Group Number Insured Name Patient Relationship to Insured Coverage Start Date Coverage End Date Blue Cross Blue [facility] [address] [place] [phone] [id number] Marleni Navarro Self - patient is the insured Medical (General) History Medical History History ICD Code Migraine headache Seasonal rhinitis Anxiety Surgical History Surgery Date(Month/Year) [place] teeth extracted Tonsillectomy
--- OUTSIDE RECORDS SUMMARY | 2025-05-14 14:53 | XMS_ITS | Clinical Summary ---
Author Organization [facility] Address [address] [place] [address] Care Team Providers Care Entry Level Chemist Name Role Phone Belem Peterson MD Primary [...] Adults 18 yrs or above (or HM Modifier)([facility]) 2011 Hepatitis C Virus Infection in Adolescents and Adults: Screening (or Modifier) ([facility]) 2011 SDOH Screening Reminder: Annually for all adults ([facility]) 2011 Tobacco Smoking Cessation: i n Adults excluding Women: Behavioral and Pharmacotherapy Interventions ([facility]) 2011 Cervical Cancer Screenin-65 yrs of age (or Modifier) 2014 Cervical Cancer Screening: P ap every 3 yrs pts age 21-65 2014 Cervical Cancer: Pap Screeni ng with Modifier timing ([facility]) 2014 Cervical Cancer: hrHPV alone or with cotesting Pap for Pts 30-65yrs screening every 5yrs ([facility]) 2014 Flu Vaccination: Yearly for ages 18mos through 64 years (or Modifier)([facility]) 02/21/2025 COVID-19 Vaccine Screening: Initial Series and Booster Status ([facility]) ( - 2023- season) 2025 DTaP/Tdap/Td Vaccines ([facility]) (3 - Td or Tdap) 03/17/2030 03/17/2020, 03/24/2010 Zoster/Shingles Vaccine Seri es Screening: Adults aged 18+ yrs (or HM Modifiers)([facility]) (1 of 2) 2043 Pneumococcal Vaccination Screening: Pts 0-19 & 19-49 yrs of age ([facility]) Aged Out No longer eligible based on patient's age to complete this topic Medical Devices [place] [id number] [facility] Care Teams Entry Level Chemist Relationship Specialty Start Date End Date Belem Peterson MD [address] [address] [place] [phone] PCP - Tub Washer 07/18/19
--- OUTSIDE RECORDS SUMMARY | 2025-05-14 14:53 | XMS_ITS | Clinical Summary ---
Author Organization [facility] Address [address] [place] [address] Care Team Providers Care It Architecture Analyst Name Role Phone Belem Peterson MD Primary Care Provider [phone] Allergies Active Allergy Reactions Criticality Noted Date [...] Department Care Team Description 04/23/2025 Orders Only [facility] Internal Medicine [address] [facility] [address] [place] [address] Provider, MD Piter 04/22/2025 Orders Only [facility] Internal Medicine [address] [facility] [address] [place] [address] Provider, MD Piter 04/21/2025 11:00 AM EDT Office Visit [facility] Internal [facility] [address] [facility] [address] [place] [address] Belem Peterson MD Right lower quadrant abdominal pain (Primary Dx) 04/21/2025 myChart Message [facility] Internal [facility] [address] [facility] [address] [place] [address] Jackelinhart, Generic Provider CT ready for scheduling 04/21/2025 myChart Message [facility] Internal [facility] [address] [facility] [address] [place] [address] Belem Peterson MD Last Menstrual Period 04/21/2025 Orders Only [facility] Nuclear Medicine [address] [place] [address] Landen Ferrera MD 04/21/2025 Telephone [facility] Internal [facility] [address] [facility] [address] [place] [address] [facility]lem [facility] fax # 04/21/2025 Telephone [facility] Internal Medicine [address] [facility] [address] [place] [phone] Belem Peterson MD Additional Info Needed - [facility]; [facility] Fax Number 04/20/2025 myChart Message [facility] Internal Medicine [address] [facility] [address] [place] [phone] Belem Peterson MD Right hip pain 02/18/2025 Refill [facility] Internal Medicine [address] [facility] [address] [place] [phone] Belem Peterson MD from Last 3 Months Immunizations Immunization Administration Dates Next Due Covid-19, Pfizer, mRNA, [place] valent, PF 30 mcg/0.3 mL dose (for [...] get more. 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 Procedure Name Priority Date/Time Associated Diagnosis Comments AMB EXTERNAL CT ABDOMEN, OUTSIDE RESULT Routine 04/23/2025 12:55 PM EDT COMPREHENSIVE METABOLIC PANEL, OUTSIDE LAB Routine 04/21/2025 11:41 AM EDT HM PAP SMEAR Routine 09/29/2015 5:38 PM EST from Last 3 Months or Most Recently Relevant to Health Maintenance Results * Due to [place] state law, this organization might not be [...] Type:Not on file Address: [address] [employer] Care Teams It Architecture Analyst Relationship Specialty Start Date End Date Belem Peterson MD [address] [place] [address] PCP - General 02/08/17
== END 2025-05-14 11:08 | disposition home or self-care (01) ==
LOC: HO.HMGAL 11:03
PROVIDERS: PCP Internal Medicine; Visit Provider Registered Nurse Emergency
DX: J30.89 Other allergic rhinitis (principal)
CPT/HCPCS: 95117; 95165

== ENCOUNTER 2025-06-04 13:03 | Outpatient (AMB) | payer OTHER, SELFPAY ==
--- OUTSIDE RECORDS SUMMARY | 2024-01-04 03:30 | XMS_ITS ---
Author Organization [facility] Address [address] [place] [address] Care Team Providers Care Portfolio Specialist Name Role Phone Nicholas PENA, [place] Primary Care Provider Unavail able Robbie Jcen Unavailable [phone] Sarina Crockett Unavailable [phone] REASON FOR VISIT year Encounters Encounter Location Date Provider Diagnosis [facility] [address] [facility] [place] [id number] 01/04/2024 Sarina Crockett Plan Of Treatment No Information Progress Notes * SMITH, Marleni EDOB:[birth year] (30 yo F)Acc No.[id number]:01/04/2024 Progress Notes Patient: Marleni [place] Provider: Ling Crockett CNP :1995 A ge:28 Y S ex:Female Date:01/04/2024 Address:[address] [place], [place] [phone] Pcp:[place] Peterson MD Subjective: * Chief Complaints: * 1 . Year. * Medical History: Objective: * Vitals: Assessment: Plan: * Treatment: * * Electronic signature of Christopher Crockett CNP on 06/04/2025 at 03:45 PM EST Sign off status: Pending * Provider: Ling Crockett CNP Date: 0 01/04/2024 Generated for Printi ng/Faxing/eTransmitting on: 1 08/04/2024 03:45 PM EST
--- OUTSIDE RECORDS SUMMARY | 2025-06-04 15:45 | XMS_ITS | Encounter Summary ---
Author Organization [facility] Address [address] [place] [address] [place] [address] Phone Care Team Providers Care Commercial Development Manager Name Role Phone Belem Peterson MD Primary Care Provid er RobotLogan huitron MD Unavailable Encounter Details Date Type Department Care Team (Late st Contact Info) Description 08/09/2017 Transcribe Orders [facility] Echocardiography [address] [place] [address] [email or web address] Social History Tobacco Use Types [...] BPM [facility] Atrial Rate 69 BPM [facility] VT Interval 136 ms [facility] QRS Duration 80 ms [facility] QT Interval 400 ms [facility] QTC Interval 428 ms [facility] P [place] 60 degrees [facility] R Wave [place] -6 degrees [facility] T Wave [place] 28 degrees [facility] 08/08/2017 4:30 PM EST Narrative MUSE_BWEloy - 08/21/2017 11:03 AM EST Normal sinus rhythm Normal ECG When compared with ECG of 13-JUN-2017 17:28, Criteria for Septal infarct are no longer Present us Bekah Nuno MD ECG ORDERABLES Final Result ROBBIN_TIRSO documented in this encounter Visit Diagnoses Not on filedocumented in this encounter Care Teams Commercial Development Manager Relationship Specialty Start Date End Date Belem Peterson MD [address] [place] [address] PCP - General Internal Medicine 02/07/17 Logan Rosenthal MD [address] [place] [address] Cardiology 02/07/17 documented as of this encounter Additional Source Comments The information contained in this document represents components of the legal health record. It is not the complete legal health record.[facility]
--- OUTSIDE RECORDS SUMMARY | 2025-06-04 15:45 | XMS_ITS | Clinical Summary ---
Author Organization [facility] Address [facility] [address] [address] Phone Care Team Providers Care President Celebrity Acquistion Name Role Phone Belem Peterson MD Primary [...] on patient's age to complete this topic IPV VACCINES Aged Out No longer eligi ble [...] topic Medical Devices Not on file [place] [facility] [place] [id number] [facility] [place] [address] [facility] [place] [address] [facility] [place] [phone] [facility] [place] [address] [facility] [place] [address] [facility] [place] [address] [facility] [place] [address] [facility] Care Teams President Celebrity Acquistion Relationship Specialty Start Date End Date Bleem Peterson MD [address] [facility] [place] [address] PCP - General Internal Medicine 02/07/17 Logan Rosenthal MD [address] [place] [address] Cardiology 02/07/17 Additional Source Comments The information contained in this document represents components of the legal health record. It is not the complete legal health record.[facility]
--- OUTSIDE RECORDS SUMMARY | 2025-06-04 15:45 | XMS_ITS | Patient Health Record ---
Author Organization [facility] Address [address] [place] [address] Care Team Providers Care Critical Care Physician Assistant Name Role Phone Nicholas PENA, Belem Primary Care Provider Unavail able Lilian Jc Unavailable [phone] Allergies No Known Allergies Reason For Referral [...] recreational drugs. The patient works as a [employer] and is currently going to school for echocardiography. Problems Problem Type SNOMED Code ICD Code Onset Dates Problem Status W/U Status Risk Notes Problem Palpitations (84502870) Palpitations (R00.2) Active confirmed Problem Generalized anxiety disorder (68743641) Generalized anxiety disorder (F41.1) Active confirmed Problem Anxiety (29265123) Anxiety (F41.9) Active confi rmed Problem Sinus tachycardia (92156491) Sinus tachycardia (R00.0) Active confirmed Problem Atypical chest pain (679643892) Atypical chest pain (R07.89) Active confirmed Problem Gastroesophageal reflux disease (149907275) Gastroesophageal reflux disease, esophagitis presence not specified (K21.9) Active confirmed Problem Chest tightness (15871394) Chest tightness (R07.89) Active confirmed Problem Asthma without status asthmaticus (44383726) Uncomplicated asthma, unspecified asthma severity (J45.909) Active confirmed Problem Inappropriate sinus tachycardia (617942142) Inappropriate sinus tachycardia (R00.0) Active confirmed Problem Seasonal allergic rhinitis (086814752) Seasonal allergic rhinitis, unspecified allergic rhinitis trigger (J30.2) Active confirmed Problem Asthma without status asthmaticus (37359494) Asthma, unspecified asthma severity, unspecified whether complicated, unspecified whether persistent (J45.909) Active confirmed Plan Of Treatment Pending Test Test Name Order Date ECHOCARDIOGRAM 11/24/2020 ECHOCARDIOGRAM 12/14/2016 Stress Test 01/02/2017 Insurance Providers Payer Name Payer Address Payer Phone Subscriber Number Group Number Insured Name Patient Relationship to Insured Coverage Start Date Coverage End Date [employer] [address] [address] [place], [place] [id number] Marleni Smith Self - patient is the insured [employer] [address] [place], [place] [id number] [phone] [id number] Marleni Smith Self - patient is the insured Medical (General) History Medical History History ICD Code inappropriate sinus tachycardia (Rx'd w ivabradine by Dr. Nuno at [facility]) preserved LV function with E F 60-65% by echo November 2016, EF 60-65% by echo November 2020 Palpitations Chest tightness Generalized anxiety disorder Seasonal allergies Asthma (diagnosed, 12/07) ([place]ales) atenolol-->fatigue GERD COVID 08 February 2022
--- OUTSIDE RECORDS SUMMARY | 2025-06-04 15:46 | XMS_ITS | Data Portability ---
Author Organization [facility] [email or web address], [email or web address] Address [address] [place] [phone] Care Team Providers Care License Examiner Name Role Phone SARINA DOOLEY Entertainment Agent LIDIA RICE Primary Care Provider GENNY TAM Entertainment Agent Unavailable Assessment Encounter Date Assessment Date Assessment [...] or ectopy noted. Two-week event monitor at [facility] from 09/03/21 to 09/17/21 showed sinus rhythm throughout. For activations with symptoms of palpitations correlated with sinus tachycardia. [email or web address] Not available 01/08/2024 08:58:22 04/01/2024 04/01/2024 Blood [...] or ectopy noted. Two-week event monitor at [facility] from 09/03/21 to 09/17/21 showed sinus rhythm throughout. For activations with symptoms of palpitations correlated with sinus tachycardia. [email or web address] Not available 03/29/2024 12:00:51 01/20/2025 01/20/2025 Blood [...] or ectopy noted. Two-week event monitor at [facility] from 09/03/21 to 09/17/21 showed sinus rhythm throughout. For activations with symptoms of palpitations correlated with sinus tachycardia. [email or web address] Not available 01/08/2025 12:31:51 Plan of Treatment Reminders Order Date Submit Date Provider Last Modified By Organization Details Last Modified Time Details Appointments Any 15 2025 01:30P M AYLA Luna Not available Not available Not available Lab None recorded. Referral None recorded. Procedures None recorded. Surgeries None recorded. Imaging electroca rdiogram 2024 025 [email or web address] In-Office Order, Internal Use Only DO Not Attach Compendium DO Not Attach Compendium, Do Not Delete/merge, [id number] 01/20/2025 14:06:50 home sleep study - 29 y/o F w/ inappropr iate sinus tachycard ia while sleeping, please screen for LUCÍA thanks 2024 025 [facility], [address] [place] [address], [place], [address], 04/15/2025 14:21:11 electroca rdiogram 2023 024 [email or web address] In-Office Order, Internal Use Only DO Not Attach Compendium DO Not Attach Compendium, Do Not Delete/merge, [id number] 04/01/2024 11:25:29 electroca rdiogram 2023 024 LUCRECIA In-Office Order, Internal Use Only DO Not Attach Compendium DO Not Attach Compendium, Do Not Delete/merge, [id number] 01/08/2024 09:34:53 Medication Orders None recorded. Patient TargetsNo targets recorded. Patient InstructionsNo instructions recorded. Reason for Referral None Reported. Results Created Date Observation Date Name Description Value Unit Range Abnormal Flag Note LastModifiedBy Organization Detail LastModifiedTime 01/03/20 24 [facility] rocar diogr am No observ ation record ed. [email or web address] In-Office Order Internal Use Only DO Not Attach Compendium DO Not Attach Compendium, Do Not Delete/merge, [id number] 01/08/2024 08:40:38 01/08/20 24 [facility] rocar diogr am No observ ation record ed. Not Available 01/07 08:59:05 03/29/20 24 [facility] rocar diogr am No observ ation record ed. [email or web address] In-Office Order Internal Use Only DO Not Attach Compendium DO Not Attach Compendium, Do Not Delete/merge, [id number] 04/01/2024 11:17:14 04/01/20 24 [facility] rocar diogr am No observ ation record ed. [email or web address] Not Available 04/01 11:16:26 01/21/20 25 [facility] rocar diogr am No observ ation record ed. [email or web address] In-Office Order Internal Use Only DO Not Attach Compendium DO Not Attach Compendium, Do Not Delete/merge, [id number] 01/20/2025 13:53:09 01/21/20 25 [facility] rocar diogr am No observ ation record ed. [email or web address] Not Available 01/20 13:51:13 Result Notes None recorded. Problems Name Problem SNOMED Code Status Onset Date Resolution Date Notes Provider Name and Address Organization Details Recorded Time Inappropriate sinus tachycardia 891216638 Active 2023 Sarina Dooley [address], [address], [facility] 4 13:13:12 Asthma 972307098 Active 2023 Sarina Dooley [facility] [address] [place], [address], [facility] 4 13:13:22 Tachycardia 3561836 Active 2023 Genny Tam MD [address] [place] [address], [phone], [facility] 4 08:41:22 Palpitations 19040623 Active 2023 Genny Tam MD [address] [place] [address], [address], [facility] 08:41:25 Difficulty sleeping 170400144 Active 2024 Genny Tam MD [address] [place] [address], [address], [facility] 5 13:58:40 Problem Notes None recorded. Procedures Surgical History Date Name Laterality Status Provider Name and Address Organization Details Recorded Time Eye Surgery completed [facility] 01/08/2024 08:43:26 Tonsillectomy completed [facility] 01/08/2024 08:48:22 Imaging Results None recorded. Procedure Notes None recorded. Medical Equipment None Reported. Allergies Allergen ID Allergen Name Allergen Category Reaction Reaction Severity Criticality Documentation Date Start Date Code Code System Note Provider Name and Address Organization Details Recorded Time 179849 POLLEN EXTRACTS environme nt,medica tion itching other Not available Not available Not available 01/08/2024 10853 6 RxNorm Esther Pérez [facility], [facility] 08:43:01 965946 cow milk allergeni c extract food,medi cation other Not available Not available 01/08/2024 70014 5 RxNoapolonia martino, [facility] 4 08:43:01 316006 cat dander environme nt itching other Not available Not available Not available 01/08/2024 Esther martino [facility] 4 08:43:01 932293 mold extract environme nt itching other Not available Not available Not available 01/08/2024 19102 8 Shiraz martino [facility] 4 08:43:01 699568 famotidin e medicatio n Not available Not available Not available 01/08/2024 4278 Shiraz martino [facility] 4 08:45:26 Medications Name Sig Start [...] Address Organization Details Last Updated DateTime 01/08/2024 78895.49 g 24 kg/m2 149.86 cm 95 /min 108/72 mm[Hg] Esther Pérez [facility] 01/08/2024 08:50:06 Date Recorded Body height Body mass index (BMI) Body weight Heart rate Systolic And Diastolic Provider Name and Address Organization Details Last Updated DateTime 01/20/2025 149.86 cm 23.4 kg/m2 51872.71 g 76 /min 117/80 mm[Hg] [facility] 01/20/2025 13:50:22 Date Recorded Body height Body mass index (BMI) Body weight Heart rate Systolic And Diastolic Provider Name and Address Organization Details Last Updated DateTime 04/01/2024 149.86 cm 23.2 kg/m2 93956.12 g 86 /min 111/76 mm[Hg] [facility]. 04/01/2024 11:16:11 Social History Question Answer Notes LastModified by Organizat ion Details LastModified Time Tobacco Smoking Status Never Smoker Esther martino [place] [facility] [place] 01/08/2024 08:43:18 Do You [...] Of Your Most Recent Tobacco Screening? 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 Moderate Information not available 01/08/2024 Mental Status Question Answer Note LastModified by Organization D etails LastModified Time Do you feel stressed (tense, restless, nervous, or anxious, or unable to sleep at night)? [id number] Information not available 01/08/2024 Family History Relationship [...] ICD10 Code Diagnosis IMO Codes Diagnosis Note [id number] Genny Tam MD [facility] [address] [place] [address] 01/08/2024 08:24:43 01/08/2024 09:19:08 Tachycardia 0875699 R00.0 Over the past few years her [...] of current meds, and documentat ion Palpitations 60674447 R0 0.2 [id number] MD [facility] [address] ,[address] [place] [address] 04/01/2024 11:05:40 04/01/2024 11:25:29 Tachycardia 1769990 R00.0 multiple symptomati c episodes of tachycardi a while off of the ivabradine we have restarted at a lower dose of just 2.5 mg once daily which she seems to be tolerating well we will continue to monitor closely and titrate meds as needed Palpitations 40268282 R0 0.2 [id number] MD [facility] [address] [place] [address] 01/20/2025 08:46:51 01/20/2025 14:06:50 Tachycardia 3274678 R00.0 She has been tolerating the low-dose of ivabradine well as of late, she has been asymptomat ic since resumption of the medication Palpitations 25144622 R0 0.2 As long as she stays on ivabradine we will need to monitor her for signs and symptoms of arrhythmia such as atrial fibrillati on, none have been detected as of yet Difficulty sleeping 3013 45846 G47.9 [id number] Given that her arrhythmia events seems to [...] Member ID Jones Member ID Guarantor Name 05/26/2025 1 [employer] [place]) [id number] Marleni Lentz [id number] Notes Date Note Type Note Provider [...] shortness of breath. 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 Genny Tam MD [address] [place] [address], [phone], [facility]. 01/08/2024 09:39:43 04/01/2024 text/html 29 y/o [...] but otherwise no complaints Genny Tam MD [address] [place] [address], [phone], [facility]. 04/01/2024 12:13:01 01/20/2025 text/html 29 y/o F [...] no other recent illnesses Genny Tam MD [address] [place] [address], [phone], [facility]. 01/20/2025 17:41:46 OBGyn Episode No OBEpisode recorded.
--- OUTSIDE RECORDS SUMMARY | 2025-06-04 15:46 | XMS_ITS | Patient Health Record ---
Author Organization [facility] Address [facility] [address] [place], [place] [id number] Care Team Providers Care Gathering Machine Setter Name Role Phone Nicholas PENA, [place] Primary Care Provider Unavail able July Balesrco Unavailable [phone] Kane Devine Unavailable Unavailable Reason For [...] Options Details Social History Occupation: works in [employer] Occup. exposure: None Marital status Single Section Notes: no pets no pets Problems Problem Type SNOMED Code ICD Code Onset Dates Problem Status W/U Status Risk Notes Problem Tachycardia (8282287) Tachycardia (R00.0) Active confirmed Problem Gastroesophageal reflux disease (626016874) Gastroesophageal reflux disease, esophagitis presence not specified (K21.9) Active confirmed Problem Uncomplicated moderate persistent asthma (533799379) Moderate persistent asthma without complication (J45.40) Active confirmed Problem Daytime hypersomnia (82814265950629) Daytime hypersomnia (G47.19) Active confirmed Problem Chest pain (40111442) Chest pain, unspecified type (R07.9) Active confirmed Encounters Encounter Location Date Provider Diagnosis [facility] [place] [address] [place] [id number] 04/09/2025 Shimon Bales Plan Of Treatment Pending Test Test Name Order Date SLEEP STUDY-DIAGNOSTIC 01/05/2017 ALLERGEN ASTHMA PROFILE 01/05/2017 CBC+AUTO DIFF 01/05/2017 IgE 01/05/2017 D.PTERONYSSINUS 01/05/2017 DERM FARINEAE 01/05/2017 CAT DANDER 01/05/2017 DOG EPITHELIUM 01/05/2017 CT CHEST +C 01/05/2017 OAK 01/05/2017 PENCILLIUM NOTATUM MOLD 01/05/2017 COCKROACH 01/05/2017 BRITTANY GRASS 01/05/2017 COMMON RAGWEED 01/05/2017 FRENCH PLANTAIN 01/05/2017 CLADOSPORIUM HERBARUM MOLD 01/05/2017 MUCOR RACEMOSUS MOLD 01/05/2017 CARMEN ALBICANS 01/05/2017 ALTERNARIA TENIUS MOLD 01/05/2017 CT CHEST +C 01/12/2017 Future Test Test Name Order Date CHEST XRAY PA LAT 01/05/2017 Insurance Providers Payer Name Payer Address Payer Phone Subscriber Number Group Number Insured Name Patient Relationship to Insured Coverage Start Date Coverage End Date Blue Cross Blue [facility] [address] [place] [address] [id number] Marleni Navarro Self - patient is the insured Medical (General) History Medical History History ICD Code Migraine headache Seasonal rhinitis Anxiety Surgical History Surgery Date(Month/Year) [place] teeth extracted Tonsillectomy
--- OUTSIDE RECORDS SUMMARY | 2025-06-04 15:46 | XMS_ITS | Clinical Summary ---
Author Organization [facility] Address [address] [place] [address] Care Team Providers Care Composer Teaching Artist Name Role Phone Belem Peterson MD Primary Care Provider [phone] Allergies Active Allergy Reactions Criticality Noted Date [...] Department Care Team Description 04/23/2025 Orders Only [facility] [address] [facility] [address] [place] [address] Provider, MD Piter 04/22/2025 Orders Only [facility] [address] [facility] [address] [place] [address] Provider, MD Piter 04/21/2025 11:00 AM EDT Office Visit [facility] [address] [facility] [address] [place] [address] Belem Peterson MD Right lower quadrant abdominal pain (Primary Dx) 04/21/2025 myChart Message [facility] [address] [facility] [address] [place] [address] Jakcelinhart, Generic Provider CT ready for scheduling 04/21/2025 myChart Message [facility] [address] [facility] [address] [place] [address] Belem Peterson MD Last Menstrual Period 04/21/2025 Orders Only [facility] Nuclear Medicine [address] [place] [address] Landen Ferrera MD 04/21/2025 Telephone [facility] [address] [facility] [address] [place] [address] Belem [facility] MD [facility] fax # 04/21/2025 Telephone [facility] [address] [facility] [address] [place] [address] Belem Peterson MD Additional Info Needed - [facility]; [facility] Fax Number 04/20/2025 myChart Message [facility] [address] [facility] [address] [place] [address] Belem Peterson MD Right hip pain from Last 3 Months Immunizations Immunization Administration Dates Next Due Covid-19, Pfizer, mRNA, [place] valent, PF 30 mcg/0.3 mL dose (for [...] money to get more. 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 Procedure Name Priority Date/Time Associated Diagnosis Comments AMB EXTERNAL CT ABDOMEN, OUTSIDE RESULT Routine 04/23/2025 12:55 PM EDT COMPREHENSIVE METABOLIC PANEL, OUTSIDE LAB Routine 04/21/2025 11:41 AM EDT HM PAP SMEAR Routine 09/29/2015 5:38 PM EST from Last 3 Months or Most Recently Relevant to Health Maintenance Results * Due to [place] User Replay law, this organization might not be sharing [...] Most Recently Relevant to Health Maintenance Insurance [employer] Care Teams Composer Teaching Artist Relationship Specialty Start Date End Date Belem Peterson MD [address] [place] [address] PCP - General 02/08/17
--- OUTSIDE RECORDS SUMMARY | 2025-06-04 15:46 | XMS_ITS | Encounter Summary ---
Author Organization [facility] Address [address] [place] [address] [place] [address] Phone Care Team Providers Care Clinical Safety Specialist Name Role Phone Belem Peterson MD Primary Care Provid er Logan Rosenthal MD Unavailable Encounter Details Date Type Department Care Team (Late st Contact Info) Description 02/06/2018 Transcribe Orders [facility] Echocardiography [address] [place] [address] Lolis Tovar [address] [place] [address] [email or web address] Social History Tobacco Use Types Packs/Day [...] BPM [facility] Atrial Rate 64 BPM [facility] VA Interval 136 ms [facility] QRS Duration 76 ms [facility] QT Interval 406 ms [facility] QTC Interval 418 ms [facility] P Ceres 52 degrees [facility] R Wave Ceres -3 degrees [facility] T Wave Ceres 30 degrees [facility] 02/06/2018 2:43 PM EDT [...] on filedocumented in this encounter Care Teams Clinical Safety Specialist Relationship Specialty Start Date End Date Belem Peterson MD [address] [place] [address] PCP - General Internal Medicine 02/07/17 Logan Rosenthal MD [address] [place] [address] Cardiology 02/07/17 documented as of this encounter Additional Source Comments The information contained in this document represents components of the legal health record. It is not the complete legal health record.[facility]
--- OUTSIDE RECORDS SUMMARY | 2025-06-04 15:46 | XMS_ITS | Clinical Summary ---
Author Organization [facility] [employer] Address [address] [place] [address] Care Team Providers Care Driftman Name Role Phone Belem Peterson MD Primary [...] Mass Index - - Plan of Treatment Not on file Medical Devices Not on file Insurance [facility] Care Teams Driftman Relationship Specialty Start Date End Date Belem Peterson MD [address] [place] [address] [place] [phone] PCP - Brass Wind Instrument Maker 07/18/19
--- OUTSIDE RECORDS SUMMARY | 2025-06-04 15:46 | XMS_ITS | Encounter Summary ---
Author Organization [facility] Address [address] [place] [address] Care Team Providers Care Travel Accommodation Inspector Name Role Phone Belem Peterson MD Primary Care Provider [phone] Encounter Details Date Type Department Care Team (Late st Contact Info) Description 04/21/2025 Orders Only [facility] Nuclear Medicine [address] [place] [address] Land[place] Ferrera MD [address] [place] [address] Social History Tobacco Use Types Packs/Day Years [...] money to get more. Never true 04/21/2025 [facility] Utilities Answer Date Recorded In [...] Job Start Date Job End Date Self-employed [employer] Not on file Not on file Not on file documented as of this encounter Plan of Treatment Upcoming Encounters Date Type Department Care Team (Late st Contact Info) Description 06/23/2025 1:00 PM EST Office Visit [facility] Internal Medicine [address] [facility] [address] [place] [address] Belem Peterson MD [address] [place] [address] documented as of this encounter Visit Diagnoses Not on filedocumented in this encounter Care Teams Travel Accommodation Inspector Relationship Specialty Start Date End Date Belem Peterson MD [address] [place] [address] PCP - General 02/08/17 documented as of this encounter
--- OUTSIDE RECORDS SUMMARY | 2025-06-04 15:46 | XMS_ITS | Encounter Summary ---
Author Organization [facility] Address [address] [place] [address] [place] [address] Phone Care Team Providers Care Administrator Social Welfare Name Role Phone Belem Peterson MD Primary Care Provid er RobotLogan huitron MD Unavailable Encounter Details Date Type Department Care Team (Late st Contact Info) Description 06/13/2017 Transcribe Orders [facility] Echocardiography [address] [place] [address] [email or web address] Social History Tobacco Use [...] BPM [facility] Atrial Rate 65 BPM [facility] NH Interval 150 ms [facility] QRS Duration 68 ms [facility] QT Interval 404 ms [facility] QTC Interval 420 ms [facility] P [place] 68 degrees [facility] R Wave [place] 3 degrees [facility] T Wave [place] 2 degrees [facility] 06/13/2017 5:28 PM EST Narrative [facility] - 06/14/2017 8:28 PM EST Normal sinus rhythm Septal infarct (cited on or before 07-MAR-2017) Abnormal ECG When compared with ECG of 07-MAR-2017 13:42, No significant change was found us Evelia Nuno MD ECG ORDERABLES Final Result ROBBIN_TIRSO documented in this encounter Visit Diagnoses Not on filedocumented in this encounter Care Teams Administrator Social Welfare Relationship Specialty Start Date End Date Belem Peterson MD [address] [place] [address] PCP - General Internal Medicine 02/07/17 Logan Rosenthal MD [address] [place] [address] Cardiology 02/07/17 documented as of this encounter Additional Source Comments The information contained in this document represents components of the legal health record. It is not the complete legal health record.[facility]
== END 2025-06-04 13:03 | disposition home or self-care (01) ==
LOC: HO.HMGAL 13:03
PROVIDERS: PCP Internal Medicine; Visit Provider Registered Nurse Emergency
DX: J30.89 Other allergic rhinitis (principal)
CPT/HCPCS: 95117; 95165

== ENCOUNTER → 2025-06-11 10:22 | Outpatient (REF) | payer OTHER, SELFPAY ==
--- OUTSIDE RECORDS SUMMARY | 2025-06-11 20:00 | XMS_ITS | Clinical Summary ---
Author Organization [facility] [employer] Address [address] [place] [address] Care Team Providers Care Pump Operator Name Role Phone Belem Peterson MD [...] file Medical Devices Not on file Insurance [facility] Care Teams Pump Operator Relationship Specialty Start Date End Date Belem Peterson MD [address] [place] [address] [place] [phone] PCP - Rayon Tester 07/18/19
--- OUTSIDE RECORDS SUMMARY | 2025-06-11 20:00 | XMS_ITS | Data Portability ---
Author Organization [facility] LegalFácil, svmg_admin Address [address] [place] [id number] Care Team Providers Care Produce Sorter Name Role Phone SARINA DOOLEY Plumber Apprentice LIDIA RICE Primary Care Provider GENNY TAM Plumber Apprentice Unavailable Assessment Encounter Date Assessment Date Assessment [...] symptoms of palpitations correlated with sinus tachycardia. [email or web address] Not available 01/08/2024 08:58:22 04/01/2024 04/01/2024 Blood [...] symptoms of palpitations correlated with sinus tachycardia. [email or web address] Not available 03/29/2024 12:00:51 01/20/2025 01/20/2025 Blood [...] symptoms of palpitations correlated with sinus tachycardia. [email or web address] Not available 01/08/2025 12:31:51 Plan of Treatment [...] DO Not Attach Compendium, Do Not Delete/merge, [id number] 01/20/2025 14:06:50 home sleep study - 29 y/o F w/ inappropr iate sinus tachycard ia while sleeping, please screen for LUCÍA thanks 2024 025 [facility], [address] [place] [address], [place], [address], 04/15/2025 14:21:11 electroca rdiogram 2023 024 [email or web address] In-Office Order, Internal Use Only DO Not Attach Compendium DO Not Attach Compendium, Do Not Delete/merge, [id number] 04/01/2024 11:25:29 electroca rdiogram 2023 024 LUCRECIA In-Office Order, Internal Use Only DO Not Attach Compendium DO Not Attach Compendium, Do Not Delete/merge, [id number] 01/08/2024 09:34:53 Medication Orders None recorded. Patient TargetsNo targets recorded. Patient InstructionsNo instructions recorded. Reason for Referral None Reported. Results Created Date Observation Date Name Description Value Unit Range Abnormal Flag Note LastModifiedBy Organization Detail LastModifiedTime 01/03/20 24 [facility] rocar diogr am No observ ation record ed. LUCRECIA In-Office Order Internal Use Only DO Not Attach Compendium DO Not Attach Compendium, Do Not Delete/merge, [id number] 01/08/2024 08:40:38 01/08/20 24 [facility] rocar diogr am No observ ation record ed. [email or web address] Not Available 01/07 08:59:05 03/29/20 24 [facility] rocar diogr am No observ ation record ed. [email or web address] In-Office Order Internal Use Only DO Not Attach Compendium DO Not Attach Compendium, Do Not Delete/merge, [id number] 04/01/2024 11:17:14 04/01/20 24 [facility] rocar diogr am No observ ation record ed. [email or web address] Not Available 04/01 11:16:26 01/21/20 25 [facility] rocar diogr am No observ ation record ed. [email or web address] In-Office Order Internal Use Only DO Not Attach Compendium DO Not Attach Compendium, Do Not Delete/merge, [id number] 01/20/2025 13:53:09 01/21/20 25 [facility] rocar diogr am No observ ation record ed. [email or web address] Not Available 01/20 13:51:13 Result Notes None recorded. Problems Name Problem SNOMED Code Status Onset Date Resolution Date Notes Provider Name and Address Organization Details Recorded Time Inappropriate sinus tachycardia 845644633 Active 2023 [address] Do[address], [phone], [facility] 4 13:13:12 Asthma 834874559 Active 2023 Sarina Dooley [facility] [address] [place], [address], [facility] 4 13:13:22 Tachycardia 7875596 Active 2023 Genny Tam MD [address] [place] [address], [phone], [facility] 4 08:41:22 Palpitations 01639732 Active 2023 Genny Tam MD [address] [place] [address], [address], [facility] 08:41:25 Difficulty sleeping 430329595 Active 2024 Genny Tam MD [address] [place] [address], [phone], [facility] 5 13:58:40 Problem Notes None recorded. Procedures Surgical History Date Name Laterality Status Provider Name and Address Organization Details Recorded Time Eye Surgery completed [facility] 01/08/2024 08:43:26 Tonsillectomy completed [facility] 01/08/2024 08:48:22 Imaging Results None recorded. Procedure Notes None recorded. Medical Equipment None Reported. Allergies Allergen ID Allergen Name Allergen Category Reaction Reaction Severity Criticality Documentation Date Start Date Code Code System Note Provider Name and Address Organization Details Recorded Time 895176 POLLEN EXTRACTS environme nt,medica tion itching other Not available Not available Not available 01/08/2024 88724 6 RxNorm Esther Pérez [facility], [facility] 08:43:01 687135 cow milk allergeni c extract food,medi cation other Not available Not available 01/08/2024 79282 5 RxNoapolonia martino, [facility] 4 08:43:01 230195 cat dander environme nt itching other Not available Not available Not available 01/08/2024 Esther martino [facility] 4 08:43:01 396952 mold extract environme nt itching other Not available Not available Not available 01/08/2024 61224 8 Shiraz martino [facility] 4 08:43:01 040712 famotidin e medicatio n Not available Not available Not available 01/08/2024 4278 Shiraz martino [facility] 4 08:45:26 Medications Name [...] Address Organization Details Last Updated DateTime 01/08/2024 54520.49 g 24 kg/m2 149.86 cm 95 /min 108/72 mm[Hg] Esther Pérez [facility] 01/08/2024 08:50:06 Date Recorded Body height Body mass index (BMI) Body weight Heart rate Systolic And Diastolic Provider Name and Address Organization Details Last Updated DateTime 01/20/2025 149.86 cm 23.4 kg/m2 79416.71 g 76 /min 117/80 mm[Hg] [facility] 01/20/2025 13:50:22 Date Recorded Body height Body mass index (BMI) Body weight Heart rate Systolic And Diastolic Provider Name and Address Organization Details Last Updated DateTime 04/01/2024 149.86 cm 23.2 kg/m2 82747.12 g 86 /min 111/76 mm[Hg] [facility]. 04/01/2024 11:16:11 Social History Question Answer Notes LastModified by Organizat ion Details LastModified Time Tobacco Smoking Status Never Smoker Esther martino [place] - [facility] 01/08/2024 08:43:18 Do You Have An Advance [...] Of Your Most Recent Tobacco Screening? 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 Moderate Information not available 01/08/2024 Mental Status Question Answer Note LastModified by Organization D etails LastModified Time Do you feel stressed (tense, restless, nervous, or anxious, or unable to sleep at night)? [id number] Information not available 01/08/2024 Family History Relationship [...] ICD10 Code Diagnosis IMO Codes Diagnosis Note [id number] Genny Tam MD [facility] [address] [place] [address] 01/08/2024 08:24:43 01/08/2024 09:19:08 Tachycardia 1558958 R00.0 Over the past few years her [...] of current meds, and documentat ion Palpitations 06246444 R0 0.2 [id number] MD [facility]DA [facility] [address] [facility] [address] ,[address] [place] [phone] 04/01/2024 11:05:40 04/01/2024 11:25:29 Tachycardia 7219547 R00.0 multiple symptomati c episodes of tachycardi a while off of the ivabradine we have restarted at a lower dose of just 2.5 mg once daily which she seems to be tolerating well we will continue to monitor closely and titrate meds as needed Palpitations 40826775 R0 0.2 [id number] MD [facility] [address] [facility] [address] ,[address] [place] [address] 01/20/2025 08:46:51 01/20/2025 14:06:50 Tachycardia 0201885 R00.0 She has been tolerating the low-dose of ivabradine well as of late, she has been asymptomat ic since resumption of the medication Palpitations 98069876 R0 0.2 As long as she stays on ivabradine we will need to monitor her for signs and symptoms of arrhythmia such as atrial fibrillati on, none have been detected as of yet Difficulty sleeping 3013 28720 G47.9 [id number] Given that her arrhythmia events seems to [...] Name 05/26/2025 1 [employer]UE [employer] [place]) [id number] Marleni Lentz [id number] Notes Date Note Type Note Provider [...] shortness of breath. 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 Genny Tam MD [address] [place] [address], [phone], [facility]. 01/08/2024 09:39:43 04/01/2024 text/html 29 y/o F [...] but otherwise no complaints Genny Tam MD [address] [place] [address], [phone], [facility]. 04/01/2024 12:13:01 01/20/2025 text/html 29 [...] no other recent illnesses Genny Tam MD [address] [place] [address], [phone], [facility]. 01/20/2025 17:41:46 OBGyn Episode No OBEpisode recorded.
== END ==
LOC: HO.SL 10:22
PROVIDERS: PCP Internal Medicine; Visit Provider Internal Medicine Cardiovascular Disease
DX: G47.9 Sleep disorder, unspecified (principal)
CPT/HCPCS: 95806

== ENCOUNTER 2025-06-11 10:42 | Outpatient (AMB) | payer OTHER, SELFPAY ==
--- OUTSIDE RECORDS SUMMARY | 2025-06-11 20:58 | XMS_ITS | Patient Health Record ---
Author Organization [facility] Address [facility] [address] [place], [place] [id number] Care Team Providers Care System Designer Name Role Phone Nicholas PENA, [place] Primary Care Provider Unavail able July Balesrco Unavailable Kane Devine Unavailable Unavailable Reason For Referral [...] Options Details Social History Occupation: works in [employer] Occup. exposure: None Marital status Single Section Notes: no pets no pets Problems Problem Type SNOMED Code ICD Code Onset Dates Problem Status W/U Status Risk Notes Problem Tachycardia (4147975) Tachycardia (R00.0) Active confirmed Problem Gastroesophageal reflux disease (669500207) Gastroesophageal reflux disease, esophagitis presence not specified (K21.9) Active confirmed Problem Uncomplicated moderate persistent asthma (990470152) Moderate persistent asthma without complication (J45.40) Active confirmed Problem Daytime hypersomnia (87596091185205) Daytime hypersomnia (G47.19) Active confirmed Problem Chest pain (07264306) Chest pain, unspecified type (R07.9) Active confirmed Encounters Encounter Location Date Provider Diagnosis [facility] [place] [address] [place] [id number] 04/09/2025 Shimon Bales Plan Of Treatment Pending Test Test Name Order Date SLEEP STUDY-DIAGNOSTIC 01/05/2017 ALLERGEN ASTHMA PROFILE 01/05/2017 CBC+AUTO DIFF 01/05/2017 IgE 01/05/2017 D.PTERONYSSINUS 01/05/2017 DERM FARINEAE 01/05/2017 CAT DANDER 01/05/2017 DOG EPITHELIUM 01/05/2017 CT CHEST +C 01/05/2017 OAK 01/05/2017 PENCILLIUM NOTATUM MOLD 01/05/2017 COCKROACH 01/05/2017 BRITTANY GRASS 01/05/2017 COMMON RAGWEED 01/05/2017 CAMEROONIAN PLANTAIN 01/05/2017 CLADOSPORIUM HERBARUM MOLD 01/05/2017 MUCOR RACEMOSUS MOLD 01/05/2017 CARMEN ALBICANS 01/05/2017 ALTERNARIA TENIUS MOLD 01/05/2017 CT CHEST +C 01/12/2017 Future Test Test Name Order Date CHEST XRAY PA LAT 01/05/2017 Insurance Providers Payer Name Payer Address Payer Phone Subscriber Number Group Number Insured Name Patient Relationship to Insured Coverage Start Date Coverage End Date Blue Cross [facility] [address] [place] [address] [id number] Marleni Navarro Self - patient is the insured Medical (General) History Medical History History ICD Code Migraine headache Seasonal rhinitis Anxiety Surgical History Surgery Date(Month/Year) [place] teeth extracted Tonsillectomy
== END 2025-06-11 10:42 | disposition home or self-care (01) ==
LOC: HO.HMGAL 10:42
PROVIDERS: PCP Internal Medicine; Visit Provider Registered Nurse Emergency
DX: J30.89 Other allergic rhinitis (principal)
CPT/HCPCS: 95117; 95165

== ENCOUNTER → 2025-06-11 21:00 | Outpatient (BNV) | payer OTHER, SELFPAY | PROVIDERS: PCP Internal Medicine; Visit Provider Psychiatry & Neurology Neurology | DX: G47.33 Obstructive sleep apnea (adult) (pediatric) (principal) | CPT/HCPCS: 95806 ==

== ENCOUNTER 2025-06-25 15:46 | Outpatient (AMB) | payer OTHER, SELFPAY ==
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
--- OUTSIDE RECORDS SUMMARY | 2025-06-25 18:39 | XMS_ITS | Clinical Summary ---
Author Organization [facility] Address [address] [place] [address] Care Team Providers Care Supervisor Malt House Name Role Phone Belem Peterson MD Primary Care Provider [phone] Allergies Active Allergy Reactions Criticality Noted Date [...] mouth once a day. 02/12/20 22 Active desvenlafaxine succinate (PRISTIQ) 50 mg 24 hr tablet TAKE 1 TABLET BY MOUTH ONCE DAILY 90 tablet 2 02/19/20 25 Active omeprazole (PriLOSEC) 20 mg capsule Take 1 capsule (20 mg total) by mouth once a day. 90 capsule 3 06/23/20 25 026 Active cyclobenzaprin e (FLEXERIL) 5 mg tablet Take 1 tablet (5 mg total) by mouth 3 times a day as needed for muscle spasms for up to 10 days. Drowsiness precautions. 30 tablet 06/11/20 24 025 Discontinued (Therapy Completed or No Longer Needed) Active Problems Problem Noted Date Diagnosed Date [...] Date Resolved Date Urinary symptom or sign 03/30/2018/0 11/2018 Numbness 12/14/2016 03/12/2018 Chest discomfort 11/24/2016 03/12/2018 Neck pain 09/29/2015 03/12/2018 Encounters Date Type Department Care Team Description 06/25/2025 Telephone [facility] [place] Cardiology [address] [place] [address] Road, [address] / [place] [address] Paty Fry [place] 06/23/2025 1:00 PM EST Office Visit [facility] [address] [place] [address] Belem Peterson MD Encounter for routine adult health examination without abnormal findings (Primary Dx); Midline low back pain without sciatica, unspecified chronicity; Generalized anxiety disorder; Inappropriate sinus tachycardia (HCC); Need for hepatitis C screening test; Gastroesophageal reflux disease without esophagitis; Screening for HIV (human immunodeficiency virus) 06/22/2025 Refill [facility] [address] [place] [address] Belem Peterson MD 04/23/2025 Orders Only [facility] [address] [place] [address] ProviderPiter MD 04/22/2025 Orders Only [facility] [address] [place] [address] Piter Zarate MD 04/21/2025 11:00 AM EDT Office Visit [address] [place] [address] Belem Peterson MD Right lower quadrant abdominal pain (Primary Dx) 04/21/2025 myChart Message [facility] [address] [facility] [address] [place] [address] Mychart, Generic Provider CT ready for scheduling 04/21/2025 myChart Message [facility] [address] [facility] [address] [place] [address] Belem Peterson MD Last Menstrual Period 04/21/2025 Orders Only [facility] Nuclear Medicine [address] [place] [address] [phone] Landen Ferrera MD 04/21/2025 Telephone [facility] [address] [facility] [address] [place] [address] [facility] fax # 04/21/2025 Telephone [facility] [address] [facility] [address] [place] [address] Belem Peterson MD Additional Info Needed - [facility]; [facility] Fax Number 04/20/2025 SED Webhart Message [facility] [address] [facility] [address] [place] [address] Belem Peterson MD Right hip pain from Last 3 Months Immunizations Immunization Administration Dates Next Due Covid-19, Pfizer, mRNA, [place] valent, PF 30 mcg/0.3 mL dose (for ages 12 and older) 12/05/2020,11/14/2020 Influenza Virus Vaccine, Uns pecified Formulation 06/17/2025 Influenza, Injectable, Quadr ivalent, Contains Preservative 04/21/2023,05/23/2022,05/28/2019 [...] money to get more. 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 on file Not on file Last Filed Vital Signs Vital Sign Reading Time Taken Comments Blood Pressure 97/66 06/23/2025 1:13 PM EST Pulse 94 06/23/2025 1:13 PM EST Temperature 36.8 C (98.2 F) 04/21/2023 8:53 AM EDT Respiratory Rate 16 01/26/2022 4:47 AM EDT Oxygen Saturation 99% 06/23/2025 1:13 PM EST Inhaled Oxygen Concentration - - Weight 53.5 kg (118 lb) 06/23/2025 1:13 PM EST Height 152.4 cm (5') 06/23/2025 1:13 PM EST Body Mass Index 23.05 06/23/2025 1:13 PM EST Plan of Treatment Health Maintenance [...] - 2024-2 6 season) 2025 12/05/2020, 11/14/2020 Depression Screening and Follow-Up 06/17/20262024 DTaP,Tdap,and Td Vaccines (3 - Td or Tdap) 03/17/2030 03/17/2020, 03/24/2010 Alcohol/Substance Use Screening Completed Influenza Vaccine Completed 06/17/2025, , 05/23/2022, Additional history exists Procedures * Due to [place] state law, this organization might not be sharing negative HIV tests. Procedure Name Priority Date/Time Associated Diagnosis Comments AMB EXTERNAL CT ABDOMEN, OUTSIDE RESULT Routine 04/23/2025 12:55 PM EDT COMPREHENSIVE METABOLIC PANEL, OUTSIDE LAB Routine 04/21/2025 11:41 AM EDT HM PAP SMEAR Routine 09/29/2015 5:38 PM EST from Last 3 Months or Most Recently Relevant to Health Maintenance Results * Due to [place] state law, this organization might not be sharing negative HIV tests. * CT Abdomen, Outside Result (04/23/2025 12:55 PM EDT) us Unknown Provider AMB EXTERNAL RESULT PROCEDUR [...] Most Recently Relevant to Health Maintenance Insurance [place] [employer] Care Teams Supervisor Malt House Relationship Specialty Start Date End Date Belem Peterson MD [address] [place] [address] PCP - General 02/08/17
--- OUTSIDE RECORDS SUMMARY | 2025-06-25 18:39 | XMS_ITS | Encounter Summary ---
Author Organization [facility] Address [address] [place] [address] Care Team Providers Care Cloth Finisher Name Role Phone Belem Peterson MD Primary Care Provider [phone] Encounter Details Date Type Department Care Team (Late st Contact Info) Description 04/21/2025 Orders Only [facility] Nuclear Medicine [address] [place] [address] Landen Ferrera MD [address] [place] [address] Social History Tobacco Use Types Packs/Day Years [...] money to get more. 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
--- OUTSIDE RECORDS SUMMARY | 2025-06-25 18:39 | XMS_ITS | Encounter Summary ---
Author Organization [facility] Address [address] [place] [address] [place] [address] Phone Care Team Providers Care Food Consultant Name Role Phone Belem Peterson MD Primary Care Provid er Logan Rosenthal MD Unavailable Encounter Details Date Type Department Care Team (Late st Contact Info) Description 02/06/2018 Transcribe Orders [facility] Echocardiography [address] [place] [address] Lolis Tovar [address] [place] [address] [email or web address] Social History Tobacco Use Types Packs/Day [...] MUSE_BWH QTC Interval 418 ms MUSE_BWH P [place] 52 degrees MUSE_BWH R Wave [place] -3 degrees MUSE_BWH T Wave [place] 30 degrees MUSE_BWH 02/06/2018 2:43 PM EDT [...] on filedocumented in this encounter Care Teams Food Consultant Relationship Specialty Start Date End Date Belem Peterson MD [address] [place] [address] PCP - General Internal Medicine 02/07/17 Logan Rosenthal MD [address] [place] [address] Cardiology 02/07/17 documented as of this encounter Additional Source Comments The information contained in this document represents components of the legal health record. It is not the complete legal health record.[facility]
--- OUTSIDE RECORDS SUMMARY | 2025-06-25 18:39 | XMS_ITS | Data Portability ---
Author Organization [facility] [employer], svmg_admin Address [address] [place] [address] Care Team Providers Care Marriage And Family Counselor Name Role Phone SARINA DOOLEY Business Office Technology Instructor LIDIA RICE Primary Care Provider [phone] GENNY TAM Business Office Technology Instructor Unavailable Assessment Encounter Date Assessment Date Assessment [...] or ectopy noted. Two-week event monitor at [facility] from 09/03/21 to 09/17/21 showed sinus rhythm throughout. For activations with symptoms of palpitations correlated with sinus tachycardia. [email or web address] Not available 01/08/2024 08:58:22 04/01/2024 04/01/2024 Blood [...] or ectopy noted. Two-week event monitor at [facility] from 09/03/21 to 09/17/21 showed sinus rhythm throughout. For activations with symptoms of palpitations correlated with sinus tachycardia. [email or web address] Not available 03/29/2024 12:00:51 01/20/2025 01/20/2025 Blood [...] or ectopy noted. Two-week event monitor at [facility] from 09/03/21 to 09/17/21 showed sinus rhythm throughout. For activations with symptoms of palpitations correlated with sinus tachycardia. [email or web address] Not available 01/08/2025 12:31:51 Plan of Treatment [...] DO Not Attach Compendium, Do Not Delete/merge, [id number] 01/20/2025 14:06:50 home sleep study - 29 y/o F w/ inappropr iate sinus tachycard ia while sleeping, please screen for LUCÍA thanks 2024 025 [facility], [address] [place] [address], [place], [address], 06/18/2025 10:54:20 electroca rdiogram 2023 024 [email or web address] In-Office Order, Internal Use Only DO Not Attach Compendium DO Not Attach Compendium, Do Not Delete/merge, [id number] 04/01/2024 11:25:29 electroca rdiogram 2023 024 LUCRECIA In-Office Order, Internal Use Only DO Not Attach Compendium DO Not Attach Compendium, Do Not Delete/merge, [id number] 01/08/2024 09:34:53 Medication Orders None recorded. Patient TargetsNo targets recorded. Patient InstructionsNo instructions recorded. Reason for Referral None Reported. Results Created Date Observation Date Name Description Value Unit Range Abnormal Flag Note LastModifiedBy Organization Detail LastModifiedTime 01/03/20 24 [facility] rocar diogr am No observ ation record ed. LUCRECIA In-Office Order Internal Use Only DO Not Attach Compendium DO Not Attach Compendium, Do Not Delete/merge, [id number] 01/08/2024 08:40:38 01/08/20 24 [facility] rocar diogr am No observ ation record ed. [email or web address] Not Available 01/07 08:59:05 03/29/20 24 [facility] diogr am No observ ation record ed. [email or web address] In-Office Order Internal Use Only DO Not Attach Compendium DO Not Attach Compendium, Do Not Delete/merge, [id number] 04/01/2024 11:17:14 04/01/20 24 [facility] rocar diogr am No observ ation record ed. [email or web address] Not Available 04/01 11:16:26 01/21/20 25 [facility] diogr am No observ ation record ed. [email or web address] In-Office Order Internal Use Only DO Not Attach Compendium DO Not Attach Compendium, Do Not Delete/merge, [id number] 01/20/2025 13:53:09 01/21/20 25 [facility] diogr am No observ ation record ed. [email or web address] Not Available 01/20 13:51:13 Result Notes None recorded. Problems Name Problem SNOMED Code Status Onset Date Resolution Date Notes Provider Name and Address Organization Details Recorded Time Inappropriate sinus tachycardia 766508816 Active [address] [place] [address], [address], [facility] 4 13:13:12 Asthma 876265604 Active 2023 Sarina Dooley [facility] [address] [place], [address], [facility] 4 13:13:22 Tachycardia 5036800 Active 2023 Genny Tam MD [address] [place] [address], [phone], [facility] 4 08:41:22 Palpitations 05667090 Active 2023 Genny Tam MD [address] [place] [address], [address], [facility] 08:41:25 Difficulty sleeping 815450620 Active 2024 Genny Tam MD [address] [place] [address], [address], [facility] 5 13:58:40 Problem Notes None recorded. Procedures Surgical History Date Name Laterality Status Provider Name and Address Organization Details Recorded Time Eye Surgery completed [facility] 01/08/2024 08:43:26 Tonsillectomy completed [facility] 01/08/2024 08:48:22 Imaging Results None recorded. Procedure Notes None recorded. Medical Equipment None Reported. Allergies Allergen ID Allergen Name Allergen Category Reaction Reaction Severity Criticality Documentation Date Start Date Code Code System Note Provider Name and Address Organization Details Recorded Time 310707 POLLEN EXTRACTS environme nt,medica tion itching other Not available Not available Not available 01/08/2024 07290 [address] [facility], [facility] 08:43:01 736272 cow milk allergeni c extract food,medi cation other Not available Not available 01/08/2024 30167 5 RxNorm Esther martino, [facility] 4 08:43:01 352505 cat dander environme nt itching other Not available Not available Not available 01/08/2024 Esther martino, [facility] 4 08:43:01 666792 mold extract environme nt itching other Not available Not available Not available 01/08/2024 12399 8 [facility] 08:43:01 804748 famotidin e medicatio n Not available Not available Not available 01/08/2024 4278 [facility] 4 08:45:26 824254 codeine medicatio n Not available Not available Not available 06/18/20252021 2670 RxNorm unrec ogniz ed react ion (text : [facility], code: 16351 00) [facility] Not Available [place] - External Data Service - prod 5 11:09:55 Medications Name Sig Start Date Stop Date [...] TAKE 0.5 TABLET by mouth twice daily 2024 active nov Not Available Not Available Not Available desvenlafax ine fumarate ER 50 mg tablet,exte nded release 24 hr Take 1 tablet every day by oral route. 01/07 completed Not Available Not Available Not Available Vitals Date Recorded Body weight Body mass index (BMI) Body height Heart rate Systolic And Diastolic Provider Name and Address Organization Details Last Updated DateTime 01/08/2024 72214.49 g 24 kg/m2 149.86 cm 95 /min 108/72 mm[Hg] Esther Pérez [facility]. 01/08/2024 08:50:06 Date Recorded Body height Body mass index (BMI) Body weight Heart rate Systolic And Diastolic Provider Name and Address Organization Details Last Updated DateTime 01/20/2025 149.86 cm 23.4 kg/m2 78512.71 g 76 /min 117/80 mm[Hg] Boaz De Anda [facility]. 01/20/2025 13:50:22 Date Recorded Body height Body mass index (BMI) Body weight Heart rate Systolic And Diastolic Provider Name and Address Organization Details Last Updated DateTime 04/01/2024 149.86 cm 23.2 kg/m2 59945.12 g 86 /min 111/76 mm[Hg] Oraliacait De Anda [facility] 04/01/2024 11:16:11 Social History Question Answer Notes LastModified by Hyglos Details LastModified Time Tobacco Smoking Status Never Smoker Esther martino [facility] 01/08/2024 08:43:18 Do You Have An Advance [...] Of Your Most Recent Tobacco Screening? 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 Moderate Information not available 01/08/2024 Mental Status Question Answer Note LastModified by Organization D etails LastModified Time Do you feel stressed (tense, restless, nervous, or anxious, or unable to sleep at night)? [id number] Information not available 01/08/2024 Family History Relationship [...] ICD10 Code Diagnosis IMO Codes Diagnosis Note [id number] Genny Tam MD [facility] Cardiolog y [address] [place] [address] 01/08/2024 08:24:43 01/08/2024 09:19:08 Tachycardia 6587868 R00.0 Over the past few years her [...] such as a calcium channel natali. Alternativ bernard, if her symptoms recur off of ivabradine [...] of current meds, and documentat ion Palpitations 88354004 R0 0.2 [id number] Genny Tam MD [facility] henry Cardiolog y [address] [place] [address] 04/01/2024 11:05:40 04/01/2024 11:25:29 Tachycardia 5802722 R00.0 multiple symptomati c episodes of tachycardi a while off of the ivabradine we have restarted at a lower dose of just 2.5 mg once daily which she seems to be tolerating well we will continue to monitor closely and titrate meds as needed Palpitations 99145039 R0 0.2 [id number] Genny Tam MD [facility] Cardiolog y [address] [place] [address] 01/20/2025 08:46:51 01/20/2025 14:06:50 Tachycardia 4313789 R00.0 She has been tolerating the low-dose of ivabradine well as of late, she has been asymptomat ic since resumption of the medication Palpitations 97134725 R0 0.2 As long as she stays on ivabradine we will need to monitor her for signs and symptoms of arrhythmia such as atrial fibrillati on, none have been detected as of yet Difficulty sleeping 3013 [address]4587 G47.9 [id number] Given that her arrhythmia events seems to occur during sleeping hours, we agreed to proceed with a home sleep study Health Concerns Section Related Observation LastModified by Organization Sam flynn LastModified Time None Recorded Concern Status LastModified by Organization Details LastModified Time None Recorded Advance Directives Directive N: Payers Insurance Date Sequence Insurance Name Policy Number Policy Jones Covered Member ID Jones Member ID Guarantor Name 05/26/2025 1 [employer] [place] [id number] Marleni Lentz [id number] Notes Date Note Type Note Provider [...] shortness of breath. 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 Genny Tam MD [address] [place] [address], [phone], [facility] 01/08/2024 09:39:43 04/01/2024 text/html 29 y/o F [...] but otherwise no complaints Genny Tam MD [address] [place] [address], [phone], [facility]. 04/01/2024 12:13:01 01/20/2025 text/html 29 y/o [...] no other recent illnesses Genny Tam MD [address] [place] [address], [phone], [facility]. 01/20/2025 17:41:46 OBGyn Episode No OBEpisode recorded.
--- OUTSIDE RECORDS SUMMARY | 2025-06-25 18:39 | XMS_ITS | Clinical Summary ---
Author Organization [facility] Address [address] [place] [address] Care Team Providers Care Laundry Technician Name Role Phone Belem Peterson MD [...] file Medical Devices Not on file Insurance [facility] Care Teams Laundry Technician Relationship Specialty Start Date End Date Belem Peterson MD [address] [place] [address] [place] [phone] PCP - Rail Track Layer 07/18/19
--- OUTSIDE RECORDS SUMMARY | 2025-06-25 18:39 | XMS_ITS | Encounter Summary ---
Author Organization [facility] Address [address] [place] [address] [place] [address] Phone Care Team Providers Care Emt Dispatcher Name Role Phone Belem Peterson MD Primary Care Provid er RobotLogan huitron MD Unavailable Encounter Details Date Type Department Care Team (Late st Contact Info) Description 08/09/2017 Transcribe Orders [facility] Echocardiography [address] [place] [address] [email or web address] Social History Tobacco Use Types [...] BPM MUSE_BWH Atrial Rate 69 BPM MUSE_BWH [place] Interval 136 ms MUSE_BWH QRS Duration 80 ms MUSE_BWH QT Interval 400 ms MUSE_BWH QTC Interval 428 ms MUSE_BWH P [place] 60 degrees MUSE_BWH R Wave [place] -6 degrees MUSE_BWH T Wave [place] 28 degrees MUSE_BWH 08/08/2017 4:30 PM EST Narrative MUSE_BWEloy - 08/21/2017 11:03 AM EST Normal sinus rhythm Normal ECG When compared with ECG of 13-JUN-2017 17:28, Criteria for Septal infarct are no longer Present us Bekah Nuno MD ECG ORDERABLES Final Result ROBBIN_TIRSO documented in this encounter Visit Diagnoses Not on filedocumented in this encounter Care Teams Emt Dispatcher Relationship Specialty Start Date End Date Belem Peterson MD [address] [place] [address] PCP - General Internal Medicine 02/07/17 Logan Rosenthal MD [address] [place] [address] Cardiology 02/07/17 documented as of this encounter Additional Source Comments The information contained in this document represents components of the legal health record. It is not the complete legal health record.[facility]
--- OUTSIDE RECORDS SUMMARY | 2025-06-25 18:39 | XMS_ITS | Clinical Summary ---
Author Organization [facility] Address [address] [place] [address] Phone Care Team Providers Care Relationship Assoc Name Role Phone Belem Peterson MD Primary [...] [place] [id number] [facility] [place] [address] [facility] [place] [address] [facility] [place] [address] [facility] [place] [address] [facility] (Work) [address] [place] [address] [facility] [place] [address] [facility] [place] [address] [facility] HMO POS Care Teams Relationship Assoc Relationship Specialty Start Date End Date Belem Peterson MD [address] [place] [address] PCP - General Internal Medicine 02/07/17 Logan Rosenthal MD [address] [place] [address] Cardiology 02/07/17 Additional Source Comments The information contained in this document represents components of the legal health record. It is not the complete legal health record.[facility]
--- OUTSIDE RECORDS SUMMARY | 2025-06-25 18:39 | XMS_ITS | Encounter Summary ---
Author Organization [facility] Address [address] [place] [address] [place] [address] Phone Care Team Providers Care Pulp Refiner Operator Name Role Phone Belem Peterson MD Primary Care Provid er RobotLogan huitron MD Unavailable Encounter Details Date Type Department Care Team (Late st Contact Info) Description 06/13/2017 Transcribe Orders [facility] Echocardiography [address] [place] [address] Karis [email or web address] Social History Tobacco Use Types [...] BPM MUSE_BWH Atrial Rate 65 BPM MUSE_BWH FL Interval 150 ms MUSE_BWH QRS Duration 68 ms MUSE_BWH QT Interval 404 ms MUSE_BWH QTC Interval 420 ms MUSE_BWH P [place] 68 degrees MUSE_BWH R Wave [place] 3 degrees MUSE_BWH T Wave [place] 2 degrees MUSE_BWH 06/13/2017 5:28 PM EST Narrative MUSE_BWH - 06/14/2017 8:28 PM EST Normal sinus rhythm Septal infarct (cited on or before 07-MAR-2017) Abnormal ECG When compared with ECG of 07-MAR-2017 13:42, No significant change was found us Evelia Nuno MD ECG ORDERABLES Final Result ROBBIN_TIRSO documented in this encounter Visit Diagnoses Not on filedocumented in this encounter Care Teams Pulp Refiner Operator Relationship Specialty Start Date End Date Belem Peterson MD [address] [place] [address] PCP - General Internal Medicine 02/07/17 Logan Rosenthal MD [address] [place] [address] Cardiology 02/07/17 documented as of this encounter Additional Source Comments The information contained in this document represents components of the legal health record. It is not the complete legal health record.[facility]
--- OUTSIDE RECORDS SUMMARY | 2025-06-25 18:40 | XMS_ITS | Encounter Summary ---
Author Organization [facility] Address [address] [place] [address] Care Team Providers Care Home Health Care Social Worker Name Role Phone Belem Peterson MD Primary Care Provider [phone] Encounter Details Date Type Department Care Team (Late st Contact Info) Description 06/25/2025 Telephone [facility] - [address], [address] [place] [address] Paty Fry MA Social History Tobacco Use Types Packs/Day Years [...] get more. 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 Lemus if she would like to continue care with him. We received the sleep eval report. Paty documented in this encounter Plan of Treatment Not on file documented as of this encounter Visit Diagnoses Not on filedocumented in this encounter Care Teams Home Health Care Social Worker Relationship Specialty Start Date End Date Belem Peterson MD [address] [place] [address] PCP - General 02/08/17 documented as of this encounter
--- OUTSIDE RECORDS SUMMARY | 2025-06-25 18:40 | XMS_ITS | Encounter Summary ---
Author Organization [facility] Address [address] [place] [address] Care Team Providers Care Finnish Rubber Name Role Phone Belem Peterson MD Primary Care Provider [phone] Reason for Visit * Reason Onset Date Comments Med Refill 06/22/2025 Encounter Details Date Type Department Care Team (Late st Contact Info) Description 06/22/2025 Refill [facility] Internal Medicine [address] [address] Belem Peterson MD [address] [place] [address] Social History Tobacco Use Types Packs/Day Years [...] money to get more. 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
== END 2025-06-25 15:47 | disposition home or self-care (01) ==
LOC: HO.HMGAL 15:46
PROVIDERS: PCP Internal Medicine; Visit Provider Registered Nurse Emergency
DX: J30.89 Other allergic rhinitis (principal)
CPT/HCPCS: 95117; 95165

== ENCOUNTER 2025-07-09 16:17 | Outpatient (AMB) | payer OTHER, SELFPAY ==
--- OUTSIDE RECORDS SUMMARY | 2025-07-09 20:54 | XMS_ITS | Clinical Summary ---
Author Organization [facility] Address [facility] [address] [address] Phone Care Team Providers Care Parts Clerk Name Role Phone Belem Peterson MD [...] [place] [id number] [place] [id number] [place] [address] [place] [address] [place] [address] [employer] [facility] [employer] [facility] [employer] [facility] [employer] (Work) [address] [place] [address] [facility] [place] [address] [place] [address] [facility] HMO POS Care Teams Parts Clerk Relationship Specialty Start Date End Date Belem Peterson MD [address] [place] [address] PCP - General Internal Medicine 02/07/17 Logan Rosenthal MD [address] [place] [address] Cardiology 02/07/17 Additional Source Comments The information contained in this document represents components of the legal health record. It is not the complete legal health record.[facility]
--- OUTSIDE RECORDS SUMMARY | 2025-07-09 20:54 | XMS_ITS | Encounter Summary ---
Author Organization [facility] Address [address] [place] [address] [place] [address] Phone Care Team Providers Care Director Of Product Marketing Name Role Phone Belem Peterson MD Primary Care Provid er RobotLogan huitron MD Unavailable Encounter Details Date Type Department Care Team (Late st Contact Info) Description 06/13/2017 Transcribe Orders [facility] Echocardi[facility] [address] [place] [address] Karis [email or web address] Social History Tobacco Use Types Packs/Day Years [...] MUSE_BWH QTC Interval 420 ms MUSE_BWH P [place] 68 degrees MUSE_BWH R Wave [place] 3 degrees MUSE_BWH T Wave [place] 2 degrees MUSE_BWH 06/13/2017 5:28 PM EST Narrative MUSE_BWH - 06/14/2017 8:28 PM EST Normal sinus rhythm Septal infarct (cited on or before 07-MAR-2017) Abnormal ECG When compared with ECG of 07-MAR-2017 13:42, No significant change was found us Evelia Nuno MD ECG ORDERABLES Final Result ROBBIN_TIRSO documented in this encounter Visit Diagnoses Not on filedocumented in this encounter Care Teams Director Of Product Marketing Relationship Specialty Start Date End Date Belem Peterson MD [address] [place] [address] PCP - General Internal Medicine 02/07/17 Logan Rosenthal MD [address] [place] [address] Cardiology 02/07/17 documented as of this encounter Additional Source Comments The information contained in this document represents components of the legal health record. It is not the complete legal health record.[facility]
--- OUTSIDE RECORDS SUMMARY | 2025-07-09 20:54 | XMS_ITS | Data Portability ---
Author Organization [facility] [employer]admin Address [address] [place] [address] Care Team Providers Care Watch Guard Gate Name Role Phone SARINA DOOLEY Florist Manager LIDIA RICE Primary Care Provider [phone] GENNY TAM Florist Manager Unavailable Assessment Encounter Date Assessment Date Assessment [...] or ectopy noted. Two-week event monitor at [facility] from 09/03/21 to 09/17/21 showed sinus rhythm throughout. For activations with symptoms of palpitations correlated with sinus tachycardia. [email or web address] Not available 01/08/2024 08:58:22 04/01/2024 04/01/2024 Blood [...] or ectopy noted. Two-week event monitor at [facility] from 09/03/21 to 09/17/21 showed sinus rhythm throughout. For activations with symptoms of palpitations correlated with sinus tachycardia. [email or web address] Not available 03/29/2024 12:00:51 01/20/2025 01/20/2025 Blood [...] or ectopy noted. Two-week event monitor at [facility] from 09/03/21 to 09/17/21 showed sinus rhythm throughout. For activations with symptoms of palpitations correlated with sinus tachycardia. [email or web address] Not available 01/08/2025 12:31:51 Plan of Treatment Reminders Order Date Submit Date Provider Last Modified By Organization Details Last Modified Time Details Appointments None recorded. Lab None recorded. Referral None recorded. Procedures None recorded. Surgeries None recorded. Imaging electrocard iogram 2024 025 [email or web address] In-Office Order, Internal Use Only DO Not Attach Compendium DO Not Attach Compendium, Do Not Delete/merge, [id number] 5 14:06:50 home sleep study - 29 y/o F w/ inappropria te sinus tachycardia while sleeping, please screen for LUCÍA thanks 2024 025 [email or web address] [facility], [address] [place] [address], [place], [address], 5 10:11:53 electrocard iogram 2023 024 [email or web address] 8 In-Office Order, Internal Use Only DO Not Attach Compendium DO Not Attach Compendium, Do Not Delete/merge, [id number] 11:25:29 electrocard iogram 2023 024 [email or web address] In-Office Order, Internal Use Only DO Not Attach Compendium DO Not Attach Compendium, Do Not Delete/merge, [id number] 09:34:53 Medication Orders None recorded. Patient TargetsNo targets recorded. Patient InstructionsNo instructions recorded. Reason for Referral None Reported. Results Created Date Observation Date Name Description Value Unit Range Abnormal Flag Note LastModifiedBy Organization Detail LastModifiedTime 01/03/20 24 elect rocar diogr am No observ ation record ed. [email or web address] In-Office Order Internal Use Only DO Not Attach Compendium DO Not Attach Compendium, Do Not Delete/merge, [id number] 01/08/2024 08:40:38 01/08/20 24 elect rocar diogr am No observ ation record ed. Not Available 01/07 08:59:05 03/29/20 24 elect rocar diogr am No observ ation record ed. [email or web address] In-Office Order Internal Use Only DO Not Attach Compendium DO Not Attach Compendium, Do Not Delete/merge, [id number] 04/01/2024 11:17:14 04/01/20 24 elect rocar diogr am No observ ation record ed. [email or web address] Not Available 04/01 11:16:26 01/21/20 25 elect rocar diogr am No observ ation record ed. [email or web address] In-Office Order Internal Use Only DO Not Attach Compendium DO Not Attach Compendium, Do Not Delete/merge, [id number] 01/20/2025 13:53:09 01/21/20 25 elect rocar diogr am No observ ation record ed. [email or web address] Not Available 01/20 13:51:13 Result Notes None recorded. Problems Name Problem SNOMED Code Status Onset Date Resolution Date Notes Provider Name and Address Organization Details Recorded Time Inappropriate sinus tachycardia 001467957 Active 2023 Sarina Dooley, [place], [address], [facility]. 4 13:13:12 Asthma 632685821 Active 2023 Sarina Dooley [facility] [address] [place], [address], [facility] 4 13:13:22 Tachycardia 1874027 Active 2023 Genny Tam MD [address] [place] [address], 6, [facility] 4 08:41:22 Palpitations 09440232 Active 2023 Genny Tam MD [address] [place] [address], 6, [facility] 4 08:41:25 Difficulty sleeping 721363117 Active 2024 Genny Tam MD [address] [place] [address], 6, [facility] 5 13:58:40 Problem Notes None recorded. Procedures Surgical History Date Name Laterality Status Provider Name and Address Organization Details Recorded Time Eye Surgery completed [facility] 01/08/2024 08:43:26 [facility] 01/08/2024 08:48:22 Imaging Results None recorded. Procedure Notes None recorded. Medical Equipment None Reported. Allergies Allergen ID Allergen Name Allergen Category Reaction Reaction Severity Criticality Documentation Date Start Date Code Code System Note Provider Name and Address Organization Details Recorded Time 211204 POLLEN EXTRACTS environme nt,medica tion itching other Not available Not available Not available 01/08/2024 06124 6 RxNorm Rosauny Beto [facility] 4 08:43:01 545685 cow milk allergeni c extract food,medi cation other Not available Not available 01/08/2024 43859 5 RxNorm Rosauny Beot null, [facility] 4 08:43:01 477159 cat dander environme nt itching other Not available Not available Not available 01/08/2024 sEther martino, [facility] 4 08:43:01 937613 mold extract environme nt itching other Not available Not available Not available 01/08/2024 62423 8 RxNorm Esther martino, [facility] 4 08:43:01 737000 famotidin e medicatio n Not available Not available Not available 01/08/2024 4278 RxNorm Esther martino, [facility] 4 08:45:26 933208 codeine medicatio n Not available Not available Not available 06/18/20252021 2670 RxNorm unrec ogniz ed react ion (text : Delir ium, code: 11034 00) (from exter [facility] e) Not Available [facility] - External Data Service - prod 5 [...] Address Organization Details Last Updated DateTime 01/08/2024 53479.49 g 24 kg/m2 149.86 cm 95 /min 108/72 mm[Hg] Esther [facility] 01/08/2024 08:50:06 Date Recorded Body height Body mass index (BMI) Body weight Heart rate Systolic And Diastolic Provider Name and Address Organization Details Last Updated DateTime 01/20/2025 149.86 cm 23.4 kg/m2 88739.71 g 76 /min 117/80 mm[Hg] Boaz De [facility] 01/20/2025 13:50:22 Date Recorded Body height Body mass index (BMI) Body weight Heart rate Systolic And Diastolic Provider Name and Address Organization Details Last Updated DateTime 04/01/2024 149.86 cm 23.2 kg/m2 85007.12 g 86 /min 111/76 mm[Hg] Boaz [facility] 04/01/2024 11:16:11 Social History Question Answer Notes LastModified by Organizat ion Details LastModified Time Tobacco Smoking Status Never Smoker Esther martino [facility] 01/08/2024 08:43:18 Do You Have [...] not available 01/08/2024 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 Moderate Information not available 01/08/2024 Mental Status Question Answer Note LastModified by Organization D etails LastModified Time Do you feel stressed (tense, restless, nervous, or anxious, or unable to sleep at night)? [id number] Information not available 01/08/2024 Family History Relationship [...] ICD10 Code Diagnosis IMO Codes Diagnosis Note [id number] Genny Tam MD [facility] Cardiolog y [address] [place] [address] 01/08/2024 08:24:43 01/08/2024 09:19:08 Tachycardia 6135765 R00.0 Over the past few years her [...] of current meds, and documentat ion Palpitations 27023347 R0 0.2 [id number] MD Reji Bernard Cardiolog [facility] [address] [place] [address] 04/01/2024 11:05:40 04/01/2024 11:25:29 Tachycardia 1104398 R00.0 multiple symptomati c episodes of tachycardi a while off of the ivabradine we have restarted at a lower dose of just 2.5 mg once daily which she seems to be tolerating well we will continue to monitor closely and titrate meds as needed Palpitations 86289066 R0 0.2 [id number] MD [facility] [address] [place] [address] 01/20/2025 08:46:51 01/20/2025 14:06:50 Tachycardia 4394789 R00.0 She has been tolerating the low-dose of ivabradine well as of late, she has been asymptomat ic since resumption of the medication Palpitations 97580742 R0 0.2 As long as she stays on ivabradine we will need to monitor her for signs and symptoms of arrhythmia such as atrial fibrillati on, none have been detected as of yet Difficulty sleeping 3013 [address]7036 G47.9 9980671 Given that her arrhythmia events seems to [...] Name 05/26/2025 1 [employer] [place]) [id number] Marleni Lentz [id number] Notes Date Note Type Note Provider [...] shortness of breath. 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 Genny Tam MD [address] [place] [address], [phone], [facility]. 01/08/2024 09:39:43 04/01/2024 text/html 29 y/o F [...] but otherwise no complaints Genny Tam MD [address] [place] [address], [phone], [facility]. 04/01/2024 12:13:01 01/20/2025 text/html 29 y/o F [...] no other recent illnesses Genny Tam MD [address] [place] [address], [phone], [facility]. 01/20/2025 17:41:46 OBGyn Episode No OBEpisode recorded.
--- OUTSIDE RECORDS SUMMARY | 2025-07-09 20:54 | XMS_ITS | Encounter Summary ---
Author Organization [facility] Address [address] [place] [address] Care Team Providers Care Fork Truck Operator Name Role Phone Belem Peterson MD Primary Care Provider [phone] Encounter Details Date Type Department Care Team (Late st Contact Info) Description 04/21/2025 Orders Only [facility] Nuclear Medicine [address] [place] [phone] Landen Ferrera MD [address] [place] [address] Social History Tobacco Use Types Packs/Day Years [...] money to get more. 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 Not on file Not on file documented as of this encounter Plan of Treatment Upcoming Encounters Date Type Department Care Team (Late st Contact Info) Description 01/06/2026 4:00 PM EDT Office Visit [facility] Cardiology [address] [place] [address], [address] [place] [address] Kane Lemus Jr., MD [address] [place] [address] [address] [address] documented as of this encounter Visit Diagnoses Not on filedocumented in this encounter Care Teams Fork Truck Operator Relationship Specialty Start Date End Date Belem Peterson MD [address] [place] [address] PCP - General 02/08/17 documented as of this encounter
--- OUTSIDE RECORDS SUMMARY | 2025-07-09 20:54 | XMS_ITS | Clinical Summary ---
Author Organization [facility] Address [address] [place] [address] Care Team Providers Care Exceptional Children Teacher Assistant Name Role Phone Belem Peterson MD Primary Care Provider [phone] Allergies Active Allergy Reactions Criticality Noted Date [...] Type Department Care Team Description 06/25/2025 Telephone [facility] [place] Cardiology [address] [place] [address] Road, [address] [place] [address] Paty Fry [place] 06/23/2025 1:00 PM EST Office Visit [facility] Internal [address] [place] [address] Belem Peterson MD Encounter for routine adult health examination without abnormal findings (Primary Dx); Midline low back pain without sciatica, unspecified chronicity; Generalized anxiety disorder; Inappropriate sinus tachycardia (HCC); Need for hepatitis C screening test; Gastroesophageal reflux disease without esophagitis; Screening for HIV (human immunodeficiency virus) 06/22/2025 Refill [facility] Internal [address] [place] [address] Belem Peterson MD 04/23/2025 Orders Only [facility] Internal [address] [place] [address] ProviderPiter MD 04/22/2025 Orders Only [facility] Internal [address] [place] [address] Piter Zarate MD 04/21/2025 11:00 AM EDT Office Visit [address] [place] [address] Belem Peterson MD Right lower quadrant abdominal pain (Primary Dx) 04/21/2025 myChart Message [facility] Internal [facility] [address] [facility] [address] [place] [address] Mychart, Generic Provider CT ready for scheduling 04/21/2025 myChart Message [facility] Internal [facility] [address] [facility] [address] [place] [address] Belem Peterson MD Last Menstrual Period 04/21/2025 Orders Only [facility] Nuclear Medicine [address] [place] [phone] Landen Ferrera MD 04/21/2025 Telephone [facility] Internal [facility] [address] [facility] [address] [place] [address] Belem Peterson MD [facility] fax # 04/21/2025 Telephone [facility] Internal [facility] [address] [facility] [address] [place] [address] Belem Peterson MD Additional Info Needed - [facility] [employer] Fax Number 04/20/2025 Inquisitive Systemshart Message [facility] Internal [facility] [address] [facility] [address] [place] [address] Belem Peterson MD Right hip pain from Last 3 Months Immunizations Immunization Administration Dates Next Due Covid-19, Pfizer, mRNA, [place] valent, PF 30 mcg/0.3 mL dose (for [...] money to get more. 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 on file Not [...] 06/23/2025 1:13 PM EST Plan of Treatment Upcoming Encounters Date Type Department Care Team (Late st Contact Info) Description 01/06/2026 4:00 PM EDT Office Visit [address], [address] [place] [address] Kane Lemus Jr., MD [address] [place] [address] [address] [address] Health Maintenance Due Date Last Done Comments [...] Additional history exists Procedures * Due to [place] [employer] law, this organization might not be sharing [...] Most Recently Relevant to Health Maintenance Insurance [place] [employer] Care Teams Exceptional Children Teacher Assistant Relationship Specialty Start Date End Date [place]lem [place] [address] PCP - General 02/08/17
--- OUTSIDE RECORDS SUMMARY | 2025-07-09 20:54 | XMS_ITS | Encounter Summary ---
Author Organization [facility] Address [address] [place] [address] [place] [phone] Phone Care Team Providers Care Activities Coordinator Name Role Phone Belem Peterson MD Primary Care Provid er RobotLogan huitron MD Unavailable Encounter Details Date Type Department Care Team (Late st Contact Info) Description 02/06/2018 Transcribe Orders [facility] [address] [place] [address] Lolis Tovar [address] [place] [address] [email or web address] Social History Tobacco Use Types Packs/Day [...] BPM MUSE_BWH Atrial Rate 64 BPM MUSE_BWH WV Interval 136 ms MUSE_BWH QRS Duration 76 ms MUSE_B[facility] QT Interval 406 ms MUSE_B[facility] QTC Interval 418 ms MUSE_BWH P [place] 52 degrees MUSE_BWH R Wave [place] -3 degrees MUSE_BWH T Wave [place] 30 degrees MUSE_BWH 02/06/2018 2:43 PM EDT Narrative MUSE_BWH - 02/11/2018 1:54 PM EDT Normal sinus rhythm Low voltage QRS, consider pulmonary disease, pericardial effusion, or normal variant Cannot rule out Anterior myocardial infarction , age undetermined Abnormal ECG When compared with ECG of 08-AUG-2017 16:30, Criteria for Anterior myocardial infarction are now Present Evelia Nuno MD ECG ORDERABLES Final Result MUSE_BW documented in this encounter Visit Diagnoses Not on filedocumented in this encounter Care Teams Activities Coordinator Relationship Specialty Start Date End Date Belem Peterson MD [address] [place] [address] PCP - General Internal Medicine 02/07/17 Logan Rosenthal MD [address] [place] [address] Cardiology 02/07/17 documented as of this encounter Additional Source Comments The information contained in this document represents components of the legal health record. It is not the complete legal health record.[facility]
--- OUTSIDE RECORDS SUMMARY | 2025-07-09 20:54 | XMS_ITS | Encounter Summary ---
Author Organization [facility] Address [address] [place] [address] [place] [address] Phone Care Team Providers Care Show Jumping Instructor Name Role Phone Belem Peterson MD Primary Care Provid er RobotLogan huitron MD Unavailable Encounter Details Date Type Department Care Team (Late st Contact Info) Description 08/09/2017 Transcribe Orders [facility] Ech[facility] [address] [place] [address] [email or web address] Social History Tobacco Use Types Packs/Day [...] BPM MUSE_BWH Atrial Rate 69 BPM MUSE_BWH WI Interval 136 ms MUSE_BWH QRS Duration 80 ms MUSE_BWH QT Interval 400 ms MUSE_BWH QTC Interval 428 ms MUSE_BWH P [place] 60 degrees MUSE_BWH R Wave [place] -6 degrees MUSE_BWH T Wave [place] 28 degrees MUSE_BWH 08/08/2017 4:30 PM EST Narrative MUSE_BWH - 08/21/2017 11:03 AM EST Normal sinus rhythm Normal ECG When compared with ECG of 13-JUN-2017 17:28, Criteria for Septal infarct are no longer Present Bekah Nuno MD ECG ORDERABLES Final Result ROBBIN_TIRSO documented in this encounter Visit Diagnoses Not on filedocumented in this encounter Care Teams Show Jumping Instructor Relationship Specialty Start Date End Date Belem Peterson MD [address] [place] [address] PCP - General Internal Medicine 02/07/17 Logan Rosenthal MD [address] [place] [address] Cardiology 02/07/17 documented as of this encounter Additional Source Comments The information contained in this document represents components of the legal health record. It is not the complete legal health record.[facility]
--- OUTSIDE RECORDS SUMMARY | 2025-07-09 20:54 | XMS_ITS | Patient Health Record ---
Author Organization [facility] Address [facility] [address] [place], [place] [id number] Care Team Providers Care Nutrition Aides Teacher Name Role Phone Nicholas PENA, Belem Primary [...] Options Details Social History Occupation: works in [employer] Occup. exposure: None Marital status Single Section Notes: no pets no pets Problems Problem Type SNOMED Code ICD Code Onset Dates Problem Status W/U Status Risk Notes Problem Tachycardia (3678639) Tachycardia (R00.0) Active confirmed Problem Gastroesophageal reflux disease (012630672) Gastroesophageal reflux disease, esophagitis presence not specified (K21.9) Active confirmed Problem Uncomplicated moderate persistent asthma (324650560) Moderate persistent asthma without complication (J45.40) Active confirmed Problem Daytime hypersomnia (23056051202843) Daytime hypersomnia (G47.19) Active confirmed Problem Chest pain (27623156) Chest pain, unspecified type (R07.9) Active confirmed Encounters Encounter Location Date Provider Diagnosis [facility] - [place] [address] [place] [id number] 04/09/2025 Shimon Bales Plan Of Treatment Pending Test Test Name Order Date SLEEP STUDY-DIAGNOSTIC 01/05/2017 ALLERGEN ASTHMA PROFILE 01/05/2017 CBC+AUTO DIFF 01/05/2017 IgE 01/05/2017 D.PTERONYSSINUS 01/05/2017 DERM FARINEAE 01/05/2017 CAT DANDER 01/05/2017 DOG EPITHELIUM 01/05/2017 CT CHEST +C 01/05/2017 OAK 01/05/2017 PENCILLIUM NOTATUM MOLD 01/05/2017 COCKROACH 01/05/2017 BRITTANY GRASS 01/05/2017 COMMON RAGWEED 01/05/2017 KYRGYZ PLANTAIN 01/05/2017 CLADOSPORIUM HERBARUM MOLD 01/05/2017 MUCOR RACEMOSUS MOLD 01/05/2017 CARMEN ALBICANS 01/05/2017 ALTERNARIA TENIUS MOLD 01/05/2017 CT CHEST +C 01/12/2017 Future Test Test Name Order Date CHEST XRAY PA LAT 01/05/2017 Insurance Providers Payer Name Payer Address Payer Phone Subscriber Number Group Number Insured Name Patient Relationship to Insured Coverage Start Date Coverage End Date Blue Cross Blue [facility] [address] [place] [address] [id number] Marleni Navarro Self - patient is the insured Medical (General) History Medical History History ICD Code Migraine headache Seasonal rhinitis Anxiety Surgical History Surgery Date(Month/Year) [place] teeth extracted Tonsillectomy
--- OUTSIDE RECORDS SUMMARY | 2025-07-09 20:54 | XMS_ITS | Clinical Summary ---
Author Organization [facility] Address [address] [place] [address] Care Team Providers Care Director Global Medical Affairs Name Role Phone Belem Peterson MD Primary [...] file Medical Devices Not on file Insurance [facility] Care Teams Director Global Medical Affairs Relationship Specialty Start Date End Date Belem Peterson MD [address] [place] [address] [place] [phone] PCP - Legal Referee 07/18/19
== END 2025-07-09 16:18 | disposition home or self-care (01) ==
LOC: HO.HMGAL 16:17
PROVIDERS: PCP Internal Medicine; Visit Provider Registered Nurse Emergency
DX: J30.89 Other allergic rhinitis (principal)
CPT/HCPCS: 95117; 95165

== ENCOUNTER 2025-07-10 15:14 | Outpatient (REF) | payer OTHER, SELFPAY ==
[2025-07-10 15:38] LABS: MANUAL DIFF FLAG NO
[2025-07-10 15:53] LABS: Hematocrit 38.0 % (37.0-47.0); Hemoglobin 13.0 g/dl (12.0-16.0); Imm Gran Abs Auto 0.01 X10*3/uL (0.00-0.03); Imm Gran Pct Auto 0.2 % (0.0-0.4); Lymphocytes Absolute Auto 2.4 X10*3/uL (1.2-4.9); Mean Corpuscular HGB Conc 34.2 g/dl (31.0-35.0); Mean Corpuscular Hemoglobin 29.1 pg (27.0-33.0); Mean Corpuscular Volume 85.0 fL (80.0-98.0); NRBC Abs Auto 0.000 X10*3/uL (0.0-0.012); NRBC Pct Auto 0.0 /100WBC (0.0-0.2); Platelet Count 262 X10*3/uL (160-400); Red Blood Count 4.47 X10*6/uL (4.20-5.50); White Blood Count 6.5 X10*3/uL (4.8-10.8)
[2025-07-10 16:50] LABS: Alanine Aminotransferase 21 U/L (0-31); Albumin Level 4.5 g/dL (3.5-5.0); Alkaline Phosphatase 45 U/L (39-117); Anion Gap 10 (12-20); Aspartate Amino Transferase 23 U/L (5-31); Blood Urea Nitrogen 12 mg/dL (9-16); Calcium 9.0 mg/dL (8.4-10.2); Carbon Dioxide 27 mmol/L (22-29); Chloride 106 mmol/L (96-108); Cholesterol 144 mg/dL (<200); Estimated Glomerular Filt Rate > 60; HDL Cholesterol 65 mg/dL (>40); Potassium 3.6 mmol/L (3.3-5.1); Sodium 139 mmol/L (135-145); Total Protein 6.9 g/dL (6.5-8.0); Triglycerides 38 mg/dL (<150)
[2025-07-10 17:03] LABS: Thyroid Stimulating Hormone 0.94 uIU/mL (0.32-4.0)
--- OUTSIDE RECORDS SUMMARY | 2025-07-10 19:15 | XMS_ITS | Encounter Summary ---
Author Organization [facility] Address [address] [place] [address] Care Team Providers Care Lapidary Apprentice Name Role Phone Belem Peterson MD Primary Care Provider [phone] Encounter Details Date Type Department Care Team (Late st Contact Info) Description 04/21/2025 Orders Only [facility] Nuclear Medicine [address] [place] [phone] Landen Ferrera MD [address] [place] [phone] Social History Tobacco Use Types Packs/Day Years [...] to get more. 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 Not on file Not on file documented as of this encounter Plan of Treatment Upcoming Encounters Date Type Department Care Team (Late st Contact Info) Description 01/06/2026 4:00 PM EDT Office Visit [facility] Cardiology [address] [place] [address], [address] [place] [address] Kane Lemus Jr., MD [address] [place] [address] [address] [address] documented as of this encounter Visit Diagnoses Not on filedocumented in this encounter Care Teams Lapidary Apprentice Relationship Specialty Start Date End Date Belem Peterson MD [address] [place] [address] PCP - General 02/08/17 documented as of this encounter
--- OUTSIDE RECORDS SUMMARY | 2025-07-10 19:15 | XMS_ITS | Patient Health Record ---
Author Organization [facility] Address [facility] [address] [place], [place] [id number] Care Team Providers Care Driver License Technician Name Role Phone Nicholas PENA, Belem Primary Care Provider Unavail able Amairani Shimon Unavailable [phone] Kane Devine Unavailable Unavailable Reason For [...] Options Details Social History Occupation: works in [employer] Occup. exposure: None Marital status Single Section Notes: no pets no pets Problems Problem Type SNOMED Code ICD Code Onset Dates Problem Status W/U Status Risk Notes Problem Tachycardia (2837472) Tachycardia (R00.0) Active confirmed Problem Gastroesophageal reflux disease (326568678) Gastroesophageal reflux disease, esophagitis presence not specified (K21.9) Active confirmed Problem Uncomplicated moderate persistent asthma (761444843) Moderate persistent asthma without complication (J45.40) Active confirmed Problem Daytime hypersomnia (64438135121566) Daytime hypersomnia (G47.19) Active confirmed Problem Chest pain (04272514) Chest pain, unspecified type (R07.9) Active confirmed Encounters Encounter Location Date Provider Diagnosis [facility] - [place] [address] [place] [id number] 04/09/2025 Shimon Bales Plan Of Treatment Pending Test Test Name Order Date SLEEP STUDY-DIAGNOSTIC 01/05/2017 ALLERGEN ASTHMA PROFILE 01/05/2017 CBC+AUTO DIFF 01/05/2017 IgE 01/05/2017 D.PTERONYSSINUS 01/05/2017 DERM FARINEAE 01/05/2017 CAT DANDER 01/05/2017 DOG EPITHELIUM 01/05/2017 CT CHEST +C 01/05/2017 OAK 01/05/2017 PENCILLIUM NOTATUM MOLD 01/05/2017 COCKROACH 01/05/2017 BRITTANY GRASS 01/05/2017 COMMON RAGWEED 01/05/2017 IVORIAN PLANTAIN 01/05/2017 CLADOSPORIUM HERBARUM MOLD 01/05/2017 MUCOR RACEMOSUS MOLD 01/05/2017 CARMEN ALBICANS 01/05/2017 ALTERNARIA TENIUS MOLD 01/05/2017 CT CHEST +C 01/12/2017 Future Test Test Name Order Date CHEST XRAY PA LAT 01/05/2017 Insurance Providers Payer Name Payer Address Payer Phone Subscriber Number Group Number Insured Name Patient Relationship to Insured Coverage Start Date Coverage End Date Blue Cross Blue [facility] [address] [place] [address] [id number] Marleni Navarro Self - patient is the insured Medical (General) History Medical History History ICD Code Migraine headache Seasonal rhinitis Anxiety Surgical History Surgery Date(Month/Year) [place] teeth extracted Tonsillectomy
--- OUTSIDE RECORDS SUMMARY | 2025-07-10 19:15 | XMS_ITS | Clinical Summary ---
Author Organization [facility] Address [address] [place] [address] Care Team Providers Care Cab Station Attendant Name Role Phone Belem Peterson MD Primary Care Provider [phone] Allergies Active Allergy Reactions Criticality Noted Date [...] Type Department Care Team Description 06/25/2025 Telephone [facility] [place] Cardiology [address] [place] [address] Road, [address] [place] [address] [place] [address] Paty Fry [place] 06/23/2025 1:00 PM EST Office Visit [facility] Internal [address] [place] [address] Belem Peterson MD Encounter for routine adult health examination without abnormal findings (Primary Dx); Midline low back pain without sciatica, unspecified chronicity; Generalized anxiety disorder; Inappropriate sinus tachycardia (HCC); Need for hepatitis C screening test; Gastroesophageal reflux disease without esophagitis; Screening for HIV (human immunodeficiency virus) 06/22/2025 Refill [facility] [address] [place] [address] Belem Peterson MD 04/23/2025 Orders Only [facility] [address] [place] [address] ProviderPiter MD 04/22/2025 Orders Only [facility] [address] [place] [address] Piter Zarate MD 04/21/2025 11:00 AM EDT Office Visit [address] [place] [phone] Belem Petersno MD Right lower quadrant abdominal pain (Primary Dx) 04/21/2025 myChart Message [facility] [address] [facility] [address] [place] [phone] Mychart, Generic Provider CT ready for scheduling 04/21/2025 myChart Message [facility] [address] [facility] [address] [place] [phone] Belem Peterson MD Last Menstrual Period 04/21/2025 Orders Only [facility] Nuclear Medicine [address] [place] [phone] Landen Ferrera MD 04/21/2025 Telephone [facility] [address] [facility] [address] [place] [address] Belem Peterson MD [facility] fax # 04/21/2025 Telephone [facility] [address] [facility] [address] [place] [address] Belem Peterson MD Additional Info Needed - [facility]; [facility] Fax Number 04/20/2025 Parents Journeyhart Message [facility] [address] [facility] [address] [place] [address] Belem Peterson MD Right hip pain from Last 3 Months Immunizations Immunization Administration Dates Next Due Covid-19, Pfizer, mRNA, [place] valent, PF 30 mcg/0.3 mL dose (for [...] to get more. Never true 04/21/2025 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 Not on file [...] Description 01/06/2026 4:00 PM EDT Office Visit [address], [address] [place] [address] Kane Lemus Jr., MD [address] [place] [address] [address] [address] Health Maintenance Due Date Last Done Comments [...] Additional history exists Procedures * Due to [place] Netlist law, this organization might not be sharing [...] Most Recently Relevant to Health Maintenance Insurance [employer] Care Teams Cab Station Attendant Relationship Specialty Start Date End Date Belem Peterson [place] [address] PCP - General 02/08/17
--- OUTSIDE RECORDS SUMMARY | 2025-07-10 19:15 | XMS_ITS | Clinical Summary ---
Author Organization [facility] Address [address] [place] [address] Care Team Providers Care Email Deployment Specialist Name Role Phone Belem Peterson MD [...] file Medical Devices Not on file Insurance [facility] Care Teams Email Deployment Specialist Relationship Specialty Start Date End Date Belem Peterson MD [address] [place] [address] [place] [phone] PCP - Ladle Operator 07/18/19
[2025-07-11 08:34] LABS: HIV Num 1 0.08 S/CO (0.00-0.99); ~HepC Num1 0.11 S/CO (0.00-0.79); ~Hepatitis C Antibody Nonreactive (Nonreactive)
== END 2025-07-10 15:15 | disposition home or self-care (01) ==
LOC: HO.LAB 15:14
PROVIDERS: Absent Provider Internal Medicine; PCP Internal Medicine; Visit Provider Obstetrics & Gynecology
DX: Z00.00 Encounter for general adult medical examination without abnormal findings (principal); Z11.4 Encounter for screening for human immunodeficiency virus [HIV]; Z11.59 Encounter for screening for other viral diseases; Z13.6 Encounter for screening for cardiovascular disorders; Z13.29 Encounter for screening for other suspected endocrine disorder; R10.20 Pelvic and perineal pain unspecified side
CPT/HCPCS: 36415; 80053; 80061; 84146; 84443; 85025; 86803; 87389